=== PATIENT | female | born 1945 | race Caucasian/White ===

== ENCOUNTER 2019-09-24 09:58 | Outpatient (CLI) | payer MEDICARE, SELFPAY ==
[2019-09-24 10:15] LABS: Hematocrit 41.3 % (35.0-42.0); Hemoglobin 13.3 g/dL (11.7-13.8); Mean Corpuscular HGB Conc 32.2 g/dL (32.0-36.0); Mean Corpuscular Hemoglobin 28.8 pg (27.0-31.0); Mean Corpuscular Volume 89.4 fL (78.0-102.0); Mean Platelet Volume 10.3 fl (9.2-11.8); Platelet Count Result 168 K/mm3 (150-420); Red Blood Count 4.62 M/mm3 (4.20-5.40); Red Cell Distribution Width 12.7 % (11.6-14.4); White Blood Count 4.9 K/mm3 (4.8-10.8)
[2019-09-24 10:34] LABS: Alanine Aminotransferase 65 U/L (14-59); Albumin Level 3.6 g/dL (3.4-5.0); Alkaline Phosphatase 211 U/L (46-116); Anion Gap 12.7 mmol/L (7-16); Aspartate Amino Transferase 53 U/L (15-37); Bilirubin,Total 0.6 mg/dL (0.00-1.00); Blood Urea Nitrogen 10 mg/dL (7-18); Calcium 9.3 mg/dL (8.5-10.1); Carbon Dioxide 28 mmol/L (21-32); Chloride 100 mmol/L (98-108); Estimated Glomerular Filt Rate 49; Glucose 211 mg/dL (70-99); Osmolality Calculated 289 mOsm/kg (285-295); Potassium 3.7 mmol/L (3.5-5.1); Sodium 137 mmol/L (136-145); Total Protein 7.6 g/dL (6.4-8.2)
[2019-09-24 10:48] LABS: Band Neutrophils Percent 0 % (0-6); Basophils Absolute Manual 0.04 K/mm3 (0-0.1); Basophils Percent Manual 1 % (0-1); Eosinophils Absolute Manual 0.63 K/mm3 (0.02-0.5); Eosinophils Percent Manual 13 % (1-6); Lymphocytes Absolute Manual 1.22 K/mm3 (1.1-4.5); Lymphocytes Percent Manual 25 % (18-44); Monocytes Absolute Manual 0.29 K/mm3 (0.1-0.90); Monocytes Percent Manual 6 % (3-9); Neutrophils Absolute Manual 2.69 K/mm3 (1.7-7.2); Neutrophils Percent Manual 55 % (46-73); Total Cells Counted 100
[2019-09-24 10:49] LABS: Platelet Estimate Adequate (Adequate)
[2019-09-28 20:18] LABS: Abnormal Protein Band 1 5 mg/dL; Creatinine, Random Urine 33 mg/dL (20-275); Total Protein/Creatinine Ratio 303 mg/g creat (21-161)
[2019-09-28 22:56] LABS: Abnormal Protein Band 1 0.5 g/dL; Albumin 3.8 g/dL (3.8-4.8); Alpha 1 Globulin 0.3 g/dL (0.2-0.3); Alpha 2 Globulin 0.8 g/dL (0.5-0.9); Beta 1 Globulin 0.5 g/dL (0.4-0.6); Protein, Total 6.6 g/dL (6.1-8.1)
[2019-09-28 23:54] LABS: Kappa\\Lambda Light Chains 8.93 (0.26-1.65); Lambda Light Chain 21.7 mg/L (5.7-26.3)
== END 2019-09-24 09:59 | disposition home or self-care (01) ==
LOC: CHSLAB 10:01
PROVIDERS: PCP Internal Medicine; Visit Provider Internal Medicine Hematology & Oncology
DX: D47.2 Monoclonal gammopathy (principal)
CPT/HCPCS: 36415; 80053; 82570; 83883; 84155; 84156; 84165; 84166; 85025

== ENCOUNTER 2019-10-11 10:51 | Outpatient (CLI) | payer MEDICARE, SELFPAY ==
--- NOTE | ~2019-10-11 | US_ITS ---
EXAMINATION: US carotid duplex BI DATE: 10/11/2019 12:08 INDICATION: Carotid bruit TECHNIQUE: Grayscale, color Doppler, and pulsed Doppler images of the cervical carotid arteries were obtained. The degree of vessel stenosis is placed in one of the following categories: normal, <50%, 5 0-69%, >=70% but less than near-occlusion, near-occlusion, or total occlusion. Note that percent sten osis relative to normal distal artery lumen diameter is indirectly measured from velocity measurement s as described by Renzo, et al. Radiology 2003; 229:340-346. Notes: Normal: Peak systolic velocity <125 centimeters/sec and no plaque <50%. Peak systolic velocity <125 ( EDV <40; ICA/CCA PSV ratio <2.0; used these factors only a tandem lesions or low cardiac output or co ntralateral disease) 50-69 %: PSV 125-230 (EDV 40-100; ratio 2-4) >= 70% but less than near occlusion: PSV greater than 230 (EDV > 100; ratio> 4.0) Near Occlusion: PSV that is variable; markedly narrowed lumen Occlusion: Absent flow on color/spectral Doppler and no lumen on suarez scale. COMPARISON: None. FINDINGS: RIGHT: The right common carotid artery (CCA) peak systolic velocity (PSV) is 89 cm/s. The right internal car otid artery (ICA) PSV is 72 cm/s. The right ICA end-diastolic velocity (EDV) is 25 cm/s. The right IC A/CCA PSV ratio is 0.8. The external carotid artery (ECA) PSV is 61 cm/s. There is antegrade flow in the right vertebral artery. LEFT: The left CCA PSV is 70 cm/s. The left ICA PSV is 68 cm/s. The left ICA EDV is 29 cm/s. The left ICA/C CA PSV ratio is 1. The ECA PSV is 63 cm/s. There is antegrade flow in the left vertebral artery. IMPRESSION: 1. Less than 50% stenosis in the right internal carotid artery by sonographic criteria. 2. Less than 50% stenosis in the left internal carotid artery by sonographic criteria. Reviewed, dictated and finalized at location A. ER HELPER IMPRESSION: 1. Less than 50% stenosis in the right internal carotid artery by sonographic jason moss. 2. Less than 50% stenosis in the left internal carotid artery by sonographic loretta aguilera.
== END 2019-10-11 10:52 | disposition home or self-care (01) ==
PROVIDERS: PCP Internal Medicine; Visit Provider Internal Medicine
DX: R01.1 Cardiac murmur, unspecified (principal); R09.89 Other specified symptoms and signs involving the circulatory and respiratory systems
CPT/HCPCS: 93306; 93880

== ENCOUNTER 2020-02-18 09:13 | Outpatient (CLI) | payer MEDICARE, SELFPAY ==
[2020-02-18 09:26] LABS: Hematocrit 40.3 % (35.0-42.0); Hemoglobin 13.1 g/dL (11.7-13.8); Mean Corpuscular HGB Conc 32.5 g/dL (32.0-36.0); Mean Corpuscular Hemoglobin 28.4 pg (27.0-31.0); Mean Corpuscular Volume 87.2 fL (78.0-102.0); Mean Platelet Volume 10.1 fl (9.2-11.8); Platelet Count Result 174 K/mm3 (150-420); Red Blood Count 4.62 M/mm3 (4.20-5.40); White Blood Count 3.8 K/mm3 (4.8-10.8)
[2020-02-18 09:32] LABS: Add Urine Microscopic? YES; Appearance Urine Clear (Clear); Bilirubin Urine Negative (Negative); Blood Urine Negative (Negative); Color Urine Yellow (Yellow); Glucose Urine UA Negative (Negative); Ketones Urine Negative (Negative); Leukocyte Esterase Ur Trace (Negative); Nitrate Urine Negative (Negative); Protein Urine 1+ (Negative); pH Urine 6.5 (5.0-8.0)
[2020-02-18 09:41] LABS: Bacteria Urine Trace /hpf; RBC Urine 0-2 /hpf (0-2); Squamous Epithelial Cell Urine Few /hpf (Few); WBC Urine 0-3 /hpf (0-3)
[2020-02-18 09:44] LABS: Creatinine Urine 212.06 mg/dL (40-278)
[2020-02-18 09:53] LABS: Band Neutrophils Percent 0 % (0-6); Basophils Absolute Manual 0.03 K/mm3 (0-0.1); Basophils Percent Manual 1 % (0-1); Eosinophils Absolute Manual 0.49 K/mm3 (0.02-0.5); Eosinophils Percent Manual 13 % (1-6); Hemoglobin A1C 6.5 % (<5.7); Lymphocytes Percent Manual 29 % (18-44); MALB Creatinine Ratio 45.8 mg/g (0-30); Microalbumin Urine Random 97.3 mg/L; Monocytes Absolute Manual 0.19 K/mm3 (0.1-0.90); Monocytes Percent Manual 5 % (3-9); Neutrophils Absolute Manual 1.97 K/mm3 (1.7-7.2); Neutrophils Percent Manual 52 % (46-73); Platelet Estimate Adequate (Adequate); Total Cells Counted 100
[2020-02-18 10:40] LABS: Alanine Aminotransferase 45 U/L (14-59); Albumin Level 3.5 g/dL (3.4-5.0); Alkaline Phosphatase 168 U/L (46-116); Anion Gap 9.2 mmol/L (7-16); Aspartate Amino Transferase 34 U/L (15-37); Bilirubin,Total 0.5 mg/dL (0.00-1.00); Blood Urea Nitrogen 9 mg/dL (7-18); Calcium 9.3 mg/dL (8.5-10.1); Carbon Dioxide 32 mmol/L (21-32); Chloride 103 mmol/L (98-108); Cholesterol 223 mg/dL (0-200); Creatine Kinase 63 U/L (26-192); Estimated Glomerular Filt Rate > 60; Ferritin 132 ng/mL (8-252); Free T4 Free Thyroxine 1.24 ng/dL (0.76-1.46); Glucose 135 mg/dL (70-99); HDL Direct 126 mg/dL (40-60); Iron 113 ug/dL (50-170); LDL Cholesterol Calculated 86 mg/dL (<130); Osmolality Calculated 290 mOsm/kg (285-295); Percent Iron Saturation 38 % (12-57); Potassium 4.2 mmol/L (3.5-5.1); Sodium 140 mmol/L (136-145); Thyroid Stimulating Hormone 0.17 uIU/mL (0.36-3.74); Total Protein 6.7 g/dL (6.4-8.2); Triglycerides 54 mg/dL (0-150); Uric Acid 3.8 mg/dL (2.6-6.0)
[2020-02-21 19:41] LABS: Vitamin D 25 Hydroxy 27 ng/mL (30-100)
[2020-02-22 21:40] LABS: Abnormal Protein Band 1 0.5 g/dL; Albumin 3.9 g/dL (3.8-4.8); Alpha 1 Globulin 0.3 g/dL (0.2-0.3); Alpha 2 Globulin 0.7 g/dL (0.5-0.9); Beta 1 Globulin 0.4 g/dL (0.4-0.6); Protein, Total 6.6 g/dL (6.1-8.1)
== END 2020-02-18 09:14 | disposition home or self-care (01) ==
LOC: CHSLAB 09:15
PROVIDERS: PCP Internal Medicine; Visit Provider Internal Medicine
DX: D50.0 Iron deficiency anemia secondary to blood loss (chronic) (principal); E55.9 Vitamin D deficiency, unspecified; D47.2 Monoclonal gammopathy; E03.4 Atrophy of thyroid (acquired); I10 Essential (primary) hypertension; E78.2 Mixed hyperlipidemia; E79.0 Hyperuricemia without signs of inflammatory arthritis and tophaceous disease; E11.9 Type 2 diabetes mellitus without complications
CPT/HCPCS: 36415; 80053; 80061; 81001; 82043; 82306; 82550; 82728; 83036; 83540; 83550; 84155; 84165; 84439; 84443; 84550; 85025; 86334

== ENCOUNTER 2020-05-10 09:42 | Outpatient (CLI) | payer MEDICARE, SELFPAY ==
[2020-05-10 11:06] LABS: Free T4 Free Thyroxine 1.28 ng/dL (0.76-1.46); Thyroid Stimulating Hormone 0.35 uIU/mL (0.36-3.74)
== END 2020-05-10 09:43 | disposition home or self-care (01) ==
LOC: CHSLAB 09:47
PROVIDERS: PCP Internal Medicine; Visit Provider Internal Medicine
DX: E03.9 Hypothyroidism, unspecified (principal); E11.65 Type 2 diabetes mellitus with hyperglycemia
CPT/HCPCS: 36415; 84439; 84443

== ENCOUNTER 2020-06-28 10:52 | Outpatient (CLI) | payer MEDICARE, SELFPAY ==
--- NOTE | ~2020-06-28 | MM_ITS ---
EXAMINATION: MM screening rina BI w alejandro HISTORY: Screening mammogram, history of left breast cancer TECHNIQUE: Craniocaudal and mediolateral oblique 3-D tomosynthesis images were obtained and synthetic 2-D images were generated. CAD analysis was submitted and interpreted. COMPARISON: 01/21/2019, 11/13/2016, 11/13/2015 BREAST PARENCHYMAL COMPOSITION: There are scattered areas of fibroglandular density. FINDINGS: Lumpectomy changes are noted in the left breast. There is no evidence of suspicious mass, c alcification, or architectural distortion to suggest malignancy in either breast. There has been no s uspicious interval change. IMPRESSION: 1. No mammographic evidence of malignancy. 2. Recommend routine screening mammography in one year. BI-RADS Category 2: Benign finding(s). Reviewed, dictated and finalized at location A. ING ASSOCIATE
== END 2020-06-28 10:53 | disposition home or self-care (01) ==
LOC: CHSIMG 10:55
PROVIDERS: PCP Internal Medicine; Visit Provider Internal Medicine
DX: Z12.31 Encounter for screening mammogram for malignant neoplasm of breast (principal)
CPT/HCPCS: 77063; 77067

== ENCOUNTER 2020-09-07 07:56 | Outpatient (CLI) | payer MEDICARE, SELFPAY ==
[2020-09-07 08:09] LABS: Basophils Absolute Auto 0.06 K/mm3 (0.00-0.10); Basophils Percent Auto 1.5 % (0.0-1.0); Eosinophils Absolute Auto 0.25 K/mm3 (0.02-0.50); Eosinophils Percent Auto 6.3 % (1.0-6.0); Hematocrit 39.8 % (35.0-42.0); Hemoglobin 12.8 g/dL (11.7-13.8); Immature Granulocyte Absolute 0.02 K/mm3 (0.00-0.00); Immature Granulocyte Percent A 0.5 % (0.0-0.0); Lymphocytes Absolute Auto 1.13 K/mm3 (1.10-4.50); Lymphocytes Percent Auto 28.3 % (18.0-42.0); Mean Corpuscular HGB Conc 32.2 g/dL (32.0-36.0); Mean Corpuscular Hemoglobin 28.7 pg (27.0-31.0); Mean Corpuscular Volume 89.2 fL (78.0-102.0); Mean Platelet Volume 10.2 fl (9.2-11.8); Monocytes Absolute Auto 0.31 K/mm3 (0.10-0.90); Monocytes Percent Auto 7.8 % (2.0-11.0); Neutrophils Absolute Auto 2.2 K/mm3 (1.7-7.2); Neutrophils Percent Auto 55.6 % (50.0-70.0); Platelet Count Result 186 K/mm3 (150-420); Red Blood Count 4.46 M/mm3 (4.20-5.40); Red Cell Distribution Width 12.7 % (11.6-14.4)
[2020-09-07 08:17] LABS: Add Urine Microscopic? YES; Appearance Urine Clear (Clear); Bilirubin Urine Negative (Negative); Blood Urine Negative (Negative); Color Urine Yellow (Yellow); Glucose Urine UA Negative (Negative); Ketones Urine Negative (Negative); Leukocyte Esterase Ur Trace (Negative); Nitrate Urine Negative (Negative); Protein Urine Negative (Negative); Specific Grav Ur 1.025 (1.010-1.020); Urobilinogen Urine 0.2 mg/dL (0.2-1.0)
[2020-09-07 08:37] LABS: MALB Creatinine Ratio 7.9 mg/g (0-30); Microalbumin Urine Random < 13.0 mg/L
[2020-09-07 08:40] LABS: Bacteria Urine 2+ /hpf; Squamous Epithelial Cell Urine Few /hpf (Few); WBC Urine 0-3 /hpf (0-3)
[2020-09-07 09:27] LABS: Alanine Aminotransferase 34 U/L (14-59); Albumin Level 3.9 g/dL (3.4-5.0); Alkaline Phosphatase 161 U/L (46-116); Anion Gap 6 mmol/L (8-16); Aspartate Amino Transferase 21 U/L (15-37); Bilirubin,Total 0.6 mg/dL (0.00-1.00); Blood Urea Nitrogen 18 mg/dL (7-18); Calcium 9.7 mg/dL (8.5-10.1); Carbon Dioxide 30 mmol/L (21-32); Chloride 102 mmol/L (98-108); Cholesterol 235 mg/dL (0-200); Creatine Kinase 75 U/L (26-192); Estimated Glomerular Filt Rate 56; Free T4 Free Thyroxine 1.32 ng/dL (0.76-1.46); Glucose 138 mg/dL (70-99); HDL Direct 135 mg/dL (40-60); LDL Cholesterol Calculated 89 mg/dL (<130); Osmolality Calculated 289 mOsm/kg (285-295); Potassium 4.1 mmol/L (3.5-5.1); Sodium 138 mmol/L (136-145); Thyroid Stimulating Hormone 0.47 uIU/mL (0.36-3.74); Total Protein 6.9 g/dL (6.4-8.2); Triglycerides 56 mg/dL (0-150)
[2020-09-07 09:57] LABS: Free T3 2.17 pg/mL (2.18-3.98)
[2020-09-09 12:16] LABS: Vitamin D 25 Hydroxy 32 ng/mL (30-100)
== END 2020-09-07 07:57 | disposition home or self-care (01) ==
LOC: CHSLAB 07:58
PROVIDERS: PCP Internal Medicine; Visit Provider Internal Medicine
DX: E03.4 Atrophy of thyroid (acquired) (principal); E11.22 Type 2 diabetes mellitus with diabetic chronic kidney disease; I10 Essential (primary) hypertension; E78.2 Mixed hyperlipidemia; E79.0 Hyperuricemia without signs of inflammatory arthritis and tophaceous disease; I50.22 Chronic systolic (congestive) heart failure; E55.9 Vitamin D deficiency, unspecified
CPT/HCPCS: 36415; 80053; 80061; 81001; 82043; 82306; 82550; 83036; 84439; 84443; 84481; 85025

== ENCOUNTER 2020-09-21 09:14 | Outpatient (CLI) | payer MEDICARE, SELFPAY ==
[2020-09-21 09:53] LABS: Basophils Absolute Auto 0.07 K/mm3 (0.00-0.10); Basophils Percent Auto 1.4 % (0.0-1.0); Eosinophils Absolute Auto 0.28 K/mm3 (0.02-0.50); Eosinophils Percent Auto 5.7 % (1.0-6.0); Hematocrit 40.1 % (35.0-42.0); Hemoglobin 13.1 g/dL (11.7-13.8); Immature Granulocyte Absolute 0.01 K/mm3 (0.00-0.00); Immature Granulocyte Percent A 0.2 % (0.0-0.0); Lymphocytes Absolute Auto 1.15 K/mm3 (1.10-4.50); Lymphocytes Percent Auto 23.5 % (18.0-42.0); Mean Corpuscular HGB Conc 32.7 g/dL (32.0-36.0); Mean Corpuscular Hemoglobin 28.9 pg (27.0-31.0); Mean Corpuscular Volume 88.5 fL (78.0-102.0); Mean Platelet Volume 10.8 fl (9.2-11.8); Monocytes Absolute Auto 0.42 K/mm3 (0.10-0.90); Monocytes Percent Auto 8.6 % (2.0-11.0); Neutrophils Percent Auto 60.6 % (50.0-70.0); Platelet Count Result 185 K/mm3 (150-420); Red Blood Count 4.53 M/mm3 (4.20-5.40); Red Cell Distribution Width 12.7 % (11.6-14.4); White Blood Count 4.9 K/mm3 (4.8-10.8)
[2020-09-21 10:36] LABS: Alanine Aminotransferase 41 U/L (14-59); Albumin Level 3.9 g/dL (3.4-5.0); Alkaline Phosphatase 168 U/L (46-116); Anion Gap 10 mmol/L (8-16); Aspartate Amino Transferase 29 U/L (15-37); Bilirubin,Total 0.7 mg/dL (0.00-1.00); Blood Urea Nitrogen 14 mg/dL (7-18); Calcium 9.4 mg/dL (8.5-10.1); Carbon Dioxide 30 mmol/L (21-32); Chloride 100 mmol/L (98-108); Estimated Glomerular Filt Rate > 60; Ferritin 134 ng/mL (8-252); Glucose 128 mg/dL (70-99); Iron 116 ug/dL (50-170); Lactate Dehydrogenase 217 U/L (81-234); Osmolality Calculated 292 mOsm/kg (285-295); Percent Iron Saturation 35 % (12-57); Potassium 4.2 mmol/L (3.5-5.1); Sodium 140 mmol/L (136-145); Total Protein 7.3 g/dL (6.4-8.2)
[2020-09-24 09:22] LABS: Kappa\\Lambda Light Chains 11.83 (0.26-1.65); Lambda Light Chain 19.9 mg/L (5.7-26.3)
[2020-09-24 19:45] LABS: Abnormal Protein Band 1 0.5 g/dL; Alpha 1 Globulin 0.3 g/dL (0.2-0.3); Alpha 2 Globulin 0.8 g/dL (0.5-0.9); Beta 1 Globulin 0.5 g/dL (0.4-0.6); Protein, Total 6.8 g/dL (6.1-8.1)
[2020-09-26 10:50] LABS: Beta-2-Microglobulin 2.83 mg/L (<=2.51); Immunoglobulin A 88 mg/dL (70-320); Immunoglobulin G 1057 mg/dL (600-1540); Immunoglobulin M 91 mg/dL (50-300)
[2020-09-26 20:31] LABS: Transferrin 282 mg/dL (188-341)
== END 2020-09-21 09:15 | disposition home or self-care (01) ==
PROVIDERS: PCP Internal Medicine; Visit Provider Internal Medicine Hematology & Oncology
DX: D47.2 Monoclonal gammopathy (principal); D50.9 Iron deficiency anemia, unspecified
CPT/HCPCS: 36415; 80053; 82232; 82728; 82784; 83540; 83550; 83615; 83883; 84155; 84165; 84466; 85025; 86334

== ENCOUNTER 2020-10-09 10:08 | Outpatient (CLI) | payer MEDICARE, SELFPAY ==
[2020-10-09 10:22] LABS: Add Urine Microscopic? NO; Appearance Urine Clear (Clear); Bilirubin Urine Negative (Negative); Blood Urine Negative (Negative); Color Urine Yellow (Yellow); Glucose Urine UA Negative (Negative); Ketones Urine Negative (Negative); Leukocyte Esterase Ur Negative (Negative); Nitrate Urine Negative (Negative); Protein Urine Negative (Negative); Specific Grav Ur 1.015 (1.010-1.020); Urobilinogen Urine 0.2 mg/dL (0.2-1.0)
== END 2020-10-09 10:09 | disposition home or self-care (01) ==
LOC: CHSLAB 10:11
PROVIDERS: PCP Internal Medicine; Visit Provider Internal Medicine
DX: R31.9 Hematuria, unspecified (principal)
CPT/HCPCS: 81003; 87086; 88112

== ENCOUNTER 2020-10-24 07:40 | Outpatient (CLI) | payer MEDICARE, SELFPAY ==
--- NOTE | ~2020-10-24 | CT_ITS ---
EXAMINATION: CT abdomen pelvis wo/w con DATE: 10/24/2020 08:41 INDICATION: Hematuria, history of left breast cancer TECHNIQUE: Computed tomography (CT) of the abdomen and pelvis was performed without intravenous contr ast. CT of the abdomen and pelvis was then performed with a total of 130 mL Omnipaque 350 intravenous contrast using a double-bolus technique for simultaneous opacification of the renal parenchyma and r enal collecting system. The dose-length product (DLP) was 1153.45 mGy-cm. Automated exposure control and iterative reconstruction technique were employed. COMPARISON: 08/18/2006 FINDINGS: There is a 6 mm nodule in the right lower lobe on image 17, new since the comparison examin ation. The heart size is normal. There is a small sliding hiatal hernia. The gallbladder is surgicall y absent. There is mild enlargement of the common bile duct and central intrahepatic ducts which is l ikely due to post cholecystectomy state. The liver, spleen, pancreas, and adrenal glands are normal. No stones are identified in the kidneys, ureters, or bladder. There is no hydronephrosis or hydrouret er. There is a 6 mm hemorrhagic cyst of the left kidney lower pole. No suspicious renal or urothelial lesion is identified. Evaluation of the distal ureters and bladder is limited by streak artifact fro m bilateral hip arthroplasties. Cysts of the right kidney measure up to 4 mm. No pathologically enlar ged abdominal or pelvic lymph nodes are identified. There is no free intraperitoneal gas or evidence of bowel obstruction. A moderate volume of colonic stool is present. There is severe thoracolumbar sp ondylosis. IMPRESSION: 1. No CT correlate for the patient's symptoms. Sensitivity in the bladder is limited by streak artifa ct from hip arthroplasties. 2. 6 mm nodule of the right lower lobe, indeterminate given history of left breast cancer. Reviewed, dictated and finalized at location A. Y CARVER IMPRESSION: 1. No CT correlate for the patient's symptoms. Sensitivity in the bladder is li mited by streak artifact from hip arthroplasties. 2. 6 mm nodule of the right lower lobe, indeterminate given history of left joan ast cancer.
--- NOTE | ~2020-10-24 | US_ITS ---
EXAMINATION: US carotid duplex BI EXAM DATE: 10/24/2020 12:19 INDICATION: Carotid Stenosis, Hematuria. TECHNIQUE: Grayscale, color and pulsed Doppler images of the cervical carotid arteries were obtained . The degree of vessel stenosis is placed in one of the following categories: normal, <50% stenosis, 50-69% stenosis, >=70% stenosis but less than near-occlusion, near-occlusion, or occlusion. Note that percent stenosis relative to normal distal artery lumen diameter is indirectly measured from velocit y measurements as described by Renzo, et al. Radiology 2003; [id number]:340-346. Comparison is made to prior examination from 10/11/2019. FINDINGS: RIGHT SIDE: Right common carotid artery peak systolic velocity (PSV in cm/s): 64 Right bulb/internal carotid artery peak systolic velocity (PSV in cm/s): 89 Right internal carotid artery end diastolic velocity (EDV in cm/s): 38 Right ICA/CCA peak systolic ratio: 1.4 Right external carotid artery peak systolic velocity (PSV in cm/s): 88 Right vertebral artery antegrade flow: yes There is no focal plaque identified. LEFT SIDE: Left common carotid artery peak systolic velocity (PSV in cm/s): 76 Left bulb/internal carotid artery peak systolic velocity (PSV in cm/s): 75 Left internal carotid artery end diastolic velocity (EDV in cm/s): 32 Left ICA/CCA peak systolic ratio: 1.0 Left external carotid artery peak systolic velocity (PSV in cm/s): 78 Left vertebral artery antegrade flow: yes There is no focal plaque identified. IMPRESSION: 1. Normal right internal carotid artery. 2. Normal left internal carotid artery. Reviewed, dictated and finalized at location B. LOGY NAVIGATOR
[2020-10-24 08:01] LABS: Estimated Glomerular Filt Rate 52
== END 2020-10-24 07:41 | disposition home or self-care (01) ==
PROVIDERS: PCP Internal Medicine; Visit Provider Internal Medicine
DX: R31.9 Hematuria, unspecified (principal); I65.23 Occlusion and stenosis of bilateral carotid arteries
CPT/HCPCS: 36415; 74178; 82565; 93880; Q9967

== ENCOUNTER 2021-03-08 08:25 | Outpatient (CLI) | payer MEDICARE, SELFPAY ==
[2021-03-08 08:45] LABS: Hemoglobin 13.1 g/dL (11.7-13.8); Mean Corpuscular HGB Conc 32.8 g/dL (32.0-36.0); Mean Corpuscular Volume 88.5 fL (78.0-102.0); Mean Platelet Volume 10.3 fl (9.2-11.8); Platelet Count Result 183 K/mm3 (150-420); Red Blood Count 4.52 M/mm3 (4.20-5.40); Red Cell Distribution Width 12.7 % (11.6-14.4); White Blood Count 3.8 K/mm3 (4.8-10.8)
[2021-03-08 08:46] LABS: Add Urine Microscopic? NO; Appearance Urine Clear (Clear); Bilirubin Urine Negative (Negative); Blood Urine Negative (Negative); Color Urine Light Yellow (Yellow); Glucose Urine UA Negative (Negative); Ketones Urine Negative (Negative); Leukocyte Esterase Ur Negative (Negative); Nitrate Urine Negative (Negative); Protein Urine Negative (Negative); Specific Grav Ur <= 1.005 (1.010-1.020); Urobilinogen Urine 0.2 mg/dL (0.2-1.0)
[2021-03-08 08:54] LABS: Creatinine Urine 71.68 mg/dL (40-278); MALB Creatinine Ratio 18.1 mg/g (0-30); Microalbumin Urine Random < 13.0 mg/L
[2021-03-08 08:58] LABS: Hemoglobin A1C 6.1 % (<5.7)
[2021-03-08 09:15] LABS: Band Neutrophils Percent 0 % (0-6); Basophils Absolute Manual 0.03 K/mm3 (0-0.1); Basophils Percent Manual 1 % (0-1); Eosinophils Absolute Manual 0.26 K/mm3 (0.02-0.5); Eosinophils Percent Manual 7 % (1-6); Lymphocytes Absolute Manual 1.33 K/mm3 (1.1-4.5); Lymphocytes Percent Manual 35 % (18-44); Monocytes Absolute Manual 0.26 K/mm3 (0.1-0.90); Monocytes Percent Manual 7 % (3-9); Neutrophils Percent Manual 50 % (46-73); Platelet Estimate Adequate (Adequate); Total Cells Counted 100
[2021-03-08 10:04] LABS: Alanine Aminotransferase 31 U/L (14-59); Albumin Level 3.6 g/dL (3.4-5.0); Alkaline Phosphatase 128 U/L (46-116); Anion Gap 9 mmol/L (8-16); Aspartate Amino Transferase 17 U/L (15-37); Bilirubin,Total 0.7 mg/dL (0.00-1.00); Blood Urea Nitrogen 12 mg/dL (7-18); Calcium 9.5 mg/dL (8.5-10.1); Carbon Dioxide 31 mmol/L (21-32); Chloride 102 mmol/L (98-108); Cholesterol 221 mg/dL (0-200); Creatine Kinase 79 U/L (26-192); Estimated Glomerular Filt Rate > 60; Free T3 2.17 pg/mL (2.18-3.98); Free T4 Free Thyroxine 1.19 ng/dL (0.76-1.46); Glucose 128 mg/dL (70-99); HDL Direct 130 mg/dL (40-60); LDL Cholesterol Calculated 80 mg/dL (<130); Osmolality Calculated 295 mOsm/kg (285-295); Potassium 4.6 mmol/L (3.5-5.1); Sodium 142 mmol/L (136-145); Thyroid Stimulating Hormone 0.32 uIU/mL (0.36-3.74); Total Protein 6.7 g/dL (6.4-8.2); Triglycerides 54 mg/dL (0-150); Vitamin B12 845 pg/mL (193-986)
[2021-03-12 02:55] LABS: Vitamin D 25 Hydroxy 31 ng/mL (30-100)
== END 2021-03-08 08:26 | disposition home or self-care (01) ==
LOC: CHSLAB 08:27
PROVIDERS: PCP Internal Medicine; Visit Provider Internal Medicine
DX: E78.2 Mixed hyperlipidemia (principal); E03.4 Atrophy of thyroid (acquired); E11.9 Type 2 diabetes mellitus without complications; I10 Essential (primary) hypertension; E55.9 Vitamin D deficiency, unspecified; E79.0 Hyperuricemia without signs of inflammatory arthritis and tophaceous disease
CPT/HCPCS: 36415; 80053; 80061; 81003; 82043; 82306; 82550; 82607; 83036; 84439; 84443; 84481; 85025

== ENCOUNTER 2021-05-03 07:07 | Outpatient (CLI) | payer MEDICARE, SELFPAY ==
--- NOTE | ~2021-05-03 | CT_ITS ---
EXAMINATION: CT diagnostic chest w con DATE: 05/03/2021 08:38 INDICATION: Shortness of breath, pulmonary nodule, history of breast cancer TECHNIQUE: Transaxial computed tomographic images of the chest were obtained after the administration of 75 cc of Omnipaque 350 intravenous contrast. The dose-length product (DLP) was 145.84 mGy-cm. Ite rative reconstruction was used. COMPARISON: 10/24/2020 FINDINGS: There are at least eight nodules in the lungs which range in size from 4 mm to 12 mm. The l argest is in the left lung apex. No pleural effusion or pneumothorax is identified. The lungs are guillermo e of focal airspace opacities. There are surgical clips in the left axilla. The heart size is normal. No thoracic lymphadenopathy is identified. There are changes of aortic valve replacement. There is s evere thoracic and lumbar spondylosis. The gallbladder is surgically absent. There is a small sliding hiatal hernia. IMPRESSION: 1. Multiple pulmonary nodules measuring up to 12 mm concerning for metastatic breast cancer. Reviewed, dictated and finalized at location A. IMPRESSION: 1. Multiple pulmonary nodules measuring up to 12 mm concerning for metastatic b reast cancer.
[2021-05-03 07:24] LABS: Estimated Glomerular Filt Rate 57
== END 2021-05-03 07:08 | disposition home or self-care (01) ==
LOC: CHSIMG 07:09
PROVIDERS: PCP Internal Medicine; Visit Provider Internal Medicine
DX: R06.00 Dyspnea, unspecified (principal); R91.1 Solitary pulmonary nodule
CPT/HCPCS: 71260; 93306; Q9967

== ENCOUNTER 2021-05-04 10:39 | Outpatient (CLI) | payer MEDICARE, SELFPAY ==
[2021-05-04 10:59] LABS: Basophils Absolute Auto 0.06 K/mm3 (0.00-0.10); Eosinophils Absolute Auto 0.28 K/mm3 (0.02-0.50); Eosinophils Percent Auto 4.5 % (1.0-6.0); Hematocrit 39.2 % (35.0-42.0); Hemoglobin 12.8 g/dL (11.7-13.8); Immature Granulocyte Absolute 0.01 K/mm3 (0.00-0.00); Immature Granulocyte Percent A 0.2 % (0.0-0.0); Lymphocytes Absolute Auto 1.46 K/mm3 (1.10-4.50); Lymphocytes Percent Auto 23.2 % (18.0-42.0); Mean Corpuscular HGB Conc 32.7 g/dL (32.0-36.0); Mean Corpuscular Hemoglobin 29.2 pg (27.0-31.0); Mean Corpuscular Volume 89.5 fL (78.0-102.0); Mean Platelet Volume 10.2 fl (9.2-11.8); Monocytes Absolute Auto 0.44 K/mm3 (0.10-0.90); Neutrophils Percent Auto 64.1 % (50.0-70.0); Platelet Count Result 195 K/mm3 (150-420); Red Blood Count 4.38 M/mm3 (4.20-5.40); Red Cell Distribution Width 12.6 % (11.6-14.4); White Blood Count 6.3 K/mm3 (4.8-10.8)
[2021-05-04 12:25] LABS: Alanine Aminotransferase 41 U/L (14-59); Albumin Level 3.8 g/dL (3.4-5.0); Alkaline Phosphatase 134 U/L (46-116); Anion Gap 10 mmol/L (8-16); Aspartate Amino Transferase 26 U/L (15-37); Bilirubin,Total 0.5 mg/dL (0.00-1.00); Blood Urea Nitrogen 12 mg/dL (7-18); Calcium 9.4 mg/dL (8.5-10.1); Carbon Dioxide 29 mmol/L (21-32); Chloride 102 mmol/L (98-108); Estimated Glomerular Filt Rate > 60; Glucose 93 mg/dL (70-99); Lactate Dehydrogenase 213 U/L (81-234); Osmolality Calculated 291 mOsm/kg (285-295); Potassium 4.5 mmol/L (3.5-5.1); Sodium 141 mmol/L (136-145); Total Protein 6.7 g/dL (6.4-8.2)
[2021-05-07 16:51] LABS: Abnormal Protein Band 1 0.5 g/dL; Albumin 4.1 g/dL (3.8-4.8); Alpha 1 Globulin 0.4 g/dL (0.2-0.3); Alpha 2 Globulin 0.8 g/dL (0.5-0.9); Beta 1 Globulin 0.5 g/dL (0.4-0.6); Protein, Total 6.9 g/dL (6.1-8.1)
[2021-05-07 23:40] LABS: Kappa\\Lambda Light Chains 15.45 (0.26-1.65); Lambda Light Chain 20.1 mg/L (5.7-26.3)
[2021-05-08 07:37] LABS: CA 15-3 9 U/mL (<32); Carcinoembryonic Antigen 0.5 ng/mL (0.0-2.4)
[2021-05-08 22:10] LABS: Beta-2-Microglobulin 2.98 mg/L (<=2.51)
[2021-05-10 07:42] LABS: Abnormal Protein Band 1 2 mg/dL; Creatinine, Random Urine 22 mg/dL (20-275); Total Protein/Creatinine Ratio 591 mg/g creat (21-161)
== END 2021-05-04 10:40 | disposition home or self-care (01) ==
LOC: CHSLAB 10:42
PROVIDERS: PCP Internal Medicine; Visit Provider Internal Medicine Hematology & Oncology
DX: D47.2 Monoclonal gammopathy (principal); Z85.3 Personal history of malignant neoplasm of breast
CPT/HCPCS: 36415; 80053; 82232; 82378; 82570; 83615; 83883; 84155; 84156; 84165; 84166; 85025; 86300; 86334; 86335

== ENCOUNTER 2021-05-07 09:52 | Outpatient (CLI) | payer MEDICARE, SELFPAY ==
--- NOTE | ~2021-05-07 | NM_ITS ---
EXAMINATION: NM bone scan whole body DATE: 05/07/2021 14:59 INDICATION: Breast cancer. Right leg pain. TECHNIQUE: 28.0 mCi Tc-99m HDP was administered intravenously. Delayed whole-body scintigrams were o btained. COMPARISON: CT abdomen and pelvis dated 05/07/2021 and bone survey dated 03/08/2019 FINDINGS: Photopenic defects at the bilateral hips consistent with bilateral total hip arthroplasties. Likely d egenerative joint centered uptake at the bilateral acromioclavicular joints and in the bilateral feet with relatively symmetric distribution. Mild lumbar dextroscoliosis with likely degenerative disc ce ntered uptake most prominent at the upper lumbar spine and facet joint associated uptake with lower l umbar predominance with corresponding severe upper lumbar spine predominant spondylosis on CT images. IMPRESSION: 1. Typical distribution of likely degenerative disc and joint centered uptake in the lumbar spine and at the bilateral acromioclavicular joints and feet. No other suspicious foci of abnormal bone uptake to suggest metastatic disease. Reviewed, dictated and finalized at location A. IMPRESSION: 1. Typical distribution of likely degenerative disc and joint centered uptake i n the lumbar spine and at the bilateral acromioclavicular joints and feet. No o ther suspicious foci of abnormal bone uptake to suggest metastatic disease.
--- NOTE | ~2021-05-07 | CT_ITS ---
EXAMINATION: CT abdomen pelvis w con DATE: 05/07/2021 10:40 INDICATION: Possible metastatic breast cancer to the lung. TECHNIQUE: Computed tomography (CT) of the abdomen and pelvis was performed with 100 cc Omnipaque 350 intravenous contrast. The dose-length product was 510.91 mGy-cm. Automated exposure control and iter ative reconstruction technique were employed. COMPARISON: CT dated 10/24/2020. FINDINGS: There is a 7 mm right lower lobe nodule, image 12. Heart size is normal. There is a hiatal hernia. No significant pleural or pericardial effusion. Status post cholecystectomy. There is fatty infiltration of the liver. The spleen, pancreas, adrenal glands and kidneys are unremarkable. There is moderate fluid in the small bowel which does not appear to be obstructed. No colonic diverticulosis without evidence for diverticulitis. There are bilateral total hip arthroplasties. Advanced lumbar spondylosis with grade 1 degenerative spondylolisthesis at L4-5. No acute osseous abnormality. There are bilateral hip arthroplasties. IMPRESSION: 1. No significant change to 7 mm right lower lobe nodule. Cannot exclude metastatic disease. 2: Nonspecific fluid in the small bowel. No definite obstruction. Consider enteritis or ileus. 3: Hepatic steatosis. Reviewed, dictated and finalized at location A. IMPRESSION: 1. No significant change to 7 mm right lower lobe nodule. Cannot exclude metast atic disease. 2: Nonspecific fluid in the small bowel. No definite obstruction. Consider ent eritis or ileus. 3: Hepatic steatosis.
== END 2021-05-07 09:53 | disposition home or self-care (01) ==
LOC: CHSIMG 09:54
PROVIDERS: PCP Internal Medicine; Visit Provider Internal Medicine
DX: R91.8 Other nonspecific abnormal finding of lung field (principal); Z85.3 Personal history of malignant neoplasm of breast; D47.2 Monoclonal gammopathy
CPT/HCPCS: 74177; 78306; A9561; Q9967

== ENCOUNTER 2021-06-09 08:00 | Outpatient (CLI) | payer MEDICARE, SELFPAY ==
[2021-06-09 09:15] LABS: SARS-CoV-2 RNA PCR Negative (Negative)
== END 2021-06-09 08:01 | disposition home or self-care (01) ==
LOC: CHSLAB 08:02
PROVIDERS: PCP Internal Medicine; Visit Provider Family Medicine
DX: Z01.818 Encounter for other preprocedural examination (principal); Z20.822 Contact with and (suspected) exposure to COVID-19
CPT/HCPCS: C9803; U0003; U0005

== ENCOUNTER 2021-07-05 11:13 | Outpatient (CLI) | payer MEDICARE, SELFPAY ==
[2021-07-05 11:29] LABS: Basophils Absolute Auto 0.08 K/mm3 (0.00-0.10); Basophils Percent Auto 1.8 % (0.0-1.0); Eosinophils Absolute Auto 0.32 K/mm3 (0.02-0.50); Eosinophils Percent Auto 7.2 % (1.0-6.0); Hematocrit 41.6 % (35.0-42.0); Hemoglobin 13.5 g/dL (11.7-13.8); Immature Granulocyte Absolute 0.01 K/mm3 (0.00-0.00); Immature Granulocyte Percent A 0.2 % (0.0-0.0); Lymphocytes Percent Auto 31.6 % (18.0-42.0); Mean Corpuscular HGB Conc 32.5 g/dL (32.0-36.0); Mean Corpuscular Hemoglobin 29.7 pg (27.0-31.0); Mean Corpuscular Volume 91.4 fL (78.0-102.0); Mean Platelet Volume 10.5 fl (9.2-11.8); Monocytes Absolute Auto 0.33 K/mm3 (0.10-0.90); Monocytes Percent Auto 7.4 % (2.0-11.0); Neutrophils Absolute Auto 2.3 K/mm3 (1.7-7.2); Neutrophils Percent Auto 51.8 % (50.0-70.0); Platelet Count Result 192 K/mm3 (150-420); Red Blood Count 4.55 M/mm3 (4.20-5.40); Red Cell Distribution Width 12.7 % (11.6-14.4); White Blood Count 4.4 K/mm3 (4.8-10.8)
[2021-07-05 12:09] LABS: Alanine Aminotransferase 42 U/L (14-59); Albumin Level 3.7 g/dL (3.4-5.0); Alkaline Phosphatase 160 U/L (46-116); Anion Gap 8 mmol/L (8-16); Aspartate Amino Transferase 28 U/L (15-37); Bilirubin,Total 0.5 mg/dL (0.00-1.00); Blood Urea Nitrogen 13 mg/dL (7-18); Calcium 9.2 mg/dL (8.5-10.1); Carbon Dioxide 30 mmol/L (21-32); Chloride 101 mmol/L (98-108); Estimated Glomerular Filt Rate 59; Glucose 87 mg/dL (70-99); Lactate Dehydrogenase 235 U/L (81-234); Osmolality Calculated 287 mOsm/kg (285-295); Potassium 4.2 mmol/L (3.5-5.1); Sodium 139 mmol/L (136-145); Total Protein 6.9 g/dL (6.4-8.2)
[2021-07-08 04:42] LABS: Kappa\\Lambda Light Chains 19.81 (0.26-1.65); Lambda Light Chain 18.8 mg/L (5.7-26.3)
[2021-07-08 12:08] LABS: Immunoglobulin A 72 mg/dL (70-320); Immunoglobulin G 1034 mg/dL (600-1540); Immunoglobulin M 69 mg/dL (50-300)
[2021-07-08 17:24] LABS: Abnormal Protein Band 1 0.5 g/dL; Albumin 3.9 g/dL (3.8-4.8); Alpha 1 Globulin 0.4 g/dL (0.2-0.3); Alpha 2 Globulin 0.8 g/dL (0.5-0.9); Beta 1 Globulin 0.5 g/dL (0.4-0.6); Gamma Globulin 0.9 g/dL (0.8-1.7); Protein, Total 6.7 g/dL (6.1-8.1)
== END 2021-07-05 11:14 | disposition home or self-care (01) ==
LOC: CHSLAB 11:18
PROVIDERS: PCP Internal Medicine; Visit Provider Internal Medicine Hematology & Oncology
DX: D47.2 Monoclonal gammopathy (principal)
CPT/HCPCS: 36415; 80053; 82784; 83615; 83883; 84155; 84165; 85025

== ENCOUNTER 2021-09-25 07:29 | Outpatient (CLI) | payer MEDICARE, SELFPAY ==
--- NOTE | ~2021-09-25 | CT_ITS ---
EXAMINATION: CT diagnostic chest w con EXAM DATE: 09/25/2021 08:07 INDICATION: Lung nodule follow-up. TECHNIQUE: Spiral CT of the chest following intravenous injection of 75 mL Omnipaque 350. Axial, cor onal and sagittal images of the chest were reviewed. Coronal maximum intensity pixel images of chest reviewed. The dose-length product (DLP) for this examination was 123.44 mGy-cm. The exposure was t ailored according to patient size (auto mA exposure control), and iterative reconstruction (ASIR) was used as additional dose reduction technique. Comparison is made to prior examination from 05/03/2021. FINDINGS: There are 4 round nodules identified within each lung, largest 2 are in the left upper lob e at 1.2 and 1.0 cm. These are stable compared to April. Surgical changes from left axillary lymp h node dissection. Stable mildly dilated ascending aorta at 4.2 cm. Sternotomy wires. No central pulm onary emboli. Aortic valve replacement. There is mild emphysema and hyperinflation. There are no pleu ral or pericardial effusions. Tracheobronchial tree is patent. There is no mediastinal, hilar or axillary lymphadenopathy. There is no pneumothorax. Heart normal in size. There is mild coronar y arterial calcification, arterial sclerosis. There are cholecystectomy clips. There is moderate th oracic spondylosis without osteoblastic or osteolytic lesions identified. IMPRESSION: 1. Stable pulmonary nodules, metastatic disease versus granulomata. Consider one-year follow-up CT c hest without contrast. 2. Mildly dilated ascending aorta. 3. Mild emphysema and hyperinflation. Reviewed, dictated and finalized at location B. INCT POLICE SERGEANT IMPRESSION: 1. Stable pulmonary nodules, metastatic disease versus granulomata. Consider o ne-year follow-up CT chest without contrast. 2. Mildly dilated ascending aorta. 3. Mild emphysema and hyperinflation.
[2021-09-25 07:50] LABS: Estimated Glomerular Filt Rate 58
== END 2021-09-25 07:30 | disposition home or self-care (01) ==
LOC: CHSIMG 07:31
PROVIDERS: PCP Internal Medicine; Visit Provider Internal Medicine Hematology & Oncology
DX: R91.1 Solitary pulmonary nodule (principal)
CPT/HCPCS: 71260; Q9967

== ENCOUNTER 2021-09-28 09:26 | Outpatient (CLI) | payer MEDICARE, SELFPAY ==
[2021-09-28 09:41] LABS: Basophils Absolute Auto 0.08 K/mm3 (0.00-0.10); Eosinophils Absolute Auto 0.28 K/mm3 (0.02-0.50); Hematocrit 39.8 % (35.0-42.0); Hemoglobin 12.9 g/dL (11.7-13.8); Immature Granulocyte Absolute 0.02 K/mm3 (0.00-0.00); Immature Granulocyte Percent A 0.5 % (0.0-0.0); Lymphocytes Absolute Auto 1.31 K/mm3 (1.10-4.50); Lymphocytes Percent Auto 32.7 % (18.0-42.0); Mean Corpuscular HGB Conc 32.4 g/dL (32.0-36.0); Mean Corpuscular Hemoglobin 29.3 pg (27.0-31.0); Mean Corpuscular Volume 90.5 fL (78.0-102.0); Mean Platelet Volume 10.6 fl (9.2-11.8); Monocytes Absolute Auto 0.31 K/mm3 (0.10-0.90); Monocytes Percent Auto 7.7 % (2.0-11.0); Neutrophils Percent Auto 50.1 % (50.0-70.0); Platelet Count Result 182 K/mm3 (150-420); Red Cell Distribution Width 12.4 % (11.6-14.4)
[2021-09-28 10:10] LABS: Alanine Aminotransferase 51 U/L (14-59); Albumin Level 3.5 g/dL (3.4-5.0); Alkaline Phosphatase 169 U/L (46-116); Anion Gap 7 mmol/L (8-16); Aspartate Amino Transferase 32 U/L (15-37); Bilirubin,Total 0.5 mg/dL (0.00-1.00); Blood Urea Nitrogen 13 mg/dL (7-18); Calcium 9.4 mg/dL (8.5-10.1); Carbon Dioxide 32 mmol/L (21-32); Chloride 98 mmol/L (98-108); Estimated Glomerular Filt Rate > 60; Ferritin 110 ng/mL (8-252); Glucose 125 mg/dL (70-99); Lactate Dehydrogenase 207 U/L (81-234); Osmolality Calculated 285 mOsm/kg (285-295); Sodium 137 mmol/L (136-145); Total Protein 7.2 g/dL (6.4-8.2)
[2021-09-28 10:11] LABS: Iron 94 ug/dL (50-170); Percent Iron Saturation 26 % (12-57)
[2021-10-01 15:30] LABS: Kappa\\Lambda Light Chains 31.19 (0.26-1.65); Lambda Light Chain 19.7 mg/L (5.7-26.3)
[2021-10-02 07:18] LABS: Protein, Total 6.8 g/dL (6.1-8.1)
[2021-10-02 07:19] LABS: Abnormal Protein Band 1 0.7 g/dL; Albumin 3.9 g/dL (3.8-4.8); Alpha 1 Globulin 0.3 g/dL (0.2-0.3); Alpha 2 Globulin 0.8 g/dL (0.5-0.9); Beta 1 Globulin 0.5 g/dL (0.4-0.6)
[2021-10-02 12:45] LABS: Beta-2-Microglobulin 3.26 mg/L (<=2.51); Immunoglobulin A 65 mg/dL (70-320); Immunoglobulin G 1150 mg/dL (600-1540); Immunoglobulin M 75 mg/dL (50-300)
== END 2021-09-28 09:27 | disposition home or self-care (01) ==
LOC: CHSLAB 09:28
PROVIDERS: PCP Internal Medicine; Visit Provider Internal Medicine Hematology & Oncology
DX: D47.2 Monoclonal gammopathy (principal); D64.9 Anemia, unspecified
CPT/HCPCS: 36415; 80053; 82232; 82728; 82784; 83540; 83550; 83615; 83883; 84155; 84165; 85025; 86334

== ENCOUNTER 2021-10-03 09:10 | Outpatient (CLI) | payer MEDICARE, SELFPAY ==
[2021-10-03 09:22] LABS: Basophils Absolute Auto 0.08 K/mm3 (0.00-0.10); Basophils Percent Auto 1.7 % (0.0-1.0); Eosinophils Absolute Auto 0.41 K/mm3 (0.02-0.50); Eosinophils Percent Auto 8.6 % (1.0-6.0); Hematocrit 40.4 % (35.0-42.0); Hemoglobin 13.1 g/dL (11.7-13.8); Immature Granulocyte Absolute 0.02 K/mm3 (0.00-0.00); Immature Granulocyte Percent A 0.4 % (0.0-0.0); Lymphocytes Absolute Auto 1.08 K/mm3 (1.10-4.50); Lymphocytes Percent Auto 22.7 % (18.0-42.0); Mean Corpuscular HGB Conc 32.4 g/dL (32.0-36.0); Mean Corpuscular Hemoglobin 29.7 pg (27.0-31.0); Mean Corpuscular Volume 91.6 fL (78.0-102.0); Mean Platelet Volume 10.4 fl (9.2-11.8); Monocytes Absolute Auto 0.35 K/mm3 (0.10-0.90); Monocytes Percent Auto 7.4 % (2.0-11.0); Neutrophils Absolute Auto 2.8 K/mm3 (1.7-7.2); Neutrophils Percent Auto 59.2 % (50.0-70.0); Platelet Count Result 188 K/mm3 (150-420); Red Blood Count 4.41 M/mm3 (4.20-5.40); Red Cell Distribution Width 12.6 % (11.6-14.4); White Blood Count 4.8 K/mm3 (4.8-10.8)
[2021-10-03 09:27] LABS: Add Urine Microscopic? YES; Appearance Urine Clear (Clear); Bilirubin Urine Negative (Negative); Blood Urine Negative (Negative); Color Urine Yellow (Yellow); Glucose Urine UA Negative (Negative); Ketones Urine Negative (Negative); Leukocyte Esterase Ur Trace (Negative); Nitrate Urine Negative (Negative); Protein Urine Negative (Negative); Specific Grav Ur 1.015 (1.010-1.020); Urobilinogen Urine 0.2 mg/dL (0.2-1.0); pH Urine 6.5 (5.0-8.0)
[2021-10-03 09:31] LABS: Bacteria Urine Trace /hpf; RBC Urine None seen /hpf (0-2); Squamous Epithelial Cell Urine Few /hpf (Few); WBC Urine 0-3 /hpf (0-3)
[2021-10-03 09:36] LABS: Hemoglobin A1C 6.7 % (<5.7)
[2021-10-03 09:37] LABS: Creatinine Urine 170.15 mg/dL (40-278); MALB Creatinine Ratio 7.6 mg/g (0-30); Microalbumin Urine Random < 13.0 mg/L
[2021-10-03 10:20] LABS: Alanine Aminotransferase 54 U/L (14-59); Albumin Level 3.6 g/dL (3.4-5.0); Alkaline Phosphatase 176 U/L (46-116); Anion Gap 9 mmol/L (8-16); Aspartate Amino Transferase 36 U/L (15-37); Bilirubin,Total 0.5 mg/dL (0.00-1.00); Blood Urea Nitrogen 17 mg/dL (7-18); Calcium 9.2 mg/dL (8.5-10.1); Carbon Dioxide 30 mmol/L (21-32); Chloride 99 mmol/L (98-108); Cholesterol 244 mg/dL (0-200); Creatine Kinase 72 U/L (26-192); Estimated Glomerular Filt Rate 50; Free T3 2.42 pg/mL (2.18-3.98); Free T4 Free Thyroxine 1.15 ng/dL (0.76-1.46); Glucose 135 mg/dL (70-99); NT Pro B Type Natriuretic Pept 251 pg/mL (0-450); Osmolality Calculated 289 mOsm/kg (285-295); Potassium 4.3 mmol/L (3.5-5.1); Sodium 138 mmol/L (136-145); Thyroid Stimulating Hormone 0.73 uIU/mL (0.36-3.74); Triglycerides 45 mg/dL (0-150); Uric Acid 3.6 mg/dL (2.6-6.0)
[2021-10-03 10:23] LABS: HDL Direct > 150 mg/dL (40-60); LDL Cholesterol Calculated 85 mg/dL (<130)
[2021-10-05 14:54] LABS: Vitamin D 25 Hydroxy 34 ng/mL (30-100)
[2021-10-07 04:34] LABS: Abnormal Protein Band 1 0.7 g/dL; Albumin 3.8 g/dL (3.8-4.8); Alpha 1 Globulin 0.4 g/dL (0.2-0.3); Alpha 2 Globulin 0.8 g/dL (0.5-0.9); Beta 1 Globulin 0.5 g/dL (0.4-0.6); Gamma Globulin 1.1 g/dL (0.8-1.7); Protein, Total 6.8 g/dL (6.1-8.1)
== END 2021-10-03 09:11 | disposition home or self-care (01) ==
LOC: CHSLAB 09:12
PROVIDERS: PCP Internal Medicine; Visit Provider Internal Medicine
DX: E03.4 Atrophy of thyroid (acquired) (principal); E79.0 Hyperuricemia without signs of inflammatory arthritis and tophaceous disease; D47.2 Monoclonal gammopathy; E55.9 Vitamin D deficiency, unspecified; E78.2 Mixed hyperlipidemia; R31.29 Other microscopic hematuria; E11.22 Type 2 diabetes mellitus with diabetic chronic kidney disease; R06.00 Dyspnea, unspecified
CPT/HCPCS: 36415; 80053; 80061; 81001; 82043; 82306; 82550; 83036; 83880; 84155; 84165; 84439; 84443; 84481; 84550; 85025; 86334

== ENCOUNTER 2021-11-08 06:58 | Outpatient (CLI) | payer MEDICARE, SELFPAY ==
--- NOTE | ~2021-11-08 | MM_ITS ---
EXAMINATION: MM screening rina BI w alejandro HISTORY: Screening mammogram TECHNIQUE: Craniocaudal and mediolateral oblique 3-D tomosynthesis images were obtained and synthetic 2-D images were generated. CAD analysis was submitted and interpreted. COMPARISON: 06/28/2020, 01/21/2019, 11/13/2016 bilateral screening mammogram examinations BREAST PARENCHYMAL COMPOSITION: There are scattered areas of fibroglandular density. FINDINGS: There is diminished size of the left breast secondary to prior partial mastectomy for breas t malignancy can with surgical clips again noted anteriorly in the superolateral subareolar area. Scattered bilateral benign calcifications, more numerous on the left. There is no evidence of suspici ous mass, calcification, or architectural distortion to suggest malignancy in either breast. There brar s been no suspicious interval change. IMPRESSION: 1. Status post left partial mastectomy for breast cancer. No mammographic evidence of malignancy. 2. Recommend routine screening mammography in one year. BI-RADS Category 2: Benign finding(s). Reviewed, dictated and finalized at location A. IMPRESSION: 1. Status post left partial mastectomy for breast cancer. No mammographic evide nce of malignancy. 2. Recommend routine screening mammography in one year. BI-RADS Category 2: Benign finding(s).
== END 2021-11-08 06:59 | disposition home or self-care (01) ==
LOC: CHSIMG 07:00
PROVIDERS: PCP Internal Medicine; Visit Provider Internal Medicine
DX: Z12.31 Encounter for screening mammogram for malignant neoplasm of breast (principal)
CPT/HCPCS: 77063; 77067

== ENCOUNTER 2022-04-03 08:40 | Outpatient (CLI) | payer MEDICARE, SELFPAY ==
[2022-04-03 08:56] LABS: Add Urine Microscopic? YES; Appearance Urine Clear (Clear); Bilirubin Urine Negative (Negative); Blood Urine Negative (Negative); Color Urine Yellow (Yellow); Glucose Urine UA Negative (Negative); Ketones Urine Trace (Negative); Leukocyte Esterase Ur 2+ (Negative); Nitrate Urine Negative (Negative); Protein Urine 1+ (Negative); Specific Grav Ur 1.015 (1.010-1.020)
[2022-04-03 08:58] LABS: Hematocrit 38.8 % (35.0-42.0); Hemoglobin 12.4 g/dL (11.7-13.8); Mean Corpuscular Hemoglobin 29.2 pg (27.0-31.0); Mean Corpuscular Volume 91.5 fL (78.0-102.0); Mean Platelet Volume 10.3 fl (9.2-11.8); Platelet Count Result 199 K/mm3 (150-420); Red Blood Count 4.24 M/mm3 (4.20-5.40); Red Cell Distribution Width 13.1 % (11.6-14.4); White Blood Count 3.9 K/mm3 (4.8-10.8)
[2022-04-03 09:06] LABS: Bacteria Urine 1+ /hpf; RBC Urine None seen /hpf (0-2); Squamous Epithelial Cell Urine Few /hpf (Few)
[2022-04-03 09:12] LABS: Hemoglobin A1C 6.5 % (<5.7)
[2022-04-03 09:21] LABS: Alanine Aminotransferase 30 U/L (14-59); Albumin Level 3.4 g/dL (3.4-5.0); Alkaline Phosphatase 162 U/L (46-116); Anion Gap 5 mmol/L (8-16); Aspartate Amino Transferase 28 U/L (15-37); Bilirubin,Total 0.4 mg/dL (0.00-1.00); Blood Urea Nitrogen 12 mg/dL (7-18); Calcium 9.3 mg/dL (8.5-10.1); Carbon Dioxide 30 mmol/L (21-32); Chloride 102 mmol/L (98-108); Cholesterol 214 mg/dL (0-200); Estimated Glomerular Filt Rate 58; Free T4 Free Thyroxine 1.17 ng/dL (0.76-1.46); Glucose 145 mg/dL (70-99); HDL Direct 135 mg/dL (40-60); LDL Cholesterol Calculated 71 mg/dL (<130); Osmolality Calculated 286 mOsm/kg (285-295); Potassium 3.9 mmol/L (3.5-5.1); Sodium 137 mmol/L (136-145); Thyroid Stimulating Hormone 0.97 uIU/mL (0.36-3.74); Total Protein 7.2 g/dL (6.4-8.2); Triglycerides 40 mg/dL (0-150)
[2022-04-03 09:36] LABS: Band Neutrophils Percent 0 % (0-6); Basophils Absolute Manual 0.03 K/mm3 (0-0.1); Basophils Percent Manual 1 % (0-1); Eosinophils Absolute Manual 0.23 K/mm3 (0.02-0.5); Eosinophils Percent Manual 6 % (1-6); Lymphocytes Percent Manual 36 % (18-44); MALB Creatinine Ratio 35.6 mg/g (0-30); Microalbumin Urine Random 77.3 mg/L; Monocytes Absolute Manual 0.27 K/mm3 (0.1-0.90); Monocytes Percent Manual 7 % (3-9); Neutrophils Absolute Manual 1.95 K/mm3 (1.7-7.2); Neutrophils Percent Manual 50 % (46-73); Platelet Estimate Adequate (Adequate); Total Cells Counted 100
[2022-04-07 17:09] LABS: Vitamin D 25 Hydroxy 58 ng/mL (30-100)
== END 2022-04-03 08:41 | disposition home or self-care (01) ==
PROVIDERS: PCP Internal Medicine; Visit Provider Internal Medicine
DX: I50.22 Chronic systolic (congestive) heart failure (principal); I10 Essential (primary) hypertension; E11.9 Type 2 diabetes mellitus without complications; E78.2 Mixed hyperlipidemia; E55.9 Vitamin D deficiency, unspecified; M81.0 Age-related osteoporosis without current pathological fracture; E03.4 Atrophy of thyroid (acquired)
CPT/HCPCS: 36415; 80053; 80061; 81001; 82043; 82306; 83036; 84439; 84443; 84481; 85025

== ENCOUNTER 2022-04-26 12:52 | Outpatient (CLI) | payer MEDICARE, SELFPAY ==
[2022-04-26 13:09] LABS: Hematocrit 37.7 % (35.0-42.0); Hemoglobin 12.2 g/dL (11.7-13.8); Mean Corpuscular HGB Conc 32.4 g/dL (32.0-36.0); Mean Corpuscular Hemoglobin 29.5 pg (27.0-31.0); Mean Corpuscular Volume 91.3 fL (78.0-102.0); Mean Platelet Volume 10.1 fl (9.2-11.8); Platelet Count Result 188 K/mm3 (150-420); Red Blood Count 4.13 M/mm3 (4.20-5.40); White Blood Count 3.6 K/mm3 (4.8-10.8)
[2022-04-26 13:30] LABS: Band Neutrophils Percent 0 % (0-6); Eosinophils Percent Manual 3 % (1-6); Lymphocytes Absolute Manual 1.54 K/mm3 (1.1-4.5); Lymphocytes Percent Manual 43 % (18-44); Monocytes Absolute Manual 0.25 K/mm3 (0.1-0.90); Monocytes Percent Manual 7 % (3-9); Neutrophils Absolute Manual 1.69 K/mm3 (1.7-7.2); Neutrophils Percent Manual 47 % (46-73); Platelet Estimate Adequate (Adequate); Total Cells Counted 100
[2022-04-26 14:00] LABS: Alanine Aminotransferase 46 U/L (14-59); Albumin Level 3.4 g/dL (3.4-5.0); Alkaline Phosphatase 159 U/L (46-116); Anion Gap 8 mmol/L (8-16); Aspartate Amino Transferase 29 U/L (15-37); Bilirubin,Total 0.4 mg/dL (0.00-1.00); Blood Urea Nitrogen 14 mg/dL (7-18); Calcium 9.2 mg/dL (8.5-10.1); Carbon Dioxide 29 mmol/L (21-32); Chloride 98 mmol/L (98-108); Estimated Glomerular Filt Rate 59; Ferritin 111 ng/mL (8-252); Glucose 145 mg/dL (70-99); Iron 102 ug/dL (50-170); Lactate Dehydrogenase 199 U/L (81-234); Osmolality Calculated 283 mOsm/kg (285-295); Percent Iron Saturation 29 % (12-57); Potassium 3.9 mmol/L (3.5-5.1); Sodium 135 mmol/L (136-145); Total Protein 6.8 g/dL (6.4-8.2)
[2022-04-29 17:20] LABS: Lambda Light Chain 17.8 mg/L (5.7-26.3)
[2022-04-30 13:48] LABS: Immunoglobulin A 38 mg/dL (70-320); Immunoglobulin G 1319 mg/dL (600-1540); Immunoglobulin M 42 mg/dL (50-300)
[2022-04-30 18:05] LABS: Abnormal Protein Band 1 0.9 g/dL; Albumin 3.8 g/dL (3.8-4.8); Alpha 1 Globulin 0.4 g/dL (0.2-0.3); Alpha 2 Globulin 0.8 g/dL (0.5-0.9); Beta 1 Globulin 0.5 g/dL (0.4-0.6); Gamma Globulin 1.2 g/dL (0.8-1.7); Protein, Total 6.9 g/dL (6.1-8.1)
== END 2022-04-26 12:53 | disposition home or self-care (01) ==
LOC: CHSLAB 12:55
PROVIDERS: PCP Internal Medicine; Visit Provider Internal Medicine Hematology & Oncology
DX: D47.2 Monoclonal gammopathy (principal); I50.22 Chronic systolic (congestive) heart failure; I10 Essential (primary) hypertension
CPT/HCPCS: 36415; 80053; 82728; 82784; 83540; 83550; 83615; 83883; 84155; 84165; 85025; 86334

== ENCOUNTER 2022-04-30 10:19 | Outpatient (CLI) | payer MEDICARE, SELFPAY ==
--- NOTE | ~2022-04-30 | XR_ITS ---
EXAMINATION: XR shoulder RT min 2V INDICATION: Right shoulder pain TECHNIQUE: Four views of the right shoulder are submitted. COMPARISON: None FINDINGS: Normal alignment. No fracture. There is moderate osteoarthritis of the acromioclavicular david int and mild osteoarthritis of the glenohumeral joint. Soft tissues are unremarkable. Median sternoto my wires and mediastinal surgical clips are seen, likely from prior coronary artery bypass grafting. IMPRESSION: 1. Osteoarthritis without acute osseous abnormality. Reviewed, dictated and finalized at location B.
--- NOTE | ~2022-04-30 | XR_ITS ---
EXAMINATION: XR shoulder LT min 2V DATE: 04/30/2022 11:13 INDICATION: Left shoulder pain. TECHNIQUE: 4 views of left shoulder were obtained. COMPARISON: None. FINDINGS: Bone alignment is normal. No fracture. There is mild glenohumeral joint osteoarthritis. The re is moderate acromioclavicular joint osteoarthritis. There are surgical clips in left axilla. Media n sternotomy wires and mediastinal surgical clips are seen, likely from prior coronary artery bypass grafting. IMPRESSION: 1. Polyarticular osteoarthritis. Reviewed, dictated and finalized at location A.
== END 2022-04-30 10:20 | disposition home or self-care (01) ==
LOC: CHSLAB 10:21
PROVIDERS: PCP Internal Medicine; Visit Provider Internal Medicine
DX: M25.512 Pain in left shoulder (principal); M25.511 Pain in right shoulder; R82.81 Pyuria; M19.012 Primary osteoarthritis, left shoulder; M19.011 Primary osteoarthritis, right shoulder
CPT/HCPCS: 73030; 87086

== ENCOUNTER 2022-05-13 08:56 | Outpatient (RCR) | payer MEDICARE, SELFPAY ==
--- NOTE | 2022-05-13 09:31 | PTOPEVAL1 ---
Assessment and note entered by Rian Frazier Evaluation Information Assessment Status Evaluation Diagnosis left shoulder pain Onset 04/22/22 Subjective Information Pt. reports that she woke with shoulder pain about 3 weeks ago. She describes pain on top of the shoulder and into the lateral deltoid. She states that pain intensity can vary. She states that most pain is noted with reaching overhead or behind her back. She reports that she has difficulty completing house work due to pain. She also notes increased pain during sleep, and wakes frequently due to shoulder pain. She reports that she is right handed. She states that her goal is to decrease her left shoulder pain. Reported Pain Level Pain Score 3: Self Report Assessment PT Clinical Summary Pt. is a 76 year old female who enters the clinic with left shoulder pain. Pt. presents with indication of rotator cuff syndrome on this date. Continued treatment is indicated in order to improve ROM, strength and postural awareness as well as reduce left shoulder pain. Plan of Care Interventions Electrical Stimulation,Hot Pack/Cold Pack,Manual Therapy,Neuro Re-education,Therapeutic Activities, Therapeutic Exercise,Ultrasound PT Services Indicated Yes Treatment Frequency and 3x/week x 12 visits Duration These treatments will address the objective and functional deficits as defined above. The patient will be advanced safely and appropriately in order for the patient to progress towards his/her prior level of function. Additional exercises will be introduced and as well as a comprehensive home exercise program upon discharge, if needed, ?to ensure carryover of functional gains achieved in the clinic. This treatment plan has been reviewed and agreement upon by the patient.
--- NOTE | 2022-06-10 09:03 | PTOPEVAL1 ---
Assessment and note entered by Rian Frazier Evaluation Information Assessment Status Discharge Diagnosis left shoulder pain Onset 04/22/22 Subjective Information Pt. reports that she has seen little progress regarding pain levels. She reports she has noticed recent development of shoulder pain on the left. She states that she continues to do exercise at home, but pain levels can continue to fluctuate. She reports she is going to return to the doctor today to discuss the possibility of injections. Reported Pain Level Pain Score 5: Self Report Assessment PT Clinical Summary Pt. demonstrtes imrovements in strength and ROM, despite little to no change in regards to functional testing scores and pain reports. At this time encouraged the pt. to follow up with her doctor regarding remaining pain and consider possible injection for pain reduction. Plan of Care Treatment Frequency and D/C from PT and follow up with her doctor Duration regarding remaining pain. These treatments will address the objective and functional deficits as defined above. The patient will be advanced safely and appropriately in order for the patient to progress towards his/her prior level of function. Additional exercises will be introduced and as well as a comprehensive home exercise program upon discharge, if needed, ?to ensure carryover of functional gains achieved in the clinic. This treatment plan has been reviewed and agreement upon by the patient.
== END 2022-06-10 10:36 | disposition home or self-care (01) ==
LOC: CHSPT 08:56
PROVIDERS: PCP Internal Medicine; Visit Provider Internal Medicine
DX: M25.512 Pain in left shoulder (principal)
CPT/HCPCS: 97014; 97110; 97140; 97161; G0283

== ENCOUNTER 2022-06-15 07:18 | Outpatient (CLI) | payer MEDICARE, SELFPAY ==
--- NOTE | ~2022-06-15 | MR_ITS ---
EXAMINATION: MR shoulder LT wo con DATE: 06/15/2022 09:04 INDICATION: Left shoulder pain TECHNIQUE: Magnetic resonance imaging (MRI) of the left shoulder was performed without intravenous co ntrast. Sequences included axial PD-weighted FS FSE, coronal oblique PD-weighted FS FSE, coronal obli que T2-weighted FS FSE, sagittal PD-weighted FS FSE, and sagittal T1-weighted SE. COMPARISON: None. FINDINGS: Coracoacromial arch: The acromion undersurface is curved in morphology (type II). The coracoacromial ligament is normal. M ild to moderate acromioclavicular osteoarthritis. Rotator cuff: Moderate supraspinatus and infraspinatus tendinopathy. Tiny intrasubstance tear measuring 3 mm AP and 5 mm medial collateral at the central aspect of the superior facet footplate of the supraspinatus te ndon. The teres minor tendon is normal. Mild subscapularis tendinopathy without discrete tear. Normal rotator cuff muscle bulk and signal. Biceps tendon, glenoid labrum and glenohumeral cartilage: Mild tendinopathy without tear of the long head of the biceps tendon. Mild glenohumeral osteoarthriti s with partial thickness glenoid cartilage loss with smooth chondral surface most prominent along the posterior and inferior glenoid. There is associated degeneration of the posterior half the glenoid f rom superior to inferior which appears diminutive and in places partially replaced by tiny marginal o steophytes. Fluid: Physiologic amount of fluid in the glenohumeral joint and biceps tendon sheath. No loose osteochondr al bodies. Small amount of fluid in the subacromial/subdeltoid bursa consistent with mild bursitis. Bones: No fracture or pathologic marrow replacing process. Cystic changes along the middle facet of the grea ter tuberosity likely related to rotator cuff disease. IMPRESSION: 1. Mild subscapularis and moderate supraspinatus and infraspinatus tendinopathy with tiny partial-thi ckness intrasubstance tear along the footplate of the supraspinatus tendon. 2. Mild glenohumeral osteoarthritis with degeneration of the posterior half the glenoid labrum. 3. Mild tendinopathy without tear of the long head biceps tendon. 4. Mild to moderate acromioclavicular osteoarthritis. 5. Mild subacromial/subdeltoid bursitis. Reviewed, dictated and finalized at location B. IMPRESSION: 1. Mild subscapularis and moderate supraspinatus and infraspinatus tendinopathy with tiny partial-thickness intrasubstance tear along the footplate of the sup raspinatus tendon. 2. Mild glenohumeral osteoarthritis with degeneration of the posterior half the glenoid labrum. 3. Mild tendinopathy without tear of the long head biceps tendon. 4. Mild to moderate acromioclavicular osteoarthritis. 5. Mild subacromial/subdeltoid bursitis.
--- NOTE | ~2022-06-15 | MR_ITS ---
EXAMINATION: MR shoulder RT wo con DATE: 06/15/2022 09:03 INDICATION: Right shoulder pain TECHNIQUE: Magnetic resonance imaging (MRI) of the right shoulder was performed without intravenous c ontrast. Sequences included axial PD-weighted FS FSE, coronal oblique PD-weighted FS FSE, coronal obl ique T2-weighted FS FSE, sagittal PD-weighted FS FSE, and sagittal T1-weighted SE. COMPARISON: None. FINDINGS: Coracoacromial arch: The acromion undersurface is minimally curved in morphology (type I-II). The coracoacromial ligament is normal. Moderate acromioclavicular osteoarthritis with primarily cephalad directed osteophytes, mi ld reticular cystic changes at the acromion and edema-like signal change at both sides of the joint s pace. Rotator cuff: Moderate supraspinatus and infraspinatus tendinopathy. There is a severe articular sided tear involvi ng at least two thirds of the tendon thickness along the superior facet footplate of the supraspinatu s and conjoined portion of the supraspinatus and infraspinatus tendons. The tear measures approximate ly 2-2.5 cm AP along the greater tuberosity. The torn articular side of the tendon is retracted appro ximately 3.5 cm midway between the apex of the humeral head and the lateral margin of the glenoid. Co uld not exclude tiny full-thickness perforations of the tendon however no clearly defined measurable full-thickness tear defect is appreciated. Teres minor and subscapularis tendons are normal. Minimal fatty atrophy of the supraspinatus and infraspinatus muscle bellies. There is however significant med ial retraction of the supraspinatus muscle belly which demonstrates a decrease cross-sectional area a t the level of the neck of the glenoid. Biceps tendon, glenoid labrum and glenohumeral cartilage: There is attenuation of the long head biceps tendon at the level of the junction of the intra-articul ar and extra-articular portions of the tendon consistent with partial tear. Degenerative tearing of t he posterior inferior glenoid labrum at the 10:00-11:30 position. There is also chronic degeneration of the inferior labrum which is diminutive and largely replaced by small marginal osteophytes along t he inferior rim of the glenoid. Mild glenohumeral osteoarthritis with partial thickness cartilage los s most prominent along the inferior aspect of the humeral head. There is chondral surface irregularit y along the apex of the humeral head with tiny focus of subarticular edema-like signal change. Fluid: Physiologic amount of fluid in the glenohumeral joint and biceps tendon sheath. No loose osteochondr al bodies. Moderate amount of fluid in the subacromial/subdeltoid bursa which could be due to bursiti s or decompression of the joint fluid through a potential full-thickness perforation of the rotator c uff. Bones: No fracture or pathologic marrow replacing process. IMPRESSION: 1. Severe articular sided tear extending 2-2.5 cm AP along the greater tuberosity footplate of the s upraspinatus and conjoined supraspinatus and infraspinatus tendons. 2. Mild glenohumeral osteoarthritis with likely chronic degeneration of the posterosuperior and anter oinferior labrum. 3. Partial-thickness tear of the long head biceps tendon. 4. Moderate acromioclavicular osteoarthritis. 5. Subacromial/subdeltoid bursitis versus fluid in the bursa related to otherwise occult full-thickne ss perforation associated with the severe articular sided rotator cuff tear. Reviewed, dictated and finalized at location B. IMPRESSION: 1. Severe articular sided tear extending 2-2.5 cm AP along the greater tuberosi ty footplate of the supraspinatus and conjoined supraspinatus and infraspinatu s tendons. 2. Mild glenohumeral osteoarthritis with likely chronic
== END 2022-06-15 07:19 | disposition home or self-care (01) ==
PROVIDERS: PCP Internal Medicine; Visit Provider Internal Medicine
DX: M25.512 Pain in left shoulder (principal); M25.511 Pain in right shoulder; M25.612 Stiffness of left shoulder, not elsewhere classified; M25.611 Stiffness of right shoulder, not elsewhere classified
CPT/HCPCS: 73221

== ENCOUNTER 2022-11-13 07:46 | Outpatient (CLI) | payer MEDICARE, SELFPAY ==
[2022-11-13 08:05] LABS: Hematocrit 34.9 % (35.0-42.0); Hemoglobin 11.5 g/dL (11.7-13.8); Mean Corpuscular Hemoglobin 31.1 pg (27.0-31.0); Mean Corpuscular Volume 94.3 fL (78.0-102.0); Mean Platelet Volume 9.6 fl (9.2-11.8); Platelet Count Result 174 K/mm3 (150-420); Red Cell Distribution Width 12.9 % (11.6-14.4); White Blood Count 3.2 K/mm3 (4.8-10.8)
[2022-11-13 08:06] LABS: Appearance Urine Clear (Clear); Bilirubin Urine Negative (Negative); Blood Urine Negative (Negative); Color Urine Light Yellow (Yellow); Glucose Urine UA Negative (Negative); Ketones Urine Negative (Negative); Leukocyte Esterase Ur 1+ (Negative); Nitrate Urine Negative (Negative); Protein Urine 1+ (Negative)
[2022-11-13 08:11] LABS: Add Urine Microscopic? YES; Bacteria Urine Trace /hpf; RBC Urine None seen /hpf (0-2); Squamous Epithelial Cell Urine Occasional /hpf (Few)
[2022-11-13 08:20] LABS: Creatinine Urine 79.12 mg/dL (40-278); MALB Creatinine Ratio 31.2 mg/g (0-30); Microalbumin Urine Random 24.7 mg/L
[2022-11-13 08:22] LABS: Hemoglobin A1C 6.5 % (<5.7)
[2022-11-13 08:25] LABS: Band Neutrophils Percent 0 % (0-6); Eosinophils Absolute Manual 0.19 K/mm3 (0.02-0.5); Eosinophils Percent Manual 6 % (1-6); Lymphocytes Absolute Manual 0.92 K/mm3 (1.1-4.5); Lymphocytes Percent Manual 29 % (18-44); Monocytes Absolute Manual 0.25 K/mm3 (0.1-0.90); Monocytes Percent Manual 8 % (3-9); Neutrophils Absolute Manual 1.82 K/mm3 (1.7-7.2); Neutrophils Percent Manual 57 % (46-73); Platelet Estimate Adequate (Adequate); Total Cells Counted 100
[2022-11-13 08:39] LABS: Alanine Aminotransferase 60 U/L (14-59); Albumin Level 3.2 g/dL (3.4-5.0); Alkaline Phosphatase 177 U/L (46-116); Anion Gap 7 mmol/L (8-16); Aspartate Amino Transferase 45 U/L (15-37); Bilirubin,Total 0.4 mg/dL (0.00-1.00); Blood Urea Nitrogen 9 mg/dL (7-18); Calcium 9.4 mg/dL (8.5-10.1); Carbon Dioxide 33 mmol/L (21-32); Chloride 103 mmol/L (98-108); Cholesterol 202 mg/dL (0-200); Creatine Kinase 73 U/L (26-192); Estimated Glomerular Filt Rate 56; Glucose 113 mg/dL (70-99); HDL Direct 131 mg/dL (40-60); LDL Cholesterol Calculated 62 mg/dL (<130); Osmolality Calculated 295 mOsm/kg (285-295); Potassium 4.1 mmol/L (3.5-5.1); Sodium 143 mmol/L (136-145); Total Protein 7.3 g/dL (6.4-8.2); Triglycerides 45 mg/dL (0-150); Uric Acid 3.9 mg/dL (2.6-6.0)
== END 2022-11-13 07:47 | disposition home or self-care (01) ==
LOC: CHSLAB 07:51
PROVIDERS: PCP Internal Medicine; Visit Provider Internal Medicine
DX: E03.4 Atrophy of thyroid (acquired) (principal); I50.22 Chronic systolic (congestive) heart failure; I10 Essential (primary) hypertension; D47.2 Monoclonal gammopathy; E79.0 Hyperuricemia without signs of inflammatory arthritis and tophaceous disease; E11.22 Type 2 diabetes mellitus with diabetic chronic kidney disease; N39.0 Urinary tract infection, site not specified; R82.90 Unspecified abnormal findings in urine
CPT/HCPCS: 36415; 80053; 80061; 81001; 82043; 82550; 83036; 84550; 85025; 87086; 87088

== ENCOUNTER 2022-11-28 10:26 | Outpatient (CLI) | payer MEDICARE, SELFPAY ==
[2022-11-28 10:42] LABS: Hematocrit 34.4 % (35.0-42.0); Hemoglobin 11.4 g/dL (11.7-13.8); Immature Reticulocyte Fraction 10.1 % (2.0-16.52); Mean Corpuscular HGB Conc 33.1 g/dL (32.0-36.0); Mean Corpuscular Hemoglobin 31.7 pg (27.0-31.0); Mean Corpuscular Volume 95.6 fL (78.0-102.0); Mean Platelet Volume 9.9 fl (9.2-11.8); Platelet Count Result 178 K/mm3 (150-420); Red Cell Distribution Width 13.2 % (11.6-14.4); Reticulocyte Hemoglobin Conten 35.2 pg (28.0-35.0); Reticulocyte Percent 0.94 % (0.50-1.50); Reticulocytes Absolute 0.03 M/mm3 (0.02-0.1); White Blood Count 3.3 K/mm3 (4.8-10.8)
[2022-11-28 11:05] LABS: Band Neutrophils Percent 0 % (0-6); Basophils Percent Manual 0 % (0-1); Eosinophils Percent Manual 0 % (1-6); Lymphocytes Absolute Manual 1.18 K/mm3 (1.1-4.5); Lymphocytes Percent Manual 36 % (18-44); Monocytes Absolute Manual 0.19 K/mm3 (0.1-0.90); Monocytes Percent Manual 6 % (3-9); Neutrophils Absolute Manual 1.91 K/mm3 (1.7-7.2); Neutrophils Percent Manual 58 % (46-73); Platelet Estimate Adequate (Adequate); Total Cells Counted 100
[2022-11-28 12:01] LABS: Alanine Aminotransferase 41 U/L (14-59); Albumin Level 3.3 g/dL (3.4-5.0); Alkaline Phosphatase 162 U/L (46-116); Anion Gap 8 mmol/L (8-16); Aspartate Amino Transferase 36 U/L (15-37); Bilirubin,Total 0.4 mg/dL (0.00-1.00); Blood Urea Nitrogen 12 mg/dL (7-18); Calcium 9.5 mg/dL (8.5-10.1); Carbon Dioxide 32 mmol/L (21-32); Chloride 101 mmol/L (98-108); Estimated Glomerular Filt Rate 58; Ferritin 163 ng/mL (8-252); Glucose 106 mg/dL (70-99); Iron 105 ug/dL (50-170); Osmolality Calculated 291 mOsm/kg (285-295); Potassium 4.2 mmol/L (3.5-5.1); Sodium 141 mmol/L (136-145); Total Protein 8.1 g/dL (6.4-8.2); Vitamin B12 1854 pg/mL (193-986)
[2022-12-03 16:36] LABS: Red Blood Cell Folate 474 ng/mL RBC (>280)
== END 2022-11-28 10:27 | disposition home or self-care (01) ==
PROVIDERS: PCP Internal Medicine; Visit Provider Internal Medicine
DX: D64.9 Anemia, unspecified (principal); R74.01 Elevation of levels of liver transaminase levels
CPT/HCPCS: 36415; 80053; 82607; 82728; 82747; 83540; 85025; 85046

== ENCOUNTER 2022-12-05 08:27 | Outpatient (CLI) | payer MEDICARE, SELFPAY ==
--- NOTE | ~2022-12-05 | MM_ITS ---
EXAMINATION: MM screening [facility] BI w alejandro HISTORY: Screening mammogram, family history of breast cancer in her sister, personal history of left breast cancer. TECHNIQUE: Craniocaudal and mediolateral oblique 3-D tomosynthesis images were obtained and synthetic 2-D images were generated. CAD analysis was submitted and interpreted. COMPARISON: 11/08/2021, 06/28/2020, 01/21/2019 BREAST PARENCHYMAL COMPOSITION: There are scattered areas of fibroglandular density. FINDINGS: Lumpectomy changes are noted in the left breast. No suspicious mass, calcification, or arch itectural distortion are identified in either breast to suggest malignancy. There has been no suspici ous interval change. IMPRESSION: 1. No mammographic evidence of malignancy. 2. Recommend routine screening mammography in one year. BI-RADS Category 2: Benign finding(s). Reviewed, dictated and finalized at location A.
--- NOTE | ~2022-12-05 | CT_ITS ---
EXAMINATION: CT abdomen w con DATE: 12/05/2022 09:17 INDICATION: Elevated liver enzymes. 5 pound weight loss in 6 months. TECHNIQUE: Computed tomography (CT) of the abdomen was performed with 100 CC Omnipaque 350 intravenou s contrast. Automated exposure control and iterative reconstruction technique were employed. Exam dos e: 184.05 mGy-cm total exam DLP. COMPARISON: 05/07/2021 CT abdomen pelvis FINDINGS: Approximately 6 mm probable calcified pulmonary granuloma, right lower lobe. This is stable since 05/07/2021. Minimal focal infiltrate or atelectasis in the posteromedial right lower lobe the anterior paraspinal area Heart size is within normal range. There appears to be some calcification of the aortic valve. No per icardial or pleural effusion. Small sliding hiatal hernia. Status post cholecystectomy. The common bile duct measures up to approximately 7 mm compared to appro ximately 6.5 mm on 05/07/2021. No pancreatic duct dilatation. No hepatic, splenic, pancreatic, and adrenal or adrenal mass lesion is evident. Occasional small renal cortical cysts are evident. No urinary tract calculus or hydroureteronephrosis is detected. There is mild atherosclerotic calcification and normal caliber of the abdominal aorta. No intraperito aroldo or retroperitoneal mass lesion or adenopathy or ascites. Is diverticulosis of the colon; no evid ence of diverticulitis of the included portion of the colon. There is extensive patchy lucency of the axial skeletal structures, raising concern for osteolytic me tastases or multiple myeloma. Consider radiographic bone scan, serum electrophoresis. Prominent degenerative change of the lower thoracic and lumbar spine including severe degenerative di sc disease at T12-L1, L1-2, L2-3, with mild retrolisthesis at each of these levels. Moderate degenerative disc disease at L3-4, this moderately severe degenerative disease at L4-5. There is prominent degenerative changes apophyseal joints of the lumbar spine with associated grade 1 anterolisthesis at L4-5 and to a lesser extent L5-S1. IMPRESSION: Extensive osteolytic lesions of the axial skeleton raising concern for metastatic diseas e or multiple myeloma. Consider radiographic bone scan, serum electrophoresis Small sliding hiatal hernia Status post cholecystectomy Occasional renal cysts Reviewed, dictated and finalized at Location A. Reviewed, dictated and finalized at location L. IMPRESSION: Extensive osteolytic lesions of the axial skeleton raising concern for metastatic disease or multiple myeloma. Consider radiographic bone scan, s lev electrophoresis Small sliding hiatal hernia Status post cholecystectomy Occasional renal cysts
== END 2022-12-05 08:28 | disposition home or self-care (01) ==
LOC: CHSIMG 08:29
PROVIDERS: PCP Internal Medicine; Visit Provider Internal Medicine
DX: Z12.31 Encounter for screening mammogram for malignant neoplasm of breast (principal); R74.01 Elevation of levels of liver transaminase levels; M89.9 Disorder of bone, unspecified; K44.9 Diaphragmatic hernia without obstruction or gangrene; Z90.49 Acquired absence of other specified parts of digestive tract; N28.1 Cyst of kidney, acquired
CPT/HCPCS: 74160; 77063; 77067; Q9967

== ENCOUNTER 2022-12-07 08:09 | Outpatient (CLI) | payer MEDICARE, SELFPAY ==
[2022-12-11 15:12] LABS: Abnormal Protein Band 1 1.5 g/dL; Albumin 3.5 g/dL (3.8-4.8); Alpha 1 Globulin 0.4 g/dL (0.2-0.3); Beta 1 Globulin 0.4 g/dL (0.4-0.6); Gamma Globulin 1.8 g/dL (0.8-1.7); Protein, Total 7.3 g/dL (6.1-8.1)
[2022-12-12 13:29] LABS: Kappa\\Lambda Light Chains 426.96 (0.26-1.65); Lambda Light Chain 12.6 mg/L (5.7-26.3)
[2022-12-12 19:44] LABS: Abnormal Protein Band 1 247 mg/dL; Creatinine, Random Urine 137 mg/dL (20-275); Total Protein/Creatinine Ratio 2577 mg/g creat (24-184)
== END 2022-12-07 08:10 | disposition home or self-care (01) ==
LOC: CHSLAB 08:10
PROVIDERS: PCP Internal Medicine; Visit Provider Internal Medicine
DX: N18.1 Chronic kidney disease, stage 1 (principal); D47.2 Monoclonal gammopathy
CPT/HCPCS: 36415; 82570; 83883; 84155; 84156; 84165; 84166; 86334

== ENCOUNTER 2022-12-10 08:09 | Outpatient (CLI) | payer MEDICARE, SELFPAY ==
--- NOTE | ~2022-12-10 | CT_ITS ---
EXAMINATION: CT diagnostic chest w con DATE: 12/10/2022 08:50 INDICATION: Pulmonary nodule TECHNIQUE: Transaxial computed tomographic images of the chest were obtained after the administration of 100 cc of Omnipaque 350 intravenous contrast. The dose-length product (DLP) was 130.75 mGy-cm. It erative reconstruction was used. COMPARISON: 09/25/2021, 05/03/2021 FINDINGS: There are multiple stable pulmonary nodules. The largest measures 12 mm in the left lung ap ex. No definite new pulmonary nodules are identified. No pleural effusion or pneumothorax. Surgical c lips are noted in the left axilla. No pathologically enlarged thoracic lymph nodes are identified. Th e heart size is normal. There are changes of aortic valve replacement. There is severe thoracic spond ylosis. There is a new lytic lesion involving the anterior aspect of the T10 vertebral body. Smaller lytic lesions are also noted in in the right 12th rib. IMPRESSION: 1. Multiple stable pulmonary nodules, likely stable metastatic disease. 2. Development of lytic osseous lesions which could reflect metastatic disease versus multiple myelom a. Reviewed, dictated and finalized at location L. IMPRESSION: 1. Multiple stable pulmonary nodules, likely stable metastatic disease. 2. Development of lytic osseous lesions which could reflect metastatic disease versus multiple myeloma.
== END 2022-12-10 08:10 | disposition home or self-care (01) ==
LOC: CHSIMG 08:10
PROVIDERS: PCP Internal Medicine; Visit Provider Internal Medicine
DX: R91.8 Other nonspecific abnormal finding of lung field (principal); M89.9 Disorder of bone, unspecified
CPT/HCPCS: 71260; Q9967

== ENCOUNTER 2023-01-15 11:04 | Outpatient (CLI) | payer MEDICARE, SELFPAY ==
--- NOTE | ~2023-01-15 | XR_ITS ---
XR lumbar spine 2-3V DATE: 01/15/2023 11:40 INDICATION: Pelvic pain, left hip and thigh pain TECHNIQUE: AP, lateral, coned lateral lumbosacral views COMPARISON: 02/03/2019 MR lumbar spine 02/03/2019 lumbar spine FINDINGS: There is levoscoliosis of the thoracic spine and dextroscoliosis of the lumbar spine. Diffuse osteopenia. Degenerative spurring and prominent degenerative disc disease in the included lower thoracic spine. M oderate to severe degenerative disc disease throughout the lumbar spine, severe at L1-2, L2-3 and L3- 4. There is associated mild retrolisthesis at L2-3. Grade 1 anterolisthesis at L4-5. There is prominent degenerative change at the apophyseal joints thro ughout the lumbar and lumbosacral area. No fracture or bone destruction of the thoracic spine is noted. Included lower thoracic and lumbar pe dicles appear intact. The sacroiliac joints are intact. Status post bilateral total hip arthroplasty. Surgical clips, right upper quadrant, consistent with cholecystectomy. IMPRESSION: Thoracic levoscoliosis and lumbar dextroscoliosis Multilevel degenerative disc disease of the lower thoracic and lumbar spine Degenerative changes apophyseal joints of the lumbar spine Grade 1 anterolisthesis at L4-5 Status post bilateral total hip arthroplasty Status post cholecystectomy Reviewed, dictated and finalized at location A.
--- NOTE | ~2023-01-15 | XR_ITS ---
EXAMINATION: XR hip BI 2V w AP pelvis, XR femur LT min 2V DATE: 01/15/2023 11:40 INDICATION: Pelvic and left hip and thigh pain TECHNIQUE: 1. Anteroposterior view of the pelvis and anteroposterior and frog-leg lateral views of the left hip and anteroposterior and frog-leg lateral views of the right hip and were obtained. COMPARISON: None. FINDINGS: Noncemented bilateral total hip arthroplasties which . Near-anatomic alignment. No fracture. Left kne e joint spaces appear normal on nonweightbearing imaging. No left knee joint effusion. Mild bilateral sacroiliac osteoarthritis. Severe lower lumbar spondylosis. There are numerous lytic lesions scatter ed throughout the pelvis, left femur and visualized proximal right femur. Several of the profiled lyt ic lesions in the femurs demonstrate associated endosteal scalloping.. IMPRESSION: 1. Numerous lytic lesions throughout the pelvis and proximal femurs suspicious for multiple myeloma. 2. No acute osseous abnormality. 3. Severe lower lumbar spondylosis. Reviewed, dictated and finalized at location B. IMPRESSION: 1. Numerous lytic lesions throughout the pelvis and proximal femurs suspicious for multiple myeloma. 2. No acute osseous abnormality. 3. Severe lower lumbar spondylosis.
[2023-01-15 11:39] LABS: Hematocrit 31.6 % (35.0-42.0); Hemoglobin 10.2 g/dL (11.7-13.8); Mean Corpuscular HGB Conc 32.3 g/dL (32.0-36.0); Mean Corpuscular Hemoglobin 31.2 pg (27.0-31.0); Mean Corpuscular Volume 96.6 fL (78.0-102.0); Mean Platelet Volume 9.9 fl (9.2-11.8); Platelet Count Result 193 K/mm3 (150-420); Red Blood Count 3.27 M/mm3 (4.20-5.40); White Blood Count 2.9 K/mm3 (4.8-10.8)
[2023-01-15 12:02] LABS: CRP < 0.5 mg/dL (0.0-0.9)
[2023-01-15 12:12] LABS: Total Cells Counted 100
[2023-01-15 12:13] LABS: Band Neutrophils Percent 0 % (0-6); Basophils Absolute Manual 0.02 K/mm3 (0-0.1); Basophils Percent Manual 1 % (0-1); Eosinophils Absolute Manual 0.02 K/mm3 (0.02-0.5); Eosinophils Percent Manual 1 % (1-6); Lymphocytes Absolute Manual 1.27 K/mm3 (1.1-4.5); Lymphocytes Percent Manual 44 % (18-44); Monocytes Absolute Manual 0.14 K/mm3 (0.1-0.90); Monocytes Percent Manual 5 % (3-9); Neutrophils Absolute Manual 1.42 K/mm3 (1.7-7.2); Neutrophils Percent Manual 49 % (46-73); Platelet Estimate Adequate (Adequate)
[2023-01-15 16:41] LABS: Erythrocyte Sedimentation Rate 55 mm/hr (0-20)
== END 2023-01-15 11:05 | disposition home or self-care (01) ==
LOC: CHSLAB 11:07
PROVIDERS: PCP Internal Medicine; Visit Provider Internal Medicine
DX: M25.552 Pain in left hip (principal); M89.9 Disorder of bone, unspecified; M43.06 Spondylolysis, lumbar region; M41.84 Other forms of scoliosis, thoracic region; M41.86 Other forms of scoliosis, lumbar region; M51.34 Other intervertebral disc degeneration, thoracic region; Z96.643 Presence of artificial hip joint, bilateral; Z90.49 Acquired absence of other specified parts of digestive tract
CPT/HCPCS: 36415; 72100; 73521; 73552; 85025; 85652; 86140

== ENCOUNTER 2023-01-30 09:17 | Outpatient (CLI) | payer MEDICARE, SELFPAY ==
--- NOTE | ~2023-01-30 | PE_ITS ---
EXAMINATION: PET skull to mid thigh DATE: 01/30/2023 11:24 INDICATION: Multiple myeloma. TECHNIQUE: Blood glucose level was 108 mg/dL. 10.180 mCi of 18-fluorodeoxyglucose (18-FDG) was admini stered i.v. Low dose computed tomography (CT) images were acquired from the base of the brain to the proximal thighs for attenuation correction and anatomic localization. Automated exposure control was employed. Dose-length product (DLP) was 509 mGy-cm. Positron emission tomography (PET) images were ac quired in the same distribution. COMPARISON: Chest CT 12/10/2022, CT abdomen 12/05/2022, CT abdomen and pelvis 05/07/21 FINDINGS: Head/neck: There are no pathologically enlarged lymph nodes. Chest: Chronic calcified pulmonary nodules are consistent with old granulomatous disease. There are n odules without calcifications measuring up to 6 mm without increased activity, stable from 05/03/2021, likely benign. There is mild atelectasis in the lungs. No pleural effusion. There is left atrial enl argement of the heart. There are coronary artery calcifications. There are changes of aortic valve re placement. There is a widespread moth-eaten lytic pattern in the bones with mild activity. Abdomen/pelvis/proximal thighs: The liver and spleen are normal. There are changes of cholecystectomy . The pancreas, adrenal glands, and right kidney are normal. There is an 10 mm hemorrhagic cyst in le ft kidney. There is diverticulosis of the colon without evidence of diverticulitis. There are no dila tim loops of bowel. There are no pathologically enlarged lymph nodes. There is no free intraperitonea l fluid. There is bilateral hip arthroplasties. There is a widespread moth-eaten lytic pattern in the bones with maximum SUV of 4.7 in left inferior pubic ramus where there is a pathologic fracture. IMPRESSION: 1. Widespread moth-eaten lytic pattern in the bones with mild activity, consistent with multiple myel johnathan. Reviewed, dictated and finalized at location A. IMPRESSION: 1. Widespread moth-eaten lytic pattern in the bones with mild activity, consist ent with multiple myeloma.
[2023-01-30 09:39] LABS: Glucose Point of Care 108 mg/dl (65-105)
== END 2023-01-30 09:18 | disposition home or self-care (01) ==
PROVIDERS: PCP Internal Medicine; Visit Provider Internal Medicine
DX: C90.00 Multiple myeloma not having achieved remission (principal)
CPT/HCPCS: 78815; A9552

== ENCOUNTER 2023-02-01 09:06 | Outpatient (CLI) | payer MEDICARE, SELFPAY ==
[2023-02-01 09:24] LABS: Hemoglobin 9.8 g/dL (11.7-13.8); Mean Corpuscular HGB Conc 32.7 g/dL (32.0-36.0); Mean Corpuscular Hemoglobin 31.6 pg (27.0-31.0); Mean Corpuscular Volume 96.8 fL (78.0-102.0); Mean Platelet Volume 9.3 fl (9.2-11.8); Platelet Count Result 186 K/mm3 (150-420)
[2023-02-01 10:02] LABS: Alanine Aminotransferase 25 U/L (14-59); Alkaline Phosphatase 132 U/L (46-116); Anion Gap 5 mmol/L (8-16); Aspartate Amino Transferase 28 U/L (15-37); Bilirubin,Total 0.4 mg/dL (0.00-1.00); Blood Urea Nitrogen 16 mg/dL (7-18); Carbon Dioxide 31 mmol/L (21-32); Chloride 102 mmol/L (98-108); Estimated Glomerular Filt Rate 42; Ferritin 226 ng/mL (8-252); Glucose 111 mg/dL (70-99); Iron 125 ug/dL (50-170); Lactate Dehydrogenase 181 U/L (81-234); Osmolality Calculated 288 mOsm/kg (285-295); Percent Iron Saturation 40 % (12-57); Potassium 3.4 mmol/L (3.5-5.1); Sodium 138 mmol/L (136-145); Total Protein 7.8 g/dL (6.4-8.2)
[2023-02-01 10:04] LABS: Band Neutrophils Percent 0 % (0-6); Basophils Percent Manual 0 % (0-1); Eosinophils Percent Manual 0 % (1-6); Lymphocytes Absolute Manual 1.11 K/mm3 (1.1-4.5); Lymphocytes Percent Manual 37 % (18-44); Monocytes Absolute Manual 0.09 K/mm3 (0.1-0.90); Monocytes Percent Manual 3 % (3-9); Neutrophils Percent Manual 60 % (46-73); Platelet Estimate Adequate (Adequate); Total Cells Counted 100
[2023-02-01 10:10] LABS: Calcium 11.8 mg/dL (8.5-10.1)
[2023-02-05 16:01] LABS: Abnormal Protein Band 1 1.9 g/dL; Albumin 3.5 g/dL (3.8-4.8); Alpha 1 Globulin 0.4 g/dL (0.2-0.3); Alpha 2 Globulin 0.9 g/dL (0.5-0.9); Beta 1 Globulin 0.5 g/dL (0.4-0.6); Gamma Globulin 2.1 g/dL (0.8-1.7); Protein, Total 7.6 g/dL (6.1-8.1)
[2023-02-05 21:02] LABS: Lambda Light Chain 12.5 mg/L (5.7-26.3)
[2023-02-06 19:35] LABS: Beta-2-Microglobulin 7.64 mg/L (<=2.51); Immunoglobulin A 14 mg/dL (70-320); Immunoglobulin G 2280 mg/dL (600-1540); Immunoglobulin M 20 mg/dL (50-300)
== END 2023-02-01 09:07 | disposition home or self-care (01) ==
LOC: CHSLAB 09:09
PROVIDERS: PCP Internal Medicine; Visit Provider Internal Medicine Hematology & Oncology
DX: D47.2 Monoclonal gammopathy (principal); D50.9 Iron deficiency anemia, unspecified
CPT/HCPCS: 36415; 80053; 82232; 82728; 82784; 83540; 83550; 83615; 83883; 84155; 84165; 85025; 86334

== ENCOUNTER 2023-02-23 06:58 | Inpatient (IN) | payer MEDICARE, SELFPAY ==
[2023-02-23] VITALS (11 sets, daily range): BP systolic 109–162; BP diastolic 68–88; PULSE 76–87; RESP 16–20; TEMP 36.2–36.9; O2SAT 95–97; BMI 25.1
--- NOTE | ~2023-02-23 | XR_ITS ---
EXAMINATION: XR chest 1V portable DATE: 02/23/2023 08:09 INDICATION: Cough. Weakness. TECHNIQUE: A single frontal view of the chest was obtained. COMPARISON: Chest single view 10/31/2015, PET CT 01/30/2023 FINDINGS: A calcified left lung nodule is consistent with old granulomatous disease. No pleural effus ion or pneumothorax. The heart size is normal. Median sternotomy wires and mediastinal surgical clips are seen, likely from prior coronary artery bypass grafting. There is a right internal jugular port with tip in proximal right atrium. Surgical clips in the right upper quadrant are likely from cholecy stectomy. There are surgical clips in left axilla. IMPRESSION: 1. No acute cardiopulmonary disease. Reviewed, dictated and finalized at location A.
[2023-02-23 08:01] LABS: Appearance Urine Clear (Clear); Bilirubin Urine Negative (Negative); Blood Urine Trace-Intact (Negative); Color Urine Light Yellow (Yellow); Glucose Urine UA Negative (Negative); Ketones Urine Negative (Negative); Leukocyte Esterase Ur 2+ LEU/UL (Negative); Nitrate Urine Negative (Negative); Protein Urine 1+ (Negative); Urobilinogen Urine 0.2 mg/dL (0.2-1.0)
[2023-02-23 08:08] LABS: Add Urine Microscopic? YES; RBC Urine 0-2 /hpf (0-2); Renal Epithelial Cells Urine Few /hpf; Squamous Epithelial Cell Urine Few /hpf (Few)
[2023-02-23 08:09] LABS: Amorphous Sediment Urine Few; Bacteria Urine 1+ /hpf
--- NOTE | 2023-02-23 08:17 | ED.GENADULT ---
HPI - General Adult General Chief complaint: Weakness Stated complaint: Weakness/falls Time Seen by Provider: 02/23/23 07:36 Source: patient and family Mode of arrival: wheelchair Limitations: no limitations History of Present Illness HPI narrative: Patient is 77-year-old white female recently diagnosed with multiple myeloma with extensive bone metastases primarily in her pelvis and her femur she comes in with her niece and friend. Been having pelvic pain and her oncologist start her on 30 mg of sustained release morphine. She got a dose February 20 at night and then the following morning to been weak and dizzy since. She has a little bit better she is getting stronger and not quite as bad as she was Friday or Friday. Complains of her right shoulder being sore from using her cane. She has had 3 falls or she follow her buttocks. One this morning around 2:00 a.m. 1 yesterday and the 1 the day before. She caused a small abrasion on her right distal forearm. She has had some itching since been on the morphine. She is scheduled to go get a port bone marrow biopsy and she will received treatment in March. She has had a dry cough for 2 weeks denies any problems eating or drinking voiding. Constipated no blood in her stool no bleeding no swelling. She has had problems with her memory for at least 3 months. No sore throat runny nose or fever shortness of breath or any pain anywhere. Just says she feels a little sore. No other complaints. history of anemia in the past and has had iron infusions Related Data Home Medications Medication Instructions Recorded Confirmed allopurinol 100 mg tablet 100 mg PO BID 02/23/23 02/23/23 amlodipine 5 mg tablet 5 mg PO DAILY 02/23/23 02/23/23 aspirin 81 mg tablet,delayed 81 mg PO DAILY 02/23/23 02/23/23 release cholecalciferol (vitamin D3) 50 50 mcg PO DAILY 02/23/23 02/23/23 mcg (2,000 unit) capsule (Vitamin D3) cyanocobalamin (vitamin B-12) 2,500 mcg sublingual DAILY 02/23/23 02/23/23 2,500 mcg sublingual tablet (Vitamin B-12) duloxetine 60 mg capsule,delayed 60 mg PO DAILY 02/23/23 02/23/23 release levothyroxine 112 mcg tablet 112 mcg PO DAILY 02/23/23 02/23/23 losartan 100 mg tablet 100 mg PO DAILY 02/23/23 02/23/23 morphine 30 mg tablet,extended 30 mg PO BID 02/23/23 02/23/23 release omeprazole 20 mg capsule,delayed 20 mg PO DAILY 02/23/23 02/23/23 release trazodone 50 mg tablet 50 mg PO HS 02/23/23 02/23/23 Allergies Allergy/AdvReac Type Severity Reaction Status Date / Time hydrocodone [From Vicodin] Allergy Itching Verified 02/23/23 08:56 Review of Systems Review of Systems: All systems reviewed & are unremarkable except as noted in HPI and below (HPI) PMFSH Family History Family History Other Cerebrovascular accident Diabetes mellitus Family history of malignant neoplasm Hypertension Social History Social History Smoking status: Never smoker Alcohol intake: current Exam Narrative: elderly White female no apparent distress.? Head normocephalic, atraumatic.? Eyes conjunctiva pink sclera nonicteric.? Extraocular movements are intact.? Ears externally normal.? Oropharynx is clear with moist mucous membranes without exudates.? Neck is supple nontender no lymphadenopathy.? Back is nontender.? Lungs are clear.? Heart is regular rate and rhythm with 3/6 systolic murmur without gallops or rubs.? Chest wall is nontender.? Abdomen is soft and nontender no hepatosplenomegaly or masses no CVA tenderness no abdominal bruits.? Extremities no cyanosis clubbing or edema.? Skin is warm and dry without rashes. She had a small abrasion on her right forearm nontender. Neurological patient is alert and oriented x4.? Patient is able to stand from the wheelchair but very weak she can turn and get on the bed but needs assistance. Sensation is sharonda
[2023-02-23 08:41] LABS: Hematocrit 24.1 % (35.0-42.0); Hemoglobin 8.1 g/dL (11.7-13.8); Mean Corpuscular HGB Conc 33.6 g/dL (32.0-36.0); Mean Corpuscular Hemoglobin 32.7 pg (27.0-31.0); Mean Corpuscular Volume 97.2 fL (78.0-102.0); Mean Platelet Volume 9.4 fl (9.2-11.8); Platelet Count Result 142 K/mm3 (150-420); Red Blood Count 2.48 M/mm3 (4.20-5.40); Red Cell Distribution Width 15.4 % (11.6-14.4); White Blood Count 3.4 K/mm3 (4.8-10.8)
[2023-02-23 08:59] LABS: Alanine Aminotransferase 22 U/L (14-59); Albumin Level 2.6 g/dL (3.4-5.0); Alkaline Phosphatase 93 U/L (46-116); Anion Gap 5 mmol/L (8-16); Aspartate Amino Transferase 30 U/L (15-37); Bilirubin,Total 0.4 mg/dL (0.00-1.00); Blood Urea Nitrogen 33 mg/dL (7-18); Carbon Dioxide 31 mmol/L (21-32); Chloride 97 mmol/L (98-108); Estimated CRCL calculation 16 ml/min; Estimated Glomerular Filt Rate 21; Glucose 90 mg/dL (70-99); Osmolality Calculated 283 mOsm/kg (285-295); Sodium 133 mmol/L (136-145); Total Protein 7.9 g/dL (6.4-8.2)
[2023-02-23 09:01] LABS: Calcium > 14.0 mg/dL (8.5-10.1)
[2023-02-23] MEDS: CEPHALEXIN 250 MG CAPSULE 500 MG PO (09:01)
[2023-02-23] MEDS: SODIUM CHLORIDE 0.9% IV 1,000 ML 250 ML IV CONT (09:36)
[2023-02-23] MEDS: KCL 20 MEQ/SW 100 ML 100 ML 50 MEQ IVPB (09:37)
--- NOTE | 2023-02-23 10:30 | PC.NURSE ---
Patient arrived to unit in w/c and pivot transferred from w/c to commode, then to bed. Patient weak and required 1 assist with gait belt for transfer. Patient poor historian and Patient's niece corrected her during admission assessment questions. Patient and family educated on fall precautions, hospital policies, PPE policies, bed controls, call light use, visiting hours and rapid response. Patient and niece voiced understanding. Patient has a bandage on her RFA and when asked about it, Patient stated that she has a skin tear from one of her recent falls.
--- NOTE | 2023-02-23 10:46 | PC.NURSE ---
PRODUCT DESIGN SPECIALIST made aware that patient answered yes to first question only on suicide screening. No new orders at this time.
--- NOTE | 2023-02-23 10:53 | PM.IMHP ---
H&P: HPI History of Present Illness Date/Time: 02/23/23 10:53 Chief Complaint: Weakness Narrative: Ms. Lee is a 77-year-old female who presented to the emergency room with complaints of increasing weakness. Patient states that over the last week she has fallen 3 times and this morning she went to get up and she was unable to stand by herself. Patient's niece is at bedside and states that the patient can typically get up with her cane, but this morning she was unable to have stand. Patient was diagnosed approximately 1 month ago with multiple myeloma and is to see her oncologist in March for a treatment plan. Patient also had a Port-A-Cath placed 1 week ago. Patient denies any chest pain, shortness of breath, lightheadedness, dizziness, syncopal, or near syncopal episodes. Patient denies any dysuria, hematuria, frequency, or urgency. Patient states she has been taking all of her medications without any difficulty, but her niece is unsure if the patient has been taking her daily medications appropriately. Upon evaluation emergency room patient was noted to have an elevated calcium and a urinary tract infection. Patient has a known history of hypertension, diabetes mellitus that is treated with diet, hyperthyroidism status post thyroidectomy, and left breast cancer status post lumpectomy and radiation. Review of Systems Review of Systems: A 12 point review of systems was completed with patient all pertinent positive and negative per HPI the remainder are unremarkable. [facility] Past Medical History Medical History (Updated 02/23/23 @ 12:30 by Rula Ying APRN) Anemia Breast cancer in situ Gastroesophageal reflux disease without esophagitis Hiatal hernia Hypertension Hyperthyroidism Surgical History Surgical History (Updated 02/23/23 @ 12:24 by Rula Ying APRN) History of aortic valve replacement with bioprosthetic valve History of lumpectomy of left breast History of thyroidectomy History of total replacement of both hip joints Status post laparoscopic Kayleen fundoplication Family History Family History Other Cerebrovascular accident Diabetes mellitus Family history of malignant neoplasm Hypertension Social History Social History Smoking status: Never smoker Alcohol intake: current Drinks per week: 1 Substance use: never Lack of Transportation: No Lack of Food: Never True Current Housing: I Have Housing Concerned About Future Housing: No Difficulty Paying Gas/Electric Bills: YES Difficulty Paying for Meds: No Currently Unemployed: No Education: High School Diploma/GED Difficulty w/ Childcare or Family Care: No Spiritual care concerns: No Meds Home Medications and Allergies Home Medications Medication Instructions Recorded Confirmed Type allopurinol 100 mg tablet 100 mg PO BID 02/23/23 02/23/23 History amlodipine 5 mg tablet 5 mg PO DAILY 02/23/23 02/23/23 History aspirin 81 mg tablet,delayed 81 mg PO DAILY 02/23/23 02/23/23 History release cholecalciferol (vitamin D3) 50 50 mcg PO DAILY 02/23/23 02/23/23 History mcg (2,000 unit) capsule (Vitamin D3) cyanocobalamin (vitamin B-12) 2,500 mcg sublingual DAILY 02/23/23 02/23/23 History 2,500 mcg sublingual tablet (Vitamin B-12) duloxetine 60 mg capsule,delayed 60 mg PO DAILY 02/23/23 02/23/23 History release levothyroxine 112 mcg tablet 112 mcg PO DAILY 02/23/23 02/23/23 History losartan 100 mg tablet 100 mg PO DAILY 02/23/23 02/23/23 History morphine 30 mg tablet,extended 30 mg PO BID 02/23/23 02/23/23 History release omeprazole 20 mg capsule,delayed 20 mg PO DAILY 02/23/23 02/23/23 History release trazodone 50 mg tablet 50 mg PO HS 02/23/23 02/23/23 History Allergies Allergy/AdvReac Type Severity Reaction Status Date / Time hydrocodone [From Vicodin]
--- NOTE | 2023-02-23 13:14 | PC.NURSE ---
Patient c/o jerky movements in her BUE. INSPECTOR SUBASSEMBLIES aware. Likely due to CA+ elevation.
--- NOTE | 2023-02-23 13:33 | PC.NURSE ---
FURNITURE DIPPER is evaluating whether or not hospital pharmacy stocks appropriate medications to treat hypercalcemia in this patient.
[2023-02-23] MEDS: ZOLEDRONIC ACID IVPB (15:00)
[2023-02-23] MEDS: SODIUM CHLORIDE 0.9% IVPB (15:00)
[2023-02-23] MEDS: allopurinoL 100 MG TABLET PO (17:03)
[2023-02-23] MEDS: SODIUM CHLORIDE 0.9% IV 1,000 ML 150 ML IV CONT ×2 (17:06→23:50)
--- NOTE | 2023-02-23 20:00 | PC.NURSE ---
Upon assessment, pt is alert and more oriented. She is answering questions appropriately. She does have some noted bouts of forgetfulness p answering questions but is able to reorientate quickly. Pt asking for use of BSC. Pt assisted c x2 to BSC and then back to bed. Pt turns self in bed, has call juárez at side, continuing to monitor.
[2023-02-23 20:11] LABS: Anion Gap 6 mmol/L (8-16); Blood Urea Nitrogen 32 mg/dL (7-18); Carbon Dioxide 29 mmol/L (21-32); Chloride 101 mmol/L (98-108); Estimated CRCL calculation 14 ml/min; Estimated Glomerular Filt Rate 20; Glucose 102 mg/dL (70-99); Osmolality Calculated 288 mOsm/kg (285-295); Potassium 3.5 mmol/L (3.5-5.1); Sodium 136 mmol/L (136-145)
[2023-02-23 20:13] LABS: Calcium 13.2 mg/dL (8.5-10.1)
[2023-02-23] MEDS: traZODone HCL 50 MG TABLET PO (20:55)
[2023-02-24] VITALS (7 sets, daily range): BP systolic 145–150; BP diastolic 78–81; PULSE 63–120; RESP 12–18; TEMP 37.1; O2SAT 93–95
--- NOTE | 2023-02-24 01:17 | PC.NURSE ---
Pt moving to end of bed trying to get up to use commode. Pt forgetful in using her call juárez. Bed alarm on and in place. Pt unsteady on her feet c assist and use of walker and gait belt. PT reoriented to room, call juárez and use of safety devices. Pt reports understanding of instruction but is unable to comprehend following the instructions. Pt changed into dry gown as her PJ pants are soiled c urine. Pt assisted x2 back to bed, alarms on, call juárez at pt side.
--- NOTE | 2023-02-24 01:50 | PC.NURSE ---
Pt had run of SVT c rate 147-150, not sustained then converted back to SR c occasional PVC/couplets. Pt awakened easily and denies any c/p or SOB, Pt reports feeling ok, will continue to monitor, call juárez at pt side.
--- NOTE | 2023-02-24 01:56 | PCNEURO ---
Addendum entered by Jessica Kaminski RN 02/24/23 01:57: Not a neurology note, nurses note as below. Original Note: Pt had run of SVT on monitor c rate of 147-150, not sustained, then converted back to Sinus rhythm c PVC/couplets. Pt awakens easily, denies any c/p or SOB and states she is feeling ok. Will continue to monitor.
[2023-02-24 05:35] LABS: Hematocrit 23.6 % (35.0-42.0); Hemoglobin 7.7 g/dL (11.7-13.8); Mean Corpuscular HGB Conc 32.6 g/dL (32.0-36.0); Mean Corpuscular Volume 97.9 fL (78.0-102.0); Mean Platelet Volume 9.7 fl (9.2-11.8); Platelet Count Result 137 K/mm3 (150-420); Red Blood Count 2.41 M/mm3 (4.20-5.40); Red Cell Distribution Width 15.6 % (11.6-14.4); White Blood Count 2.8 K/mm3 (4.8-10.8)
[2023-02-24 06:01] LABS: Anion Gap 7 mmol/L (8-16); Blood Urea Nitrogen 28 mg/dL (7-18); Carbon Dioxide 27 mmol/L (21-32); Chloride 106 mmol/L (98-108); Estimated CRCL calculation 15 ml/min; Estimated Glomerular Filt Rate 22; Glucose 88 mg/dL (70-99); Magnesium 1.4 mg/dL (1.8-2.4); Osmolality Calculated 294 mOsm/kg (285-295); Potassium 3.2 mmol/L (3.5-5.1); Sodium 140 mmol/L (136-145)
[2023-02-24 06:02] LABS: Calcium 12.9 mg/dL (8.5-10.1)
[2023-02-24] MEDS: LEVOTHYROXINE SODIUM 112 MCG TABLET PO (06:06)
--- NOTE | 2023-02-24 06:09 | PC.NURSE ---
Rula Ying NP notified of 12.9 calcium which is trending down, also notified of elevated heart rate 140's not sustained for more than a minute off and on most of the evening
[2023-02-24 06:14] LABS: Band Neutrophils Percent 1 % (0-6); Basophils Percent Manual 0 % (0-1); Eosinophils Absolute Manual 0.02 K/mm3 (0.02-0.5); Eosinophils Percent Manual 1 % (1-6); Lymphocytes Absolute Manual 0.53 K/mm3 (1.1-4.5); Lymphocytes Percent Manual 19 % (18-44); Metamyelocytes Percent 1 %; Monocytes Absolute Manual 0.14 K/mm3 (0.1-0.90); Monocytes Percent Manual 5 % (3-9); Neutrophils Absolute Manual 2.07 K/mm3 (1.7-7.2); Neutrophils Percent Manual 73 % (46-73); Platelet Estimate Adequate (Adequate); Total Cells Counted 100
[2023-02-24] MEDS: SODIUM CHLORIDE 0.9% IV 1,000 ML 150 ML IV CONT ×2 (06:37→12:01)
--- NOTE | 2023-02-24 08:49 | ECG_ITS ---
Measurements Intervals [place] Rate: 78 P: 66 LA: 208 QRS: -40 QRSD: 128 T: 92 QT: 380 QTc: 434 Interpretive Statements SINUS RHYTHM SUPRAVENTRICULAR BIGEMINY LEFT AXIS DEVIATION BORDERLINE AV CONDUCTION DELAY INTRAVENTRICULAR CONDUCTION DELAY LEFT VENTRICULAR HYPERTROPHY AND ST-T CHANGE ANTEROSEPTAL INFARCT, AGE INDETERMINATE ST ELEVATION IN ANTEROLAT/INF LEADS- CONSIDER ACUTE INJURY, PERICARDITIS OR EARLY REPOLARIZATION ABNORMALITY ABNORMAL ECG NO PREVIOUS ECG AVAILABLE FOR COMPARISON Electronically Signed On 02-24-2023 11:37:15 CDT by Gregory Palafox D.O.
[2023-02-24] MEDS: ENOXAPARIN 30 MG/0.3 ML SYRINGE SUB-Q (09:10)
[2023-02-24] MEDS: CALCITONIN SALMON INJ 400 UNITS/2 ML VIAL 250 UNITS SUB-Q (09:32)
[2023-02-24] MEDS: DULoxetine HCL 30 MG CAPSULE.DR 60 MG PO (09:33)
[2023-02-24] MEDS: allopurinoL 100 MG TABLET PO (09:35)
[2023-02-24] MEDS: LOSARTAN POTASSIUM 50 MG TABLET 100 MG PO (09:35)
[2023-02-24] MEDS: ASPIRIN 81 MG ENTERIC TABLET PO (09:35)
[2023-02-24] MEDS: PANTOPRAZOLE 40 MG TABLET PO (09:35)
[2023-02-24] MEDS: amLODIPine BESYLATE 5 MG TABLET PO (09:36)
[2023-02-24] MEDS: CHOLECALCIFEROL 1,000 UNITS TABLET 2000 UNITS PO (09:36)
[2023-02-24] MEDS: CYANOCOBALAMIN 500 MCG TABLET 2500 MCG BY MOUTH (09:45)
--- NOTE | 2023-02-24 10:44 | PM.IMPN ---
Subjective Date/time seen: 02/24/23 0940 Interval history: Patient is resting in bed and states she feels extremely weak today. Patient denies any chest pain, shortness of breath, or palpitations. Overnight patient has had episodes of tachycardia that resolved extremely quickly. Objective Data Vital Signs Vital Signs: Vital Signs - 24 hr 02/23/23 14:00 02/23/23 16:00 02/23/23 16:00 Temperature 36.8 C Pulse Rate 78 80 78 Respiratory Rate 16 Blood Pressure 160/75 H Pulse Oximetry 96 Oxygen Delivery Room Air 02/23/23 17:57 02/23/23 19:34 02/23/23 19:52 Temperature Pulse Rate 80 80 83 Respiratory Rate 20 Blood Pressure Pulse Oximetry 97 Oxygen Delivery Room Air 02/23/23 22:00 02/23/23 23:52 02/23/23 23:52 Temperature 36.6 C Pulse Rate 87 76 79 Respiratory Rate 16 Blood Pressure 135/68 Pulse Oximetry 95 Oxygen Delivery Room Air 02/24/23 01:50 02/24/23 03:18 02/24/23 05:38 Temperature Pulse Rate 63 68 100 Respiratory Rate Blood Pressure Pulse Oximetry Oxygen Delivery Intake/Output Intake/Output: Intake & Output 02/21/23 02/22/23 02/23/23 02/24/23 23:59 23:59 23:59 23:59 Intake Total 3275 1500 Output Total 1000 1350 Balance 2275 150 Meds/Results Medications: Active Medications Generic Name Dose Route Start Last Admin Trade Name Freq PRN Reason Stop Dose Admin Acetaminophen 650 mg 02/23/23 11:05 Acetaminophen 325 Mg Tablet PO Q4H PRN Mild Pain (1-3) or Fever Allopurinol 100 mg 02/23/23 17:00 02/24/23 09:35 Allopurinol 100 Mg Tablet PO 100 mg BID CELE Administration Amlodipine Besylate 5 mg 02/24/23 09:00 02/24/23 09:36 Amlodipine Besylate 5 Mg Tablet PO 5 mg DAILY CELE Administration Aspirin 81 mg 02/24/23 09:00 02/24/23 09:35 Aspirin 81 Mg Enteric Tablet PO 81 mg DAILY CELE Administration Bisacodyl 5 mg 02/23/23 11:05 Bisacodyl 5 Mg Tablet Ec PO DAILY PRN Constipation Calcitonin [place] 250 units 02/24/23 09:00 02/24/23 09:32 Calcitonin [place] Inj 400 Units/2 Ml Vial SUB-Q 250 units Q12HR CELE Administration Cyanocobalamin 2,500 mcg 02/24/23 09:00 Cyanocobalamin 500 Mcg Tablet BY MOUTH DAILY CELE Duloxetine HCl 60 mg 02/24/23 09:00 02/24/23 09:33 Duloxetine Hcl 30 Mg Capsule. PO 03/26/23 08:59 60 mg DAILY CELE Administration Enoxaparin Sodium 30 mg 02/24/23 09:00 Enoxaparin 30 Mg/0.3 Ml Syringe SUB-Q DAILY CELE Sodium Chloride 1,000 mls @ 150 mls/hr 02/23/23 11:05 02/24/23 06:37 Normal Saline Iv IV CONT 150 mls/hr .Q6H40M CELE Administration Ceftriaxone Sodium 1 gm in 50 mls @ 100 mls/hr 02/24/23 09:00 Rocephin 1 Gm/Ns 50 Ml IVPB Q24H CELE Levothyroxine Sodium 112 mcg 02/24/23 06:30 02/24/23 06:06 Levothyroxine Sodium 112 Mcg Tablet PO 112 mcg DAILY@0630 CELE Administration Losartan Potassium 100 mg 02/24/23 09:00 02/24/23 09:35 Losartan Potassium 50 Mg Tablet PO 03/26/23 08:59 100 mg DAILY CELE Administration Pantoprazole Sodium 40 mg 02/24/23 09:00 02/24/23 09:35 Pantoprazole 40 Mg Tablet PO 03/26/23 08:59 40 mg DAILY CELE Administration Trazodone HCl 50 mg 02/23/23 21:00 02/23/23 20:55 Trazodone Hcl 50 Mg Tablet PO 50 mg HS CELE Administration Vitamin D 2,000 units 02/24/23 09:00 02/24/23 09:36 Cholecalciferol 1,000 Units Tablet PO 2,000 units DAILY CELE Administration Radiology Results: ITS Impressions Chest X-Ray 02/23/23 08:11 IMPRESSION: 1. No acute cardiopulmonary disease. Labs Labs: Laboratory Results - last 24 hr 02/23/23 02/24/23 19:57 05:28 WBC 2.8 L RBC 2.41 L Hgb 7.7 L Hct 23.6 L MCV 97.9 MCH 32.0 H MCHC 32.6 RDW 15.6 H Plt Count 137 L MPV 9.7 Immature Gran % (Auto) Not Reportable Neut % (Auto) Not Reportable Lymph % (Auto) Not Reportable Barnes % (Auto) Not Rep
[2023-02-24] MEDS: MAGNESIUM SULF 4 GM/WATER100ML 4 GM/100 ML BAG IVPB (12:00)
--- NOTE | 2023-02-24 12:44 | PC.NURSE ---
RN called [facility] radiology in [place] and spoke with Lorenzo environmental tech, Regarding the right chest port . It was put in on 02/17/[address] Milan put in the port and it is ok to use it at this time. RN gave this information to FLOUR [employer]ER/ [place] and then accessed with a 20G 1 inch Watson needle. Pt tolerated well.
--- NOTE | 2023-02-24 14:40 | PM.TDS ---
Transfer Discharge Sum: Prov Provider Date of admission: 02/24/23 10:40 Primary care physician: Gladys Jin MD Admitting clinician: Apolinar Garcia MD Receiving physician/fac[facility] DS: Admitting Diagnosis Discharge Date 02/24/2023 Admitting Diagnosis 1. Urinary tract infection 2. Hypercalcemia 3. Generalized weakness 4. Multiple myeloma 5. Acute kidney injury DS: Discharge Diagnosis Discharge Diagnosis Plan 1. Generalized weakness-PT/OT did evaluate and treat patient recommendations for possible rehab or swing bed when patient is ready for discharge. Generalized weakness is most likely secondary to hypercalcemia and urinary tract infection. 2. Hypercalcemia-patient's calcium level is down to 12.9 from a >14 yesterday. In January her calcium was noted to be mildly elevated 11.8.? Ionized calcium has been order, but unfortunately this level is a send out laboratory.? Unsure of what patient's actual? unbound calcium is, due to the fact that there is a condition where patient's with multiple myeloma can have a hypergammaglobulinemia and have a calcium binding paraprotein that is typically a globulin.? With this condition the calcium can be bound abnormally to the globulin rather than albumin.? For this reason an ionized calcium needs to be performed to see what patient's actual free calcium is.? Since and ionized calcium is a sent out will continue with hydration with normal saline at 150 mL/hour and recheck calcium level this evening. Patient did receive 1 dose of Zoledronic Acid yesterday and a dose of 500 units of calcitonin subcutaneously this morning. Unfortunately we do not have calcitonin on hand and is become difficult for us to obtain the drug. For this reason will be transferring patient to a higher level of care so appropriate medication can be given and patient can be seen by her oncologist. 3. Urinary tract infection-patient received a dose of oral Keflex in the emergency room.? Will continue patient on Rocephin 1 g IV daily and await culture and sensitivities. 4. Acute kidney injury-patient's creatinine in January was 1.24 and today it is 2.21. Acute kidney injury may be secondary to patient's hypercalcemia. Transferring accepting physician is aware patient's acute kidney injury. 5. Hypokalemia-patient did receive IV potassium in the emergency room yesterday for her initial potassium that was low. Patient did receive oral supplementation is morning for a potassium of 3.2. 6. Multiple myeloma-patient was diagnosed with multiple myeloma in December of this year. Patient is to follow-up with her oncologist in March for treatment plan, but unfortunately secondary to her hypercalcemia she will probably need to be seen prior to this. Patient is being transferred to [facility], in [place], [place]. Patient's oncologist is on staff at this facility and it was discussed with the hospitalist that patient may need consultation with her oncologist. Disposition-at this point time patient will be transferred to [facility] in [place], [place]. Accepting physician is Dr. Franco. Patient's family has been made aware of transfer and patient will be sent via ambulance. Transfer Discharge Sum: Med Medications Active and Home Medications: Home Medications allopurinol 100 mg tablet 100 mg PO BID 02/23/23 [History Confirmed 02/23/23] amlodipine 5 mg tablet 5 mg PO DAILY 02/23/23 [History Confirmed 02/23/23] aspirin 81 mg tablet,delayed release 81 mg PO DAILY 02/23/23 [History Confirmed 02/23/23] cholecalciferol (vitamin D3) 50 mcg (2,000 unit) capsule (Vitamin D3) 50 mcg PO DAILY 02/23/23 [History Confirmed 02/23/23] cyanocobalamin (vitamin B-12) 2,500 mcg sublingual tablet (Vitamin B-12) 2,500 mcg sublingual DAILY 02/23/23 [History Confirmed 02/23/23] duloxetine 60 mg capsule,delayed release 60 mg PO DAILY 02/23/23 [History Confirmed 02/23/23] levothyroxine 112
--- NOTE | 2023-02-24 14:45 | PC.NURSE ---
Vee from Transfer line at [facility] called to get report on patient. Accepting .
--- NOTE | 2023-02-24 15:47 | PC.NURSE ---
[employer] called for transfer, call being paged out.
--- NOTE | 2023-02-24 16:15 | PC.NURSE ---
Patient being transferred to [facility] in [facility]. Port site to right chest left accessed. All belongings gathered, patients niece has belongings. Patient transferred from bed to stretcher with 3x assist. Patients family aware of transfer. Patient denies any questions at transfer. Patient left floor via stretcher accompanied by EMS. Report and transfer packet given to EMS per this nurse.
[2023-02-25 15:09] LABS: Ionized Calcium 7.2 mg/dL (4.7-5.5)
== END 2023-02-24 16:15 | disposition short-term general hospital (02) | DRG 841 ==
LOC: CHSED 09:06 → CHS2ND 09:28
PROVIDERS: Nurse Practitioner Adult Health; Admitting Provider Internal Medicine; Emergency Provider Emergency Medicine; PCP Internal Medicine; Visit Provider Internal Medicine
DX: C90.00 Multiple myeloma not having achieved remission (principal); C79.51 Secondary malignant neoplasm of bone; N17.9 Acute kidney failure, unspecified; N39.0 Urinary tract infection, site not specified; E83.52 Hypercalcemia; E87.6 Hypokalemia; I10 Essential (primary) hypertension; K44.9 Diaphragmatic hernia without obstruction or gangrene; E89.0 Postprocedural hypothyroidism; Z96.643 Presence of artificial hip joint, bilateral; Z79.82 Long term (current) use of aspirin; Z85.3 Personal history of malignant neoplasm of breast
CPT/HCPCS: 36415; 71045; 80048; 80053; 81001; 82330; 83735; 85025; 85027; 87086; 87088; 93005; 96361; 96365; 96366; 96372; 96375; 97161; 97166; 99285; A9270; J0630; J0696; J1650; J3475; J3480; J3489; J7030

== ENCOUNTER 2023-03-05 09:39 | Outpatient (CLI) | payer MEDICARE, SELFPAY ==
[2023-03-05 10:14] LABS: Hematocrit 22.3 % (35.0-42.0); Hemoglobin 7.4 g/dL (11.7-13.8); Mean Corpuscular HGB Conc 33.2 g/dL (32.0-36.0); Mean Corpuscular Hemoglobin 32.5 pg (27.0-31.0); Mean Corpuscular Volume 97.8 fL (78.0-102.0); Mean Platelet Volume 8.9 fl (9.2-11.8); Platelet Count Result 213 K/mm3 (150-420); Red Blood Count 2.28 M/mm3 (4.20-5.40); Red Cell Distribution Width 16.4 % (11.6-14.4); White Blood Count 3.7 K/mm3 (4.8-10.8)
--- NOTE | 2023-03-05 10:14 | PC.NURSE ---
Pt to room 203 per wc with spouse. A&Ox3. Has no questions or concerns. Oriented to plan of care. Oriented to room. Call juárez in reach. Reminded to call with needs.
[2023-03-05 10:31] LABS: Band Neutrophils Percent 0 % (0-6); Eosinophils Absolute Manual 0.07 K/mm3 (0.02-0.5); Eosinophils Percent Manual 2 % (1-6); Lymphocytes Absolute Manual 0.59 K/mm3 (1.1-4.5); Lymphocytes Percent Manual 16 % (18-44); Monocytes Absolute Manual 0.55 K/mm3 (0.1-0.90); Monocytes Percent Manual 15 % (3-9); Neutrophils Absolute Manual 2.47 K/mm3 (1.7-7.2); Neutrophils Percent Manual 67 % (46-73); Platelet Estimate Adequate (Adequate); Total Cells Counted 100
[2023-03-05 10:46] LABS: Alanine Aminotransferase 36 U/L (14-59); Albumin Level 2.7 g/dL (3.4-5.0); Alkaline Phosphatase 144 U/L (46-116); Anion Gap 8 mmol/L (8-16); Aspartate Amino Transferase 33 U/L (15-37); Bilirubin Direct 0.1 mg/dL (0-0.2); Bilirubin,Total 0.3 mg/dL (0.00-1.00); Blood Urea Nitrogen 23 mg/dL (7-18); Calcium 7.8 mg/dL (8.5-10.1); Carbon Dioxide 27 mmol/L (21-32); Chloride 103 mmol/L (98-108); Estimated Glomerular Filt Rate 24; Glucose 142 mg/dL (70-99); Osmolality Calculated 291 mOsm/kg (285-295); Phosphorus 1.8 mg/dL (2.6-4.7); Potassium 3.5 mmol/L (3.5-5.1); Sodium 138 mmol/L (136-145); Thyroid Stimulating Hormone 2.66 uIU/mL (0.36-3.74); Total Protein 8.1 g/dL (6.4-8.2)
--- NOTE | 2023-03-05 11:00 | PC.NURSE ---
Labs resulted. Abnormals called to Dr. Villasenor's office. Message left.
[2023-03-05 11:32] VITALS: BP 134/75; PULSE 84; RESP 20; TEMP 36.2; O2SAT 98; BMI 25.2
--- NOTE | 2023-03-05 11:38 | PC.NURSE ---
Dr. Villasenor's office called. Abnormal labs repeated. Dr. Villasenor will be contacted regarding treatment plan and his nurse will call account underwriter with plan.
--- NOTE | 2023-03-05 11:40 | PC.NURSE ---
Dr. Villasenor's nurse t
--- NOTE | 2023-03-05 11:41 | PC.NURSE ---
Dr. Villasenor's nurse returned called with message stating to treat patient as ordered.
[2023-03-05] MEDS: ACETAMINOPHEN 325 MG TABLET 650 MG PO (11:51)
[2023-03-05] MEDS: diphenhydrAMINE HCl CAP 25 MG CAPSULE PO (11:51)
[2023-03-05] MEDS: FAMOTIDINE 20 MG TABLET PO (11:51)
[2023-03-05] MEDS: BORTEZOMIB 3.5 MG/1.4 ML VIAL 2.5 MG SUB-Q (12:08)
[2023-03-05] MEDS: DARATUMUMAB-HYALURONIDASE-FIHJ 1,800 MG-30,000 UNITS VIAL 15 ML SUB-Q (12:10)
--- NOTE | 2023-03-05 12:25 | PC.NURSE ---
Pt tolerated medications well. Has no questions or concerns. Chemo education given. Pt discharged to home per wc with spouse.
== END 2023-03-05 09:40 | disposition home or self-care (01) ==
PROVIDERS: PCP Internal Medicine; Visit Provider Internal Medicine Hematology & Oncology
DX: Z51.11 Encounter for antineoplastic chemotherapy (principal); C90.00 Multiple myeloma not having achieved remission; C50.919 Malignant neoplasm of unspecified site of unspecified female breast; E03.4 Atrophy of thyroid (acquired)
CPT/HCPCS: 36415; 80069; 80076; 84443; 85025; 96401; A9270; J9041; J9144

== ENCOUNTER 2023-03-11 10:26 | Outpatient (RCR) | payer MEDICARE, SELFPAY ==
[2023-03-10 09:39] LABS: Hemoglobin 7.1 g/dL (11.7-13.8); Mean Corpuscular HGB Conc 32.3 g/dL (32.0-36.0); Mean Corpuscular Hemoglobin 31.8 pg (27.0-31.0); Mean Corpuscular Volume 98.7 fL (78.0-102.0); Mean Platelet Volume 9.7 fl (9.2-11.8); Platelet Count Result 137 K/mm3 (150-420); Red Blood Count 2.23 M/mm3 (4.20-5.40); Red Cell Distribution Width 17.3 % (11.6-14.4); White Blood Count 1.8 K/mm3 (4.8-10.8)
[2023-03-10 09:40] LABS: Appearance Urine Clear (Clear); Bilirubin Urine Negative (Negative); Blood Urine Negative (Negative); Color Urine Light Yellow (Yellow); Glucose Urine UA Negative (Negative); Ketones Urine Negative (Negative); Leukocyte Esterase Ur Negative (Negative); Nitrate Urine Negative (Negative); Protein Urine 2+ (Negative); Urobilinogen Urine 0.2 mg/dL (0.2-1.0)
[2023-03-10 10:09] LABS: Band Neutrophils Percent 0 % (0-6); Basophils Absolute Manual 0.01 K/mm3 (0-0.1); Basophils Percent Manual 1 % (0-1); Eosinophils Absolute Manual 0.01 K/mm3 (0.02-0.5); Eosinophils Percent Manual 1 % (1-6); Lymphocytes Absolute Manual 0.28 K/mm3 (1.1-4.5); Lymphocytes Percent Manual 16 % (18-44); Monocytes Absolute Manual 0.18 K/mm3 (0.1-0.90); Monocytes Percent Manual 10 % (3-9); Neutrophils Absolute Manual 1.29 K/mm3 (1.7-7.2); Neutrophils Percent Manual 72 % (46-73); Platelet Estimate Adequate (Adequate); Total Cells Counted 100
[2023-03-10 10:27] LABS: Add Urine Microscopic? YES; Bacteria Urine Rare /hpf; RBC Urine None seen /hpf (0-2); Squamous Epithelial Cell Urine Few /hpf (Few); WBC Urine None seen /hpf (0-3)
[2023-03-10 10:38] LABS: Alanine Aminotransferase 28 U/L (14-59); Albumin Level 2.6 g/dL (3.4-5.0); Alkaline Phosphatase 120 U/L (46-116); Anion Gap 9 mmol/L (8-16); Aspartate Amino Transferase 18 U/L (15-37); Bilirubin,Total 0.3 mg/dL (0.00-1.00); Blood Urea Nitrogen 27 mg/dL (7-18); Calcium 7.8 mg/dL (8.5-10.1); Carbon Dioxide 24 mmol/L (21-32); Chloride 103 mmol/L (98-108); Estimated Glomerular Filt Rate 26; Glucose 120 mg/dL (70-99); NT Pro B Type Natriuretic Pept 3313 pg/mL (0-450); Osmolality Calculated 288 mOsm/kg (285-295); Potassium 3.6 mmol/L (3.5-5.1); Sodium 136 mmol/L (136-145); Total Protein 7.1 g/dL (6.4-8.2)
[2023-03-11] VITALS (8 sets, daily range): BP systolic 131–153; BP diastolic 69–80; PULSE 80–88; RESP 14; TEMP 36.4–36.6; O2SAT 98; BMI 24.9
[2023-03-11] MEDS: SODIUM CHLORIDE 0.9% IV 250 ML 10 ML IVPB (10:40)
--- NOTE | 2023-03-11 12:42 | PC.NURSE ---
1030 Patient here for 1 unit PRBC's. Reports been a very long time ago when had blood transfusion. Education and permit signed. No concerns voiced. 1050 Unit PRBC's started at 100 ml/hr. 1105 No s/sx of blood transfusion reaction noted or reported. 1135 No s/sx of blood transfusion reaction noted or reported. Increased rate to 125 ml/hr. 1205 Tolerating blood transfusion well. No concerns. Increased rate 150 ml/hr-continue at this rate until completed.
[2023-03-11 13:49] LABS: Hematocrit 23.5 % (35.0-42.0); Hemoglobin 8.1 g/dL (11.7-13.8)
[2023-03-11] MEDS: HEPARIN SODIUM LOCK FLUSH 500 UNITS/5 ML SYRINGE IV PUSH (13:56)
--- NOTE | 2023-03-11 14:02 | PC.NURSE ---
1400 Ambulated to bathroom and back. Reports feeling stronger on feet. 1425 1 unit of PRBC's completed. SEE TAR. Tolerated well. NS infusing. 1355 Post H/H drawn and sent to lab. Hgb 8.1. 1405 VSS No complaints/concerns. Post blood transfusion education given. Will return tomorrow 03/12/23 at 1000 for cycle 1 day 15 chemo regimen. Safe exit of hospital per wc to 's vehicle.
== END 2023-03-11 10:27 | disposition home or self-care (01) ==
LOC: CHSTREATRM 10:26
PROVIDERS: PCP Internal Medicine; Visit Provider Internal Medicine Hematology & Oncology
DX: N18.4 Chronic kidney disease, stage 4 (severe) (principal); N39.0 Urinary tract infection, site not specified; C90.00 Multiple myeloma not having achieved remission; I50.22 Chronic systolic (congestive) heart failure
CPT/HCPCS: 36415; 36430; 80053; 81001; 83880; 85014; 85018; 85025; 86850; 86900; 86901; 86920; 87077; 87086; 87088; 87186; P9016

== ENCOUNTER 2023-03-12 09:39 | Outpatient (CLI) | payer MEDICARE, SELFPAY ==
[2023-03-12 10:09] VITALS: BMI 24.9
[2023-03-12 10:10] VITALS: BP 140/70; PULSE 78; RESP 16; TEMP 36.4; O2SAT 98
[2023-03-12 10:11] LABS: Hematocrit 24.1 % (35.0-42.0); Hemoglobin 8.2 g/dL (11.7-13.8); Immature Platelet Fraction Pct 2.5 % (1.0-7.0); Mean Corpuscular Volume 94.1 fL (78.0-102.0); Mean Platelet Volume 10.6 fl (9.2-11.8); Platelet Count Result 127 K/mm3 (150-420); Red Blood Count 2.56 M/mm3 (4.20-5.40); Red Cell Distribution Width 18.1 % (11.6-14.4); White Blood Count 2.1 K/mm3 (4.8-10.8)
[2023-03-12 10:22] LABS: Neutrophils Percent Manual 70 % (46-73); Total Cells Counted 100
[2023-03-12 10:23] LABS: Band Neutrophils Percent 0 % (0-6); Basophils Absolute Manual 0.04 K/mm3 (0-0.1); Basophils Percent Manual 2 % (0-1); Eosinophils Absolute Manual 0.04 K/mm3 (0.02-0.5); Eosinophils Percent Manual 2 % (1-6); Lymphocytes Absolute Manual 0.33 K/mm3 (1.1-4.5); Lymphocytes Percent Manual 16 % (18-44); Monocytes Absolute Manual 0.21 K/mm3 (0.1-0.90); Monocytes Percent Manual 10 % (3-9); Neutrophils Absolute Manual 1.47 K/mm3 (1.7-7.2); Platelet Estimate Adequate (Adequate)
--- NOTE | 2023-03-12 10:45 | PC.NURSE ---
1000 Patient here for Cycle 1 day 15 of CyBorD +Daratumumab chemo. Had labs on 03/10/23- CMP ok'd. Had 1 unit prbc's 03/11/23. Repeat CBC for today. Patient wanted drawn from port a cath- drawn reviewed ok'd for chemo today. More education given on Chemo regimen. Calendar made out for her to keep everything organized. Patient reports feeling better since the blood transfusion. 1030 Pre Meds Benadryl and Tylenol administered see OCT. Patient also took home prescriptions of Decadron and Cyclophosphamide.
[2023-03-12] MEDS: FAMOTIDINE 20 MG TABLET PO (10:54)
[2023-03-12] MEDS: ACETAMINOPHEN 325 MG TABLET 650 MG PO (10:54)
[2023-03-12] MEDS: diphenhydrAMINE HCl CAP 25 MG CAPSULE PO (10:55)
[2023-03-12] MEDS: DARATUMUMAB-HYALURONIDASE-FIHJ 1,800 MG-30,000 UNITS VIAL 15 ML SUB-Q (11:03)
[2023-03-12] MEDS: BORTEZOMIB 3.5 MG/1.4 ML VIAL 2.5 MG SUB-Q (11:10)
[2023-03-12] MEDS: HEPARIN SODIUM LOCK FLUSH 500 UNITS/5 ML SYRINGE (11:30)
[2023-03-12 12:00] VITALS: BP 137/70; PULSE 78; RESP 14; TEMP 35.9; O2SAT 98
--- NOTE | 2023-03-12 14:16 | PC.NURSE ---
1200 Chemo injections administered. SEE MAR. Tolerated well. No s/sx of reaction noted after observing for awhile after. Safe exit of hospital per wc to car. Will return Mar 19, 2023 at 1000 for cycle 1 day 22.
== END 2023-03-12 09:40 | disposition home or self-care (01) ==
PROVIDERS: PCP Internal Medicine; Visit Provider Internal Medicine Hematology & Oncology
DX: Z51.11 Encounter for antineoplastic chemotherapy (principal); C90.00 Multiple myeloma not having achieved remission
CPT/HCPCS: 36415; 36592; 85025; 85055; 96401; A9270; J9041; J9144

== ENCOUNTER 2023-03-19 09:50 | Outpatient (CLI) | payer MEDICARE, SELFPAY ==
[2023-03-19 10:17] VITALS: BMI 25.4
[2023-03-19 10:22] LABS: Hematocrit 21.8 % (35.0-42.0); Hemoglobin 7.3 g/dL (11.7-13.8); Immature Platelet Fraction Pct 4.3 % (1.0-7.0); Mean Corpuscular HGB Conc 33.5 g/dL (32.0-36.0); Mean Corpuscular Hemoglobin 32.6 pg (27.0-31.0); Mean Corpuscular Volume 97.3 fL (78.0-102.0); Mean Platelet Volume 11.3 fl (9.2-11.8); Platelet Count Result 92 K/mm3 (150-420); Red Blood Count 2.24 M/mm3 (4.20-5.40); Red Cell Distribution Width 17.1 % (11.6-14.4); White Blood Count 1.6 K/mm3 (4.8-10.8)
[2023-03-19 10:23] VITALS: BP 115/77; PULSE 88; RESP 14; TEMP 36; O2SAT 98
[2023-03-19 10:36] LABS: Alanine Aminotransferase 34 U/L (14-59); Albumin Level 2.3 g/dL (3.4-5.0); Alkaline Phosphatase 168 U/L (46-116); Anion Gap 5 mmol/L (8-16); Aspartate Amino Transferase 27 U/L (15-37); Band Neutrophils Percent 3 % (0-6); Basophils Percent Manual 0 % (0-1); Bilirubin,Total 0.5 mg/dL (0.00-1.00); Blood Urea Nitrogen 22 mg/dL (7-18); Calcium 8.2 mg/dL (8.5-10.1); Carbon Dioxide 26 mmol/L (21-32); Chloride 103 mmol/L (98-108); Eosinophils Absolute Manual 0.01 K/mm3 (0.02-0.5); Eosinophils Percent Manual 1 % (1-6); Estimated CRCL calculation 21 ml/min; Estimated Glomerular Filt Rate 31; Glucose 93 mg/dL (70-99); Lymphocytes Percent Manual 25 % (18-44); Monocytes Absolute Manual 0.08 K/mm3 (0.1-0.90); Monocytes Percent Manual 5 % (3-9); Neutrophils Percent Manual 66 % (46-73); Osmolality Calculated 281 mOsm/kg (285-295); Phosphorus 2.7 mg/dL (2.6-4.7); Platelet Estimate Decreased (Adequate); Potassium 3.7 mmol/L (3.5-5.1); Sodium 134 mmol/L (136-145); Total Cells Counted 100; Total Protein 7.2 g/dL (6.4-8.2)
[2023-03-19] MEDS: diphenhydrAMINE HCl CAP 25 MG CAPSULE PO (11:15)
[2023-03-19] MEDS: ACETAMINOPHEN 325 MG TABLET 650 MG PO (11:15)
--- NOTE | 2023-03-19 11:26 | PC.NURSE ---
1000 Patient here for cycle 1 day 22 of chemo regimen CyborD +Daratumumab. Labs drawn from [facility] to Dr. Villasenor. ANC 1104- WBC 1.6 bands 3 and neutrophils 66, platelets 92, H/H 7.3/21.8. Dr. Villasenor return call and wants us to go ahead give cycle 1 day 22 chemo regimen. Education given patient. All concerns answered. Appetite good. Only complaint is being so tired. No weight loss.
[2023-03-19] MEDS: BORTEZOMIB 3.5 MG/1.4 ML VIAL 2.5 MG SUB-Q (11:37)
[2023-03-19] MEDS: HEPARIN SODIUM LOCK FLUSH 500 UNITS/5 ML SYRINGE IV PUSH (11:37)
[2023-03-19] MEDS: DARATUMUMAB-HYALURONIDASE-FIHJ 1,800 MG-30,000 UNITS VIAL 15 ML SUB-Q (11:37)
[2023-03-19 12:17] LABS: Appearance Urine Clear (Clear); Bilirubin Urine Negative (Negative); Blood Urine Negative (Negative); Color Urine Light Yellow (Yellow); Glucose Urine UA Negative (Negative); Ketones Urine Negative (Negative); Leukocyte Esterase Ur 1+ (Negative); Nitrate Urine Negative (Negative); Protein Urine 1+ (Negative); Specific Grav Ur <= 1.005 (1.010-1.020); Urobilinogen Urine 0.2 mg/dL (0.2-1.0)
[2023-03-19 12:20] LABS: Add Urine Microscopic? YES; Bacteria Urine 2+ /hpf; RBC Urine None seen /hpf (0-2); Squamous Epithelial Cell Urine Few /hpf (Few); WBC Urine 16-20 /hpf (0-3)
[2023-03-19 12:35] VITALS: BP 116/70; PULSE 78; RESP 14; O2SAT 96
--- NOTE | 2023-03-19 12:56 | PC.NURSE ---
Administered patient's chemo regime SEE OCT. Tolerated well. No reaction noted or reported. Will return 03/26/23 for cycle 2 day 1. Safe exit of hospital per w/c to 's car in front.
== END 2023-03-19 09:51 | disposition home or self-care (01) ==
LOC: CHSTREATRM 09:56
PROVIDERS: PCP Internal Medicine; Visit Provider Internal Medicine Hematology & Oncology
DX: Z51.11 Encounter for antineoplastic chemotherapy (principal); C90.00 Multiple myeloma not having achieved remission
CPT/HCPCS: 36415; 80053; 81001; 84100; 85025; 85055; 96401; A9270; J9041; J9144

== ENCOUNTER 2023-03-26 09:48 | Outpatient (CLI) | payer MEDICARE, SELFPAY ==
[2023-03-26 10:11] LABS: Hematocrit 21.3 % (35.0-42.0); Hemoglobin 7.1 g/dL (11.7-13.8); Immature Platelet Fraction Pct 3.7 % (1.0-7.0); Mean Corpuscular HGB Conc 33.3 g/dL (32.0-36.0); Mean Corpuscular Hemoglobin 32.6 pg (27.0-31.0); Mean Corpuscular Volume 97.7 fL (78.0-102.0); Mean Platelet Volume 10.5 fl (9.2-11.8); Platelet Count Result 128 K/mm3 (150-420); Red Blood Count 2.18 M/mm3 (4.20-5.40); Red Cell Distribution Width 16.6 % (11.6-14.4); White Blood Count 2.1 K/mm3 (4.8-10.8)
[2023-03-26 10:24] LABS: Alanine Aminotransferase 16 U/L (14-59); Albumin Level 2.2 g/dL (3.4-5.0); Alkaline Phosphatase 157 U/L (46-116); Anion Gap 9 mmol/L (8-16); Aspartate Amino Transferase 18 U/L (15-37); Bilirubin,Total 0.3 mg/dL (0.00-1.00); Blood Urea Nitrogen 19 mg/dL (7-18); Calcium 8.6 mg/dL (8.5-10.1); Carbon Dioxide 25 mmol/L (21-32); Chloride 104 mmol/L (98-108); Estimated Glomerular Filt Rate 35; Glucose 115 mg/dL (70-99); Osmolality Calculated 289 mOsm/kg (285-295); Potassium 3.8 mmol/L (3.5-5.1); Sodium 138 mmol/L (136-145); Total Protein 7.5 g/dL (6.4-8.2)
[2023-03-26 10:26] LABS: Band Neutrophils Percent 0 % (0-6); Basophils Percent Manual 0 % (0-1); Eosinophils Absolute Manual 0.04 K/mm3 (0.02-0.5); Eosinophils Percent Manual 2 % (1-6); Lymphocytes Absolute Manual 0.14 K/mm3 (1.1-4.5); Lymphocytes Percent Manual 7 % (18-44); Monocytes Absolute Manual 0.18 K/mm3 (0.1-0.90); Monocytes Percent Manual 9 % (3-9); Neutrophils Percent Manual 81 % (46-73); Platelet Estimate Adequate (Adequate); Total Cells Counted 100
[2023-03-26 10:39] VITALS: BP 128/84; PULSE 78; RESP 16; TEMP 36.6; O2SAT 97
[2023-03-26 10:42] VITALS: BMI 24.6
[2023-03-26] MEDS: diphenhydrAMINE HCl CAP 25 MG CAPSULE PO (10:45)
[2023-03-26] MEDS: ACETAMINOPHEN 325 MG TABLET 650 MG PO (10:45)
--- NOTE | 2023-03-26 10:53 | PC.NURSE ---
1000 Patient here for chemo regimen cycle 2 day 1. Labs drawn from port and sent to lab-results reviewed and Dr. Villasenor notified of CBC results and states Go ahead a proceed. Later in week if has s/sx of being low on blood, have her call.
[2023-03-26] MEDS: BORTEZOMIB 3.5 MG/1.4 ML VIAL 2.5 MG SUB-Q (11:13)
[2023-03-26] MEDS: DARATUMUMAB-HYALURONIDASE-FIHJ 1,800 MG-30,000 UNITS VIAL 15 ML SUB-Q (11:14)
[2023-03-26] MEDS: HEPARIN SODIUM LOCK FLUSH 500 UNITS/5 ML SYRINGE (11:25)
[2023-03-26 11:35] VITALS: BP 118/70; PULSE 78; RESP 14; TEMP 36.6; O2SAT 97
--- NOTE | 2023-03-26 11:36 | PC.NURSE ---
1145 Chemo regimen administered. SEE MAR. Education on side effects etc given through out regime. All concerns answered. Tolerated well. Safe exit of hospital per wc to friends car. Will return 04/02/23 at 1000 for cycle 2 day 8.
== END 2023-03-26 09:49 | disposition home or self-care (01) ==
PROVIDERS: PCP Internal Medicine; Visit Provider Internal Medicine Hematology & Oncology
DX: Z51.11 Encounter for antineoplastic chemotherapy (principal); C50.919 Malignant neoplasm of unspecified site of unspecified female breast; C90.00 Multiple myeloma not having achieved remission
CPT/HCPCS: 36415; 36592; 80053; 85025; 85055; 96401; A9270; J9041; J9144

== ENCOUNTER 2023-03-28 10:11 | Outpatient (CLI) | payer MEDICARE, SELFPAY ==
[2023-03-28] VITALS (8 sets, daily range): BP systolic 136–152; BP diastolic 70–76; PULSE 78–80; RESP 14–16; TEMP 36.1–36.6; O2SAT 97–98; BMI 24.6
[2023-03-28] MEDS: diphenhydrAMINE HCl CAP 25 MG CAPSULE PO (10:20)
[2023-03-28] MEDS: ACETAMINOPHEN 325 MG TABLET 650 MG PO (10:20)
[2023-03-28] MEDS: SODIUM CHLORIDE 0.9% IV 250 ML 10 ML IVPB (10:45)
--- NOTE | 2023-03-28 11:16 | PC.NURSE ---
1010 Patient here for Transfusion 1 unit PRBC's. Consent signed. Education given. Pre meds of Bendadryl/Tylenol given see OCT. 104 Unit PRBC's started at rate of 100 ml/hr. 1100 No signs s/sx of blood transfusion reaction noted or reported. UP rate to 125 ml/hr.
--- NOTE | 2023-03-28 12:29 | PC.NURSE ---
1230 No concerns voiced. Up to bathroom and back. Blood transfusion continues without difficulty. Up the rate to 150 ml/hr.
[2023-03-28] MEDS: HEPARIN SODIUM LOCK FLUSH 500 UNITS/5 ML SYRINGE IV PUSH (13:43)
--- NOTE | 2023-03-28 13:57 | PC.NURSE ---
1310 One Unit of PRBC's transfused. Normal saline infusing now. Tolerated transfusion well. No concerns. 1340 VSS. POST H/H drawn. 1350 Safe exit of hospital per wc to friends car. Will return 04/02/23 for cycle 2 day 8 of chemo regimen.
[2023-03-28 14:15] LABS: Hematocrit 24.9 % (35.0-42.0); Hemoglobin 8.2 g/dL (11.7-13.8)
== END 2023-03-28 10:12 | disposition home or self-care (01) ==
LOC: CHSTREATRM 10:17
PROVIDERS: PCP Internal Medicine; Visit Provider Internal Medicine Hematology & Oncology
DX: C90.00 Multiple myeloma not having achieved remission (principal)
CPT/HCPCS: 36415; 36430; 85014; 85018; 86644; 86850; 86870; 86880; 86900; 86901; 86902; 86920; 86970; 86971; A9270; J7050; P9016

== ENCOUNTER 2023-04-02 09:42 | Outpatient (CLI) | payer MEDICARE, SELFPAY ==
[2023-04-02 10:06] VITALS: BMI 24.5
[2023-04-02 10:10] VITALS: BP 117/63; PULSE 77; RESP 14; TEMP 36.6; O2SAT 97
[2023-04-02 10:14] LABS: Hematocrit 25.4 % (35.0-42.0); Hemoglobin 8.5 g/dL (11.7-13.8); Immature Platelet Fraction Pct 4.3 % (1.0-7.0); Mean Corpuscular HGB Conc 33.5 g/dL (32.0-36.0); Mean Corpuscular Hemoglobin 32.8 pg (27.0-31.0); Mean Corpuscular Volume 98.1 fL (78.0-102.0); Mean Platelet Volume 11.3 fl (9.2-11.8); Platelet Count Result 124 K/mm3 (150-420); Red Blood Count 2.59 M/mm3 (4.20-5.40); Red Cell Distribution Width 16.2 % (11.6-14.4); White Blood Count 3.1 K/mm3 (4.8-10.8)
[2023-04-02 10:26] LABS: Alanine Aminotransferase 21 U/L (14-59); Albumin Level 2.4 g/dL (3.4-5.0); Alkaline Phosphatase 171 U/L (46-116); Anion Gap 9 mmol/L (8-16); Aspartate Amino Transferase 26 U/L (15-37); Bilirubin,Total 0.3 mg/dL (0.00-1.00); Blood Urea Nitrogen 23 mg/dL (7-18); Calcium 8.6 mg/dL (8.5-10.1); Carbon Dioxide 26 mmol/L (21-32); Chloride 102 mmol/L (98-108); Estimated CRCL calculation 22 ml/min; Estimated Glomerular Filt Rate 33; Glucose 160 mg/dL (70-99); Osmolality Calculated 290 mOsm/kg (285-295); Potassium 3.6 mmol/L (3.5-5.1); Sodium 137 mmol/L (136-145); Total Protein 8.1 g/dL (6.4-8.2)
[2023-04-02 10:28] LABS: Band Neutrophils Percent 0 % (0-6); Eosinophils Absolute Manual 0.03 K/mm3 (0.02-0.5); Eosinophils Percent Manual 1 % (1-6); Lymphocytes Absolute Manual 0.55 K/mm3 (1.1-4.5); Lymphocytes Percent Manual 18 % (18-44); Monocytes Absolute Manual 0.31 K/mm3 (0.1-0.90); Monocytes Percent Manual 10 % (3-9); Neutrophils Percent Manual 71 % (46-73); Platelet Estimate Adequate (Adequate); Total Cells Counted 100
[2023-04-02] MEDS: diphenhydrAMINE HCl CAP 25 MG CAPSULE PO (10:30)
[2023-04-02] MEDS: ACETAMINOPHEN 325 MG TABLET 650 MG PO (10:30)
[2023-04-02] MEDS: DARATUMUMAB-HYALURONIDASE-FIHJ 1,800 MG-30,000 UNITS VIAL 15 ML SUB-Q (10:54)
[2023-04-02] MEDS: BORTEZOMIB 3.5 MG/1.4 ML VIAL 2.5 MG SUB-Q (10:56)
[2023-04-02] MEDS: HEPARIN SODIUM LOCK FLUSH 500 UNITS/5 ML SYRINGE (10:57)
[2023-04-02 11:04] LABS: Iron 133 ug/dL (50-170); Lactate Dehydrogenase 226 U/L (81-234); Percent Iron Saturation 50 % (12-57)
[2023-04-02 11:05] LABS: Ferritin > 1000 ng/mL (8-252)
--- NOTE | 2023-04-02 11:25 | PC.NURSE ---
Patient here for Cycle 2 day 8 of chemo regimen. Labs drawn/reviewed/ok'd for chemo. Education continues each time pt. is here. All concerns answered. Chemo regimen administered SEE MAR. Tolerated well. Safe exit of hospital per wc to friends car. Will return for Cycle 2 day 15 04/09/23 at 1000.
[2023-04-05 17:58] LABS: Lambda Light Chain 5.9 mg/L (5.7-26.3)
[2023-04-06 14:26] LABS: Abnormal Protein Band 1 1.7 g/dL; Alpha 1 Globulin 0.5 g/dL (0.2-0.3); Alpha 2 Globulin 0.9 g/dL (0.5-0.9); Beta 1 Globulin 0.5 g/dL (0.4-0.6); Gamma Globulin 1.9 g/dL (0.8-1.7); Protein, Total 6.9 g/dL (6.1-8.1)
[2023-04-08 04:24] LABS: Beta-2-Microglobulin 10.32 mg/L (<=2.51); Immunoglobulin A 11 mg/dL (70-320); Immunoglobulin G 2264 mg/dL (600-1540); Immunoglobulin M 6 mg/dL (50-300)
== END 2023-04-02 09:43 | disposition home or self-care (01) ==
PROVIDERS: PCP Internal Medicine; Visit Provider Internal Medicine Hematology & Oncology
DX: Z51.11 Encounter for antineoplastic chemotherapy (principal); C90.00 Multiple myeloma not having achieved remission; D47.2 Monoclonal gammopathy; D50.9 Iron deficiency anemia, unspecified
CPT/HCPCS: 36415; 36592; 80053; 82232; 82728; 82784; 83540; 83550; 83615; 83883; 84155; 84165; 85025; 85055; 86334; 96401; A9270; J9041; J9144

== ENCOUNTER 2023-04-08 10:58 | Inpatient (IN) | payer MEDICARE, SELFPAY ==
--- NOTE | ~2023-04-08 | US_ITS ---
EXAMINATION: US retroperitoneal comp DATE: 04/09/2023 08:14 INDICATION: Dysuria TECHNIQUE: Multiple grayscale and Doppler ultrasound images of the kidneys were obtained. COMPARISON: None. FINDINGS: The right kidney measures 13.0 x 4.7 x 4.8 cm. The left kidney measures 11.1 x 4.3 x 5.0 cm . The kidneys demonstrate normal parenchymal echogenicity. There is no hydronephrosis. The bladder is decompressed by Sarah catheter. IMPRESSION: 1. Normal kidneys without hydronephrosis. Reviewed, dictated and finalized at location A.
--- NOTE | ~2023-04-08 | CT_ITS ---
EXAMINATION: CT abdomen pelvis wo con DATE: 04/08/2023 17:52 INDICATION: Inability to urinate TECHNIQUE: Computed tomography (CT) of the abdomen and pelvis was performed without intravenous contr ast. Automated exposure control and iterative reconstruction technique were employed. The dose-length product was 227.55 mGy-cm. COMPARISON: 01/30/2023 and 11/03/2020 FINDINGS: Small bilateral dependently layering pleural effusions with atelectasis/scarring at the dependent lee ann g bases. Likely benign 6 mm pleural-based nodules the right lung base greater than 2 years of stabili ty. Borderline heart size. No pericardial effusion. Tip of a central venous catheter at the high righ t atrium. Small sliding-type hiatal hernia with changes likely prior Kayleen fundoplication. Cholecyst ectomy clips at the gallbladder fossa. Spleen, pancreas and bilateral adrenal glands are normal. 7 mm high attenuation proteinaceous/hemorrhagic cyst at the lower pole of the left kidney. No evident uro lithiasis. The bladder the portion of the adjacent deep pelvis including the distal ureters are howev er obscured by dense streak artifact resulting from bilateral total hip arthroplasties. Calcified noel rine fibroids. Chronic rim calcification related to cyst at the right ovary. There is moderate coloni c diverticulosis with a sigmoid predominance. There is no adjacent inflammatory change to suggest di verticulitis. No bowel obstruction. No free intraperitoneal gas or fluid. No pathologically enlarged abdominal or pelvic lymphadenopathy. Extensive lytic bone disease with innumerable lytic lesions thro ughout the entire visualized skeleton consistent with widespread multiple myeloma. IMPRESSION: 1. No hydronephrosis or evident urolithiasis. The bladder and distal ureters are however partially ob scured by dense metallic streak artifact from the bilateral total hip arthroplasties. 2. Widespread lytic bone disease with innumerable lytic bone lesions throughout the entire skeleton c onsistent with widespread multiple myeloma. 3. Small bilateral pleural effusions. 4. Borderline heart size. 5. Small sliding-type hiatal hernia with likely prior Kayleen fundoplication. Reviewed, dictated and finalized at location A. IMPRESSION: 1. No hydronephrosis or evident urolithiasis. The bladder and distal ureters ar e however partially obscured by dense metallic streak artifact from the bilater al total hip arthroplasties. 2. Widespread lytic bone disease with innumerable lytic bone lesions throughout the entire skeleton consistent with widespread multiple myeloma. 3. Small bilateral pleural effusions. 4. Borderline heart size. 5. Small sliding-type hiatal hernia with likely prior Kayleen fundoplication.
--- NOTE | 2023-04-08 10:59 | ED.WEAKNESS ---
HPI - Weakness General Chief complaint: Weakness Stated complaint: UTI Time Seen by Provider: 04/08/23 10:59 Source: patient, family and RN notes reviewed Mode of arrival: ambulatory Limitations: no limitations History of Present Illness Complaint: generalized weakness Onset (ago): day(s) (2) Duration: constant Location: generalized Migration: none Severity: moderate Relieving factors: none Exacerbating factors: none Associated symptoms: confusion and other ( similar symptoms with previous UTI) Related Data Home Medications Medication Instructions Recorded Confirmed amlodipine 5 mg tablet 5 mg PO DAILY 02/23/23 04/08/23 cholecalciferol (vitamin D3) 50 50 mcg PO DAILY 02/23/23 04/08/23 mcg (2,000 unit) capsule (Vitamin D3) cyanocobalamin (vitamin B-12) 2,500 mcg sublingual DAILY 02/23/23 04/08/23 2,500 mcg sublingual tablet (Vitamin B-12) duloxetine 60 mg capsule,delayed 60 mg PO DAILY 02/23/23 04/08/23 release levothyroxine 112 mcg tablet 112 mcg PO DAILY 02/23/23 04/08/23 omeprazole 20 mg capsule,delayed 20 mg PO DAILY 02/23/23 04/08/23 release trazodone 50 mg tablet 50 mg PO HS 02/23/23 04/08/23 apixaban 5 mg tablet (Eliquis) 5 mg PO BID 03/05/23 04/08/23 folic acid 1 mg tablet 1 mg PO DAILY 03/05/23 04/08/23 Allergies Allergy/AdvReac Type Severity Reaction Status Date / Time hydrocodone [From Vicodin] Allergy Itching Verified 04/08/23 11:10 Review of Systems Review of Systems: All systems reviewed & are unremarkable except as noted in HPI and below Constitutional: Constitutional: Denies chills and Denies fever(s) Gastrointestinal: Gastrointestinal: Denies nausea and Denies vomiting PMF Past Medical History Medical History (Updated 04/08/23 @ 11:56 by Bear Peters MD) Anemia Breast cancer in situ Gastroesophageal reflux disease without esophagitis Hiatal hernia Hypertension Hyperthyroidism Multiple myeloma Surgical History Surgical History History of aortic valve replacement with bioprosthetic valve History of lumpectomy of left breast History of thyroidectomy History of total replacement of both hip joints Status post laparoscopic Kayleen fundoplication Family History Family History Other Cerebrovascular accident Diabetes mellitus Family history of malignant neoplasm Hypertension Social History Social History Smoking status: Never smoker Alcohol intake: current Drinks per week: 1 Substance use: never Lack of Transportation: No Lack of Food: Never True Current Housing: I Have Housing Concerned About Future Housing: No Difficulty Paying Gas/Electric Bills: YES Difficulty Paying for Meds: No Currently Unemployed: No Education: High School Diploma/GED Difficulty w/ Childcare or Family Care: No Spiritual care concerns: No Exam Const: General: healthy appearing, no acute distress and alert Nutritional Appearance: well nourished Orientation/consciousness: patient oriented x3 Limitations: no limitations HENMT: Head: normal to inspection Ears: external ears normal Face/Nose/Sinus: Normal external nose present Face and sinus: normal facial exam Mouth: Yes moist mucous membranes Eyes: Conjunctivae: conjunctivae normal Pupils: Equal, round and reactive pupils present EOM: EOMs intact bilaterally Neck: Neck: normal visual inspection Resp: Effort & Inspection: normal respiratory effort Auscultation: clear to auscultation bilaterally Cardio: Rate: regular rate Rhythm: regular rhythm Heart sounds: Murmur heart sound present systolic holo, IV/ and at the apex GI: GI Palp: Yes Soft to palpation and No Tenderness to palpation present (GI) Auscultation: normal bowel sounds Back/Spine/Pelvis: Cervical Spine: cervical ROM normal Thoracic/Lumbar Spine: thoraco-lumbar
[2023-04-08 11:04] VITALS: BP 106/33; PULSE 83; RESP 19; TEMP 37.2; O2SAT 100
[2023-04-08 11:14] LABS: Appearance Urine Cloudy (Clear); Bilirubin Urine Negative (Negative); Blood Urine 2+ (Negative); Color Urine Yellow (Yellow); Glucose Urine UA Negative (Negative); Ketones Urine Trace (Negative); Leukocyte Esterase Ur 3+ LEU/UL (Negative); Nitrate Urine Negative (Negative); Protein Urine 3+ (Negative); Specific Grav Ur 1.025 (1.010-1.020); Urobilinogen Urine 0.2 mg/dL (0.2-1.0)
[2023-04-08 11:20] LABS: Add Urine Microscopic? YES; RBC Urine >75 /hpf (0-2); WBC Urine >100 /hpf (0-3)
[2023-04-08 11:21] LABS: Bacteria Urine 2+ /hpf; Squamous Epithelial Cell Urine Few /hpf (Few)
[2023-04-08 11:26] LABS: Hematocrit 24.6 % (35.0-42.0); Hemoglobin 7.9 g/dL (11.7-13.8); Immature Platelet Fraction Pct 4.7 % (1.0-7.0); Mean Corpuscular HGB Conc 32.1 g/dL (32.0-36.0); Mean Corpuscular Hemoglobin 32.5 pg (27.0-31.0); Mean Corpuscular Volume 101.2 fL (78.0-102.0); Mean Platelet Volume 11.4 fl (9.2-11.8); Platelet Count Result 100 K/mm3 (150-420); Red Blood Count 2.43 M/mm3 (4.20-5.40); Red Cell Distribution Width 16.5 % (11.6-14.4); White Blood Count 2.7 K/mm3 (4.8-10.8)
[2023-04-08 11:40] LABS: Alanine Aminotransferase 35 U/L (14-59); Albumin Level 2.4 g/dL (3.4-5.0); Alkaline Phosphatase 156 U/L (46-116); Anion Gap 9 mmol/L (8-16); Aspartate Amino Transferase 33 U/L (15-37); Bilirubin,Total 0.5 mg/dL (0.00-1.00); Blood Urea Nitrogen 55 mg/dL (7-18); Calcium 7.7 mg/dL (8.5-10.1); Carbon Dioxide 23 mmol/L (21-32); Chloride 98 mmol/L (98-108); Estimated CRCL calculation 7 ml/min; Estimated Glomerular Filt Rate 9; Glucose 105 mg/dL (70-99); Osmolality Calculated 285 mOsm/kg (285-295); Potassium 4.4 mmol/L (3.5-5.1); Sodium 130 mmol/L (136-145); Total Protein 7.2 g/dL (6.4-8.2)
[2023-04-08 11:52] LABS: Band Neutrophils Percent 0 % (0-6); Basophils Absolute Manual 0.02 K/mm3 (0-0.1); Basophils Percent Manual 1 % (0-1); Eosinophils Absolute Manual 0.02 K/mm3 (0.02-0.5); Eosinophils Percent Manual 1 % (1-6); Lymphocytes Absolute Manual 0.51 K/mm3 (1.1-4.5); Lymphocytes Percent Manual 19 % (18-44); Monocytes Absolute Manual 0.21 K/mm3 (0.1-0.90); Monocytes Percent Manual 8 % (3-9); Neutrophils Absolute Manual 1.91 K/mm3 (1.7-7.2); Neutrophils Percent Manual 71 % (46-73); Platelet Estimate Adequate (Adequate); Total Cells Counted 100
[2023-04-08] MEDS: SODIUM CHLORIDE 0.9% IV 500 ML 999 ML IV CONT (12:08)
[2023-04-08 12:09] VITALS: BP 100/64; PULSE 78; RESP 18; O2SAT 95
--- NOTE | 2023-04-08 12:09 | PC.NURSE ---
pt has been changed to hospital gown, port accessed per sterile technique. pt tolerated well. pt and family aware of plan of care. ivf infusing without difficulty. will continue to monitor.
--- NOTE | 2023-04-08 12:29 | PC.NURSE ---
PT AND FAMILY AWARE OF PLAN TO ADMIT TO 208.
--- NOTE | 2023-04-08 12:56 | PM.IMHP ---
H&P: HPI History of Present Illness Date/Time: 04/08/23 12:56 Chief Complaint: Increased confusion Narrative: Ms. Lee is a 77-year-old female who presented to the emergency room with complaints of increasing confusion and extreme fatigue. Patient has a known history of frequent urinary tract infections, multiple myeloma, chronic kidney disease, hypertension, hyperthyroidism status post diarrhea to me with hypothyroidism, and left breast cancer status post lumpectomy and radiation. Patient is forgetful at this time and cannot give me a full history, and her is at bedside assisting with history. Patient's spouse states that patient has been extremely fatigued in done nothing except for sleep for the last 3 days. Patient states she has been very fatigued, but she did not relay she was sleeping that much. Patient's spouse states the patient has also been extremely forgetful, which is not her normal. Patient has also been jumpy and this is also not normal for her. Patient's spouse states that patient has not been eating or drinking very well over the last 3 days, and patient agrees with this, and states that she has just not been hungry or thirsty. Patient states that she has had frequency with urination, but denies dysuria, hematuria, or urgency. Patient states that her urine has been a very dark color and very foul smelling. Patient denies any fever chills. Patient denies any abdominal pain, flank pain, vomiting, constipation, or diarrhea. patient denies any chest pain, shortness of breath, lightheadedness, dizziness, syncopal, or near syncopal episodes. Patient states that she was nauseated Friday when she went to lay down for the evening. Upon evaluation emergency room patient was new have a positive urinalysis and culture was sent. Patient was also noted to have a significant increase in her BUN and creatinine. On 04/02/2023 patient's BUN was 23 and creatinine was 1.54, and laboratories today show a BUN of 55 with a creatinine of 4.70. Patient has recently started chemotherapy on Wednesdays for her multiple myeloma and she states that last week after her chemotherapy treatment she did notice a rash to bilateral feet. Patient states the rash does not itch or is not causing any issues. In February of this year patient was admitted for hypercalcemia, urinary tract infection, acute kidney injury on chronic kidney disease and generalized weakness. At that time patient's creatinine was noted to be 2.38 with a calcium level of greater than 14. At that time patient had to be transferred to levelof higher care after receiving multiple medications and no improvement in her hypercalcemia. During her stay at this establishment patient did receive antibiotics for her urinary tract infection. Patient was transferred to [facility] in [facility] and during that time per the patient she did go into atrial fibrillation and was placed on Eliquis. Patient states that at some point she did return to a normal sinus rhythm, but she is unsure of it was because she was given medication or her heartwent to normal sinus rhythm on its own. Review of Systems Review of Systems: A 12 point review of systems was completed with patient all pertinent positive and negative per HPI the remainder are unremarkable. [facility] Past Medical History Medical History (Updated 04/08/23 @ 18:18 by Rula Ying APRN) Acute kidney injury superimposed on chronic kidney disease Anemia Breast cancer in situ Chronic kidney disease Diabetes mellitus diet controlled Gastroesophageal reflux disease without esophagitis Hiatal hernia Hypertension Hyperthyroidism Multiple myeloma Paroxysmal atrial fibrillation Surgical History Surgical History History of aortic valve replacement with bioprosthetic valve History of lumpectomy of left breast History of thyroidectomy History of total replac
[2023-04-08 13:00] VITALS: BP 93/63; PULSE 80; RESP 17; TEMP 36.3; O2SAT 91; BMI 25.2
--- NOTE | 2023-04-08 13:00 | ADMGEN ---
This patient, Michelle Lee, was admitted to 2nd Floor Room 208-2. Patient/family oriented to hospital policies and general routines including ID bracelet, bed and alarms, visiting hours, pain management, procedures, bathroom and other care routines, personal items, smoking policy, room service/diet, and visiting hours. Information on how to activate the Rapid Response Team has been discussed. Patient/Family are encouraged to report perceived risks to care and to ask questions if they do not understand what they are told or what they should do.
[2023-04-08 13:46] LABS: Phosphorus 5.3 mg/dL (2.6-4.7)
[2023-04-08] MEDS: SODIUM CHLORIDE 0.9% IV 1,000 ML 500 ML IV CONT (13:50)
[2023-04-08] MEDS: SODIUM CHLORIDE 0.9% IV 1,000 ML 100 ML IV CONT (15:23)
[2023-04-08 15:30] VITALS: BP 97/62; PULSE 83; RESP 18; TEMP 36.3; O2SAT 91
[2023-04-08 17:52] LABS: Uric Acid 6.7 mg/dL (2.6-6.0)
[2023-04-08] MEDS: traZODone HCL 50 MG TABLET PO (20:32)
[2023-04-08] MEDS: APIXABAN 2.5 MG TABLET PO (20:32)
--- NOTE | 2023-04-08 22:08 | PC.NURSE ---
Bladder scan done and shows 672ml of urine. 16F Sarah catheter inserted. Patient tolerated well. Call light in reach.
[2023-04-09] VITALS: BP 125/73; PULSE 96; RESP 18; TEMP 36.6; O2SAT 93
[2023-04-09] MEDS: SODIUM CHLORIDE 0.9% IV 1,000 ML 100 ML IV CONT (01:28)
[2023-04-09 05:14] LABS: Hematocrit 20.7 % (35.0-42.0); Immature Platelet Fraction Pct 4.1 % (1.0-7.0); Mean Corpuscular HGB Conc 32.4 g/dL (32.0-36.0); Mean Corpuscular Hemoglobin 32.8 pg (27.0-31.0); Mean Corpuscular Volume 101.5 fL (78.0-102.0); Mean Platelet Volume 11.1 fl (9.2-11.8); Platelet Count Result 82 K/mm3 (150-420); Red Blood Count 2.04 M/mm3 (4.20-5.40); Red Cell Distribution Width 16.8 % (11.6-14.4)
[2023-04-09 05:18] LABS: Hemoglobin 6.7 g/dL (11.7-13.8)
--- NOTE | 2023-04-09 05:18 | PC.NURSE ---
Lab called to report a critical Hgb of 6.7.
[2023-04-09 05:22] LABS: Anion Gap 10 mmol/L (8-16); Blood Urea Nitrogen 57 mg/dL (7-18); Carbon Dioxide 20 mmol/L (21-32); Chloride 101 mmol/L (98-108); Estimated CRCL calculation 7 ml/min; Estimated Glomerular Filt Rate 9; Glucose 85 mg/dL (70-99); Magnesium 1.5 mg/dL (1.8-2.4); Osmolality Calculated 286 mOsm/kg (285-295); Potassium 5.1 mmol/L (3.5-5.1); Sodium 131 mmol/L (136-145)
--- NOTE | 2023-04-09 05:24 | PC.NURSE ---
Lab called to report critical creatinine of 4.86.
[2023-04-09 05:41] LABS: Band Neutrophils Percent 0 % (0-6); Basophils Absolute Manual 0.03 K/mm3 (0-0.1); Basophils Percent Manual 1 % (0-1); Eosinophils Absolute Manual 0.03 K/mm3 (0.02-0.5); Eosinophils Percent Manual 1 % (1-6); Lymphocytes Absolute Manual 0.33 K/mm3 (1.1-4.5); Lymphocytes Percent Manual 11 % (18-44); Metamyelocytes Percent 1 %; Monocytes Absolute Manual 0.24 K/mm3 (0.1-0.90); Monocytes Percent Manual 8 % (3-9); Neutrophils Absolute Manual 2.34 K/mm3 (1.7-7.2); Neutrophils Percent Manual 78 % (46-73); Total Cells Counted 100
[2023-04-09 05:42] LABS: Platelet Estimate Decreased (Adequate)
[2023-04-09] MEDS: LEVOTHYROXINE SODIUM 112 MCG TABLET PO (05:58)
--- NOTE | 2023-04-09 07:11 | PC.NURSE ---
Addendum entered by Noemi Elizalde RN 04/09/23 07:12: Flushed @ 0230 Original Note: Sarah catheter flushed with 60ml NS. Flushed with ease. Urine returned. Patient tolerated well. call light in reach.
--- NOTE | 2023-04-09 07:30 | PC.NURSE ---
AUTOMOBILE REPOSSESSOR Rula Ying contacted regarding transfusion, least compatible sample to be given, is it ok, lab needing authroization, advised to wait to transfuse until repeat h/h at 10 am. Order for renal ultrasound obtained
[2023-04-09 07:55] VITALS: BP 97/85; PULSE 102; RESP 18; TEMP 36.8; O2SAT 92
[2023-04-09 08:45] LABS: Creatinine Urine 113.36 mg/dL (40-278); Sodium Urine Random 91 mmol/L (20-110)
[2023-04-09] MEDS: PANTOPRAZOLE 40 MG TABLET PO (09:36)
[2023-04-09] MEDS: APIXABAN 2.5 MG TABLET PO (09:36)
[2023-04-09 10:06] LABS: Hematocrit 19.4 % (35.0-42.0); Hemoglobin 6.4 g/dL (11.7-13.8)
[2023-04-09] MEDS: SODIUM CHLORIDE 0.9% IV 250 ML 30 ML IV CONT (10:28)
[2023-04-09 10:31] VITALS: BP 102/61; PULSE 97; RESP 19; TEMP 36.9; O2SAT 90
[2023-04-09 10:52] VITALS: BP 102/58; PULSE 97; RESP 16; TEMP 36.8; O2SAT 92
[2023-04-09] MEDS: FUROSEMIDE INJ 20 MG/2 ML VIAL IV PUSH (11:32)
--- NOTE | 2023-04-09 11:35 | PC.NURSE ---
Blood tranfusion rate increased to 200 ml/hr
[2023-04-09 11:39] VITALS: BP 106/56; PULSE 102; RESP 16; TEMP 36.5; O2SAT 91
--- NOTE | 2023-04-09 11:43 | PM.TDS ---
Transfer Discharge Sum: Prov Provider Date of admission: 04/08/23 12:21 Primary care physician: Gladys Jin MD Admitting clinician: Apolinar Garcia MD Discharging clinician: Rula Ying Anticipated date of transfer: 04/09/23 Receiving physician/facility: Dr. Servin DS: Admitting Diagnosis Discharge Date 04/09/23 Admitting Diagnosis Urinary tract infection DS: Discharge Diagnosis Discharge Diagnosis (1) Acute kidney injury superimposed on chronic kidney disease: Code(s): N17.9 - Acute kidney failure, unspecified; N18.9 - Chronic kidney disease, unspecified Status: Acute (2) Acute UTI: Code(s): N39.0 - Urinary tract infection, site not specified Status: Acute (3) Multiple myeloma: Qualifiers: Multiple myeloma remission status: not in remission Qualified Code(s): C90.00 - Multiple myeloma not having achieved remission Code(s): C90.00 - Multiple myeloma not having achieved remission Status: Acute Plan See hospital course Transfer Discharge Sum: Med Medications Active and Home Medications: Home Medications amlodipine 5 mg tablet 5 mg PO DAILY 02/23/23 [History Confirmed 04/08/23] cholecalciferol (vitamin D3) 50 mcg (2,000 unit) capsule (Vitamin D3) 50 mcg PO DAILY 02/23/23 [History Confirmed 04/08/23] cyanocobalamin (vitamin B-12) 2,500 mcg sublingual tablet (Vitamin B-12) 2,500 mcg sublingual DAILY 02/23/23 [History Confirmed 04/08/23] duloxetine 60 mg capsule,delayed release 60 mg PO DAILY 02/23/23 [History Confirmed 04/08/23] levothyroxine 112 mcg tablet 112 mcg PO DAILY 02/23/23 [History Confirmed 04/08/23] omeprazole 20 mg capsule,delayed release 20 mg PO DAILY 02/23/23 [History Confirmed 04/08/23] trazodone 50 mg tablet 50 mg PO HS 02/23/23 [History Confirmed 04/08/23] acetaminophen 325 mg tablet (Mapap (acetaminophen)) 650 mg PO Q4H PRN Mild Pain (1-3) Or Fever 02/24/23 [Rx Confirmed 04/08/23] allopurinol 100 mg tablet 100 mg PO BID 02/24/23 [Rx Confirmed 04/08/23] bisacodyl 5 mg tablet,delayed release (Laxative (bisacodyl)) 5 mg PO DAILY PRN Constipation 02/24/23 [Rx Confirmed 04/08/23] apixaban 5 mg tablet (Eliquis) 5 mg PO BID 03/05/23 [History Confirmed 04/08/23] folic acid 1 mg tablet 1 mg PO DAILY 03/05/23 [History Confirmed 04/08/23] Active Medications Acetaminophen (Acetaminophen 325 Mg Tablet) 650 mg PO Q4H PRN PRN Reason: Mild Pain (1-3) or Fever Allopurinol (Allopurinol 100 Mg Tablet) 100 mg PO DAILY@0800 [facility] Last Admin: 04/09/23 10:03 Dose: Not Given Amlodipine Besylate (Amlodipine Besylate 5 Mg Tablet) 5 mg PO DAILY [facility] Last Admin: 04/09/23 10:03 Dose: Not Given Bisacodyl (Bisacodyl 5 Mg Tablet Ec) 5 mg PO DAILY PRN PRN Reason: Constipation Cyanocobalamin (Cyanocobalamin 500 Mcg Tablet) 2,500 mcg PO DAILY [facility] Last Admin: 04/09/23 10:04 Dose: Not Given Duloxetine HCl (Duloxetine Hcl 30 Mg Capsule.Dr) 60 mg PO QAM [facility] Last Admin: 04/09/23 10:04 Dose: Not Given Folic Acid (Folic Acid 1 Mg Tablet) 1 mg PO DAILY [facility] Last Admin: 04/09/23 10:04 Dose: Not Given Sodium Chloride (Normal Saline Iv) 1,000 mls @ 100 mls/hr IV CONT .Q10H [facility] Last Infusion: 04/09/23 10:25 Dose: 0 mls/hr Ceftriaxone Sodium (Rocephin 1 Gm/Ns 50 Ml) 1 gm in 50 mls @ 100 mls/hr IVPB Q24H [facility] Sodium Chloride (Normal Saline Iv) 250 mls @ 30 mls/hr IV CONT .Q8H20M STA Stop: 04/09/23 14:28 Last Admin: 04/09/23 10:28 Dose: 30 mls/hr Levothyroxine Sodium (Levothyroxine Sodium 112 Mcg Tablet) 112 mcg PO DAILY@0630 [facility] Last Admin: 04/09/23 05:58 Dose: 112 mcg Ondansetron HCl (Ondansetron Inj 4 Mg/2 Ml Vial) 4 mg IV PUSH Q6H PRN PRN Reason: Nausea And Vomiting Pantoprazole Sodium (Pantoprazole 40 Mg Tablet) 40 mg PO [facility] Last Admin: 04/09/23 09:36 Dose: 40 mg Trazodone HCl (Trazodone Hcl 50 Mg Tablet) 50 mg PO [facility] Last Admin: 04/08/23 20:32 Dose: 50 mg Vitamin D (Cholecalciferol 1,000 Units Tablet) 2,000 unit
[2023-04-09] MEDS: MAGNESIUM SULF 2 GM/WATER 50ML 2 GM/50 ML BAG IVPB (11:55)
[2023-04-09 12:05] VITALS: BP 104/58; PULSE 87; RESP 16; TEMP 36.7; O2SAT 93
--- NOTE | 2023-04-09 12:11 | PC.NURSE ---
[facility] paged for transfer to [facility]
--- NOTE | 2023-04-09 12:35 | PC.NURSE ---
Report given to [facility]. Assisted with pt transfer to [facility] for transport to [facility].
--- NOTE | 2023-04-09 12:50 | PC.NURSE ---
Called pt's niece/samuel with update of room number and pts eta at [facility].
[2023-04-12 19:24] LABS: Osmolality, Urine 300 mOsm/kg (50-1200)
== END 2023-04-09 12:40 | disposition short-term general hospital (02) | DRG 683 ==
LOC: CHSED 11:56 → CHS2ND 12:32
PROVIDERS: Nurse Practitioner Adult Health; Admitting Provider Internal Medicine; Emergency Provider Emergency Medicine; PCP Internal Medicine; Visit Provider Internal Medicine
DX: N39.0 Urinary tract infection, site not specified (principal); K21.9 Gastro-esophageal reflux disease without esophagitis; K44.9 Diaphragmatic hernia without obstruction or gangrene; I10 Essential (primary) hypertension; E05.90 Thyrotoxicosis, unspecified without thyrotoxic crisis or storm; C90.00 Multiple myeloma not having achieved remission; Z85.3 Personal history of malignant neoplasm of breast; Z79.01 Long term (current) use of anticoagulants; Z96.643 Presence of artificial hip joint, bilateral; N17.9 Acute kidney failure, unspecified; I12.9 Hypertensive chronic kidney disease with stage 1 through stage 4 chronic kidney disease, or unspecified chronic kidney disease; N18.9 Chronic kidney disease, unspecified; E83.42 Hypomagnesemia; I48.0 Paroxysmal atrial fibrillation; Z95.2 Presence of prosthetic heart valve
CPT/HCPCS: 36415; 36430; 74176; 76770; 80048; 80053; 81001; 82570; 83735; 83935; 84100; 84133; 84300; 84550; 85014; 85018; 85025; 85055; 86850; 86880; 86900; 86901; 86902; 86920; 87040; 87077; 87086; 87088; 87186; 96365; 99285; A9270; J0696; J1940; J3475; J7030; J7040; J7050; P9016

== ENCOUNTER 2023-05-14 12:37 | Outpatient (CLI) | payer MEDICARE, SELFPAY ==
[2023-05-14 13:01] LABS: Hematocrit 20.7 % (35.0-42.0)
[2023-05-14 13:05] LABS: Hemoglobin 6.7 g/dL (11.7-13.8)
== END 2023-05-14 12:38 | disposition home or self-care (01) ==
LOC: CHSLAB 12:49
PROVIDERS: PCP Internal Medicine; Visit Provider Internal Medicine
DX: Z09 Encounter for follow-up examination after completed treatment for conditions other than malignant neoplasm (principal); R68.89 Other general symptoms and signs; D64.9 Anemia, unspecified
CPT/HCPCS: 36415; 85014; 85018; 86850; 86900; 86901; 86920

== ENCOUNTER 2023-05-14 14:23 | Emergency (ER) | payer MEDICARE, SELFPAY ==
[2023-05-14] VITALS (58 sets, daily range): BP systolic 150–182; BP diastolic 81–94; PULSE 84–95; RESP 12–25; TEMP 36.7–37.2; O2SAT 95–100
--- NOTE | 2023-05-14 14:48 | ED.GENADULT ---
HPI - General Adult General Chief complaint: Altered Mental Status Stated complaint: ALTERED LAB VALUES Time Seen by Provider: 05/14/23 14:48 Source: patient Mode of arrival: ambulatory Limitations: no limitations History of Present Illness HPI narrative: 77-year-old female history hypertension, diabetes mellitus, hypothyroidism, GERD status post Kayleen fundoplication, paroxysmal atrial fibrillation on Eliquis, status post AVR, gout, end-stage renal disease on hemodialysis left IJ tunneled hemodialysis catheter on Friday/ /Friday since February of this year, multiple myeloma diagnosed in August of this year status post 5 chemotherapy infusions but has been off chemo for the past 2 months. The patient was noted to have an H&H of 6.7/20.7. Her primary care physician arranged for her to be transferred to [facility] for transfusion. The patient has multiple antibodies in her blood. the patient refused the ambulance service and presented to our ER for further management. She presents with -- generalized weakness the patient denied any headache. No chest pain or shortness of breath. No nausea /vomiting /abdominal pain. The patient makes a fair amount of urine on a daily basis. Onset (ago): day(s) Relieving factors: none Exacerbating factors: none Associated symptoms: loss of appetite and weakness Related Data Home Medications Medication Instructions Recorded Confirmed amlodipine 5 mg tablet 5 mg PO DAILY 02/23/23 05/14/23 cholecalciferol (vitamin D3) 50 50 mcg PO DAILY 02/23/23 05/14/23 mcg (2,000 unit) capsule (Vitamin D3) cyanocobalamin (vitamin B-12) 2,500 mcg sublingual DAILY 02/23/23 05/14/23 2,500 mcg sublingual tablet (Vitamin B-12) duloxetine 60 mg capsule,delayed 60 mg PO DAILY 02/23/23 05/14/23 release levothyroxine 112 mcg tablet 112 mcg PO DAILY 02/23/23 05/14/23 omeprazole 20 mg capsule,delayed 20 mg PO DAILY 02/23/23 05/14/23 release trazodone 50 mg tablet 50 mg PO HS 02/23/23 05/14/23 folic acid 1 mg tablet 1 mg PO DAILY 03/05/23 05/14/23 apixaban 5 mg tablet (Eliquis) 5 mg PO DAILY 05/14/23 05/14/23 furosemide 20 mg tablet 20 mg PO DAILY 05/14/23 05/14/23 Allergies Allergy/AdvReac Type Severity Reaction Status Date / Time hydrocodone [From Vicodin] Allergy Itching Verified 05/14/23 14:55 Review of Systems Review of Systems: All systems reviewed & are unremarkable except as noted in HPI and below Constitutional: Constitutional: Reports as per HPI and Reports no additional constitutional complaints Eyes: Eyes: Reports as per HPI and Reports no additional eye complaints ENT: Reports system reviewed and no additional complaints, except as documented and Reports as per HPI Cardiovascular: Cardiovascular: Reports as per HPI and Reports no additional cardiovascular complaints Respiratory: Respiratory: Reports as per HPI and Reports no additional respiratory complaints Gastrointestinal: Gastrointestinal: Reports as per HPI, Reports no additional gastrointestinal complaints and Reports diarrhea Comments: diarrhea as intermittent and small amount. It is chronic. Genitourinary: Genitourinary: Reports no additional female genitourinary complaints Musculoskeletal: Musculoskeletal: Reports myalgias and Reports arthralgias Integumentary/Breasts: Skin/Breast: Reports system reviewed and no additional complaints, except as docu and Reports as per HPI Neurologic: Reports system reviewed and no additional complaints, except as documented and Reports as per HPI Psychiatric: Psychiatric: Reports no additional psychiatric complaints and Reports as per HPI Endocrine: Endocrine: Reports no additional endocrine complaints and Reports as per HPI Hematologic/Lymphatic: Hematologic/Lymphatic: Reports no additional hematologic/lymphatic complaints and Reports as per HPI Allergic/Immunologic: Allergic/Immunologic: Reports no additional allergic/immunologic complaints
--- NOTE | 2023-05-14 15:19 | PC.NURSE ---
SPOKE WITH HECTOR AT [facility], REPORTS DR MCKEON WILL NOT SIGN OFF ON INCOMPATIBLE BLOOD, SO PT WAS SENT TO ER TO RECEIVE BLOOD. SPOKE WITH SHERRI AT DR MCKEON'S OFFICE WHO REPORTS PT WAS TO GO TO [facility] ER FOR TRANSFUSION AND TO SEE HER HEMATOLOGY DR. SPOKE WITH LAB TO UNDERSTAND WHY THE BLOOD IS MARKED COMPATIBLE IN THE CHART. PER LAB, PT'S BLOOD HAS BEEN INCOMPATIBLE IN THE PAST DUE TO ANTIBODIES, THEREFORE HER TITER MAY BE TOO SMALL TO REGISTER AT THIS TIME. DUE TO THE FACT OF HX OF ANTIBODIES, ALL FUTURE CROSS MATCHES WILL BE FLAGGED INCOMPATIBLE. SPOKE WITH TACO AT [facility] WHO ADVISES PT SEES DR ESCOBAR AND DR MILLS, NEXT APPOINTMENT WITH DR MILLS IS 06/09/23 AT 1140. PT WAS UNSURE WHO HER DR'S WERE. SPOKE WITH SHERRI AT DR MCKEON'S OFFICE AGAIN, SHE REPORTS THAT SHERRI CALLED 911 TO HAVE PT TRANSFERRED TO [facility] PER EMS TO RECEIVE A TRANSFUSION AND ADMISSION UNDER DR ESCOBAR. SHERRI SPOKE WITH THE PEST CONTROL CHEMICAL TECHNICIAN IN THE ER AND DR ESCOBAR. PT AND , AFTER MUCH INVESTIGATION, REPORT THAT EMS DID COME TO THEIR HOUSE, PT REFUSED TRANSPORT AND HER TOOK HER TO THE [facility], AND WAS THEN BROUGHT TO [facility]. 1501-SPOKE WITH JUAN AT [facility], TO AWAIT A RETURN CALL FROM DR ESCOBAR AT THIS TIME. SPARKLE IS SPEAKING WITH LAB AT THIS TIME REGARDING INCOMPATIBLE BLOOD. WILL CONTINUE TO MONITOR.
--- NOTE | 2023-05-14 15:30 | PC.NURSE ---
PT DENIES ANY COMPLAINTS, LIGHTHEADEDNESS, WEAKNESS, DIZZINESS. 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
[2023-05-14] MEDS: SODIUM CHLORIDE 0.9% IV 250 ML 30 ML IV CONT (17:02)
--- NOTE | 2023-05-14 17:18 | PC.NURSE ---
BLOOD CONSENT WAS OBTAINED AT 1603. BLOOD WAS RELEASED AT 1651. NO ADVERSE RXN NOTED THUS FAR DURING TRANSFUSION. WARM BLANKET PROVIDED. PT DENIES ANY OTHER NEEDS OR COMPLAINTS. WILL CONTINUE TO MONITOR.
--- NOTE | 2023-05-14 18:04 | PC.NURSE ---
PT IS CURRENTLY WATCHING TV ON [employer]. DENIES ANY NEEDS OR COMPLAINTS. NO ADVERSE RXN NOTED TO BLOOD TRANSFUSION AT THIS TIME. BLOOD IS TRANSFUSING WITHOUT DIFFICULTY.
--- NOTE | 2023-05-14 18:53 | PC.NURSE ---
NO CHANGE IN PT STATUS, FAMILY AT BEDSIDE. NAD NOTED. PT IS WATCHING TV WITHOUT DISTRESS. WILL CONTINUE TO MONITOR.
--- NOTE | 2023-05-14 19:07 | PC.NURSE ---
patient report received from TAZ Vasques.
[2023-05-14 19:57] LABS: Hematocrit 26.6 % (35.0-42.0); Hemoglobin 8.8 g/dL (11.7-13.8)
--- NOTE | 2023-05-14 20:31 | PC.NURSE ---
patient denies itching, burning, SOB and is afebrile post blood transfusion. spoke with patient and her family member regarding discharge instructions and plan.
== END 2023-05-14 20:38 | disposition home or self-care (01) ==
PROVIDERS: Emergency Provider Internal Medicine Critical Care Medicine; PCP Internal Medicine
DX: C90.00 Multiple myeloma not having achieved remission (principal); D64.9 Anemia, unspecified; E11.22 Type 2 diabetes mellitus with diabetic chronic kidney disease; I12.0 Hypertensive chronic kidney disease with stage 5 chronic kidney disease or end stage renal disease; N18.6 End stage renal disease; E03.9 Hypothyroidism, unspecified; I48.0 Paroxysmal atrial fibrillation; Z79.01 Long term (current) use of anticoagulants; Z79.899 Other long term (current) drug therapy
CPT/HCPCS: 36415; 36430; 85014; 85018; 86850; 86900; 86901; 86920; 96360; 96361; 99284; J7050; P9016

== ENCOUNTER 2023-06-25 08:54 | Outpatient (CLI) | payer MEDICARE, SELFPAY ==
[2023-06-25 09:00] VITALS: BMI 21.3
[2023-06-25] MEDS: ACETAMINOPHEN 325 MG TABLET 650 MG PO (09:03)
[2023-06-25 09:04] VITALS: BP 149/79; PULSE 80; RESP 16; TEMP 36.6; O2SAT 99
[2023-06-25] MEDS: diphenhydrAMINE HCl CAP 25 MG CAPSULE PO (09:04)
[2023-06-25] MEDS: DARATUMUMAB-HYALURONIDASE-FIHJ 1,800 MG-30,000 UNITS VIAL 15 ML SUB-Q (09:24)
[2023-06-25] MEDS: BORTEZOMIB 3.5 MG/1.4 ML VIAL 2.3 MG SUB-Q (09:24)
--- NOTE | 2023-06-25 09:45 | PC.NURSE ---
Patient here for cycle 3 of bortezomib and daratumumab-hyaluronidase chemo. Patient last tx was in March- cycle 2. Had come kidney issues, so was on hold for few months. Now starting up again. Education given again. All concerns answered. Calendar of cycle [address] Dr[address] Sy on 07/07/23 in [place]. Labs ok and on chart from when saw Dr. Sy 06/20/23 in his office. No need to have labs drawn today. Pre medicated with tylenol and benadryl here. Patient took her own Decadron 20 mg PO that was ordered. She also knows to take the Decadron tomorrow on day 2. bortezomib and daratumumab-hyaluronidase injections administered. SEE MAR. Observed for a while afterwards. Tolerated well. Will return for day 8 on 07/02/23 at 0900. Safe exit of hospital per per staff.
== END 2023-06-25 08:55 | disposition home or self-care (01) ==
PROVIDERS: PCP Internal Medicine; Visit Provider Internal Medicine Hematology & Oncology
DX: Z51.11 Encounter for antineoplastic chemotherapy (principal); C90.00 Multiple myeloma not having achieved remission; D64.9 Anemia, unspecified
CPT/HCPCS: 96401; A9270; J9041; J9144

== ENCOUNTER 2023-07-03 10:27 | Outpatient (CLI) | payer MEDICARE, SELFPAY ==
--- NOTE | ~2023-07-03 | CT_ITS ---
CT Scan of the Chest without Contrast: Clinical Indication: Multiple myeloma Technique: Contiguous sections were acquired throughout the chest without intravenous contrast. Dose reduction technique was used on this scan by utilizing automated exposure control and iterative recon struction technique. The dose-length product (DLP) was 123.77 mGy-cm. COMPARISON: 12/10/2022 Findings: There is no evidence of any significant mediastinal, hilar or axillary lymphadenopathy. The mediastin al soft tissues appear normal. There is no evidence of pleural or pericardial effusion. There are stable bilateral upper lobe pulmonary nodules, probably with faint central calcification. Images through the upper abdomen reveal no abnormalities. There are innumerable small lytic lesions scattered throughout the osseous structures, consistent wit h multiple myeloma. Impression: Diffuse small lytic osseous lesions, consistent with multiple myeloma. Stable pulmonary nodules, as above, likely benign. Reviewed, dictated and finalized at [facility]. ETL DEVELOPER Impression: Diffuse small lytic osseous lesions, consistent with multiple myeloma. Stable pulmonary nodules, as above, likely benign.
== END 2023-07-03 10:28 | disposition home or self-care (01) ==
PROVIDERS: PCP Internal Medicine; Visit Provider Internal Medicine Hematology
DX: C90.00 Multiple myeloma not having achieved remission (principal); R91.8 Other nonspecific abnormal finding of lung field
CPT/HCPCS: 71250

== ENCOUNTER 2023-07-03 10:34 | Outpatient (RCR) | payer MEDICARE, SELFPAY ==
[2023-07-02 09:23] LABS: Hematocrit 22.5 % (35.0-42.0); Hemoglobin 7.3 g/dL (11.7-13.8); Mean Corpuscular HGB Conc 32.4 g/dL (32.0-36.0); Mean Corpuscular Hemoglobin 32.3 pg (27.0-31.0); Mean Corpuscular Volume 99.6 fL (78.0-102.0); Mean Platelet Volume 9.7 fl (9.2-11.8); Platelet Count Result 133 K/mm3 (150-420); Red Blood Count 2.26 M/mm3 (4.20-5.40); Red Cell Distribution Width 19.6 % (11.6-14.4); White Blood Count 2.8 K/mm3 (4.8-10.8)
[2023-07-02 09:34] LABS: Band Neutrophils Percent 0 % (0-6); Basophils Absolute Manual 0.02 K/mm3 (0-0.1); Basophils Percent Manual 1 % (0-1); Eosinophils Percent Manual 0 % (1-6); Lymphocytes Percent Manual 18 % (18-44); Metamyelocytes Percent 0 %; Monocytes Absolute Manual 0.42 K/mm3 (0.1-0.90); Monocytes Percent Manual 15 % (3-9); Myelocytes Percent 0 %; Neutrophils Absolute Manual 1.84 K/mm3 (1.7-7.2); Neutrophils Percent Manual 66 % (46-73); Platelet Estimate Adequate (Adequate); Total Cells Counted 100
[2023-07-02 09:37] LABS: Alanine Aminotransferase 51 U/L (14-59); Albumin Level 2.3 g/dL (3.4-5.0); Alkaline Phosphatase 107 U/L (46-116); Anion Gap 3 mmol/L (8-16); Aspartate Amino Transferase 26 U/L (15-37); Bilirubin,Total 0.3 mg/dL (0.00-1.00); Blood Urea Nitrogen 26 mg/dL (7-18); Calcium 8.6 mg/dL (8.5-10.1); Carbon Dioxide 34 mmol/L (21-32); Chloride 100 mmol/L (98-108); Estimated Glomerular Filt Rate 23; Glucose 159 mg/dL (70-99); Osmolality Calculated 291 mOsm/kg (285-295); Potassium 3.3 mmol/L (3.5-5.1); Sodium 137 mmol/L (136-145); Total Protein 7.7 g/dL (6.4-8.2)
[2023-07-02 09:44] VITALS: BMI 21.2
[2023-07-02 09:46] VITALS: BP 114/61; PULSE 80; RESP 14; TEMP 36.6; O2SAT 98
--- NOTE | 2023-07-02 09:52 | PC.NURSE ---
0905 Patient here for day 8 of chemo regimen. No concerns voiced. Labs drawn/reviewed/call into Dr. Sy r/t H/H 7.3/22.5 and creatinine 2.1. Awaiting to proceed or not from MD. Education given. All concerns voiced.
[2023-07-02 09:56] LABS: Estimated CRCL calculation 16 ml/min
--- NOTE | 2023-07-02 10:00 | PC.NURSE ---
1000 Ok to proceed with Velcade. Need 1 unit PRBC tomorrow (scheduled for 07/03/23 at 1100). Pre med Decadron 40 mg po per patients own RX taken. Awaiting for pharmacy to bring Velcade.
[2023-07-02] MEDS: BORTEZOMIB 3.5 MG/1.4 ML VIAL 2.3 MG SUB-Q (10:34)
[2023-07-02] MEDS: HEPARIN SODIUM LOCK FLUSH 500 UNITS/5 ML SYRINGE IV PUSH (10:35)
[2023-07-02 10:36] VITALS: BP 113/69; PULSE 80; RESP 14; O2SAT 97
--- NOTE | 2023-07-02 10:37 | PC.NURSE ---
1020 Velcade injection administered. SEE MAR. Tolerated well. 1145 Will return 07/03/23 for 1 unit of PRBC's. and next week 07/09/23 for day 15 of chemo regimen. Safe exit of hospital per wc to friend.
[2023-07-03] MEDS: SODIUM CHLORIDE 0.9% IV 250 ML 10 ML IVPB (11:00)
[2023-07-03] MEDS: diphenhydrAMINE HCl CAP 25 MG CAPSULE PO (11:00)
[2023-07-03] MEDS: ACETAMINOPHEN 325 MG TABLET 650 MG PO (11:00)
[2023-07-03 11:15] VITALS: BP 146/78; PULSE 76; RESP 14; TEMP 36.5; O2SAT 97
[2023-07-03 11:30] VITALS: BP 136/74; PULSE 84; RESP 14; TEMP 36.6; O2SAT 98
[2023-07-03 12:30] VITALS: BP 136/77; PULSE 72; RESP 14; TEMP 36.6; O2SAT 97
--- NOTE | 2023-07-03 12:39 | PC.NURSE ---
1100 Here for blood transfusion. Permit signed. Education given. No concerns voiced. Premedicated with Tylenol and Benadryl (see MAR) 1115 1 unit of PRBC's started at rate of 100 ml/hr. 1130 No S/SX of blood transfusion reaction noted or reported. UP rate 125 ml/hr. 1200 No S/SX of blood transfusion reaction noted or reported. Up rate 150 ml/hr for here on out.KJ
[2023-07-03 13:30] VITALS: BP 137/72; PULSE 76; RESP 14; TEMP 36.6; O2SAT 97
[2023-07-03 14:00] VITALS: BP 127/72; PULSE 72; RESP 14; TEMP 36.6; O2SAT 97
--- NOTE | 2023-07-03 14:14 | PC.NURSE ---
1400 Unit of PRBC's completed. Normal Saline infusing at this time. No blood transfusion reaction noted or reported.
[2023-07-03] MEDS: HEPARIN SODIUM LOCK FLUSH 500 UNITS/5 ML SYRINGE (14:16)
[2023-07-03 14:29] VITALS: BP 136/76; PULSE 72; RESP 14; TEMP 36.5; O2SAT 97
--- NOTE | 2023-07-03 14:31 | PC.NURSE ---
1430 Saline infused. Line cleared. Post H/H drawn sent to lab.
--- NOTE | 2023-07-03 14:33 | PC.NURSE ---
1435 Tolerated blood transfusion well. Safe exit of hospital per wc to friend's car. Will return 07/09/23 for cycle 3 day 15 of chemo.
[2023-07-03 14:45] LABS: Hematocrit 24.4 % (35.0-42.0); Hemoglobin 8.2 g/dL (11.7-13.8)
== END 2023-07-03 10:35 | disposition home or self-care (01) ==
LOC: CHSTREATRM 10:34
PROVIDERS: PCP Internal Medicine; Visit Provider Internal Medicine Hematology & Oncology
DX: Z51.11 Encounter for antineoplastic chemotherapy (principal); C90.00 Multiple myeloma not having achieved remission
CPT/HCPCS: 36415; 36430; 36592; 71250; 80053; 85014; 85018; 85025; 86850; 86880; 86900; 86901; 86902; 86920; 96401; A9270; J7050; J9041; P9016

== ENCOUNTER 2023-07-09 09:02 | Outpatient (CLI) | payer MEDICARE, SELFPAY ==
[2023-07-09 09:20] VITALS: BP 153/76; PULSE 88; RESP 16; TEMP 36.5; O2SAT 97; BMI 21.3
[2023-07-09] MEDS: diphenhydrAMINE HCl CAP 25 MG CAPSULE PO (09:22)
[2023-07-09] MEDS: ACETAMINOPHEN 325 MG TABLET 650 MG PO (09:22)
[2023-07-09] MEDS: BORTEZOMIB 3.5 MG/1.4 ML VIAL 2.3 MG SUB-Q (09:46)
[2023-07-09] MEDS: DARATUMUMAB-HYALURONIDASE-FIHJ 1,800 MG-30,000 UNITS VIAL 15 ML SUB-Q (09:46)
--- NOTE | 2023-07-09 09:58 | PC.NURSE ---
Patient here for day 15 of cycle 3 chemo. Labs reviewed and ok'd from Dr. Sy (who she saw 07/07/23 in his office). Education given. All concerns voiced. Pre medication benadryl/tylenol as ordered. SC Velcade, DArzalex injection administered as ordered. SEE MAR.
--- NOTE | 2023-07-09 10:51 | PC.NURSE ---
Patient tolerated chemo injections well. No concerns voiced. Safe exit of hospital per self/wc. Will return 07/23/23 at 0900 for cycle 4 day 1 chemo regimen.
[2023-07-09 10:52] VITALS: BP 149/70; PULSE 88; RESP 14; O2SAT 97
== END 2023-07-09 09:03 | disposition home or self-care (01) ==
PROVIDERS: PCP Internal Medicine; Visit Provider Internal Medicine Hematology & Oncology
DX: Z51.11 Encounter for antineoplastic chemotherapy (principal); C90.00 Multiple myeloma not having achieved remission
CPT/HCPCS: 96401; A9270; J9041; J9144

== ENCOUNTER 2023-07-23 08:39 | Outpatient (CLI) | payer MEDICARE, SELFPAY ==
[2023-07-23 08:54] VITALS: BP 149/90; PULSE 92; RESP 16; TEMP 36.6; O2SAT 97; BMI 20.5
[2023-07-23] MEDS: ACETAMINOPHEN 325 MG TABLET 650 MG PO (09:04)
[2023-07-23] MEDS: diphenhydrAMINE HCl CAP 25 MG CAPSULE PO (09:04)
[2023-07-23] MEDS: BORTEZOMIB 3.5 MG/1.4 ML VIAL 2.5 MG SUB-Q (09:22)
[2023-07-23] MEDS: DARATUMUMAB-HYALURONIDASE-FIHJ 1,800 MG-30,000 UNITS VIAL 15 ML SUB-Q (09:23)
[2023-07-23 10:11] VITALS: BP 154/84; PULSE 84; RESP 14; TEMP 36.6; O2SAT 98
--- NOTE | 2023-07-23 10:12 | PC.NURSE ---
Patient here for cycle 4 day 1 of chemo regimen. Education given. All concerns voiced. Pre meds and injections administered. SEE MAR. Observed for 1 hour. Tolerated well. Safe exit of hospital per self/ambulatory. Will return 07/30/23 at 0900 for cycle 4 day 8.
== END 2023-07-23 08:40 | disposition home or self-care (01) ==
LOC: CHSTREATRM 08:42
PROVIDERS: PCP Internal Medicine; Visit Provider Internal Medicine Hematology & Oncology
DX: Z51.11 Encounter for antineoplastic chemotherapy (principal); C90.00 Multiple myeloma not having achieved remission
CPT/HCPCS: 96401; A9270; J9041; J9144

== ENCOUNTER 2023-07-30 08:50 | Outpatient (CLI) | payer MEDICARE, SELFPAY ==
[2023-07-30 09:13] VITALS: BP 116/70; PULSE 78; RESP 14; TEMP 36.6; O2SAT 98; BMI 20.5
[2023-07-30] MEDS: BORTEZOMIB 3.5 MG/1.4 ML VIAL 2.5 MG SUB-Q (09:15)
--- NOTE | 2023-07-30 09:15 | PC.NURSE ---
Patient here for cycle 4 day 8 of chemo regimen. Labs drawn on Friday07/28/23 reviewed and ok'd. Education given. All concerns voiced. Chemo injection administered. SEE MAR. Tolerated well. Will return for cycle 4 day 15 08/06/23 at 0900. Safe exit of hospital per ambulatory and friend.
== END 2023-07-30 08:51 | disposition home or self-care (01) ==
LOC: CHSTREATRM 08:51
PROVIDERS: PCP Internal Medicine; Visit Provider Internal Medicine Hematology & Oncology
DX: Z51.11 Encounter for antineoplastic chemotherapy (principal); C90.00 Multiple myeloma not having achieved remission
CPT/HCPCS: 96401; J9041

== ENCOUNTER 2023-07-31 08:56 | Outpatient (CLI) | payer MEDICARE, SELFPAY ==
[2023-07-31 09:10] VITALS: BP 154/73; PULSE 88; RESP 14; TEMP 36.7; O2SAT 94; BMI 20.5
[2023-07-31] MEDS: SODIUM CHLORIDE 0.9% IV 500 ML 250 ML IVPB (09:10)
[2023-07-31] MEDS: HEPARIN SODIUM LOCK FLUSH 500 UNITS/5 ML SYRINGE IV PUSH (11:04)
--- NOTE | 2023-07-31 11:06 | PC.NURSE ---
Patient here for 500 ML of NS. No concerns voiced. NS infusion administered. SEE MAR. Tolerated well. Will return 08/06/23 0900 for cycle 4 day 15 chemo. Safe exit of hospital per self/ambulatory.
== END 2023-07-31 08:57 | disposition home or self-care (01) ==
LOC: CHSTREATRM 08:58
PROVIDERS: PCP Internal Medicine; Visit Provider Internal Medicine Hematology & Oncology
DX: C90.00 Multiple myeloma not having achieved remission (principal)
CPT/HCPCS: 96360; 96361; J7040

== ENCOUNTER 2023-08-06 08:52 | Outpatient (CLI) | payer MEDICARE, SELFPAY ==
[2023-08-06 09:14] VITALS: BMI 20.5
[2023-08-06 09:20] VITALS: BP 111/64; PULSE 78; RESP 14; TEMP 36.6; O2SAT 98
[2023-08-06] MEDS: ACETAMINOPHEN 325 MG TABLET 650 MG PO (09:25)
[2023-08-06] MEDS: diphenhydrAMINE HCl CAP 25 MG CAPSULE PO (09:25)
[2023-08-06] MEDS: BORTEZOMIB 3.5 MG/1.4 ML VIAL 2.5 MG SUB-Q (09:35)
[2023-08-06] MEDS: DARATUMUMAB-HYALURONIDASE-FIHJ 1,800 MG-30,000 UNITS VIAL 15 ML SUB-Q (09:36)
--- NOTE | 2023-08-06 10:30 | PC.NURSE ---
Patient here for Cycle 4 day 15 of chemo regimen. Labs reviewed from 08/04/23 and ok'd. Education given. Chemo injections administered. SEE MAR. Tolerated well. Will be seeing Dr. Sy later today in clinic. Will be returning 08/20/22 at 0900 for cycle 5 day [address] Sy. Safe exit of hospital per ambulatory/self.
== END 2023-08-06 08:53 | disposition home or self-care (01) ==
LOC: CHSTREATRM 08:54
PROVIDERS: PCP Internal Medicine; Visit Provider Internal Medicine Hematology & Oncology
DX: Z51.11 Encounter for antineoplastic chemotherapy (principal); C90.00 Multiple myeloma not having achieved remission
CPT/HCPCS: 96401; A9270; J9041; J9144

== ENCOUNTER 2023-08-20 08:45 | Outpatient (CLI) | payer MEDICARE, SELFPAY ==
[2023-08-20 09:00] VITALS: BP 134/79; PULSE 88; RESP 14; TEMP 36.6; O2SAT 97
[2023-08-20] MEDS: SODIUM CHLORIDE 0.9% IV 500 ML 250 ML (09:05)
[2023-08-20 09:07] VITALS: BMI 20.8
[2023-08-20] MEDS: diphenhydrAMINE HCl CAP 25 MG CAPSULE PO (09:26)
[2023-08-20] MEDS: ACETAMINOPHEN 325 MG TABLET 650 MG PO (09:26)
[2023-08-20] MEDS: BORTEZOMIB 3.5 MG/1.4 ML VIAL 2.5 MG SUB-Q (09:46)
[2023-08-20] MEDS: DARATUMUMAB-HYALURONIDASE-FIHJ 1,800 MG-30,000 UNITS VIAL 15 ML SUB-Q (09:46)
[2023-08-20] MEDS: HEPARIN SODIUM LOCK FLUSH 500 UNITS/5 ML SYRINGE IV PUSH (11:09)
[2023-08-20 11:10] VITALS: BP 136/79; PULSE 88; RESP 14; O2SAT 98
--- NOTE | 2023-08-20 11:10 | PC.NURSE ---
Patient here for cycle 5 day 1 of chemo regimen. Reports feels pretty good. Education given. No concerns voiced. IV normal saline 500 ml/hr administered along with two chemo injections (see MAR) after oking labs drawn yesterday. Tolerated well. Safe exit of hospital per self/ambulatory. Will return 08/27/23 at 0900 for day 8 of cycle 5.
== END 2023-08-20 08:46 | disposition home or self-care (01) ==
PROVIDERS: PCP Internal Medicine; Visit Provider Internal Medicine Hematology & Oncology
DX: Z51.11 Encounter for antineoplastic chemotherapy (principal); C90.00 Multiple myeloma not having achieved remission
CPT/HCPCS: 96360; 96361; 96401; A9270; J7040; J9041; J9144

== ENCOUNTER 2023-08-27 08:53 | Outpatient (CLI) | payer MEDICARE, SELFPAY ==
[2023-08-27 09:14] VITALS: BP 151/84; PULSE 88; RESP 14; TEMP 36.4; O2SAT 99; BMI 22.7
[2023-08-27] MEDS: BORTEZOMIB 3.5 MG/1.4 ML VIAL 2.5 MG SUB-Q (09:26)
--- NOTE | 2023-08-28 10:22 | PC.NURSE ---
08/27/23 0900 Patient here for Cycle 5 chemo day 8. Reports feeling pretty good this week. Education given. Chemo injection administered. Tolerated well. Will return 09/03/23 for cycle 5 day 15 chemo at 0900. Safe exit of hospital per self/ambulatory.
== END 2023-08-27 08:54 | disposition home or self-care (01) ==
LOC: CHSTREATRM 09:01
PROVIDERS: PCP Internal Medicine; Visit Provider Internal Medicine Hematology & Oncology
DX: Z51.11 Encounter for antineoplastic chemotherapy (principal); C90.00 Multiple myeloma not having achieved remission
CPT/HCPCS: 96401; J9041

== ENCOUNTER 2023-09-01 11:33 | Outpatient (RCR) | payer MEDICARE, SELFPAY ==
[2023-06-04 14:47] LABS: Basophils Absolute Auto 0.02 K/mm3 (0.00-0.10); Basophils Percent Auto 0.5 % (0.0-1.0); Eosinophils Absolute Auto 0.04 K/mm3 (0.02-0.50); Hematocrit 20.9 % (35.0-42.0); Immature Granulocyte Absolute 0.06 K/mm3 (0.00-0.00); Immature Granulocyte Percent A 1.5 % (0.0-0.0); Lymphocytes Absolute Auto 1.06 K/mm3 (1.10-4.50); Lymphocytes Percent Auto 26.6 % (18.0-42.0); Mean Corpuscular HGB Conc 32.5 g/dL (32.0-36.0); Mean Corpuscular Hemoglobin 32.9 pg (27.0-31.0); Mean Platelet Volume 9.9 fl (9.2-11.8); Monocytes Absolute Auto 0.43 K/mm3 (0.10-0.90); Monocytes Percent Auto 10.8 % (2.0-11.0); Neutrophils Absolute Auto 2.4 K/mm3 (1.7-7.2); Neutrophils Percent Auto 59.6 % (50.0-70.0); Platelet Count Result 151 K/mm3 (150-420); Red Blood Count 2.07 M/mm3 (4.20-5.40); Red Cell Distribution Width 19.6 % (11.6-14.4)
[2023-06-04 14:50] LABS: Hemoglobin 6.8 g/dL (11.7-13.8)
[2023-06-04 15:27] LABS: Alanine Aminotransferase 45 U/L (14-59); Albumin Level 2.6 g/dL (3.4-5.0); Alkaline Phosphatase 131 U/L (46-116); Anion Gap 8 mmol/L (8-16); Aspartate Amino Transferase 35 U/L (15-37); Bilirubin,Total 0.4 mg/dL (0.00-1.00); Blood Urea Nitrogen 27 mg/dL (7-18); Calcium 8.8 mg/dL (8.5-10.1); Carbon Dioxide 30 mmol/L (21-32); Chloride 93 mmol/L (98-108); Estimated Glomerular Filt Rate 19; Glucose 151 mg/dL (70-99); Lactate Dehydrogenase 217 U/L (81-234); Osmolality Calculated 280 mOsm/kg (285-295); Potassium 4.3 mmol/L (3.5-5.1); Sodium 131 mmol/L (136-145); Total Protein 8.3 g/dL (6.4-8.2)
[2023-06-05] MEDS: ACETAMINOPHEN 325 MG TABLET 650 MG PO (16:05)
[2023-06-05] MEDS: diphenhydrAMINE HCl CAP 25 MG CAPSULE PO (16:09)
[2023-06-05] MEDS: SODIUM CHLORIDE 0.9% IV 250 ML 10 ML IVPB (16:30)
[2023-06-05 16:38] VITALS: BP 95/55; PULSE 94; RESP 16; TEMP 36.5; O2SAT 94
[2023-06-05 16:55] VITALS: BP 106/60; PULSE 95; RESP 16; TEMP 36.4; O2SAT 95
[2023-06-05 17:55] VITALS: BP 106/62; PULSE 86; RESP 16; TEMP 36.5; O2SAT 96
--- NOTE | 2023-06-05 18:19 | PC.NURSE ---
Patient up in chair. Denies pain. Blood product infusing well, no reaction noted. Call light and belongings within reach.
[2023-06-05] MEDS: HEPARIN SODIUM LOCK FLUSH 500 UNITS/5 ML SYRINGE IV PUSH (20:09)
[2023-06-05 20:10] VITALS: BP 136/77; PULSE 91; RESP 16; TEMP 35.7; O2SAT 97
[2023-06-05 20:30] LABS: Hematocrit 26.2 % (35.0-42.0); Hemoglobin 8.5 g/dL (11.7-13.8)
--- NOTE | 2023-06-05 20:42 | PC.NURSE ---
Patient tolerated PRBC infusion. well. No signs of interaction obsrerved. Patient's port a cath removed intact after being flushed with normal saline and heparin flush. Patient tolerated well. Patient able to amb to care with steady gait.
[2023-06-08 14:44] LABS: Abnormal Protein Band 1 2.6 g/dL; Albumin 3.4 g/dL (3.8-4.8); Alpha 1 Globulin 0.3 g/dL (0.2-0.3); Beta 1 Globulin 0.5 g/dL (0.4-0.6); Gamma Globulin 2.8 g/dL (0.8-1.7); Protein, Total 8.3 g/dL (6.1-8.1)
[2023-06-09 04:00] LABS: Beta-2-Microglobulin 30.42 mg/L (<=2.51); Immunoglobulin A <5 mg/dL (70-320); Immunoglobulin G 3363 mg/dL (600-1540); Immunoglobulin M <5 mg/dL (50-300)
[2023-07-28 09:51] LABS: Eosinophils Absolute Auto 0.02 K/mm3 (0.02-0.50); Eosinophils Percent Auto 0.4 % (1.0-6.0); Hematocrit 28.2 % (35.0-42.0); Hemoglobin 9.6 g/dL (11.7-13.8); Immature Granulocyte Absolute 0.07 K/mm3 (0.00-0.00); Immature Granulocyte Percent A 1.3 % (0.0-0.0); Lymphocytes Absolute Auto 0.54 K/mm3 (1.10-4.50); Lymphocytes Percent Auto 10.1 % (18.0-42.0); Mean Corpuscular Hemoglobin 32.2 pg (27.0-31.0); Mean Corpuscular Volume 94.6 fL (78.0-102.0); Mean Platelet Volume 10.1 fl (9.2-11.8); Monocytes Absolute Auto 0.32 K/mm3 (0.10-0.90); Neutrophils Absolute Auto 4.4 K/mm3 (1.7-7.2); Neutrophils Percent Auto 82.2 % (50.0-70.0); Platelet Count Result 126 K/mm3 (150-420); Red Blood Count 2.98 M/mm3 (4.20-5.40); White Blood Count 5.4 K/mm3 (4.8-10.8)
[2023-07-28 10:17] LABS: Alanine Aminotransferase 53 U/L (14-59); Albumin Level 2.4 g/dL (3.4-5.0); Alkaline Phosphatase 65 U/L (46-116); Anion Gap 2 mmol/L (8-16); Aspartate Amino Transferase 15 U/L (15-37); Bilirubin,Total 0.3 mg/dL (0.00-1.00); Blood Urea Nitrogen 53 mg/dL (7-18); Calcium 8.5 mg/dL (8.5-10.1); Carbon Dioxide 28 mmol/L (21-32); Chloride 100 mmol/L (98-108); Estimated Glomerular Filt Rate 24; Glucose 156 mg/dL (70-99); Lactate Dehydrogenase 198 U/L (81-234); Osmolality Calculated 287 mOsm/kg (285-295); Potassium 4.1 mmol/L (3.5-5.1); Sodium 130 mmol/L (136-145); Total Protein 7.2 g/dL (6.4-8.2)
[2023-07-31 08:53] LABS: Beta-2-Microglobulin 9.12 mg/L (<=2.51); Immunoglobulin A <5 mg/dL (70-320); Immunoglobulin G 2532 mg/dL (600-1540); Immunoglobulin M <5 mg/dL (50-300)
[2023-07-31 17:52] LABS: Albumin 3.2 g/dL (3.8-4.8); Alpha 1 Globulin 0.3 g/dL (0.2-0.3); Beta 1 Globulin 0.5 g/dL (0.4-0.6); Gamma Globulin 2.2 g/dL (0.8-1.7); Protein, Total 7.3 g/dL (6.1-8.1)
[2023-08-04 08:02] LABS: Basophils Absolute Auto 0.01 K/mm3 (0.00-0.10); Basophils Percent Auto 0.2 % (0.0-1.0); Eosinophils Absolute Auto 0.02 K/mm3 (0.02-0.50); Eosinophils Percent Auto 0.5 % (1.0-6.0); Hematocrit 25.8 % (35.0-42.0); Hemoglobin 8.5 g/dL (11.7-13.8); Immature Granulocyte Absolute 0.07 K/mm3 (0.00-0.00); Immature Granulocyte Percent A 1.7 % (0.0-0.0); Immature Platelet Fraction Pct 4.5 % (1.0-7.0); Lymphocytes Absolute Auto 0.39 K/mm3 (1.10-4.50); Lymphocytes Percent Auto 9.2 % (18.0-42.0); Mean Corpuscular HGB Conc 32.9 g/dL (32.0-36.0); Mean Corpuscular Hemoglobin 31.8 pg (27.0-31.0); Mean Corpuscular Volume 96.6 fL (78.0-102.0); Mean Platelet Volume 10.5 fl (9.2-11.8); Monocytes Absolute Auto 0.21 K/mm3 (0.10-0.90); Neutrophils Absolute Auto 3.5 K/mm3 (1.7-7.2); Neutrophils Percent Auto 83.4 % (50.0-70.0); Platelet Count Result 98 K/mm3 (150-420); Red Blood Count 2.67 M/mm3 (4.20-5.40); Red Cell Distribution Width 20.3 % (11.6-14.4); White Blood Count 4.2 K/mm3 (4.8-10.8)
[2023-08-04 08:34] LABS: Alanine Aminotransferase 45 U/L (14-59); Albumin Level 2.4 g/dL (3.4-5.0); Alkaline Phosphatase 76 U/L (46-116); Anion Gap 3 mmol/L (8-16); Aspartate Amino Transferase 22 U/L (15-37); Bilirubin,Total 0.4 mg/dL (0.00-1.00); Blood Urea Nitrogen 39 mg/dL (7-18); Calcium 8.8 mg/dL (8.5-10.1); Carbon Dioxide 28 mmol/L (21-32); Chloride 102 mmol/L (98-108); Estimated Glomerular Filt Rate 30; Glucose 134 mg/dL (70-99); Lactate Dehydrogenase 195 U/L (81-234); Osmolality Calculated 287 mOsm/kg (285-295); Potassium 3.8 mmol/L (3.5-5.1); Sodium 133 mmol/L (136-145)
[2023-08-06 10:37] LABS: Abnormal Protein Band 1 1.9 g/dL; Alpha 1 Globulin 0.4 g/dL (0.2-0.3); Beta 1 Globulin 0.4 g/dL (0.4-0.6); Gamma Globulin 1.9 g/dL (0.8-1.7); Protein, Total 6.9 g/dL (6.1-8.1)
[2023-08-07 13:12] LABS: Beta-2-Microglobulin 7.51 mg/L (<=2.51); Immunoglobulin A <5 mg/dL (70-320); Immunoglobulin G 2194 mg/dL (600-1540); Immunoglobulin M <5 mg/dL (50-300)
[2023-08-19 09:25] LABS: Hematocrit 24.4 % (35.0-42.0); Hemoglobin 7.9 g/dL (11.7-13.8); Mean Corpuscular HGB Conc 32.4 g/dL (32.0-36.0); Mean Corpuscular Hemoglobin 32.2 pg (27.0-31.0); Mean Corpuscular Volume 99.6 fL (78.0-102.0); Platelet Count Result 173 K/mm3 (150-420); Red Blood Count 2.45 M/mm3 (4.20-5.40); Red Cell Distribution Width 20.8 % (11.6-14.4); White Blood Count 5.3 K/mm3 (4.8-10.8)
[2023-08-19 09:40] LABS: Band Neutrophils Percent 0 % (0-6); Basophils Percent Manual 0 % (0-1); Eosinophils Percent Manual 2 % (1-6); Lymphocytes Absolute Manual 0.58 K/mm3 (1.1-4.5); Lymphocytes Percent Manual 11 % (18-44); Monocytes Absolute Manual 0.31 K/mm3 (0.1-0.90); Monocytes Percent Manual 6 % (3-9); Neutrophils Absolute Manual 4.29 K/mm3 (1.7-7.2); Neutrophils Percent Manual 81 % (46-73); Total Cells Counted 100
[2023-08-19 09:41] LABS: Platelet Estimate Adequate (Adequate)
[2023-08-19 10:06] LABS: Alanine Aminotransferase 31 U/L (14-59); Albumin Level 2.2 g/dL (3.4-5.0); Alkaline Phosphatase 65 U/L (46-116); Anion Gap 3 mmol/L (8-16); Aspartate Amino Transferase 16 U/L (15-37); Bilirubin,Total 0.3 mg/dL (0.00-1.00); Blood Urea Nitrogen 35 mg/dL (7-18); Calcium 8.2 mg/dL (8.5-10.1); Carbon Dioxide 30 mmol/L (21-32); Chloride 103 mmol/L (98-108); Estimated Glomerular Filt Rate 30; Glucose 131 mg/dL (70-99); Lactate Dehydrogenase 186 U/L (81-234); Osmolality Calculated 292 mOsm/kg (285-295); Potassium 3.9 mmol/L (3.5-5.1); Sodium 136 mmol/L (136-145); Total Protein 6.7 g/dL (6.4-8.2)
[2023-08-21 15:26] LABS: Abnormal Protein Band 1 1.7 g/dL; Albumin 2.8 g/dL (3.8-4.8); Alpha 1 Globulin 0.5 g/dL (0.2-0.3); Alpha 2 Globulin 0.9 g/dL (0.5-0.9); Beta 1 Globulin 0.4 g/dL (0.4-0.6); Gamma Globulin 1.8 g/dL (0.8-1.7); Protein, Total 6.6 g/dL (6.1-8.1)
[2023-08-21 19:45] LABS: Beta-2-Microglobulin 10.64 mg/L (<=2.51); Immunoglobulin A <5 mg/dL (70-320); Immunoglobulin G 2081 mg/dL (600-1540); Immunoglobulin M <5 mg/dL (50-300)
[2023-09-01 12:04] LABS: Basophils Absolute Auto 0.01 K/mm3 (0.00-0.10); Basophils Percent Auto 0.2 % (0.0-1.0); Eosinophils Absolute Auto 0.05 K/mm3 (0.02-0.50); Eosinophils Percent Auto 0.9 % (1.0-6.0); Hematocrit 22.9 % (35.0-42.0); Hemoglobin 7.4 g/dL (11.7-13.8); Immature Granulocyte Absolute 0.13 K/mm3 (0.00-0.00); Immature Granulocyte Percent A 2.3 % (0.0-0.0); Immature Platelet Fraction Pct 5.3 % (1.0-7.0); Lymphocytes Percent Auto 14.3 % (18.0-42.0); Mean Corpuscular HGB Conc 32.3 g/dL (32.0-36.0); Mean Corpuscular Hemoglobin 32.6 pg (27.0-31.0); Mean Corpuscular Volume 100.9 fL (78.0-102.0); Mean Platelet Volume 10.7 fl (9.2-11.8); Monocytes Absolute Auto 0.28 K/mm3 (0.10-0.90); Neutrophils Absolute Auto 4.3 K/mm3 (1.7-7.2); Neutrophils Percent Auto 77.3 % (50.0-70.0); Nucleated Red Blood Cells Absolute Auto 0.02 K/mm3 (0.00-0.00); Nucleated Red Blood Cells Perc 0.4 % (0-0.0); Platelet Count Result 108 K/mm3 (150-420); Red Blood Count 2.27 M/mm3 (4.20-5.40); Red Cell Distribution Width 19.6 % (11.6-14.4); White Blood Count 5.6 K/mm3 (4.8-10.8)
[2023-09-01 12:57] LABS: Alanine Aminotransferase 32 U/L (14-59); Albumin Level 2.2 g/dL (3.4-5.0); Alkaline Phosphatase 83 U/L (46-116); Anion Gap 6 mmol/L (8-16); Aspartate Amino Transferase 16 U/L (15-37); Bilirubin,Total 0.4 mg/dL (0.00-1.00); Blood Urea Nitrogen 37 mg/dL (7-18); Calcium 8.2 mg/dL (8.5-10.1); Carbon Dioxide 28 mmol/L (21-32); Chloride 99 mmol/L (98-108); Estimated Glomerular Filt Rate 29; Glucose 114 mg/dL (70-99); Lactate Dehydrogenase 191 U/L (81-234); Osmolality Calculated 285 mOsm/kg (285-295); Potassium 4.1 mmol/L (3.5-5.1); Sodium 133 mmol/L (136-145); Total Protein 6.3 g/dL (6.4-8.2)
[2023-09-03 07:53] LABS: Beta-2-Microglobulin 11.52 mg/L (<=2.51); Immunoglobulin A <5 mg/dL (70-320); Immunoglobulin G 1628 mg/dL (600-1540); Immunoglobulin M <5 mg/dL (50-300)
[2023-09-03 10:35] LABS: Abnormal Protein Band 1 1.3 g/dL; Albumin 2.7 g/dL (3.8-4.8); Alpha 1 Globulin 0.5 g/dL (0.2-0.3); Alpha 2 Globulin 0.9 g/dL (0.5-0.9); Beta 1 Globulin 0.4 g/dL (0.4-0.6); Gamma Globulin 1.3 g/dL (0.8-1.7); Protein, Total 5.9 g/dL (6.1-8.1)
== END 2023-09-02 23:59 | disposition home or self-care (01) ==
LOC: CHSLAB 11:33
PROVIDERS: PCP Internal Medicine; Visit Provider Internal Medicine Hematology & Oncology
DX: C90.00 Multiple myeloma not having achieved remission (principal)
CPT/HCPCS: 36415; 36430; 80053; 82232; 82784; 83615; 84155; 84165; 85014; 85018; 85025; 85055; 86850; 86900; 86901; 86920; A9270; J7050; P9016

== ENCOUNTER 2023-09-03 08:47 | Outpatient (CLI) | payer MEDICARE, SELFPAY ==
[2023-09-03 09:07] VITALS: BMI 20.9
[2023-09-03] MEDS: ACETAMINOPHEN 325 MG TABLET 650 MG PO (09:10)
[2023-09-03] MEDS: diphenhydrAMINE HCl CAP 25 MG CAPSULE PO (09:10)
[2023-09-03] MEDS: SODIUM CHLORIDE 0.9% IV 250 ML 10 ML IVPB (09:10)
[2023-09-03 09:20] VITALS: BP 112/60; PULSE 92; RESP 14; TEMP 36.1; O2SAT 99
[2023-09-03 09:22] LABS: Hematocrit 22.4 % (35.0-42.0); Hemoglobin 7.3 g/dL (11.7-13.8)
[2023-09-03 09:35] VITALS: BP 116/64; PULSE 92; RESP 14; TEMP 36.1; O2SAT 99
[2023-09-03] MEDS: BORTEZOMIB 3.5 MG/1.4 ML VIAL 2.5 MG SUB-Q (09:51)
[2023-09-03] MEDS: DARATUMUMAB-HYALURONIDASE-FIHJ 1,800 MG-30,000 UNITS VIAL 15 ML SUB-Q (09:51)
--- NOTE | 2023-09-03 10:05 | PC.NURSE ---
0900 Patient here for Cycle 5 day 15 of Chemo Velcade/Darzalex Faspro plus getting 1 unit PRBC's today. Education and concerns all addressed with patient understanding. Labs reviewed yesterday on 09/01/23 labs and called to Dr. Yossi mccormack for chemo plus the blood transfusion. Pre medicated with benadryl and tylenol for both chemo/blood transfusion -see MAR. Patient also take her own RX pre chemoDecadraon at home prior to coming for chemo. 919 1 unit PRBC's started at rate 100 ml/hr. 0935 No blood transfusion reaction noted or reported. Up rate to 125 ml/hr. 1000 Chemo injections administered. SEE MAR. Tolerated well.
[2023-09-03 10:35] VITALS: BP 118/63; PULSE 88; RESP 14; TEMP 36.2; O2SAT 100
--- NOTE | 2023-09-03 10:38 | PC.NURSE ---
1035 No blood transfusion reaction noted or reported. Up rate to 150 ml/hr for here on out. Late entry HGB 7.4 on Friday's labs and 7.3 on today cbc.
[2023-09-03 11:35] VITALS: BP 123/69; PULSE 92; RESP 14; TEMP 36.3; O2SAT 100
[2023-09-03] MEDS: HEPARIN SODIUM LOCK FLUSH 500 UNITS/5 ML SYRINGE (12:01)
--- NOTE | 2023-09-03 12:03 | PC.NURSE ---
1140 1 Unit PRBC's completed. Normal saline infusion. Tolerated transfusion well.
[2023-09-03 12:06] VITALS: BP 123/67; PULSE 88; RESP 14; TEMP 36.4; O2SAT 100
--- NOTE | 2023-09-03 12:07 | PC.NURSE ---
Post CBC drawn. Vital signs stable. No concerns voiced. Safe exit of hospital per self/ambulatory for significant other awaiting at front of hospital. Will return on 09/17/23 at 0900 for cycle 6 day [address] Sy. Patient is to see Dr Sy in clinic later today 09/03/23.
[2023-09-03 13:50] LABS: Hematocrit 26.5 % (35.0-42.0); Hemoglobin 8.7 g/dL (11.7-13.8)
== END 2023-09-03 08:48 | disposition home or self-care (01) ==
LOC: CHSTREATRM 08:54
PROVIDERS: PCP Internal Medicine; Visit Provider Internal Medicine Hematology
DX: Z51.11 Encounter for antineoplastic chemotherapy (principal); C90.00 Multiple myeloma not having achieved remission; D50.9 Iron deficiency anemia, unspecified
CPT/HCPCS: 36415; 36430; 85014; 85018; 86850; 86880; 86900; 86901; 86902; 86920; 96401; A9270; J7050; J9041; J9144; P9016

== ENCOUNTER 2023-09-17 08:45 | Outpatient (CLI) | payer MEDICARE, SELFPAY ==
[2023-09-17 09:06] VITALS: BP 136/83; PULSE 88; RESP 16; TEMP 36.6; O2SAT 99; BMI 20.7
[2023-09-17] MEDS: diphenhydrAMINE HCl CAP 25 MG CAPSULE PO (09:08)
[2023-09-17] MEDS: ACETAMINOPHEN 325 MG TABLET 650 MG PO (09:09)
[2023-09-17] MEDS: DARATUMUMAB-HYALURONIDASE-FIHJ 1,800 MG-30,000 UNITS VIAL 15 ML SUB-Q (09:44)
[2023-09-17] MEDS: BORTEZOMIB 3.5 MG/1.4 ML VIAL 2.3 MG SUB-Q (09:45)
--- NOTE | 2023-09-17 12:46 | PC.NURSE ---
Patient here for Cycle 6 day 1 of Bortezomib and Darzalax-Faspro. Labs reviewed from 09/15/23 and ok'd. Education reinforced. No concerns voiced. Chemo regimen medication administered. SEE MAR. Observed for about 1 hour. Tolerated well. Safe exit of hospital per self /ambulatory. Will return 09/24/23 at 0900 for cycle 5 day 8.
== END 2023-09-17 08:46 | disposition home or self-care (01) ==
LOC: CHSTREATRM 08:49
PROVIDERS: PCP Internal Medicine; Visit Provider Internal Medicine Hematology
DX: Z51.11 Encounter for antineoplastic chemotherapy (principal); C90.00 Multiple myeloma not having achieved remission
CPT/HCPCS: 96401; A9270; J9041; J9144

== ENCOUNTER 2023-09-24 08:50 | Outpatient (CLI) | payer MEDICARE, SELFPAY ==
[2023-09-24 09:05] VITALS: BP 128/70; PULSE 92; RESP 18; TEMP 37; O2SAT 96; BMI 20.8
[2023-09-24] MEDS: BORTEZOMIB 3.5 MG/1.4 ML VIAL 2.3 MG SUB-Q (09:42)
--- NOTE | 2023-09-24 09:43 | PC.NURSE ---
Here for day 8 of cycle 6 of chemo regimen. No blood work had to be done today. Reports feels pretty good. Chemo injection administered. SEE MAR. Tolerated well. Will return 10/01/23 for day 15 of cycle 6. Safe exit of hospital per self/ambulatory.
== END 2023-09-24 08:51 | disposition home or self-care (01) ==
LOC: CHSTREATRM 08:53
PROVIDERS: PCP Internal Medicine; Visit Provider Internal Medicine Hematology
DX: Z51.11 Encounter for antineoplastic chemotherapy (principal); C90.00 Multiple myeloma not having achieved remission
CPT/HCPCS: 96401; J9041

== ENCOUNTER 2023-09-29 12:23 | Outpatient (CLI) | payer MEDICARE, SELFPAY ==
[2023-09-29 12:45] LABS: Hematocrit 24.7 % (35.0-42.0); Mean Corpuscular HGB Conc 32.4 g/dL (32.0-36.0); Mean Corpuscular Hemoglobin 32.9 pg (27.0-31.0); Mean Corpuscular Volume 101.6 fL (78.0-102.0); Mean Platelet Volume 9.8 fl (9.2-11.8); Platelet Count Result 134 K/mm3 (150-420); Red Blood Count 2.43 M/mm3 (4.20-5.40); Red Cell Distribution Width 16.9 % (11.6-14.4); White Blood Count 2.8 K/mm3 (4.8-10.8)
[2023-09-29 13:00] LABS: Band Neutrophils Percent 0 % (0-6); Lymphocytes Absolute Manual 0.86 K/mm3 (1.1-4.5); Lymphocytes Percent Manual 31 % (18-44); Monocytes Absolute Manual 0.36 K/mm3 (0.1-0.90); Monocytes Percent Manual 13 % (3-9); Neutrophils Absolute Manual 1.56 K/mm3 (1.7-7.2); Neutrophils Percent Manual 56 % (46-73); Platelet Estimate Adequate (Adequate); Total Cells Counted 100
[2023-09-29 14:06] LABS: Alanine Aminotransferase 47 U/L (14-59); Albumin Level 2.4 g/dL (3.4-5.0); Alkaline Phosphatase 88 U/L (46-116); Anion Gap 5 mmol/L (8-16); Aspartate Amino Transferase 35 U/L (15-37); Bilirubin,Total 0.4 mg/dL (0.00-1.00); Blood Urea Nitrogen 30 mg/dL (7-18); Carbon Dioxide 29 mmol/L (21-32); Chloride 101 mmol/L (98-108); Estimated Glomerular Filt Rate 32; Folic Acid 6.9 ng/mL (8.6->20); Glucose 161 mg/dL (70-99); Osmolality Calculated 289 mOsm/kg (285-295); Potassium 4.3 mmol/L (3.5-5.1); Sodium 135 mmol/L (136-145); Total Protein 7.5 g/dL (6.4-8.2)
[2023-09-29 14:07] LABS: Vitamin B12 > 2000 pg/mL (193-986)
[2023-10-01 13:03] LABS: Abnormal Protein Band 1 2.3 g/dL; Albumin 3.3 g/dL (3.8-4.8); Alpha 1 Globulin 0.3 g/dL (0.2-0.3); Alpha 2 Globulin 0.7 g/dL (0.5-0.9); Beta 1 Globulin 0.4 g/dL (0.4-0.6); Gamma Globulin 2.4 g/dL (0.8-1.7); Protein, Total 7.4 g/dL (6.1-8.1)
[2023-10-01 20:36] LABS: Lambda Light Chain 2.6 mg/L (5.7-26.3)
[2023-10-02 08:56] LABS: Immunoglobulin A <5 mg/dL (70-320); Immunoglobulin G 2617 mg/dL (600-1540); Immunoglobulin M <5 mg/dL (50-300)
== END 2023-09-29 12:24 | disposition home or self-care (01) ==
LOC: CHSLAB 12:25
PROVIDERS: PCP Internal Medicine; Visit Provider Internal Medicine Hematology
DX: C90.00 Multiple myeloma not having achieved remission (principal)
CPT/HCPCS: 36415; 80053; 82607; 82746; 82784; 83883; 84155; 84165; 85025; 86334

== ENCOUNTER 2023-10-01 08:40 | Outpatient (CLI) | payer MEDICARE, SELFPAY ==
[2023-10-01 08:54] VITALS: BP 138/84; PULSE 90; RESP 16; TEMP 36.6; O2SAT 98; BMI 21.2
[2023-10-01] MEDS: ACETAMINOPHEN 325 MG TABLET 650 MG PO (09:11)
[2023-10-01] MEDS: diphenhydrAMINE HCl CAP 25 MG CAPSULE PO (09:11)
[2023-10-01] MEDS: DARATUMUMAB-HYALURONIDASE-FIHJ 1,800 MG-30,000 UNITS VIAL 15 ML SUB-Q (09:12)
[2023-10-01] MEDS: BORTEZOMIB 3.5 MG/1.4 ML VIAL 2.3 MG SUB-Q (09:13)
[2023-10-01 09:32] VITALS: BP 149/80; PULSE 88; RESP 14; O2SAT 99
--- NOTE | 2023-10-01 10:56 | PC.NURSE ---
Patient here for cycle 6 day 15 of chemo regimen. Labs reviewed from 09/29/23 and ok'd to proceed. Patient has no concerns today. States, I feel pretty good. Pre medicated and Chemo injection administered. SEE MAR Tolerated well. Will see Dr. Sy on 10/08/23 and probably will start Cycle 7 day 1 on 10/15/23. Observed for no side effect. Safe exit of hospital per self/ambulatory.
== END 2023-10-01 10:05 | disposition home or self-care (01) ==
LOC: CHSTREATRM 08:44
PROVIDERS: PCP Internal Medicine; Visit Provider Internal Medicine Hematology
DX: Z51.11 Encounter for antineoplastic chemotherapy (principal); C90.00 Multiple myeloma not having achieved remission
CPT/HCPCS: 96401; A9270; J9041; J9144

== ENCOUNTER 2023-10-14 10:24 | Outpatient (CLI) | payer MEDICARE, SELFPAY ==
[2023-10-14] MEDS: diphenhydrAMINE HCl CAP 25 MG CAPSULE PO (10:25)
[2023-10-14] MEDS: ACETAMINOPHEN 325 MG TABLET 650 MG PO (10:25)
[2023-10-14 10:50] VITALS: BP 134/62; PULSE 93; RESP 18; TEMP 36.6; O2SAT 99; BMI 21.2
[2023-10-14] MEDS: BORTEZOMIB 3.5 MG/1.4 ML VIAL 2.25 MG SUB-Q (11:41)
[2023-10-14] MEDS: DARATUMUMAB-HYALURONIDASE-FIHJ 1,800 MG-30,000 UNITS VIAL 15 ML SUB-Q (11:42)
--- NOTE | 2023-10-14 12:07 | PC.NURSE ---
Patient here for cycle 7 day 1 of chemo regimen. Labs reviewed from Friday10/13/23 and ok'd. All concerns voiced answered. Chemo injections administered. SEE MAR. Tolerated well. Will return for cycle 7 day 8 on 10/21/23 at 0900. Safe exit of hospital per self/ambulatory.
== END 2023-10-14 12:00 | disposition home or self-care (01) ==
LOC: CHSTREATRM 10:27
PROVIDERS: PCP Internal Medicine; Visit Provider Internal Medicine Hematology
DX: Z51.11 Encounter for antineoplastic chemotherapy (principal); C90.00 Multiple myeloma not having achieved remission
CPT/HCPCS: 96401; A9270; J9041; J9144

== ENCOUNTER 2023-10-21 08:47 | Outpatient (CLI) | payer MEDICARE, SELFPAY ==
[2023-10-21 09:09] VITALS: BP 136/74; PULSE 92; RESP 16; TEMP 36.4; O2SAT 97; BMI 21.2
[2023-10-21] MEDS: BORTEZOMIB 3.5 MG/1.4 ML VIAL 2.25 MG SUB-Q (09:23)
--- NOTE | 2023-10-21 09:27 | PC.NURSE ---
Patient here for cycle 7 day 8 of chemo regimen. Education given. No concerns voiced. Reports feeling pretty good. Chemo injection administered. SEE MAR. Tolerated well. Will see Dr. Sy tomorrow in clinic 10/22/23. Will return for cycle 7 day 15 on 10/28/23 at 0900. Will get blood work on 10/27/23. Safe exit of hospital per self/ambulatory.
== END 2023-10-21 09:30 | disposition home or self-care (01) ==
LOC: CHSTREATRM 08:50
PROVIDERS: PCP Internal Medicine; Visit Provider Internal Medicine Hematology
DX: Z51.11 Encounter for antineoplastic chemotherapy (principal); C90.00 Multiple myeloma not having achieved remission
CPT/HCPCS: 96401; J9041

== ENCOUNTER 2023-10-27 12:35 | Outpatient (RCR) | payer MEDICARE, SELFPAY ==
[2023-09-15 11:57] LABS: Basophils Absolute Auto 0.03 K/mm3 (0.00-0.10); Basophils Percent Auto 0.6 % (0.0-1.0); Eosinophils Absolute Auto 0.08 K/mm3 (0.02-0.50); Eosinophils Percent Auto 1.6 % (1.0-6.0); Hematocrit 27.6 % (35.0-42.0); Hemoglobin 8.7 g/dL (11.7-13.8); Immature Granulocyte Absolute 0.09 K/mm3 (0.00-0.00); Immature Granulocyte Percent A 1.8 % (0.0-0.0); Lymphocytes Absolute Auto 1.29 K/mm3 (1.10-4.50); Lymphocytes Percent Auto 26.5 % (18.0-42.0); Mean Corpuscular HGB Conc 31.5 g/dL (32.0-36.0); Mean Corpuscular Hemoglobin 31.9 pg (27.0-31.0); Mean Corpuscular Volume 101.1 fL (78.0-102.0); Mean Platelet Volume 9.1 fl (9.2-11.8); Monocytes Absolute Auto 0.39 K/mm3 (0.10-0.90); Neutrophils Percent Auto 61.5 % (50.0-70.0); Platelet Count Result 178 K/mm3 (150-420); Red Blood Count 2.73 M/mm3 (4.20-5.40); Red Cell Distribution Width 17.7 % (11.6-14.4); White Blood Count 4.9 K/mm3 (4.8-10.8)
[2023-09-15 13:13] LABS: Alanine Aminotransferase 39 U/L (14-59); Albumin Level 2.5 g/dL (3.4-5.0); Alkaline Phosphatase 84 U/L (46-116); Anion Gap 9 mmol/L (8-16); Aspartate Amino Transferase 32 U/L (15-37); Bilirubin,Total 0.5 mg/dL (0.00-1.00); Blood Urea Nitrogen 27 mg/dL (7-18); Calcium 8.9 mg/dL (8.5-10.1); Carbon Dioxide 27 mmol/L (21-32); Chloride 100 mmol/L (98-108); Estimated Glomerular Filt Rate 31; Glucose 84 mg/dL (70-99); Lactate Dehydrogenase 235 U/L (81-234); Osmolality Calculated 286 mOsm/kg (285-295); Potassium 3.7 mmol/L (3.5-5.1); Sodium 136 mmol/L (136-145); Total Protein 8.3 g/dL (6.4-8.2)
[2023-09-17 14:22] LABS: Abnormal Protein Band 1 2.5 g/dL; Albumin 3.3 g/dL (3.8-4.8); Alpha 1 Globulin 0.5 g/dL (0.2-0.3); Alpha 2 Globulin 0.9 g/dL (0.5-0.9); Beta 1 Globulin 0.5 g/dL (0.4-0.6); Gamma Globulin 2.6 g/dL (0.8-1.7); Protein, Total 8.1 g/dL (6.1-8.1)
[2023-09-19 21:20] LABS: Beta-2-Microglobulin 12.75 mg/L (<=2.51); Immunoglobulin A <5 mg/dL (70-320); Immunoglobulin G 2753 mg/dL (600-1540); Immunoglobulin M <5 mg/dL (50-300)
[2023-10-13 11:56] LABS: Hematocrit 25.6 % (35.0-42.0); Hemoglobin 8.4 g/dL (11.7-13.8); Mean Corpuscular HGB Conc 32.8 g/dL (32.0-36.0); Mean Corpuscular Hemoglobin 33.3 pg (27.0-31.0); Mean Corpuscular Volume 101.6 fL (78.0-102.0); Mean Platelet Volume 9.7 fl (9.2-11.8); Platelet Count Result 144 K/mm3 (150-420); Red Blood Count 2.52 M/mm3 (4.20-5.40); Red Cell Distribution Width 15.7 % (11.6-14.4); White Blood Count 2.4 K/mm3 (4.8-10.8)
[2023-10-13 12:28] LABS: Band Neutrophils Percent 0 % (0-6); Lymphocytes Absolute Manual 0.55 K/mm3 (1.1-4.5); Lymphocytes Percent Manual 23 % (18-44); Monocytes Absolute Manual 0.28 K/mm3 (0.1-0.90); Monocytes Percent Manual 12 % (3-9); Myelocytes Percent 1 %; Neutrophils Absolute Manual 1.53 K/mm3 (1.7-7.2); Neutrophils Percent Manual 64 % (46-73); Platelet Estimate Adequate (Adequate); Total Cells Counted 100
[2023-10-13 13:13] LABS: Aspartate Amino Transferase < 10 U/L (15-37); Chloride 103 mmol/L (98-108); Potassium 4.1 mmol/L (3.5-5.1); Sodium 137 mmol/L (136-145)
[2023-10-13 13:35] LABS: Alanine Aminotransferase 39 U/L (14-59); Albumin Level 2.5 g/dL (3.4-5.0); Alkaline Phosphatase 83 U/L (46-116); Anion Gap 8 mmol/L (8-16); Bilirubin,Total 0.3 mg/dL (0.00-1.00); Blood Urea Nitrogen 29 mg/dL (7-18); Calcium 8.4 mg/dL (8.5-10.1); Carbon Dioxide 26 mmol/L (21-32); Estimated Glomerular Filt Rate 34; Glucose 99 mg/dL (70-99); Osmolality Calculated 289 mOsm/kg (285-295); Total Protein 7.4 g/dL (6.4-8.2)
[2023-10-15 11:28] LABS: Lambda Light Chain 2.6 mg/L (5.7-26.3)
[2023-10-15 13:58] LABS: Abnormal Protein Band 1 2.1 g/dL; Albumin 3.2 g/dL (3.8-4.8); Alpha 1 Globulin 0.4 g/dL (0.2-0.3); Alpha 2 Globulin 0.8 g/dL (0.5-0.9); Beta 1 Globulin 0.5 g/dL (0.4-0.6); Gamma Globulin 2.2 g/dL (0.8-1.7); Protein, Total 7.3 g/dL (6.1-8.1)
[2023-10-18 09:59] LABS: Immunoglobulin A <5 mg/dL (70-320); Immunoglobulin G 2420 mg/dL (600-1540); Immunoglobulin M <5 mg/dL (50-300)
[2023-10-27 13:00] LABS: Hematocrit 24.4 % (35.0-42.0); Mean Corpuscular HGB Conc 32.8 g/dL (32.0-36.0); Mean Corpuscular Hemoglobin 33.3 pg (27.0-31.0); Mean Corpuscular Volume 101.7 fL (78.0-102.0); Mean Platelet Volume 10.2 fl (9.2-11.8); Platelet Count Result 129 K/mm3 (150-420); Red Cell Distribution Width 14.4 % (11.6-14.4)
[2023-10-27 13:05] LABS: White Blood Count 1.5 K/mm3 (4.8-10.8)
[2023-10-27 13:21] LABS: Band Neutrophils Percent 0 % (0-6); Eosinophils Absolute Manual 0.01 K/mm3 (0.02-0.5); Eosinophils Percent Manual 1 % (1-6); Lymphocytes Absolute Manual 0.43 K/mm3 (1.1-4.5); Lymphocytes Percent Manual 29 % (18-44); Monocytes Absolute Manual 0.24 K/mm3 (0.1-0.90); Monocytes Percent Manual 16 % (3-9); Neutrophils Absolute Manual 0.81 K/mm3 (1.7-7.2); Neutrophils Percent Manual 54 % (46-73); Platelet Estimate Adequate (Adequate); Total Cells Counted 100
[2023-10-27 13:40] LABS: Alanine Aminotransferase 37 U/L (14-59); Albumin Level 2.6 g/dL (3.4-5.0); Alkaline Phosphatase 77 U/L (46-116); Anion Gap 7 mmol/L (8-16); Aspartate Amino Transferase 27 U/L (15-37); Bilirubin,Total 0.4 mg/dL (0.00-1.00); Blood Urea Nitrogen 18 mg/dL (7-18); Calcium 8.3 mg/dL (8.5-10.1); Carbon Dioxide 28 mmol/L (21-32); Chloride 106 mmol/L (98-108); Estimated Glomerular Filt Rate 43; Glucose 93 mg/dL (70-99); Osmolality Calculated 293 mOsm/kg (285-295); Potassium 4.1 mmol/L (3.5-5.1); Sodium 141 mmol/L (136-145); Total Protein 7.2 g/dL (6.4-8.2)
[2023-10-29 09:27] LABS: Lambda Light Chain 3.1 mg/L (5.7-26.3)
[2023-10-30 10:12] LABS: Albumin 3.2 g/dL (3.8-4.8); Alpha 1 Globulin 0.3 g/dL (0.2-0.3); Alpha 2 Globulin 0.7 g/dL (0.5-0.9); Beta 1 Globulin 0.4 g/dL (0.4-0.6); Gamma Globulin 2.1 g/dL (0.8-1.7)
[2023-10-30 10:41] LABS: Immunoglobulin A <5 mg/dL (70-320); Immunoglobulin G 2451 mg/dL (600-1540); Immunoglobulin M <5 mg/dL (50-300)
== END 2023-12-14 23:59 | disposition home or self-care (01) ==
LOC: CHSLAB 12:35
PROVIDERS: Internal Medicine Hematology & Oncology; PCP Internal Medicine; Visit Provider Internal Medicine Hematology
DX: C90.00 Multiple myeloma not having achieved remission (principal)
CPT/HCPCS: 36415; 80053; 82232; 82784; 83615; 83883; 84155; 84165; 85025

== ENCOUNTER 2023-10-28 08:44 | Outpatient (CLI) | payer MEDICARE, SELFPAY ==
[2023-10-28 09:22] VITALS: BP 116/70; PULSE 88; RESP 14; TEMP 36.6; O2SAT 98; BMI 21.2
[2023-10-28] MEDS: BORTEZOMIB 3.5 MG/1.4 ML VIAL 2.25 MG SUB-Q (09:39)
[2023-10-28] MEDS: HEPARIN SODIUM LOCK FLUSH 500 UNITS/5 ML SYRINGE IV PUSH (10:08)
--- NOTE | 2023-10-28 10:09 | PC.NURSE ---
Patient here for Cycle 7 day 1 chemo regime with added Zometa infusion. Labs reviewed from yesterday 10/27/23---was called to Dr. Dent yesterday and ok'd to proceed. On going education given. All concerns voiced answered. Chemo regime administered. SEE MAR. Tolerated well. Will return 10/28-- (next 3 days for G-CSF injections). Safe exit of hospital per self/ambulatory.
[2023-10-28 10:13] VITALS: BP 116/70; PULSE 80; RESP 14; O2SAT 98
== END 2023-10-28 10:15 | disposition home or self-care (01) ==
PROVIDERS: PCP Internal Medicine; Visit Provider Internal Medicine Hematology
DX: Z51.11 Encounter for antineoplastic chemotherapy (principal); C90.00 Multiple myeloma not having achieved remission
CPT/HCPCS: 96365; 96367; 96401; A9270; J3489; J9041

== ENCOUNTER 2023-10-29 08:50 | Outpatient (CLI) | payer MEDICARE, SELFPAY ==
[2023-10-29] MEDS: FILGRASTIM-SNDZ 300 MCG/0.5 ML SYRINGE SUB-Q (09:18)
[2023-10-29 09:20] VITALS: BP 130/70; PULSE 92; RESP 16; TEMP 36.1; O2SAT 100; BMI 20.9
== END 2023-10-29 08:51 | disposition home or self-care (01) ==
LOC: CHSTREATRM 09:00
PROVIDERS: PCP Internal Medicine; Visit Provider Internal Medicine Hematology
DX: D70.8 Other neutropenia (principal); C90.00 Multiple myeloma not having achieved remission
CPT/HCPCS: 96372; Q5101

== ENCOUNTER 2023-10-30 08:51 | Outpatient (CLI) | payer MEDICARE, SELFPAY ==
[2023-10-30] MEDS: FILGRASTIM-SNDZ 300 MCG/0.5 ML SYRINGE SUB-Q (09:16)
--- NOTE | 2023-10-30 09:20 | PC.NURSE ---
Patient here for Zarxio injection, Given in right upper arm. Tolerated well. Patient denies any questions. Left floor ambulatory. Patient to come tomorrow for 3rd injection.
== END 2023-10-30 08:52 | disposition home or self-care (01) ==
LOC: CHSTREATRM 08:53
PROVIDERS: PCP Internal Medicine; Visit Provider Internal Medicine Hematology
DX: D70.8 Other neutropenia (principal)
CPT/HCPCS: 96372; Q5101

== ENCOUNTER 2023-10-31 08:51 | Outpatient (CLI) | payer MEDICARE, SELFPAY ==
[2023-10-31 09:00] VITALS: BMI 20.9
[2023-10-31] MEDS: FILGRASTIM-SNDZ 300 MCG/0.5 ML SYRINGE SUB-Q (09:09)
--- NOTE | 2023-10-31 09:11 | PC.NURSE ---
Here for OP injection, given zarxio left arm SQ, tolerated well, ambulatory upon discharge, aware of labs due on Friday the
== END 2023-10-31 08:52 | disposition home or self-care (01) ==
LOC: CHSTREATRM 08:55
PROVIDERS: PCP Internal Medicine; Visit Provider Internal Medicine Hematology
DX: D70.8 Other neutropenia (principal); C90.00 Multiple myeloma not having achieved remission
CPT/HCPCS: 96372; Q5101

== ENCOUNTER 2023-11-03 10:37 | Outpatient (CLI) | payer MEDICARE, SELFPAY ==
[2023-11-03 10:54] LABS: Hematocrit 26.4 % (35.0-42.0); Hemoglobin 8.2 g/dL (11.7-13.8); Mean Corpuscular HGB Conc 31.1 g/dL (32-36); Mean Corpuscular Hemoglobin 32.5 pg (27.0-31.0); Mean Corpuscular Volume 104.8 fL (78.0-102.0); Mean Platelet Volume 10.7 fl (9.2-11.8); Platelet Count Result 126 K/mm3 (150-420); Red Blood Count 2.52 M/mm3 (4.20-5.40); Red Cell Distribution Width 14.9 % (11.6-14.4); White Blood Count 8.7 K/mm3 (4.8-10.8)
[2023-11-03 11:21] LABS: Band Neutrophils Percent 1 % (0-6); Eosinophils Absolute Manual 0.26 K/mm3 (0.02-0.50); Eosinophils Percent Manual 3 % (1-6); Lymphocytes Absolute Manual 0.95 K/mm3 (1.1-4.5); Lymphocytes Percent Manual 11 % (18-44); Metamyelocytes Percent 5 %; Monocytes Absolute Manual 0.87 K/mm3 (0.1-0.90); Monocytes Percent Manual 10 % (3-9); Myelocytes Percent 3 %; Neutrophils Absolute Manual 5.91 K/mm3 (1.7-7.2); Neutrophils Percent Manual 67 % (46-73); Platelet Estimate Adequate (Adequate); Total Cells Counted 100
[2023-11-03 11:29] LABS: Alanine Aminotransferase 30 U/L (14-59); Albumin Level 2.6 g/dL (3.4-5.0); Alkaline Phosphatase 91 U/L (46-116); Anion Gap 7 mmol/L (8-16); Aspartate Amino Transferase 20 U/L (15-37); Bilirubin,Total 0.3 mg/dL (0.00-1.00); Blood Urea Nitrogen 24 mg/dL (7-18); Calcium 8.6 mg/dL (8.5-10.1); Carbon Dioxide 27 mmol/L (21-32); Chloride 105 mmol/L (98-108); Estimated Glomerular Filt Rate 32; Glucose 119 mg/dL (70-99); Osmolality Calculated 293 mOsm/kg (285-295); Potassium 4.3 mmol/L (3.5-5.1); Sodium 139 mmol/L (136-145)
== END 2023-11-03 10:38 | disposition home or self-care (01) ==
LOC: CHSLAB 10:40
PROVIDERS: PCP Internal Medicine; Visit Provider Internal Medicine Hematology
DX: D70.8 Other neutropenia (principal)
CPT/HCPCS: 36415; 80053; 85025

== ENCOUNTER 2023-11-12 08:46 | Outpatient (CLI) | payer MEDICARE, SELFPAY ==
[2023-11-12 09:15] VITALS: BP 132/71; PULSE 90; RESP 16; TEMP 37.2; O2SAT 98; BMI 20.9
[2023-11-12] MEDS: ACETAMINOPHEN 325 MG TABLET 650 MG PO (09:15)
[2023-11-12] MEDS: diphenhydrAMINE HCl CAP 25 MG CAPSULE PO (09:15)
[2023-11-12] MEDS: DARATUMUMAB-HYALURONIDASE-FIHJ 1,800 MG-30,000 UNITS VIAL 15 ML SUB-Q (09:52)
[2023-11-12] MEDS: BORTEZOMIB 3.5 MG/1.4 ML VIAL 2.5 MG SUB-Q (09:52)
--- NOTE | 2023-11-12 10:23 | PC.NURSE ---
Patient here for cycle 7 day 1 of Bortezomib and Daratumumab-hyaluronidase chemo injections. No labs needed today. Saw Dr. Sy in clinic last week and labs were ok'd by him for today. On going education given on cancer/chemo drugs. No concerns voiced. Pre-meds and injections administered see OCT. Tolerated well. Will return for cycle 7 day 8 on 11/19/23 at 0900. Safe exit of hospital per self./ambulatory.
[2023-11-12 10:29] VITALS: BP 129/70; PULSE 88; RESP 14; TEMP 36.5; O2SAT 98
== END 2023-11-12 10:28 | disposition home or self-care (01) ==
LOC: CHSTREATRM 08:51
PROVIDERS: PCP Internal Medicine; Visit Provider Internal Medicine Hematology
DX: Z51.11 Encounter for antineoplastic chemotherapy (principal); C90.00 Multiple myeloma not having achieved remission
CPT/HCPCS: 96401; A9270; J9041; J9144

== ENCOUNTER 2023-11-17 09:58 | Outpatient (CLI) | payer MEDICARE, SELFPAY ==
[2023-11-17 10:17] LABS: Hematocrit 29.1 % (35.0-42.0); Hemoglobin 9.1 g/dL (11.7-13.8); Mean Corpuscular HGB Conc 31.3 g/dL (32-36); Mean Corpuscular Hemoglobin 32.9 pg (27.0-31.0); Mean Corpuscular Volume 105.1 fL (78.0-102.0); Mean Platelet Volume 9.6 fl (9.2-11.8); Platelet Count Result 146 K/mm3 (150-420); Red Blood Count 2.77 M/mm3 (4.20-5.40); Red Cell Distribution Width 13.8 % (11.6-14.4)
[2023-11-17 10:44] LABS: Neutrophils Percent Manual 52 % (46-73); Total Cells Counted 100
[2023-11-17 10:45] LABS: Band Neutrophils Percent 1 % (0-6); Basophils Absolute Manual 0.02 K/mm3 (0-0.1); Basophils Percent Manual 1 % (0-1); Eosinophils Absolute Manual 0.02 K/mm3 (0.02-0.50); Eosinophils Percent Manual 1 % (1-6); Lymphocytes Absolute Manual 0.62 K/mm3 (1.1-4.5); Lymphocytes Percent Manual 31 % (18-44); Metamyelocytes Percent 1 %; Monocytes Absolute Manual 0.24 K/mm3 (0.1-0.90); Monocytes Percent Manual 12 % (3-9); Myelocytes Percent 1 %; Neutrophils Absolute Manual 1.06 K/mm3 (1.7-7.2); Platelet Estimate Adequate (Adequate)
[2023-11-17 11:18] LABS: Alanine Aminotransferase 39 U/L (14-59); Albumin Level 2.8 g/dL (3.4-5.0); Alkaline Phosphatase 85 U/L (46-116); Anion Gap 10 mmol/L (4-12); Aspartate Amino Transferase 27 U/L (15-37); Bilirubin,Total 0.2 mg/dL (0.00-1.00); Blood Urea Nitrogen 28 mg/dL (7-18); Calcium 8.5 mg/dL (8.5-10.1); Carbon Dioxide 26 mmol/L (21-32); Chloride 105 mmol/L (98-108); Estimated Glomerular Filt Rate 34; Glucose 116 mg/dL (70-99); Osmolality Calculated 298 mOsm/kg (285-295); Potassium 3.9 mmol/L (3.5-5.1); Sodium 141 mmol/L (136-145); Total Protein 7.7 g/dL (6.4-8.2)
[2023-11-19 20:06] LABS: Immunoglobulin A <5 mg/dL (70-320); Immunoglobulin G 2609 mg/dL (600-1540); Immunoglobulin M <5 mg/dL (50-300)
[2023-11-19 22:19] LABS: Lambda Light Chain 2.2 mg/L (5.7-26.3)
[2023-11-21 21:45] LABS: Viscosity 1.9 rel to H2O (1.5-1.9)
== END 2023-11-17 09:59 | disposition home or self-care (01) ==
LOC: CHSLAB 10:02
PROVIDERS: PCP Internal Medicine; Visit Provider Internal Medicine Hematology
DX: C50.919 Malignant neoplasm of unspecified site of unspecified female breast (principal)
CPT/HCPCS: 36415; 80053; 82784; 83883; 85025; 85810

== ENCOUNTER 2023-11-19 08:46 | Outpatient (CLI) | payer MEDICARE, SELFPAY ==
[2023-11-19 09:10] VITALS: BP 139/60; PULSE 89; RESP 14; TEMP 36.3; O2SAT 98; BMI 20.9
[2023-11-19] MEDS: BORTEZOMIB 3.5 MG/1.4 ML VIAL 2.5 MG SUB-Q (09:30)
--- NOTE | 2023-11-19 09:38 | PC.NURSE ---
Patient here for cycle 7 day 8 chemo regimen. On going education given. No concerns voiced. Chemo injection administered. SEE MAR. Tolerated well. Will return for day 15 on 11/26/23 at 9 a.m. Safe exit hospital per self /ambulatory.
--- NOTE | 2023-11-19 09:45 | PC.NURSE ---
late entry- labs reviewed and ok'd ANC >1000
== END 2023-11-19 09:44 | disposition home or self-care (01) ==
LOC: CHSTREATRM 08:51
PROVIDERS: PCP Internal Medicine; Visit Provider Internal Medicine Hematology
DX: Z51.11 Encounter for antineoplastic chemotherapy (principal); C90.00 Multiple myeloma not having achieved remission; D70.8 Other neutropenia
CPT/HCPCS: 96401; J9041

== ENCOUNTER 2023-11-26 08:37 | Outpatient (CLI) | payer MEDICARE, SELFPAY ==
[2023-11-26 08:57] LABS: Basophils Absolute Auto 0.02 K/mm3 (0.00-0.10); Basophils Percent Auto 0.5 % (0.0-1.0); Eosinophils Absolute Auto 0.15 K/mm3 (0.02-0.50); Eosinophils Percent Auto 3.6 % (1.0-6.0); Hematocrit 27.4 % (35.0-42.0); Hemoglobin 8.8 g/dL (11.7-13.8); Immature Granulocyte Absolute 0.12 K/mm3 (0.00-0.00); Immature Granulocyte Percent A 2.8 % (0.0-0.0); Immature Platelet Fraction Pct 6.7 % (1.0-7.0); Lymphocytes Absolute Auto 0.94 K/mm3 (1.10-4.50); Lymphocytes Percent Auto 22.3 % (18.0-42.0); Mean Corpuscular HGB Conc 32.1 g/dL (32-36); Mean Corpuscular Hemoglobin 34.4 pg (27.0-31.0); Mean Platelet Volume 11.9 fl (9.2-11.8); Monocytes Absolute Auto 0.09 K/mm3 (0.10-0.90); Monocytes Percent Auto 2.1 % (2.0-11.0); Neutrophils Percent Auto 68.7 % (50.0-70.0); Platelet Count Result 91 K/mm3 (150-420); Red Blood Count 2.56 M/mm3 (4.20-5.40); Red Cell Distribution Width 13.4 % (11.6-14.4); White Blood Count 4.2 K/mm3 (4.8-10.8)
[2023-11-26 09:00] VITALS: BMI 20.9
[2023-11-26 09:01] VITALS: BP 120/60; PULSE 92; RESP 16; TEMP 36.3; O2SAT 99
[2023-11-26] MEDS: BORTEZOMIB 3.5 MG/1.4 ML VIAL 2.5 MG SUB-Q (09:21)
--- NOTE | 2023-11-26 09:25 | PC.NURSE ---
Patient here for cycle 8 day 15 chemo regimen. Labs reviewed and ok'd. Education given. No concerns voiced. Chemo injection administered. SEE MAR. Tolerated well. Will return for cycle 9 day 1 + Zometa infusion on 12/10/23 at 9 a.m. Safe exit of hospital per self/ambulatory.
[2023-11-26 15:22] LABS: Alanine Aminotransferase 35 U/L (14-59); Albumin Level 2.7 g/dL (3.4-5.0); Alkaline Phosphatase 78 U/L (46-116); Anion Gap 10 mmol/L (4-12); Aspartate Amino Transferase 21 U/L (15-37); Bilirubin,Total 0.3 mg/dL (0.00-1.00); Blood Urea Nitrogen 28 mg/dL (7-18); Calcium 8.4 mg/dL (8.5-10.1); Carbon Dioxide 23 mmol/L (21-32); Chloride 103 mmol/L (98-108); Estimated CRCL calculation 19 ml/min; Estimated Glomerular Filt Rate 27; Glucose 323 mg/dL (70-99); Osmolality Calculated 299 mOsm/kg (285-295); Potassium 3.5 mmol/L (3.5-5.1); Sodium 136 mmol/L (136-145); Total Protein 6.6 g/dL (6.4-8.2)
== END 2023-11-26 09:27 | disposition home or self-care (01) ==
PROVIDERS: PCP Internal Medicine; Visit Provider Internal Medicine Hematology
DX: Z51.11 Encounter for antineoplastic chemotherapy (principal); C90.00 Multiple myeloma not having achieved remission
CPT/HCPCS: 36415; 80053; 85025; 85055; 96401; J9041

== ENCOUNTER 2023-12-03 15:03 | Outpatient (CLI) | payer MEDICARE, SELFPAY ==
[2023-12-03 15:36] LABS: Basophils Absolute Auto 0.02 K/mm3 (0.00-0.10); Basophils Percent Auto 0.3 % (0.0-1.0); Eosinophils Absolute Auto 0.02 K/mm3 (0.02-0.50); Eosinophils Percent Auto 0.3 % (1.0-6.0); Immature Granulocyte Absolute 0.06 K/mm3 (0.00-0.00); Immature Granulocyte Percent A 0.9 % (0.0-0.0); Immature Platelet Fraction Pct 10.6 % (1.0-7.0); Lymphocytes Absolute Auto 0.48 K/mm3 (1.10-4.50); Mean Corpuscular HGB Conc 32.3 g/dL (32-36); Mean Corpuscular Hemoglobin 32.7 pg (27.0-31.0); Mean Corpuscular Volume 101.3 fL (78.0-102.0); Mean Platelet Volume 13.3 fl (9.2-11.8); Monocytes Absolute Auto 0.09 K/mm3 (0.10-0.90); Monocytes Percent Auto 1.3 % (2.0-11.0); Neutrophils Percent Auto 90.2 % (50.0-70.0); Platelet Count Result 79 K/mm3 (150-420); Red Blood Count 3.06 M/mm3 (4.20-5.40); Red Cell Distribution Width 12.8 % (11.6-14.4); White Blood Count 6.9 K/mm3 (4.8-10.8)
[2023-12-03 15:59] LABS: Alanine Aminotransferase 52 U/L (14-59); Albumin Level 3.2 g/dL (3.4-5.0); Alkaline Phosphatase 114 U/L (46-116); Anion Gap 8 mmol/L (4-12); Aspartate Amino Transferase 26 U/L (15-37); Bilirubin,Total 0.4 mg/dL (0.00-1.00); Blood Urea Nitrogen 32 mg/dL (7-18); Calcium 8.9 mg/dL (8.5-10.1); Carbon Dioxide 26 mmol/L (21-32); Chloride 98 mmol/L (98-108); Estimated Glomerular Filt Rate 27; Glucose 183 mg/dL (70-99); Lactate Dehydrogenase 204 U/L (81-234); Osmolality Calculated 285 mOsm/kg (285-295); Phosphorus 5.5 mg/dL (2.6-4.7); Potassium 4.2 mmol/L (3.5-5.1); Sodium 132 mmol/L (136-145); Total Protein 6.4 g/dL (6.4-8.2); Uric Acid 5.3 mg/dL (2.6-6.0)
[2023-12-05 04:48] LABS: Protein, Total 6.5 g/dL (6.1-8.1)
[2023-12-05 16:28] LABS: Beta-2-Microglobulin 7.74 mg/L (< OR = 2.51)
[2023-12-08 09:13] LABS: Abnormal Protein Band 1 0.7 g/dL (NONE DETECTED); Albumin 3.8 g/dL (3.8-4.8); Alpha 1 Globulin 0.4 g/dL (0.2-0.3); Alpha 2 Globulin 0.9 g/dL (0.5-0.9); Beta 1 Globulin 0.5 g/dL (0.4-0.6); Gamma Globulin 0.8 g/dL (0.8-1.7)
[2023-12-08 12:53] LABS: Immunoglobulin A <5 mg/dL (70-320); Immunoglobulin G 830 mg/dL (600-1540); Immunoglobulin M <5 mg/dL (50-300)
[2023-12-08 15:24] LABS: Kappa\\Lambda Light Chains 225.59 (0.26-1.65); Lambda Light Chain 7.1 mg/L (5.7-26.3)
== END 2023-12-03 15:04 | disposition home or self-care (01) ==
LOC: CHSLAB 15:08
PROVIDERS: PCP Internal Medicine; Visit Provider Internal Medicine Hematology
DX: C90.00 Multiple myeloma not having achieved remission (principal)
CPT/HCPCS: 36415; 80053; 82232; 82784; 83615; 83883; 84100; 84155; 84165; 84550; 85025; 85055; 86334

== ENCOUNTER 2023-12-05 08:53 | Outpatient (CLI) | payer MEDICARE, SELFPAY ==
[2023-12-05 09:05] VITALS: BP 123/74; PULSE 80; RESP 14; TEMP 36.5; O2SAT 97; BMI 20.7
[2023-12-05] MEDS: SODIUM CHLORIDE 0.9% IV 1,000 ML 500 ML IVPB (09:10)
[2023-12-05] MEDS: HEPARIN SODIUM LOCK FLUSH 500 UNITS/5 ML SYRINGE IV PUSH (10:57)
--- NOTE | 2023-12-05 11:23 | PC.NURSE ---
Patient here for 1 Liter of Normal Saline IV infusion. Education given. No concerns voiced. IV NS administered. SEE MAR. Tolerated well. Will return 12/10/23 at 0900 for chemo injection. Safe exit of hospital per self/ambulatory.
== END 2023-12-05 08:54 | disposition home or self-care (01) ==
PROVIDERS: PCP Internal Medicine; Visit Provider Internal Medicine Hematology
DX: C90.00 Multiple myeloma not having achieved remission (principal)
CPT/HCPCS: 96360; 96361; J7030

== ENCOUNTER 2023-12-10 08:41 | Outpatient (CLI) | payer MEDICARE, SELFPAY ==
[2023-12-10] MEDS: ACETAMINOPHEN 325 MG TABLET 650 MG (09:00)
[2023-12-10] MEDS: diphenhydrAMINE HCl CAP 25 MG CAPSULE (09:00)
[2023-12-10 09:01] VITALS: BP 142/80; PULSE 76; RESP 14; TEMP 36.4; O2SAT 98; BMI 21.2
[2023-12-10] MEDS: DARATUMUMAB-HYALURONIDASE-FIHJ 1,800 MG-30,000 UNITS VIAL 15 ML SUB-Q (09:20)
[2023-12-10 09:23] VITALS: BP 135/73; PULSE 76; RESP 14; TEMP 36.4; O2SAT 98
--- NOTE | 2023-12-10 09:27 | PC.NURSE ---
Patient was here for chemo injection. Education given. No concerns voiced. Injection administered. SEE MAR. Tolerated well. Will return 01/07/24 for next chemo injection. Observed for awhile. No s/sx reaction to chemo. Safe exit of hospital per self/ambulatory.
== END 2023-12-10 09:45 | disposition home or self-care (01) ==
PROVIDERS: PCP Internal Medicine; Visit Provider Internal Medicine Hematology
DX: Z51.11 Encounter for antineoplastic chemotherapy (principal); C90.00 Multiple myeloma not having achieved remission
CPT/HCPCS: 96401; A9270; J9144

== ENCOUNTER 2023-12-17 14:52 | Outpatient (CLI) | payer MEDICARE, SELFPAY ==
[2023-12-17 15:20] LABS: Hematocrit 28.8 % (35.0-42.0); Hemoglobin 9.1 g/dL (11.7-13.8); Immature Platelet Fraction Pct 7.1 % (1.0-7.0); Mean Corpuscular HGB Conc 31.6 g/dL (32-36); Mean Corpuscular Hemoglobin 32.3 pg (27.0-31.0); Mean Corpuscular Volume 102.1 fL (78.0-102.0); Mean Platelet Volume 12.8 fl (9.2-11.8); Platelet Count Result 77 K/mm3 (150-420); Red Blood Count 2.82 M/mm3 (4.20-5.40); Red Cell Distribution Width 12.8 % (11.6-14.4)
[2023-12-17 15:55] LABS: Alanine Aminotransferase 40 U/L (14-59); Alkaline Phosphatase 104 U/L (46-116); Anion Gap 6 mmol/L (4-12); Aspartate Amino Transferase 22 U/L (15-37); Bilirubin,Total 0.6 mg/dL (0.00-1.00); Blood Urea Nitrogen 24 mg/dL (7-18); Calcium 8.3 mg/dL (8.5-10.1); Carbon Dioxide 31 mmol/L (21-32); Chloride 101 mmol/L (98-108); Estimated Glomerular Filt Rate 35; Glucose 95 mg/dL (70-99); Iron 57 ug/dL (50-170); Magnesium 1.7 mg/dL (1.8-2.4); Osmolality Calculated 290 mOsm/kg (285-295); Potassium 3.8 mmol/L (3.5-5.1); Sodium 138 mmol/L (136-145); Total Protein 6.2 g/dL (6.4-8.2)
[2023-12-17 16:22] LABS: Band Neutrophils Percent 0 % (0-6); Basophils Absolute Manual 0.02 K/mm3 (0-0.1); Basophils Percent Manual 1 % (0-1); Eosinophils Absolute Manual 0.04 K/mm3 (0.02-0.50); Eosinophils Percent Manual 2 % (1-6); Lymphocytes Absolute Manual 0.36 K/mm3 (1.1-4.5); Lymphocytes Percent Manual 18 % (18-44); Monocytes Absolute Manual 0.02 K/mm3 (0.1-0.90); Monocytes Percent Manual 1 % (3-9); Neutrophils Absolute Manual 1.56 K/mm3 (1.7-7.2); Neutrophils Percent Manual 78 % (46-73); Platelet Estimate Decreased (Adequate); Total Cells Counted 100
[2023-12-17 18:21] LABS: Ferritin 310 ng/mL (8-252); Percent Iron Saturation 19 % (12-57)
[2023-12-19 11:58] LABS: Lambda Light Chain 3.7 mg/L (5.7-26.3)
[2023-12-22 16:52] LABS: Immunoglobulin A <5 mg/dL (70-320); Immunoglobulin G 1109 mg/dL (600-1540); Immunoglobulin M <5 mg/dL (50-300)
== END 2023-12-17 14:53 | disposition home or self-care (01) ==
PROVIDERS: PCP Internal Medicine; Visit Provider Internal Medicine Hematology
DX: C90.00 Multiple myeloma not having achieved remission (principal); D50.9 Iron deficiency anemia, unspecified
CPT/HCPCS: 36415; 80053; 82728; 82784; 83540; 83550; 83735; 83883; 85025; 85055

== ENCOUNTER 2023-12-18 08:47 | Outpatient (CLI) | payer MEDICARE, SELFPAY ==
[2023-12-18] MEDS: SODIUM CHLORIDE 0.9% IV 1,000 ML 500 ML IVPB (08:50)
[2023-12-18 09:18] VITALS: BMI 20.7
[2023-12-18 09:23] VITALS: BP 132/70; PULSE 80; RESP 14; TEMP 36.6; O2SAT 99
[2023-12-18] MEDS: HEPARIN SODIUM LOCK FLUSH 500 UNITS/5 ML SYRINGE IV PUSH (10:51)
--- NOTE | 2023-12-18 10:53 | PC.NURSE ---
Patient here for IV fluids 1 L Normal saline. No concerns voiced. IV NS administered. SEE MAR. Tolerated well. Safe exit of hospital per self/ambulatory.
== END 2023-12-18 08:48 | disposition home or self-care (01) ==
PROVIDERS: PCP Internal Medicine; Visit Provider Internal Medicine Hematology
DX: C90.00 Multiple myeloma not having achieved remission (principal)
CPT/HCPCS: 96360; 96361; J7030

== ENCOUNTER 2023-12-22 10:04 | Outpatient (CLI) | payer MEDICARE, SELFPAY ==
--- NOTE | 2023-12-22 10:08 | ECHO_ITS ---
Patient Info Name: Michelle Lee Age: 78 years : 1945 Gender: Female Ht: 62 in Wt: 112 lbs BSA: 1.49 m2 HR: 70 bpm BP: 152 / 94 mmHg Heart Rhythm: Sinus Rhythm Technical Quality: Good Exam Date: 12/22/2023 10:21 AM Exam Location: Echo Lab Patient Status: Outpatient Admit Date: 12/22/2023 Staff Ordering Physician: Radhames Sy MD Transformer Mechanic: Radhames Juarez RDCS Attending Provider: Radhames Sy MD Exam Type: CA echo doppler color flow Study Info Indications - ENCOUTER FOR MONITORING CARDIOXIC DRUG THERAPY Complete two-dimensional, color flow and Doppler transthoracic echocardiogram is performed. Summary 1. Complete two-dimensional, color flow and Doppler transthoracic echocardiogram is performed. 2. Left ventricular chamber dimension is normal. 3. Left ventricular systolic function is normal, estimated at 60-65%. 4. The left ventricular diastolic function is grade I diastolic dysfunction. 5. E/e' 18 is elevated. 6. Left atrial chamber dimension is severely enlarged. 7. Right atrial chamber dimension is severely enlarged. 8. The bioprosthetic aortic valve is not well visualized. 9. There is no bioprosthetic aortic valve stenosis. 10. The mitral valve has moderatelycalcified annulus. 11. There is mild mitral valve regurgitation. 12. There is mild tricuspid valve regurgitation. 13. No pulmonary hypertension, estimated pulmonary arterial systolic pressure is 32 mmHg. Left Ventricle E/e' 18 is elevated. Left ventricular chamber dimension is normal. Left ventricular systolic function is normal, estimated at 60-65%. The left ventricular diastolic function is grade I diastolic dysfunction. Right Ventricle Right ventricular systolic function is normal and with normal TAPSE 2.0 cm. Right ventricular chamber dimension is normal. Left Atria Left atrial chamber dimension is severely enlarged. Right Atria Right atrial chamber dimension is severely enlarged. Aortic Valve The bioprosthetic aortic valve is not well visualized. There is no bioprosthetic aortic valve stenosis. There is no regurgitation of the bioprosthetic aortic valve. Pulmonic Valve There is no pulmonic regurgitation. Mitral Valve The mitral valve has moderatelycalcified annulus. There is no mitral valve stenosis. There is mild mitral valve regurgitation. Tricuspid Valve No pulmonary hypertension, estimated pulmonary arterial systolic pressure is 32 mmHg. There is mild tricuspid valve regurgitation. Pericardium/Pleural There is no pericardial effusion. Inferior Vena Cava Normal inferior vena cava with >50% collapse upon inspiration consistent with normal right atrial pressure, 5 mmHg. Aorta The aortic root size at the sinus of Valsalva is normal. Tricuspid Valve Name Value Normal Estimated PAP/RSVP RA Pressure 5 mmHg <=5 Report Signatures
== END 2023-12-22 10:05 | disposition home or self-care (01) ==
LOC: CHSIMG 10:05
PROVIDERS: PCP Internal Medicine; Visit Provider Internal Medicine Hematology
DX: Z51.81 Encounter for therapeutic drug level monitoring (principal); I08.1 Rheumatic disorders of both mitral and tricuspid valves
CPT/HCPCS: 93306

== ENCOUNTER 2023-12-31 12:08 | Outpatient (CLI) | payer MEDICARE, SELFPAY ==
[2023-12-31 12:43] LABS: Hematocrit 29.1 % (35.0-42.0); Hemoglobin 9.3 g/dL (11.7-13.8); Immature Platelet Fraction Pct 3.9 % (1.0-7.0); Mean Corpuscular Hemoglobin 31.7 pg (27.0-31.0); Mean Corpuscular Volume 99.3 fL (78.0-102.0); Mean Platelet Volume 10.9 fl (9.2-11.8); Platelet Count Result 109 K/mm3 (150-420); Red Blood Count 2.93 M/mm3 (4.20-5.40); Red Cell Distribution Width 12.9 % (11.6-14.4)
[2023-12-31 12:59] LABS: Appearance Urine Clear (Clear); Bilirubin Urine Negative (Negative); Blood Urine Negative (Negative); Color Urine Yellow (Yellow); Glucose Urine UA Negative (Negative); Ketones Urine Negative (Negative); Leukocyte Esterase Ur Negative (Negative); Nitrate Urine Negative (Negative); Protein Urine 1+ (Negative); Specific Grav Ur 1.025 (1.010-1.020); Urobilinogen Urine 0.2 mg/dL (0.2-1.0); pH Urine 5.5 (5.0-8.0)
[2023-12-31 13:18] LABS: Hemoglobin A1C 6.3 % (<5.7)
[2023-12-31 13:20] LABS: Add Urine Microscopic? YES; RBC Urine None seen /hpf (0-2); Squamous Epithelial Cell Urine Few /hpf (Few); WBC Urine None seen /hpf (0-3)
[2023-12-31 13:21] LABS: Bacteria Urine Trace /hpf
[2023-12-31 13:30] LABS: Band Neutrophils Percent 1 % (0-6); Basophils Absolute Manual 0.04 K/mm3 (0-0.1); Basophils Percent Manual 2 % (0-1); Eosinophils Percent Manual 5 % (1-6); Lymphocytes Absolute Manual 0.62 K/mm3 (1.1-4.5); Lymphocytes Percent Manual 31 % (18-44); Monocytes Percent Manual 10 % (3-9); Neutrophils Absolute Manual 1.04 K/mm3 (1.7-7.2); Neutrophils Percent Manual 51 % (46-73); Total Cells Counted 100
[2023-12-31 13:31] LABS: Platelet Estimate Adequate (Adequate)
[2023-12-31 14:00] LABS: Alanine Aminotransferase 31 U/L (14-59); Albumin Level 3.2 g/dL (3.4-5.0); Alkaline Phosphatase 113 U/L (46-116); Anion Gap 7 mmol/L (4-12); Aspartate Amino Transferase 29 U/L (15-37); Bilirubin,Total 0.6 mg/dL (0.00-1.00); Blood Urea Nitrogen 30 mg/dL (7-18); Calcium 8.6 mg/dL (8.5-10.1); Carbon Dioxide 29 mmol/L (21-32); Chloride 102 mmol/L (98-108); Cholesterol 203 mg/dL (0-200); Estimated Glomerular Filt Rate 29; Free T3 2.25 pg/mL (2.18-3.98); Free T4 Free Thyroxine 1.33 ng/dL (0.76-1.46); Glucose 104 mg/dL (70-99); HDL Direct 129 mg/dL (40-60); LDL Cholesterol Calculated 65 mg/dL (<130); NT Pro B Type Natriuretic Pept 833 pg/mL (0-450); Osmolality Calculated 292 mOsm/kg (285-295); Potassium 4.5 mmol/L (3.5-5.1); Sodium 138 mmol/L (136-145); Thyroid Stimulating Hormone 1.13 uIU/mL (0.36-3.74); Total Protein 5.9 g/dL (6.4-8.2); Triglycerides 47 mg/dL (0-150); Uric Acid 5.2 mg/dL (2.6-6.0)
[2023-12-31 14:04] LABS: Vitamin B12 > 2000 pg/mL (193-986)
[2024-01-01 13:18] LABS: Kappa\\Lambda Light Chains 344.24 (0.26-1.65); Lambda Light Chain 6.8 mg/L (5.7-26.3)
[2024-01-01 16:23] LABS: Immunoglobulin A 5 mg/dL (70-320); Immunoglobulin G 662 mg/dL (600-1540); Immunoglobulin M <5 mg/dL (50-300)
[2024-01-02 06:34] LABS: Vitamin D 25 Hydroxy 40 ng/mL (30-100)
== END 2023-12-31 12:09 | disposition home or self-care (01) ==
LOC: CHSLAB 12:11
PROVIDERS: PCP Internal Medicine; Visit Provider Internal Medicine Hematology
DX: I10 Essential (primary) hypertension (principal); E03.4 Atrophy of thyroid (acquired); E79.0 Hyperuricemia without signs of inflammatory arthritis and tophaceous disease; E55.9 Vitamin D deficiency, unspecified; I50.22 Chronic systolic (congestive) heart failure; E78.2 Mixed hyperlipidemia; C90.00 Multiple myeloma not having achieved remission; R82.90 Unspecified abnormal findings in urine; N39.0 Urinary tract infection, site not specified
CPT/HCPCS: 36415; 80053; 80061; 81001; 82306; 82607; 82784; 83036; 83880; 83883; 84439; 84443; 84481; 84550; 85025; 85055; 87086

== ENCOUNTER 2024-01-01 14:08 | Outpatient (CLI) | payer MEDICARE, SELFPAY ==
[2024-01-01 14:10] VITALS: BMI 20.7
[2024-01-01] MEDS: SODIUM CHLORIDE 0.9% IV 1,000 ML 500 ML IVPB (14:10)
[2024-01-01] MEDS: HEPARIN SODIUM LOCK FLUSH 500 UNITS/5 ML SYRINGE IV PUSH (16:15)
== END 2024-01-01 14:09 | disposition home or self-care (01) ==
LOC: CHSTREATRM 14:10
PROVIDERS: PCP Internal Medicine; Visit Provider Internal Medicine Hematology
DX: C90.00 Multiple myeloma not having achieved remission (principal)
CPT/HCPCS: 96360; 96361; J7030

== ENCOUNTER 2024-01-07 08:46 | Outpatient (CLI) | payer MEDICARE, SELFPAY ==
[2024-01-07 09:00] VITALS: BP 143/74; PULSE 88; RESP 14; TEMP 36.6; O2SAT 98; BMI 21.3
[2024-01-07] MEDS: DARATUMUMAB-HYALURONIDASE-FIHJ 1,800 MG-30,000 UNITS VIAL 15 ML SUB-Q (09:12)
[2024-01-07 09:34] VITALS: BP 136/74; PULSE 84; RESP 14; O2SAT 98
--- NOTE | 2024-01-07 09:44 | PC.NURSE ---
Patient here for cycle 10 Deratumumab-hyaluronidase injection. Labs were done on 12.31.[address] Sy for treatment this week. Ongoing education given. No concerns voiced today. Injection administered. SEE MAR. Tolerated well. Observed after. No reaction noted or reported. Safe exit of hospital.
--- NOTE | 2024-01-07 09:48 | PC.NURSE ---
Noted ANC 1040.
== END 2024-01-07 08:47 | disposition home or self-care (01) ==
PROVIDERS: PCP Internal Medicine; Visit Provider Internal Medicine Hematology
DX: Z51.11 Encounter for antineoplastic chemotherapy (principal); C90.00 Multiple myeloma not having achieved remission
CPT/HCPCS: 96401; J9144

== ENCOUNTER 2024-01-21 13:59 | Outpatient (CLI) | payer MEDICARE, SELFPAY ==
[2024-01-21 14:19] LABS: Hematocrit 29.1 % (35.0-42.0); Hemoglobin 9.3 g/dL (11.7-13.8); Immature Platelet Fraction Pct 4.4 % (1.0-7.0); Mean Corpuscular Hemoglobin 31.5 pg (27.0-31.0); Mean Corpuscular Volume 98.6 fL (78.0-102.0); Mean Platelet Volume 10.4 fl (9.2-11.8); Platelet Count Result 89 K/mm3 (150-420); Red Blood Count 2.95 M/mm3 (4.20-5.40); Red Cell Distribution Width 13.2 % (11.6-14.4); White Blood Count 3.1 K/mm3 (4.8-10.8)
[2024-01-21 14:34] LABS: Alanine Aminotransferase 41 U/L (14-59); Albumin Level 3.3 g/dL (3.4-5.0); Alkaline Phosphatase 124 U/L (46-116); Anion Gap 10 mmol/L (4-12); Aspartate Amino Transferase 23 U/L (15-37); Bilirubin,Total 0.6 mg/dL (0.00-1.00); Blood Urea Nitrogen 31 mg/dL (7-18); Calcium 8.5 mg/dL (8.5-10.1); Carbon Dioxide 26 mmol/L (21-32); Chloride 102 mmol/L (98-108); Estimated Glomerular Filt Rate 35; Glucose 141 mg/dL (70-99); Osmolality Calculated 294 mOsm/kg (285-295); Potassium 4.3 mmol/L (3.5-5.1); Sodium 138 mmol/L (136-145); Total Protein 5.9 g/dL (6.4-8.2)
[2024-01-21 15:24] LABS: Band Neutrophils Percent 0 % (0-6); Basophils Absolute Manual 0.06 K/mm3 (0-0.1); Basophils Percent Manual 2 % (0-1); Eosinophils Absolute Manual 0.09 K/mm3 (0.02-0.50); Eosinophils Percent Manual 3 % (1-6); Lymphocytes Absolute Manual 0.55 K/mm3 (1.1-4.5); Lymphocytes Percent Manual 18 % (18-44); Monocytes Absolute Manual 0.18 K/mm3 (0.1-0.90); Monocytes Percent Manual 6 % (3-9); Neutrophils Percent Manual 71 % (46-73); Total Cells Counted 100
[2024-01-21 15:25] LABS: Platelet Estimate Decreased (Adequate)
[2024-01-22 11:38] LABS: Kappa\\Lambda Light Chains 177.19 (0.26-1.65); Lambda Light Chain 7.4 mg/L (5.7-26.3)
[2024-01-24 11:43] LABS: Immunoglobulin A 6 mg/dL (70-320); Immunoglobulin G 466 mg/dL (600-1540); Immunoglobulin M <5 mg/dL (50-300)
== END 2024-01-21 14:00 | disposition home or self-care (01) ==
LOC: CHSLAB 14:01
PROVIDERS: PCP Internal Medicine; Visit Provider Internal Medicine Hematology
DX: C90.00 Multiple myeloma not having achieved remission (principal)
CPT/HCPCS: 36415; 80053; 82784; 83883; 84155; 84165; 85025; 85055

== ENCOUNTER 2024-01-22 08:43 | Outpatient (CLI) | payer MEDICARE, SELFPAY ==
[2024-01-22 08:50] VITALS: BP 135/81; PULSE 72; RESP 14; TEMP 36.4; O2SAT 98; BMI 21.2
[2024-01-22] MEDS: SODIUM CHLORIDE 0.9% IV 1,000 ML 500 ML IVPB (08:55)
[2024-01-22] MEDS: HEPARIN SODIUM LOCK FLUSH 500 UNITS/5 ML SYRINGE IV PUSH (11:00)
[2024-01-22 11:01] VITALS: BP 135/77; PULSE 88; RESP 14; O2SAT 99
--- NOTE | 2024-01-22 11:04 | PC.NURSE ---
Patient here for 1 L NS IV infusion. Education given. No concerns voiced. IV Fluids administered. see MAR. Tolerated well. Safe exit of hospital per self/ambulatory.
== END 2024-01-22 08:44 | disposition home or self-care (01) ==
PROVIDERS: PCP Internal Medicine; Visit Provider Internal Medicine Hematology
DX: C90.00 Multiple myeloma not having achieved remission (principal)
CPT/HCPCS: 96360; 96361; J7030

== ENCOUNTER 2024-02-04 08:38 | Outpatient (CLI) | payer MEDICARE, SELFPAY ==
[2024-02-04 08:55] VITALS: BP 134/76; PULSE 88; RESP 14; TEMP 36.5; O2SAT 97; BMI 21.2
[2024-02-04] MEDS: DARATUMUMAB-HYALURONIDASE-FIHJ 1,800 MG-30,000 UNITS VIAL 15 ML SUB-Q (09:12)
[2024-02-04 10:10] VITALS: BP 130/75; PULSE 88; RESP 14; O2SAT 98
--- NOTE | 2024-02-04 10:54 | PC.NURSE ---
Patient here for her every 28 day treatment. see patient care. Education given. No concerns voiced. Patient saw Dr. Sy on 01/21/24 and had labs that were ok'd by him for treatment today. Injection administered. see MAR. Tolerated well. Observed as ordered. No s/sx of reaction noted or reproted. Safe exit of hospital.
== END 2024-02-04 08:39 | disposition home or self-care (01) ==
PROVIDERS: PCP Internal Medicine; Visit Provider Internal Medicine Hematology
DX: Z51.11 Encounter for antineoplastic chemotherapy (principal); C90.00 Multiple myeloma not having achieved remission
CPT/HCPCS: 96401; J9144

== ENCOUNTER 2024-03-03 09:05 | Outpatient (CLI) | payer MEDICARE, SELFPAY ==
[2024-03-03 09:19] VITALS: BP 155/77; PULSE 72; RESP 14; TEMP 36.5; O2SAT 99; BMI 21.2
[2024-03-03] MEDS: DARATUMUMAB-HYALURONIDASE-FIHJ 1,800 MG-30,000 UNITS VIAL 15 ML SUB-Q (09:35)
[2024-03-03 09:50] VITALS: BP 154/77; PULSE 78; RESP 14
--- NOTE | 2024-03-03 10:00 | PC.NURSE ---
Tolerated injection well. SEE MAR/patient care notes.
== END 2024-03-03 09:06 | disposition home or self-care (01) ==
PROVIDERS: PCP Internal Medicine; Visit Provider Internal Medicine Hematology
DX: Z51.11 Encounter for antineoplastic chemotherapy (principal); C90.00 Multiple myeloma not having achieved remission
CPT/HCPCS: 96401; J9144

== ENCOUNTER 2024-03-31 11:13 | Outpatient (CLI) | payer MEDICARE, SELFPAY ==
[2024-03-31 11:27] LABS: Hematocrit 29.5 % (35.0-42.0); Hemoglobin 9.6 g/dL (11.7-13.8); Mean Corpuscular HGB Conc 32.5 g/dL (32-36); Mean Corpuscular Hemoglobin 32.2 pg (27.0-31.0); Mean Platelet Volume 9.4 fl (9.2-11.8); Platelet Count Result 170 K/mm3 (150-420); Red Blood Count 2.98 M/mm3 (4.20-5.40); Red Cell Distribution Width 15.3 % (11.6-14.4); White Blood Count 1.8 K/mm3 (4.8-10.8)
[2024-03-31 12:10] LABS: Band Neutrophils Percent 0 % (0-6); Eosinophils Absolute Manual 0.01 K/mm3 (0.02-0.50); Eosinophils Percent Manual 1 % (1-6); Lymphocytes Absolute Manual 0.48 K/mm3 (1.1-4.5); Lymphocytes Percent Manual 27 % (18-44); Monocytes Absolute Manual 0.09 K/mm3 (0.1-0.90); Monocytes Percent Manual 5 % (3-9); Neutrophils Percent Manual 67 % (46-73); Total Cells Counted 100
[2024-03-31 12:11] LABS: Platelet Estimate Adequate (Adequate)
[2024-03-31 12:35] LABS: Alanine Aminotransferase 44 U/L (14-59); Albumin Level 3.3 g/dL (3.4-5.0); Alkaline Phosphatase 123 U/L (46-116); Anion Gap 6 mmol/L (4-12); Aspartate Amino Transferase 23 U/L (15-37); Bilirubin,Total 0.4 mg/dL (0.00-1.00); Blood Urea Nitrogen 18 mg/dL (7-18); Calcium 8.7 mg/dL (8.5-10.1); Carbon Dioxide 31 mmol/L (21-32); Chloride 100 mmol/L (98-108); Estimated Glomerular Filt Rate 41; Glucose 112 mg/dL (70-99); Osmolality Calculated 286 mOsm/kg (285-295); Sodium 137 mmol/L (136-145); Total Protein 5.8 g/dL (6.4-8.2)
[2024-04-01 14:39] LABS: Kappa\\Lambda Light Chains 209.53 (0.26-1.65); Lambda Light Chain 5.7 mg/L (5.7-26.3)
== END 2024-03-31 11:14 | disposition home or self-care (01) ==
PROVIDERS: PCP Internal Medicine; Visit Provider Internal Medicine Hematology
DX: C90.00 Multiple myeloma not having achieved remission (principal)
CPT/HCPCS: 36415; 80053; 83883; 85025

== ENCOUNTER 2024-04-07 12:10 | Outpatient (CLI) | payer MEDICARE, SELFPAY ==
[2024-04-07] MEDS: HEPARIN SODIUM LOCK FLUSH 500 UNITS/5 ML SYRINGE (12:28)
[2024-04-07 12:32] LABS: Hematocrit 29.7 % (35.0-42.0); Hemoglobin 9.6 g/dL (11.7-13.8); Mean Corpuscular HGB Conc 32.3 g/dL (32-36); Mean Corpuscular Hemoglobin 31.7 pg (27.0-31.0); Platelet Count Result 141 K/mm3 (150-420); Red Blood Count 3.03 M/mm3 (4.20-5.40); Red Cell Distribution Width 14.8 % (11.6-14.4); White Blood Count 2.4 K/mm3 (4.8-10.8)
[2024-04-07 13:12] LABS: Band Neutrophils Percent 0 % (0-6); Basophils Absolute Manual 0.02 K/mm3 (0-0.1); Basophils Percent Manual 1 % (0-1); Eosinophils Absolute Manual 0.07 K/mm3 (0.02-0.50); Eosinophils Percent Manual 3 % (1-6); Lymphocytes Absolute Manual 0.69 K/mm3 (1.1-4.5); Lymphocytes Percent Manual 29 % (18-44); Monocytes Absolute Manual 0.26 K/mm3 (0.1-0.90); Monocytes Percent Manual 11 % (3-9); Neutrophils Absolute Manual 1.34 K/mm3 (1.7-7.2); Neutrophils Percent Manual 56 % (46-73); Platelet Estimate Adequate (Adequate); Total Cells Counted 100
[2024-04-09 17:29] LABS: Immunoglobulin A 8 mg/dL (70-320); Immunoglobulin G 936 mg/dL (600-1540); Immunoglobulin M <5 mg/dL (50-300)
== END 2024-04-07 12:11 | disposition home or self-care (01) ==
LOC: CHSLAB 12:13 → CHSTREATRM 13:03
PROVIDERS: PCP Internal Medicine; Visit Provider Internal Medicine Hematology
DX: C90.00 Multiple myeloma not having achieved remission (principal)
CPT/HCPCS: 36415; 36591; 82784; 85025

== ENCOUNTER 2024-04-08 08:50 | Outpatient (CLI) | payer MEDICARE, SELFPAY ==
[2024-04-08 09:00] VITALS: BP 163/71; PULSE 72; RESP 14; TEMP 36.6; O2SAT 97; BMI 19.7
[2024-04-08] MEDS: DARATUMUMAB-HYALURONIDASE-FIHJ 1,800 MG-30,000 UNITS VIAL 15 ML SUB-Q (09:25)
--- NOTE | 2024-04-08 10:42 | PC.NURSE ---
1030 Tolerated injection well. SEE MAR/Patient care list.
[2024-04-08 10:44] VITALS: BP 130/73; PULSE 78; RESP 14
== END 2024-04-08 08:51 | disposition home or self-care (01) ==
PROVIDERS: PCP Internal Medicine; Visit Provider Internal Medicine Hematology
DX: Z51.11 Encounter for antineoplastic chemotherapy (principal); C90.00 Multiple myeloma not having achieved remission
CPT/HCPCS: 96401; J9144

== ENCOUNTER 2024-05-06 07:54 | Outpatient (CLI) | payer MEDICARE, SELFPAY ==
--- NOTE | ~2024-05-06 | XR_ITS ---
XR ribs RT 2V Ordering provider: Radhames Sy MD History: . POSTEROLATERAL RIGHT RIB PAIN X 2 MONTHS. . Comparison: February 23, 2023 FINDINGS: BONES: Healing fracture of the right eighth, ninth, 10th and 11th ribs.. Degenerative changes of the spine. Clinical LUNGS: No effusions or infiltrates. No pneumothorax. SOFT TISSUES: Right Port-A-Cath with the tip overlying superior vena cava. IMPRESSION: Healing fractures in the right lower thorax. Reviewed, dictated and finalized at location A.
[2024-05-06 08:00] VITALS: BP 164/76; PULSE 80; RESP 14; TEMP 36.5; O2SAT 98; BMI 20.2
[2024-05-06] MEDS: SODIUM CHLORIDE 0.9% IV 1,000 ML 500 ML IVPB (08:00)
[2024-05-06] MEDS: DARATUMUMAB-HYALURONIDASE-FIHJ 1,800 MG-30,000 UNITS VIAL 15 ML 1800 ML SUB-Q (08:34)
[2024-05-06 10:05] VITALS: BP 132/74; PULSE 80; RESP 14; O2SAT 98
[2024-05-06] MEDS: HEPARIN SODIUM LOCK FLUSH 500 UNITS/5 ML SYRINGE IV PUSH (10:05)
--- NOTE | 2024-05-06 10:36 | PC.NURSE ---
Tolerated injection and IV Fluids well. SEE MAR/patient care notes.
--- NOTE | 2024-05-07 12:28 | PHAR ---
CLARIFICATION OF DARZALEX DOSE ADMINISTERED 05/06/24 08:30. DOSE ADMINISTERED WAS 1 VIAL (15ML/1800MG).
== END 2024-05-06 07:55 | disposition home or self-care (01) ==
PROVIDERS: PCP Internal Medicine; Visit Provider Internal Medicine Hematology
DX: Z51.11 Encounter for antineoplastic chemotherapy (principal); C90.00 Multiple myeloma not having achieved remission; R07.81 Pleurodynia
CPT/HCPCS: 71100; 96361; 96401; J7030; J9144

== ENCOUNTER 2024-05-10 08:20 | Outpatient (RCR) | payer MEDICARE, SELFPAY ==
[2024-02-23 11:32] LABS: Hematocrit 29.3 % (35.0-42.0); Hemoglobin 9.6 g/dL (11.7-13.8); Mean Corpuscular HGB Conc 32.8 g/dL (32-36); Mean Corpuscular Hemoglobin 31.8 pg (27.0-31.0); Mean Platelet Volume 12.6 fl (9.2-11.8); Platelet Count Result 102 K/mm3 (150-420); Red Blood Count 3.02 M/mm3 (4.20-5.40); White Blood Count 2.8 K/mm3 (4.8-10.8)
[2024-02-23 11:51] LABS: Band Neutrophils Percent 3 % (0-6); Eosinophils Absolute Manual 0.02 K/mm3 (0.02-0.50); Eosinophils Percent Manual 1 % (1-6); Lymphocytes Percent Manual 25 % (18-44); Monocytes Absolute Manual 0.14 K/mm3 (0.1-0.90); Monocytes Percent Manual 5 % (3-9); Neutrophils Absolute Manual 1.93 K/mm3 (1.7-7.2); Neutrophils Percent Manual 66 % (46-73); Platelet Estimate Slightly Decreased (Adequate); Total Cells Counted 100
[2024-02-23 12:19] LABS: Alanine Aminotransferase 36 U/L (14-59); Albumin Level 3.3 g/dL (3.4-5.0); Alkaline Phosphatase 91 U/L (46-116); Anion Gap 7 mmol/L (4-12); Aspartate Amino Transferase 22 U/L (15-37); Bilirubin,Total 0.5 mg/dL (0.00-1.00); Blood Urea Nitrogen 15 mg/dL (7-18); Calcium 8.4 mg/dL (8.5-10.1); Carbon Dioxide 29 mmol/L (21-32); Chloride 101 mmol/L (98-108); Estimated Glomerular Filt Rate 39; Glucose 101 mg/dL (70-99); Osmolality Calculated 284 mOsm/kg (285-295); Potassium 4.1 mmol/L (3.5-5.1); Sodium 137 mmol/L (136-145); Total Protein 5.5 g/dL (6.4-8.2)
[2024-02-24 09:28] LABS: Protein, Total 5.3 g/dL (6.1-8.1)
[2024-02-24 13:32] LABS: Abnormal Protein Band 1 0.3 g/dL (NONE DETECTED); Albumin 3.4 g/dL (3.8-4.8); Alpha 1 Globulin 0.3 g/dL (0.2-0.3); Alpha 2 Globulin 0.6 g/dL (0.5-0.9); Beta 1 Globulin 0.4 g/dL (0.4-0.6); Gamma Globulin 0.4 g/dL (0.8-1.7)
[2024-02-24 13:44] LABS: Immunoglobulin A 7 mg/dL (70-320); Immunoglobulin G 396 mg/dL (600-1540); Immunoglobulin M <5 mg/dL (50-300)
[2024-02-25 17:12] LABS: Kappa\\Lambda Light Chains 110.17 (0.26-1.65); Lambda Light Chain 5.3 mg/L (5.7-26.3)
[2024-03-22 12:06] LABS: Hemoglobin 8.7 g/dL (11.7-13.8); Immature Platelet Fraction Pct 7.5 % (1.0-7.0); Mean Corpuscular HGB Conc 32.2 g/dL (32-36); Mean Corpuscular Hemoglobin 31.1 pg (27.0-31.0); Mean Corpuscular Volume 96.4 fL (78.0-102.0); Platelet Count Result 50 K/mm3 (150-420); Red Cell Distribution Width 14.7 % (11.6-14.4); White Blood Count 1.6 K/mm3 (4.8-10.8)
[2024-03-22 12:59] LABS: Total Cells Counted 100
[2024-03-22 13:00] LABS: Band Neutrophils Percent 0 % (0-6); Eosinophils Absolute Manual 0.06 K/mm3 (0.02-0.50); Eosinophils Percent Manual 4 % (1-6); Lymphocytes Absolute Manual 0.38 K/mm3 (1.1-4.5); Lymphocytes Percent Manual 24 % (18-44); Monocytes Absolute Manual 0.12 K/mm3 (0.1-0.90); Monocytes Percent Manual 8 % (3-9); Neutrophils Absolute Manual 1.02 K/mm3 (1.7-7.2); Neutrophils Percent Manual 64 % (46-73); Platelet Estimate Decreased (Adequate)
[2024-03-23 13:43] LABS: Kappa\\Lambda Light Chains 107.21 (0.26-1.65); Lambda Light Chain 5.7 mg/L (5.7-26.3)
[2024-03-23 15:59] LABS: Immunoglobulin A 8 mg/dL (70-320); Immunoglobulin G 259 mg/dL (600-1540); Immunoglobulin M <5 mg/dL (50-300)
[2024-03-23 18:29] LABS: Alanine Aminotransferase 40 U/L (14-59); Alkaline Phosphatase 91 U/L (46-116); Anion Gap 13 mmol/L (4-12); Aspartate Amino Transferase 23 U/L (15-37); Bilirubin,Total 0.5 mg/dL (0.00-1.00); Blood Urea Nitrogen 30 mg/dL (7-18); Calcium 7.8 mg/dL (8.5-10.1); Carbon Dioxide 23 mmol/L (21-32); Chloride 103 mmol/L (98-108); Estimated Glomerular Filt Rate 32; Glucose 176 mg/dL (70-99); Osmolality Calculated 298 mOsm/kg (285-295); Potassium 3.4 mmol/L (3.5-5.1); Sodium 139 mmol/L (136-145); Total Protein 5.1 g/dL (6.4-8.2)
[2024-03-24 02:04] LABS: Protein, Total 4.8 g/dL (6.1-8.1)
[2024-03-24 10:19] LABS: Abnormal Protein Band 1 0.2 g/dL (NONE DETECTED); Albumin 3.2 g/dL (3.8-4.8); Alpha 1 Globulin 0.3 g/dL (0.2-0.3); Alpha 2 Globulin 0.6 g/dL (0.5-0.9); Beta 1 Globulin 0.3 g/dL (0.4-0.6); Gamma Globulin 0.2 g/dL (0.8-1.7)
[2024-05-03 09:33] LABS: Basophils Absolute Auto 0.04 K/mm3 (0.00-0.10); Basophils Percent Auto 1.6 % (0.0-1.0); Eosinophils Absolute Auto 0.09 K/mm3 (0.02-0.50); Eosinophils Percent Auto 3.6 % (1.0-6.0); Hemoglobin 9.5 g/dL (11.7-13.8); Immature Granulocyte Absolute 0.04 K/mm3 (0.00-0.00); Immature Granulocyte Percent A 1.6 % (0.0-0.0); Lymphocytes Absolute Auto 0.47 K/mm3 (1.10-4.50); Lymphocytes Percent Auto 18.7 % (18.0-42.0); Mean Corpuscular HGB Conc 32.8 g/dL (32-36); Mean Corpuscular Hemoglobin 32.1 pg (27.0-31.0); Mean Platelet Volume 10.7 fl (9.2-11.8); Monocytes Absolute Auto 0.36 K/mm3 (0.10-0.90); Monocytes Percent Auto 14.3 % (2.0-11.0); Neutrophils Absolute Auto 1.52 K/mm3 (1.70-7.20); Neutrophils Percent Auto 60.2 % (50.0-70.0); Platelet Count Result 124 K/mm3 (150-420); Red Blood Count 2.96 M/mm3 (4.20-5.40); Red Cell Distribution Width 14.6 % (11.6-14.4); White Blood Count 2.5 K/mm3 (4.8-10.8)
[2024-05-03 18:54] LABS: Alanine Aminotransferase 51 U/L (14-59); Albumin Level 4.3 g/dL (3.4-5.0); Alkaline Phosphatase 105 U/L (46-116); Anion Gap 16 mmol/L (4-12); Aspartate Amino Transferase 28 U/L (15-37); Bilirubin,Total 0.3 mg/dL (0.00-1.00); Carbon Dioxide 21 mmol/L (21-32); Chloride 100 mmol/L (98-108); Estimated Glomerular Filt Rate 29; Potassium 4.5 mmol/L (3.5-5.1); Sodium 137 mmol/L (136-145); Total Protein 5.5 g/dL (6.4-8.2)
[2024-05-03 19:01] LABS: Blood Urea Nitrogen 30 mg/dL (7-18); Glucose 93 mg/dL (70-99); Osmolality Calculated 290 mOsm/kg (285-295)
[2024-05-06 07:08] LABS: Protein, Total 5.4 g/dL (6.1-8.1)
[2024-05-06 10:43] LABS: Abnormal Protein Band 1 0.3 g/dL (NONE DETECTED); Albumin 3.7 g/dL (3.8-4.8); Alpha 1 Globulin 0.3 g/dL (0.2-0.3); Alpha 2 Globulin 0.5 g/dL (0.5-0.9); Beta 1 Globulin 0.4 g/dL (0.4-0.6); Gamma Globulin 0.4 g/dL (0.8-1.7)
[2024-05-10 08:33] LABS: Immature Platelet Fraction Pct 6.4 % (1.0-7.0); Mean Corpuscular HGB Conc 32.3 g/dL (32-36); Mean Corpuscular Hemoglobin 31.6 pg (27.0-31.0); Mean Corpuscular Volume 98.1 fL (78.0-102.0); Mean Platelet Volume 12.5 fl (9.2-11.8); Platelet Count Result 89 K/mm3 (150-420); Red Blood Count 3.16 M/mm3 (4.20-5.40); Red Cell Distribution Width 14.2 % (11.6-14.4); White Blood Count 2.6 K/mm3 (4.8-10.8)
[2024-05-10 09:02] LABS: Alanine Aminotransferase 52 U/L (14-59); Albumin Level 3.3 g/dL (3.4-5.0); Alkaline Phosphatase 97 U/L (46-116); Anion Gap 7 mmol/L (4-12); Aspartate Amino Transferase 14 U/L (15-37); Bilirubin,Total 0.6 mg/dL (0.00-1.00); Blood Urea Nitrogen 27 mg/dL (7-18); Calcium 8.6 mg/dL (8.5-10.1); Carbon Dioxide 33 mmol/L (21-32); Chloride 100 mmol/L (98-108); Estimated Glomerular Filt Rate 28; Glucose 135 mg/dL (70-99); Osmolality Calculated 297 mOsm/kg (285-295); Potassium 3.8 mmol/L (3.5-5.1); Sodium 140 mmol/L (136-145); Total Protein 5.6 g/dL (6.4-8.2)
[2024-05-10 09:16] LABS: Band Neutrophils Percent 0 % (0-6); Lymphocytes Absolute Manual 0.44 K/mm3 (1.1-4.5); Lymphocytes Percent Manual 17 % (18-44); Monocytes Absolute Manual 0.13 K/mm3 (0.1-0.90); Monocytes Percent Manual 5 % (3-9); Neutrophils Absolute Manual 1.82 K/mm3 (1.7-7.2); Neutrophils Percent Manual 70 % (46-73); Total Cells Counted 100
[2024-05-10 09:17] LABS: Eosinophils Percent Manual 8 % (1-6); Platelet Estimate Decreased (Adequate)
[2024-05-10 10:49] LABS: Kappa\\Lambda Light Chains 213.96 (0.26-1.65); Lambda Light Chain 4.5 mg/L (5.7-26.3)
[2024-05-11 07:19] LABS: Protein, Total 5.4 g/dL (6.1-8.1)
[2024-05-11 14:18] LABS: Immunoglobulin A 7 mg/dL (70-320); Immunoglobulin G 381 mg/dL (600-1540); Immunoglobulin M 13 mg/dL (50-300)
[2024-05-12 05:04] LABS: Immunoglobulin A 7 mg/dL (70-320); Immunoglobulin G 325 mg/dL (600-1540); Immunoglobulin M 12 mg/dL (50-300)
[2024-05-12 12:53] LABS: Abnormal Protein Band 1 0.2 g/dL (NONE DETECTED); Albumin 3.6 g/dL (3.8-4.8); Alpha 1 Globulin 0.3 g/dL (0.2-0.3); Alpha 2 Globulin 0.6 g/dL (0.5-0.9); Beta 1 Globulin 0.4 g/dL (0.4-0.6); Gamma Globulin 0.3 g/dL (0.8-1.7)
[2024-05-13 12:13] LABS: Kappa\\Lambda Light Chains 87.08 (0.26-1.65); Lambda Light Chain 5.2 mg/L (5.7-26.3)
== END 2024-05-23 23:59 | disposition home or self-care (01) ==
LOC: CHSLAB 08:20
PROVIDERS: PCP Internal Medicine; Visit Provider Internal Medicine Hematology
DX: C90.00 Multiple myeloma not having achieved remission (principal)
CPT/HCPCS: 36415; 80053; 82784; 83883; 84155; 84165; 85025; 85055

== ENCOUNTER 2024-06-03 08:10 | Outpatient (CLI) | payer MEDICARE, SELFPAY ==
[2024-06-03] MEDS: dexAMETHasone SOD PHOS INJ 4 MG/ML VIAL 12 MG IV PUSH (08:17)
[2024-06-03] MEDS: diphenhydrAMINE HCl INJ 50 MG/ML VIAL 25 MG IV PUSH (08:19)
[2024-06-03] MEDS: FAMOTIDINE 20 MG/2 ML VIAL IV PUSH (08:20)
[2024-06-03] MEDS: SODIUM CHLORIDE 0.9% IV 250 ML 10 ML IVPB (08:30)
[2024-06-03] MEDS: ACETAMINOPHEN 325 MG TABLET 650 MG PO (08:40)
[2024-06-03 08:55] VITALS: BMI 20.8
[2024-06-03] MEDS: SODIUM CHLORIDE 0.9% IVPB (09:00)
[2024-06-03] MEDS: ELOTUZUMAB IVPB (09:00)
[2024-06-03 09:02] VITALS: BP 143/84; PULSE 84; RESP 14; TEMP 36.5; O2SAT 99
[2024-06-03 09:30] VITALS: BP 128/76; PULSE 80; RESP 14; O2SAT 99
--- NOTE | 2024-06-03 09:44 | PC.NURSE ---
0815 Patient here for Elotuzumab/Pomalidomide/Dexamethasone regimen. Educated by Dr. Sy and his staff. Reinforcement teaching given. Concerns answered. 0900 After premeds given SEE OCT. Elotuzumab IV infusion started at 30 ml/hr. 0930 NO s/sx of infusion reaction noted or reported. Increase rate to 60 ml/hr.
[2024-06-03 10:20] VITALS: BP 149/70; PULSE 80; RESP 14; O2SAT 98
--- NOTE | 2024-06-03 11:24 | PC.NURSE ---
1020 Ambulated to bathroom and back. Tolerating infusion well. Vital signs stable. Up rate to 120 ml/hr from here on out.
--- NOTE | 2024-06-03 11:42 | PC.NURSE ---
0815 Late entry: patient took home dose of dexamethsone 8 mg and pomalidomide 4 mg PO as directed.
--- NOTE | 2024-06-03 12:08 | PC.NURSE ---
Elotuzumab infusion completed. Normal saline infusing. Voices no complaints. Tolerated well.
[2024-06-03] MEDS: HEPARIN SODIUM LOCK FLUSH 500 UNITS/5 ML SYRINGE IV PUSH (12:34)
[2024-06-03 12:52] VITALS: BP 150/73; PULSE 84; RESP 14; O2SAT 98
--- NOTE | 2024-06-03 12:54 | PC.NURSE ---
1250 Normal saline completed. Patient voices no concerns. Tolerated new regimen very well. see MAR/patient care notes.
== END 2024-06-03 08:11 | disposition home or self-care (01) ==
PROVIDERS: PCP Internal Medicine; Visit Provider Internal Medicine Hematology
DX: Z51.11 Encounter for antineoplastic chemotherapy (principal); C90.00 Multiple myeloma not having achieved remission
CPT/HCPCS: 96375; 96411; 96413; 96415; A9270; J1100; J1200; J7050; J9176

== ENCOUNTER 2024-06-09 12:52 | Outpatient (CLI) | payer MEDICARE, SELFPAY ==
[2024-06-09 13:05] LABS: Hematocrit 30.1 % (35.0-42.0); Hemoglobin 9.8 g/dL (11.7-13.8); Mean Corpuscular HGB Conc 32.6 g/dL (32-36); Mean Corpuscular Hemoglobin 31.7 pg (27.0-31.0); Mean Corpuscular Volume 97.4 fL (78.0-102.0); Mean Platelet Volume 9.8 fl (9.2-11.8); Platelet Count Result 136 K/mm3 (150-420); Red Blood Count 3.09 M/mm3 (4.20-5.40); Red Cell Distribution Width 14.1 % (11.6-14.4); White Blood Count 3.9 K/mm3 (4.8-10.8)
[2024-06-09 13:57] LABS: Alanine Aminotransferase 45 U/L (14-59); Albumin Level 3.2 g/dL (3.4-5.0); Alkaline Phosphatase 129 U/L (46-116); Anion Gap 8 mmol/L (4-12); Aspartate Amino Transferase 34 U/L (15-37); Bilirubin,Total 0.5 mg/dL (0.00-1.00); Blood Urea Nitrogen 34 mg/dL (7-18); Calcium 9.2 mg/dL (8.5-10.1); Carbon Dioxide 29 mmol/L (21-32); Chloride 102 mmol/L (98-108); Estimated Glomerular Filt Rate 27; Glucose 249 mg/dL (70-99); Osmolality Calculated 303 mOsm/kg (285-295); Potassium 5.3 mmol/L (3.5-5.1); Sodium 139 mmol/L (136-145)
== END 2024-06-09 12:53 | disposition home or self-care (01) ==
LOC: CHSLAB 12:56
PROVIDERS: PCP Internal Medicine; Visit Provider Internal Medicine Hematology
DX: C90.00 Multiple myeloma not having achieved remission (principal)
CPT/HCPCS: 36415; 80053; 85027

== ENCOUNTER 2024-06-10 08:14 | Outpatient (CLI) | payer MEDICARE, SELFPAY ==
[2024-06-10 08:30] VITALS: BP 146/79; PULSE 78; RESP 14; TEMP 36; O2SAT 100
[2024-06-10] MEDS: ACETAMINOPHEN 325 MG TABLET 650 MG PO (08:30)
[2024-06-10] MEDS: SODIUM CHLORIDE 0.9% IV 250 ML 10 ML IVPB (08:30)
[2024-06-10] MEDS: diphenhydrAMINE HCl INJ 50 MG/ML VIAL 25 MG IV PUSH (08:31)
[2024-06-10] MEDS: FAMOTIDINE 20 MG/2 ML VIAL IV PUSH (08:33)
[2024-06-10] MEDS: dexAMETHasone SOD PHOS INJ 4 MG/ML VIAL 12 MG IV PUSH (08:35)
[2024-06-10 09:19] VITALS: BMI 21.1
[2024-06-10] MEDS: SODIUM CHLORIDE 0.9% IVPB (09:39)
[2024-06-10] MEDS: ELOTUZUMAB IVPB (09:39)
[2024-06-10] MEDS: HEPARIN SODIUM LOCK FLUSH 500 UNITS/5 ML SYRINGE IV PUSH (11:47)
[2024-06-10 11:49] VITALS: BP 143/82; PULSE 80; RESP 14; TEMP 35.9; O2SAT 99
--- NOTE | 2024-06-10 11:51 | PC.NURSE ---
Patient tolerated today's treatment well. SEE MAR/patient care notes.
== END 2024-06-10 12:20 | disposition home or self-care (01) ==
PROVIDERS: PCP Internal Medicine; Visit Provider Internal Medicine Hematology
DX: Z51.11 Encounter for antineoplastic chemotherapy (principal); C90.00 Multiple myeloma not having achieved remission
CPT/HCPCS: 96375; 96413; A9270; J1100; J1200; J7050; J9176

== ENCOUNTER 2024-06-16 08:35 | Outpatient (CLI) | payer MEDICARE, SELFPAY ==
[2024-06-16 08:49] LABS: Hematocrit 29.2 % (35.0-42.0); Hemoglobin 9.3 g/dL (11.7-13.8); Mean Corpuscular HGB Conc 31.8 g/dL (32-36); Mean Corpuscular Hemoglobin 31.3 pg (27.0-31.0); Mean Corpuscular Volume 98.3 fL (78.0-102.0); Mean Platelet Volume 10.2 fl (9.2-11.8); Platelet Count Result 115 K/mm3 (150-420); Red Blood Count 2.97 M/mm3 (4.20-5.40); Red Cell Distribution Width 14.1 % (11.6-14.4); White Blood Count 3.2 K/mm3 (4.8-10.8)
[2024-06-16 09:15] LABS: Band Neutrophils Percent 1 % (0-6); Eosinophils Absolute Manual 0.06 K/mm3 (0.02-0.50); Eosinophils Percent Manual 2 % (1-6); Lymphocytes Absolute Manual 0.41 K/mm3 (1.1-4.5); Lymphocytes Percent Manual 13 % (18-44); Monocytes Absolute Manual 0.35 K/mm3 (0.1-0.90); Monocytes Percent Manual 11 % (3-9); Neutrophils Absolute Manual 2.36 K/mm3 (1.7-7.2); Neutrophils Percent Manual 73 % (46-73); Platelet Estimate Slightly Decreased (Adequate); Total Cells Counted 100
[2024-06-16 10:20] LABS: Alanine Aminotransferase 34 U/L (14-59); Albumin Level 2.8 g/dL (3.4-5.0); Alkaline Phosphatase 103 U/L (46-116); Anion Gap 7 mmol/L (4-12); Aspartate Amino Transferase 14 U/L (15-37); Bilirubin,Total 0.4 mg/dL (0.00-1.00); Blood Urea Nitrogen 46 mg/dL (7-18); Calcium 9.1 mg/dL (8.5-10.1); Carbon Dioxide 27 mmol/L (21-32); Chloride 105 mmol/L (98-108); Estimated Glomerular Filt Rate 11; Glucose 166 mg/dL (70-99); Osmolality Calculated 303 mOsm/kg (285-295); Potassium 5.9 mmol/L (3.5-5.1); Sodium 139 mmol/L (136-145)
== END 2024-06-16 08:36 | disposition home or self-care (01) ==
PROVIDERS: PCP Internal Medicine; Visit Provider Internal Medicine Hematology
DX: C90.00 Multiple myeloma not having achieved remission (principal)
CPT/HCPCS: 36415; 80053; 85025

== ENCOUNTER 2024-06-17 09:12 | Emergency (ER) | payer MEDICARE, SELFPAY ==
[2024-06-17 09:18] VITALS: BP 149/78; PULSE 71; RESP 14; TEMP 37; O2SAT 98
--- NOTE | 2024-06-17 09:27 | ECG_ITS ---
Test Date: 2024-06-17 09:40:08 Measurements Intervals [place] Rate: 61 P: 90 MT: 187 QRS: -50 QRSD: 97 T: 75 QT: 443 QTc: 448 Interpretive Statements SINUS RHYTHM LEFT ANTERIOR FASCICULAR BLOCK VOLTAGE CRITERIA FOR LVH CANNOT R/O SEPTAL INFARCT, AGE INDETERMINATE ABNORMAL ECG No previous ECG available for comparison Electronically Signed On 06-18-2024 06:36:32 CDT by Gregory Palafox D.O.
[2024-06-17] MEDS: SODIUM CHLORIDE 0.9% IV 1,000 ML 999 ML IV CONT (09:43)
[2024-06-17 09:55] LABS: Hematocrit 27.8 % (35.0-42.0); Hemoglobin 9.1 g/dL (11.7-13.8); Immature Platelet Fraction Pct 3.3 % (1.0-7.0); Mean Corpuscular HGB Conc 32.7 g/dL (32-36); Mean Corpuscular Hemoglobin 31.8 pg (27.0-31.0); Mean Corpuscular Volume 97.2 fL (78.0-102.0); Mean Platelet Volume 11.5 fl (9.2-11.8); Platelet Count Result 119 K/mm3 (150-420); Red Blood Count 2.86 M/mm3 (4.20-5.40); White Blood Count 2.6 K/mm3 (4.8-10.8)
[2024-06-17 10:05] LABS: Alanine Aminotransferase 46 U/L (14-59); Albumin Level 2.8 g/dL (3.4-5.0); Alkaline Phosphatase 99 U/L (46-116); Anion Gap 6 mmol/L (4-12); Aspartate Amino Transferase 25 U/L (15-37); Bilirubin,Total 0.4 mg/dL (0.00-1.00); Blood Urea Nitrogen 25 mg/dL (7-18); Calcium 8.9 mg/dL (8.5-10.1); Carbon Dioxide 30 mmol/L (21-32); Chloride 104 mmol/L (98-108); Estimated CRCL calculation 24 ml/min; Estimated Glomerular Filt Rate 37; Glucose 101 mg/dL (70-99); Magnesium 2.2 mg/dL (1.8-2.4); Osmolality Calculated 294 mOsm/kg (285-295); Phosphorus 4.3 mg/dL (2.6-4.7); Potassium 4.2 mmol/L (3.5-5.1); Sodium 140 mmol/L (136-145); Total Protein 5.7 g/dL (6.4-8.2); Uric Acid 4.1 mg/dL (2.6-6.0)
[2024-06-17 10:09] LABS: Band Neutrophils Percent 0 % (0-6); Basophils Absolute Manual 0.05 K/mm3 (0-0.1); Basophils Percent Manual 2 % (0-1); Eosinophils Percent Manual 8 % (1-6); Lymphocytes Absolute Manual 0.59 K/mm3 (1.1-4.5); Lymphocytes Percent Manual 23 % (18-44); Monocytes Absolute Manual 0.33 K/mm3 (0.1-0.90); Monocytes Percent Manual 13 % (3-9); Neutrophils Percent Manual 54 % (46-73); Total Cells Counted 100
[2024-06-17 10:10] LABS: Platelet Estimate Slightly Decreased (Adequate)
--- NOTE | 2024-06-17 10:12 | ED.RECABL ---
HPI - Recheck/Abnormal Lab/Rx General Chief Complaint: Recheck/Abnormal Lab/Rx Stated Complaint: low K+ Time Seen by Provider: 06/17/24 09:20 Source: patient Mode of arrival: ambulatory Limitations: no limitations History of Present Illness HPI narrative: This is a 78-year-old female with history of multiple myeloma had blood drawn yesterday with some she was told that her potassium was elevated, otherwise recently had chemotherapy approximately 1 week ago, the patient is doing well no symptoms elicited no fever chills no chest pain or shortness of breath no dysuria no flank pain no nausea vomiting no headaches. Initial visit (ago): day(s) Related Data Home Medications Medication Instructions Recorded Confirmed amlodipine 5 mg tablet 5 mg PO DAILY 02/23/23 06/10/24 cholecalciferol (vitamin D3) 50 50 mcg PO DAILY 02/23/23 06/10/24 mcg (2,000 unit) capsule (Vitamin D3) cyanocobalamin (vitamin B-12) 2,500 mcg sublingual DAILY 02/23/23 06/10/24 2,500 mcg sublingual tablet (Vitamin B-12) duloxetine 60 mg capsule,delayed 60 mg PO DAILY 02/23/23 06/10/24 release levothyroxine 112 mcg tablet 112 mcg PO DAILY 02/23/23 06/10/24 omeprazole 20 mg capsule,delayed 20 mg PO DAILY 02/23/23 06/10/24 release trazodone 50 mg tablet 50 mg PO HS 02/23/23 06/10/24 furosemide 20 mg tablet (Lasix) 20 mg PO PRN PRN swelling 06/25/23 06/10/24 dexamethasone 4 mg tablet 20 mg PO DAILY PRN days of chemo 07/02/23 06/10/24 lenalidomide 10 mg capsule 10 mg PO DAILY 01/22/24 06/10/24 Allergies Allergy/AdvReac Type Severity Reaction Status Date / Time hydrocodone [From Vicodin] Allergy Itching Verified 05/14/23 14:55 Review of Systems Review of Systems: All systems reviewed & are unremarkable except as noted in HPI and below PMFSH Past Medical History Medical History Acute kidney injury superimposed on chronic kidney disease Anemia Breast cancer in situ Chronic kidney disease Diabetes mellitus diet controlled Gastroesophageal reflux disease without esophagitis Hiatal hernia Hypertension Hyperthyroidism Multiple myeloma Paroxysmal atrial fibrillation Surgical History Surgical History History of aortic valve replacement with bioprosthetic valve History of lumpectomy of left breast History of thyroidectomy History of total replacement of both hip joints Status post laparoscopic Kayleen fundoplication Family History Family History Other Cerebrovascular accident Diabetes mellitus Family history of malignant neoplasm Hypertension Social History Social History Smoking status: Never smoker Alcohol intake: never Drinks per week: 1 Substance use: never Substance use type: does not use Lack of Transportation: No Lack of Food: Never True Current Housing: I Have Housing Concerned About Future Housing: No Difficulty Paying Gas/Electric Bills: No Difficulty Paying for Meds: No Currently Unemployed: No Education: High School Diploma/GED Difficulty w/ Childcare or Family Care: No Spiritual care concerns: No Exam Const: General: healthy appearing, no acute distress and alert Nutritional Appearance: well nourished Orientation/consciousness: patient oriented x3 Limitations: no limitations Eyes: Conjunctivae: conjunctivae normal Pupils: Equal, round and reactive pupils present EOM: EOMs intact bilaterally Neck: Neck: normal visual inspection Chest: Chest palpation & inspection: normal inspection of the chest Resp: Effort & Inspection: normal respiratory effort Auscultation: clear to auscultation bilaterally Cardio: Rate: regular rate Rhythm: regular rhythm GI: GI Palp: Yes Soft to palpation Auscultation: normal bowel sounds : General: Yes bladder normal to palpation Skin: General skin exam: normal color Rashes: no rashes Wounds: no wounds Neuro: General: patient oriented x3, moves all extremities, no meningeal signs and no focal motor deficits Extrem: General: normal to inspection and no clubbing, cyanosis or edema Psych: Mental Status: mental status grossly normal Course Course Emergency Course: EKG reviewed and normal sinus, blood work within normal limits his potassium 4.2 renal function creatinine at 1.38. Patient received a L of fluids and stable for discharge. Vital Signs Vital signs: Vital Signs Temperature 37.0 C 06/17/24 09:18 Pulse Rate 71 06/17/24 09:18 Respiratory Rate 14 06/17/24 09:18 Blood Pressure 149/78 H 06/17/24 09:18 Pulse Oximetry 98 06/17/24 09:18 Oxygen Delivery Room Air 06/17/24 09:18 Temperature 37.0 C 06/17/24 09:18 Pulse Rate 71 06/17/24 09:18 Respiratory Rate 14 06/17/24 09:18 Blood Pressure 149/78 H 06/17/24 09:18 Pulse Oximetry 98 06/17/24 09:18 Oxygen Delivery Room Air 06/17/24 09:18 MDM - Recheck/Abnormal Lab/Rx Lab Data 06/17/24 09:43 06/17/24 09:43 Labs: Lab Results 06/17/24 Range/Units 09:43 WBC 2.6 L (4.8-10.8) K/mm3 RBC 2.86 L (4.20-5.40) M/mm3 Hgb 9.1 L (11.7-13.8) g/dL Hct 27.8 L (35.0-42.0) % MCV 97.2 (78.0-102.0) fL MCH 31.8 H (27.0-31.0) pg MCHC 32.7 (32-36) g/dL RDW 14.0 (11.6-14.4) % Plt Count 119 L (150-420) K/mm3 MPV 11.5 (9.2-11.8) fl Immature Gran % (Auto) Not Reportable Neut % (Auto) Not Reportable Lymph % (Auto) Not Reportable [place] % (Auto) Not Reportable Eos % (Auto) Not Reportable Baso % (Auto) Not Reportable Lymph # (Auto) Not Reportable [place] # (Auto) Not Reportable Eos # (Auto) Not Reportable Baso # (Auto) Not Reportable Abs Immat Gran (auto) Not Reportable Absolute Neuts (auto) Not Reportable Absolute Nucleated RBC Not Reportable Total Counted 100 Neutrophils % (Manual) 54 (46-73) % Band Neutrophils % 0 (0-6) % Lymphocytes % (Manual) 23 (18-44) % Monocytes % (Manual) 13 H (3-9) % Eosinophils % (Manual) 8 H (1-6) % Basophils % (Manual) 2 H (0-1) % Nucleated RBC % Not Reportable Abs Neuts (Manual) 1.40 L (1.7-7.2) K/mm3 Abs Lymphs (Manual) 0.59 L (1.1-4.5) K/mm3 Abs Monocytes (Manual) 0.33 (0.1-0.90) K/mm3 Absolute Eos (Manual) 0.20 (0.02-0.50) K/mm3 Abs Basophils (Manual) 0.05 (0-0.1) K/mm3 Platelet Estimate Slightly decreased (Adequate) % Immature Plt Fraction 3.3 (1.0-7.0) % Schistocytes Not Reportable Sodium 140 (136-145) mmol/L Potassium 4.2 (3.5-5.1) mmol/L Chloride 104 (98-108) mmol/L Carbon Dioxide 30 (21-32) mmol/L Anion Gap 6 (4-12) mmol/L BUN 25 H (7-18) mg/dL Creatinine 1.37 H (0.55-1.02) mg/dL Estim Creat Clear Calc 24 ml/min Estimated GFR 37 L (59 - ) Glucose 101 H (70-99) mg/dL Calculated Osmolality 294 (285-295) mOsm/kg Uric Acid 4.1 (2.6-6.0) mg/dL Calcium 8.9 (8.5-10.1) mg/dL Phosphorus 4.3 (2.6-4.7) mg/dL Magnesium 2.2 (1.8-2.4) mg/dL Total Bilirubin 0.4 (0.00-1.00) mg/dL AST 25 (15-37) U/L ALT 46 (14-59) U/L Alkaline Phosphatase 99 (46-116) U/L Total Protein 5.7 L (6.4-8.2) g/dL Albumin 2.8 L (3.4-5.0) g/dL Critical Care Time Critical Care Time Critical Care Time: No Discharge Plan Discharge Clinical Impression: History of hyperkalemia Patient Disposition: Home, Self-Care Condition: Stable Instructions: Antibiotic Form, Hyperkalemia (ED) Additional Instructions: potassium levels within normal limits and advise continue regular follow-up was the primary care and Oncology. Prescriptions: No Action trazodone 50 mg tablet 50 mg PO HS Hold Instructions: Resume on 04/10/23. amlodipine 5 mg tablet 5 mg PO DAILY Hold Instructions: Resume on 04/10/23. omeprazole 20 mg capsule,delayed release(DR/EC) 20 mg PO DAILY levothyroxine 112 mcg tablet 112 mcg PO DAILY duloxetine 60 mg capsule,delayed release(DR/EC) 60 mg PO DAILY cyanocobalamin (vitamin B-12) [Vitamin B-12] 2,500 mcg Tablet, Sublingual 2,500 mcg SUBLINGUAL DAILY cholecalciferol (vitamin D3) [Vitamin D3] 50 mcg (2,000 unit) Capsule 50 mcg PO DAILY acetaminophen [Mapap (acetaminophen)] 325 mg Tablet 650 mg PO Q4H PRN (Reason: Mild Pain (1-3) Or Fever) 0RF allopurinol 100 mg Tablet 100 mg PO BID 0RF Hold Instructions: Resume on 04/10/23. bisacodyl [Laxative (bisacodyl)] 5 mg Tablet,Delayed Release (Dr/Ec) 5 mg PO DAILY PRN (Reason: Constipation) 0RF furosemide [Lasix] 20 mg Tablet 20 mg PO PRN PRN (Reason: swelling) dexamethasone 4 mg Tablet 20 mg PO DAILY PRN (Reason: days of chemo) lenalidomide 10 mg Capsule 10 mg PO DAILY Rx Instructions: swallow whole with glass of water; do not open, crush, chew , break, or dissolve days 1 -21. per rx on bottle Follow-up/Referrals: Gladys Jin MD [Primary Care Provider] - Time of Disposition: 10:16
[2024-06-17 10:38] VITALS: BP 180/86; PULSE 66; RESP 18; TEMP 36.6; O2SAT 100
[2024-06-17 10:42] LABS: Add Urine Microscopic? YES; Appearance Urine Clear (Clear); Bilirubin Urine Negative (Negative); Blood Urine Negative (Negative); Color Urine Light Yellow (Yellow); Glucose Urine UA Negative (Negative); Ketones Urine Negative (Negative); Leukocyte Esterase Ur 1+ LEU/UL (Negative); Nitrate Urine Negative (Negative); Protein Urine Negative (Negative); Specific Grav Ur <= 1.005 (1.010-1.020); Urobilinogen Urine 0.2 mg/dL (0.2-1.0); pH Urine 5.5 (5.0-8.0)
[2024-06-17 10:49] LABS: RBC Urine None seen /hpf (0-2); Squamous Epithelial Cell Urine Few /hpf (Few)
[2024-06-17 10:50] LABS: Bacteria Urine Rare /hpf
--- NOTE | 2024-06-19 13:43 | PC.NURSE ---
Addendum entered by Judy Mayen RN 06/19/24 13:44: final urine culture report reviewed, no growth, no change in plan of care. blood culture report note below is incorrectly entered on this pt...strike it out Original Note: final blood culture reports x2 reviewed. no growth after 5 days. no change in plan of care.
== END 2024-06-17 10:52 | disposition home or self-care (01) ==
PROVIDERS: Emergency Provider Emergency Medicine; PCP Internal Medicine
DX: C90.00 Multiple myeloma not having achieved remission (principal); E87.5 Hyperkalemia; I48.0 Paroxysmal atrial fibrillation; E11.22 Type 2 diabetes mellitus with diabetic chronic kidney disease; I12.9 Hypertensive chronic kidney disease with stage 1 through stage 4 chronic kidney disease, or unspecified chronic kidney disease; N18.9 Chronic kidney disease, unspecified; Z79.899 Other long term (current) drug therapy
CPT/HCPCS: 36415; 80053; 81001; 83735; 84100; 84550; 85025; 85055; 87086; 93005; 96360; 99283; J7030

== ENCOUNTER 2024-06-21 14:00 | Outpatient (RCR) | payer MEDICARE, SELFPAY ==
[2024-05-31 10:31] LABS: Hematocrit 29.1 % (35.0-42.0); Hemoglobin 9.6 g/dL (11.7-13.8); Mean Corpuscular Hemoglobin 31.7 pg (27.0-31.0); Mean Platelet Volume 10.6 fl (9.2-11.8); Platelet Count Result 179 K/mm3 (150-420); Red Blood Count 3.03 M/mm3 (4.20-5.40); Red Cell Distribution Width 13.5 % (11.6-14.4); White Blood Count 3.3 K/mm3 (4.8-10.8)
[2024-05-31 10:38] LABS: Alanine Aminotransferase 36 U/L (14-59); Alkaline Phosphatase 114 U/L (46-116); Anion Gap 7 mmol/L (4-12); Aspartate Amino Transferase 23 U/L (15-37); Bilirubin,Total 0.3 mg/dL (0.00-1.00); Blood Urea Nitrogen 32 mg/dL (7-18); Calcium 8.7 mg/dL (8.5-10.1); Carbon Dioxide 30 mmol/L (21-32); Chloride 102 mmol/L (98-108); Estimated Glomerular Filt Rate 31; Glucose 80 mg/dL (70-99); Osmolality Calculated 293 mOsm/kg (285-295); Potassium 4.3 mmol/L (3.5-5.1); Sodium 139 mmol/L (136-145); Total Protein 5.9 g/dL (6.4-8.2)
[2024-05-31 11:06] LABS: Band Neutrophils Percent 0 % (0-6); Basophils Absolute Manual 0.03 K/mm3 (0-0.1); Basophils Percent Manual 1 % (0-1); Eosinophils Absolute Manual 0.03 K/mm3 (0.02-0.50); Eosinophils Percent Manual 1 % (1-6); Lymphocytes Absolute Manual 0.49 K/mm3 (1.1-4.5); Lymphocytes Percent Manual 15 % (18-44); Monocytes Absolute Manual 0.26 K/mm3 (0.1-0.90); Monocytes Percent Manual 8 % (3-9); Neutrophils Absolute Manual 2.47 K/mm3 (1.7-7.2); Neutrophils Percent Manual 75 % (46-73); Platelet Estimate Adequate (Adequate); Total Cells Counted 100
[2024-06-03 16:24] LABS: Kappa\\Lambda Light Chains 382.14 (0.26-1.65); Lambda Light Chain 3.6 mg/L (5.7-26.3)
[2024-06-21 14:11] LABS: Hematocrit 28.9 % (35.0-42.0); Hemoglobin 9.5 g/dL (11.7-13.8); Mean Corpuscular HGB Conc 32.9 g/dL (32-36); Mean Corpuscular Hemoglobin 31.9 pg (27.0-31.0); Platelet Count Result 122 K/mm3 (150-420); Red Blood Count 2.98 M/mm3 (4.20-5.40); Red Cell Distribution Width 14.5 % (11.6-14.4); White Blood Count 2.8 K/mm3 (4.8-10.8)
[2024-06-21 14:33] LABS: Band Neutrophils Percent 0 % (0-6); Neutrophils Absolute Manual 1.76 K/mm3 (1.7-7.2); Neutrophils Percent Manual 63 % (46-73); Total Cells Counted 100
[2024-06-21 14:34] LABS: Basophils Percent Manual 0 % (0-1); Eosinophils Absolute Manual 0.02 K/mm3 (0.02-0.50); Eosinophils Percent Manual 1 % (1-6); Lymphocytes Absolute Manual 0.72 K/mm3 (1.1-4.5); Lymphocytes Percent Manual 26 % (18-44); Monocytes Absolute Manual 0.28 K/mm3 (0.1-0.90); Monocytes Percent Manual 10 % (3-9); Platelet Estimate Adequate (Adequate)
[2024-06-21 14:53] LABS: Alanine Aminotransferase 40 U/L (14-59); Albumin Level 3.2 g/dL (3.4-5.0); Alkaline Phosphatase 118 U/L (46-116); Anion Gap 8 mmol/L (4-12); Aspartate Amino Transferase 25 U/L (15-37); Bilirubin,Total 0.6 mg/dL (0.00-1.00); Blood Urea Nitrogen 19 mg/dL (7-18); Calcium 8.6 mg/dL (8.5-10.1); Carbon Dioxide 29 mmol/L (21-32); Chloride 103 mmol/L (98-108); Estimated Glomerular Filt Rate 41; Glucose 151 mg/dL (70-99); Osmolality Calculated 295 mOsm/kg (285-295); Potassium 3.8 mmol/L (3.5-5.1); Sodium 140 mmol/L (136-145); Total Protein 5.7 g/dL (6.4-8.2)
== END 2024-08-29 23:59 | disposition home or self-care (01) ==
LOC: CHSLAB 14:00
PROVIDERS: PCP Internal Medicine; Visit Provider Internal Medicine Hematology
DX: C90.00 Multiple myeloma not having achieved remission (principal)
CPT/HCPCS: 36415; 80053; 83883; 85025

== ENCOUNTER 2024-06-23 09:53 | Outpatient (CLI) | payer MEDICARE, SELFPAY ==
[2024-06-24 08:13] LABS: Protein, Total 5.7 g/dL (6.1-8.1)
[2024-06-25 06:04] LABS: Immunoglobulin A 13 mg/dL (70-320); Immunoglobulin G 477 mg/dL (600-1540); Immunoglobulin M 5 mg/dL (50-300)
[2024-06-29 12:38] LABS: Kappa\\Lambda Light Chains 103.67 (0.26-1.65); Lambda Light Chain 8.2 mg/L (5.7-26.3)
[2024-06-29 15:13] LABS: Abnormal Protein Band 1 0.3 g/dL (NONE DETECTED); Albumin 3.6 g/dL (3.8-4.8); Alpha 1 Globulin 0.4 g/dL (0.2-0.3); Alpha 2 Globulin 0.7 g/dL (0.5-0.9); Beta 1 Globulin 0.4 g/dL (0.4-0.6); Gamma Globulin 0.4 g/dL (0.8-1.7)
== END 2024-06-23 09:54 | disposition home or self-care (01) ==
PROVIDERS: PCP Internal Medicine; Visit Provider Internal Medicine Hematology
DX: C90.00 Multiple myeloma not having achieved remission (principal)
CPT/HCPCS: 36415; 82784; 83883; 84155; 84165; 86334

== ENCOUNTER 2024-07-07 14:17 | Outpatient (CLI) | payer MEDICARE, SELFPAY ==
[2024-07-07 15:23] LABS: Hematocrit 30.9 % (35.0-42.0); Mean Corpuscular HGB Conc 32.4 g/dL (32-36); Mean Corpuscular Hemoglobin 31.2 pg (27.0-31.0); Mean Corpuscular Volume 96.3 fL (78.0-102.0); Mean Platelet Volume 10.6 fl (9.2-11.8); Platelet Count Result 144 K/mm3 (150-420); Red Blood Count 3.21 M/mm3 (4.20-5.40); Red Cell Distribution Width 14.1 % (11.6-14.4); White Blood Count 3.8 K/mm3 (4.8-10.8)
[2024-07-07 15:32] LABS: Alanine Aminotransferase 47 U/L (14-59); Albumin Level 3.5 g/dL (3.4-5.0); Alkaline Phosphatase 112 U/L (46-116); Anion Gap 8 mmol/L (4-12); Aspartate Amino Transferase 27 U/L (15-37); Bilirubin,Total 0.6 mg/dL (0.00-1.00); Blood Urea Nitrogen 28 mg/dL (7-18); Calcium 9.2 mg/dL (8.5-10.1); Carbon Dioxide 30 mmol/L (21-32); Chloride 103 mmol/L (98-108); Estimated Glomerular Filt Rate 39; Glucose 81 mg/dL (70-99); Osmolality Calculated 296 mOsm/kg (285-295); Potassium 4.3 mmol/L (3.5-5.1); Sodium 141 mmol/L (136-145); Total Protein 5.8 g/dL (6.4-8.2)
[2024-07-07 16:26] LABS: Band Neutrophils Percent 1 % (0-6); Basophils Percent Manual 0 % (0-1); Eosinophils Absolute Manual 0.07 K/mm3 (0.02-0.50); Eosinophils Percent Manual 2 % (1-6); Lymphocytes Absolute Manual 0.79 K/mm3 (1.1-4.5); Lymphocytes Percent Manual 21 % (18-44); Monocytes Absolute Manual 0.34 K/mm3 (0.1-0.90); Monocytes Percent Manual 9 % (3-9); Neutrophils Absolute Manual 2.58 K/mm3 (1.7-7.2); Neutrophils Percent Manual 67 % (46-73); Total Cells Counted 100
[2024-07-07 16:27] LABS: Platelet Estimate Adequate (Adequate)
[2024-07-13 15:43] LABS: Kappa\\Lambda Light Chains 50.18 (0.26-1.65); Lambda Light Chain 7.7 mg/L (5.7-26.3)
== END 2024-07-07 14:18 | disposition home or self-care (01) ==
LOC: CHSLAB 14:19
PROVIDERS: PCP Internal Medicine; Visit Provider Internal Medicine Hematology
DX: C90.00 Multiple myeloma not having achieved remission (principal)
CPT/HCPCS: 36415; 80053; 83883; 85025

== ENCOUNTER 2024-07-23 09:08 | Outpatient (CLI) | payer MEDICARE, SELFPAY ==
[2024-07-23 09:32] LABS: Hematocrit 27.8 % (35.0-42.0); Hemoglobin 9.2 g/dL (11.7-13.8); Mean Corpuscular HGB Conc 33.1 g/dL (32-36); Mean Corpuscular Hemoglobin 31.4 pg (27.0-31.0); Mean Corpuscular Volume 94.9 fL (78.0-102.0); Platelet Count Result 212 K/mm3 (150-420); Red Blood Count 2.93 M/mm3 (4.20-5.40); Red Cell Distribution Width 14.5 % (11.6-14.4); White Blood Count 3.3 K/mm3 (4.8-10.8)
[2024-07-23 09:42] LABS: Add Urine Microscopic? NO; Appearance Urine Clear (Clear); Bilirubin Urine Negative (Negative); Blood Urine Negative (Negative); Color Urine Light Yellow (Yellow); Glucose Urine UA Negative (Negative); Ketones Urine Negative (Negative); Leukocyte Esterase Ur Negative LEU/UL (Negative); Nitrate Urine Negative (Negative); Protein Urine Negative (Negative); Specific Grav Ur <= 1.005 (1.010-1.020); Urobilinogen Urine 0.2 mg/dL (0.2-1.0)
[2024-07-23 09:58] LABS: Hemoglobin A1C 6.2 % (<5.7)
[2024-07-23 10:05] LABS: Band Neutrophils Percent 0 % (0-6); Basophils Percent Manual 0 % (0-1); Eosinophils Absolute Manual 0.03 K/mm3 (0.02-0.50); Eosinophils Percent Manual 1 % (1-6); Lymphocytes Absolute Manual 0.52 K/mm3 (1.1-4.5); Lymphocytes Percent Manual 16 % (18-44); Monocytes Absolute Manual 0.42 K/mm3 (0.1-0.90); Monocytes Percent Manual 13 % (3-9); Neutrophils Absolute Manual 2.31 K/mm3 (1.7-7.2); Neutrophils Percent Manual 70 % (46-73); Platelet Estimate Adequate (Adequate); Total Cells Counted 100
[2024-07-23 10:20] LABS: Alanine Aminotransferase 34 U/L (14-59); Albumin Level 3.3 g/dL (3.4-5.0); Alkaline Phosphatase 105 U/L (46-116); Anion Gap 8 mmol/L (4-12); Aspartate Amino Transferase 15 U/L (15-37); Bilirubin,Total 0.3 mg/dL (0.00-1.00); Blood Urea Nitrogen 30 mg/dL (7-18); Calcium 9.3 mg/dL (8.5-10.1); Carbon Dioxide 29 mmol/L (21-32); Chloride 99 mmol/L (98-108); Cholesterol 218 mg/dL (0-200); Creatine Kinase 39 U/L (26-192); Estimated Glomerular Filt Rate 34; Glucose 147 mg/dL (70-99); HDL Direct 131 mg/dL (40-60); LDL Cholesterol Calculated 79 mg/dL (<130); NT Pro B Type Natriuretic Pept 1851 pg/mL (0-450); Osmolality Calculated 291 mOsm/kg (285-295); Potassium 4.2 mmol/L (3.5-5.1); Sodium 136 mmol/L (136-145); Total Protein 5.8 g/dL (6.4-8.2); Triglycerides 39 mg/dL (0-150); Uric Acid 3.6 mg/dL (2.6-6.0)
== END 2024-07-23 09:09 | disposition home or self-care (01) ==
LOC: CHSLAB 09:10
PROVIDERS: PCP Internal Medicine; Visit Provider Internal Medicine
DX: E11.22 Type 2 diabetes mellitus with diabetic chronic kidney disease (principal); I10 Essential (primary) hypertension; E78.5 Hyperlipidemia, unspecified; I50.9 Heart failure, unspecified
CPT/HCPCS: 36415; 80053; 80061; 81003; 82550; 83036; 83880; 84550; 85025

== ENCOUNTER 2024-09-20 10:00 | Outpatient (RCR) | payer MEDICARE, SELFPAY ==
[2024-09-20 10:13] LABS: Hematocrit 31.3 % (35.0-42.0); Hemoglobin 9.6 g/dL (11.7-13.8); Mean Corpuscular HGB Conc 30.7 g/dL (32-36); Mean Corpuscular Hemoglobin 29.9 pg (27.0-31.0); Mean Corpuscular Volume 97.5 fL (78.0-102.0); Mean Platelet Volume 11.5 fl (9.2-11.8); Platelet Count Result 204 K/mm3 (150-420); Red Blood Count 3.21 M/mm3 (4.20-5.40); White Blood Count 3.4 K/mm3 (4.8-10.8)
[2024-09-20 10:47] LABS: Alanine Aminotransferase 23 U/L (14-59); Albumin Level 3.1 g/dL (3.4-5.0); Alkaline Phosphatase 92 U/L (46-116); Anion Gap 8 mmol/L (4-12); Aspartate Amino Transferase 14 U/L (15-37); Bilirubin,Total 0.5 mg/dL (0.00-1.00); Blood Urea Nitrogen 23 mg/dL (7-18); Calcium 8.6 mg/dL (8.5-10.1); Carbon Dioxide 28 mmol/L (21-32); Chloride 103 mmol/L (98-108); Estimated Glomerular Filt Rate 36; Glucose 187 mg/dL (70-99); Osmolality Calculated 296 mOsm/kg (285-295); Potassium 3.9 mmol/L (3.5-5.1); Sodium 139 mmol/L (136-145); Total Protein 5.5 g/dL (6.4-8.2)
[2024-09-20 12:43] LABS: Band Neutrophils Percent 2 % (0-6); Basophils Percent Manual 0 % (0-1); Eosinophils Absolute Manual 0.06 K/mm3 (0.02-0.50); Eosinophils Percent Manual 2 % (1-6); Lymphocytes Absolute Manual 0.68 K/mm3 (1.1-4.5); Lymphocytes Percent Manual 20 % (18-44); Metamyelocytes Percent 2 %; Monocytes Percent Manual 12 % (3-9); Neutrophils Absolute Manual 2.17 K/mm3 (1.7-7.2); Neutrophils Percent Manual 62 % (46-73); Platelet Estimate Adequate (Adequate); Total Cells Counted 100
[2024-09-23 15:34] LABS: Kappa\\Lambda Light Chains 42.42 (0.26-1.65); Lambda Light Chain 12.1 mg/L (5.7-26.3)
== END 2024-12-19 23:59 | disposition home or self-care (01) ==
LOC: CHSLAB 10:00
PROVIDERS: PCP Internal Medicine; Visit Provider Internal Medicine Hematology
DX: C90.00 Multiple myeloma not having achieved remission (principal)
CPT/HCPCS: 36415; 80053; 83883; 85025

== ENCOUNTER 2024-11-24 11:15 | Outpatient (CLI) | payer MEDICARE, SELFPAY ==
[2024-11-24 11:37] LABS: Hematocrit 35.8 % (35.0-42.0); Hemoglobin 11.3 g/dL (11.7-13.8); Immature Platelet Fraction Pct 2.7 % (1.0-7.0); Mean Corpuscular HGB Conc 31.6 g/dL (32-36); Mean Corpuscular Hemoglobin 30.3 pg (27.0-31.0); Mean Platelet Volume 10.8 fl (9.2-11.8); Platelet Count Result 100 K/mm3 (150-420); Red Blood Count 3.73 M/mm3 (4.20-5.40); Red Cell Distribution Width 14.6 % (11.6-14.4); White Blood Count 2.3 K/mm3 (4.8-10.8)
[2024-11-24 12:12] LABS: Total Cells Counted 100
[2024-11-24 12:13] LABS: Band Neutrophils Percent 2 % (0-6); Basophils Absolute Manual 0.13 K/mm3 (0-0.1); Basophils Percent Manual 6 % (0-1); Eosinophils Absolute Manual 0.25 K/mm3 (0.02-0.50); Eosinophils Percent Manual 11 % (1-6); Lymphocytes Absolute Manual 0.62 K/mm3 (1.1-4.5); Lymphocytes Percent Manual 27 % (18-44); Monocytes Absolute Manual 0.27 K/mm3 (0.1-0.90); Monocytes Percent Manual 12 % (3-9); Neutrophils Absolute Manual 1.01 K/mm3 (1.7-7.2); Platelet Estimate Adequate (Adequate); Schistocytes None Seen
[2024-11-24 12:14] LABS: Neutrophils Percent Manual 42 % (46-73)
[2024-11-24 12:19] LABS: Alanine Aminotransferase 29 U/L (14-59); Albumin Level 3.3 g/dL (3.4-5.0); Alkaline Phosphatase 85 U/L (46-116); Anion Gap 8 mmol/L (4-12); Aspartate Amino Transferase 12 U/L (15-37); Bilirubin,Total 0.5 mg/dL (0.00-1.00); Blood Urea Nitrogen 23 mg/dL (7-18); Calcium 8.9 mg/dL (8.5-10.1); Carbon Dioxide 29 mmol/L (21-32); Chloride 103 mmol/L (98-108); Estimated Glomerular Filt Rate 36; Glucose 125 mg/dL (70-99); Osmolality Calculated 294 mOsm/kg (285-295); Potassium 4.2 mmol/L (3.5-5.1); Sodium 140 mmol/L (136-145); Total Protein 5.9 g/dL (6.4-8.2)
--- OUTSIDE RECORDS SUMMARY | 2024-11-24 13:01 | XMS_ITS | Encounter Summary ---
Author Organization [facility] Address [address] [place] [address] Care Team Providers Care Exceptional Children Teacher Assistant Name Role Phone Gladys Jin MD Primary Care Provider [phone] Santo Ordonez MD Unavailable [phone] Naila Abernathy MD Unavailable Encounter Details Date Type Department Care Team (Late st Contact Info) Description 11/01/2017 Abstract [facility] [address] [place] [address] , Generic ConversionMD Social History Tobacco Use Types Packs/Day Years Used Date Smoking Tobacco: Never Comments Unknown Sex and Gender Information Value Date Recorded Sex Assigned at Unknown 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 [place] [address] Naila Abernathy MD [address] [place] [address] 03/14/2025 8:45 AM CDT Office Visit [facility] [place] [phone] Naila Abernathy MD [address] [place] [address] 03/14/2025 9:30 AM CDT Office Visit [facility] [address] [place] [address] Leann Dominique MD [address] [place] [address] documented as of this encounter Visit Diagnoses Not on filedocumented in this encounter Care Teams Exceptional Children Teacher Assistant Relationship Specialty Start Date End Date Gladys Jin MD [address] [place] [phone] PCP - General INTERNAL MEDICINE 08/06/18 Santo Ordonez MD [address] [place] [address] [place] [employer] Librarian CARDIOVASCULAR DISEASE 08/06/18 02/14/24 Naila Abernathy MD [address] [place] [address] Consulting Physician CARDIOVASCULAR DISEASE 02/15/24 documented as of this encounter
--- OUTSIDE RECORDS SUMMARY | 2024-11-24 13:01 | XMS_ITS | Encounter Summary ---
Author Organization [facility] Address [address] [place] [address] Care Team Providers Care Twist Tester Name Role Phone Gladys Jin MD Primary Care Provider [phone] Santo Ordonez MD Unavailable [phone] Naila Abernathy MD Unavailable Encounter Details Date Type Department Care Team (Late st Contact Info) Description 09/23/2018 Abstract [facility] [address] [place] [phone] Abstract, Doc [facility] Social History Tobacco Use Types Packs/Day Years Used Date Smoking Tobacco: Never Smokeless Tobacco: Never Comments Unknown Sex and Gender Information Value Date Recorded Sex Assigned at Unknown 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 [address] Naila Abernathy MD [address] [place] [id number] 03/14/2025 8:45 AM CDT Office Visit [facility] [place] [address] Naila Abernathy MD [address] [place] [address] 03/14/2025 9:30 AM CDT Office Visit [facility] [address] [facility] [place] [address] Leann Dominique MD [address] [place], [place] [phone] documented as of this encounter Visit Diagnoses Not on filedocumented in this encounter Care Teams Twist Tester Relationship Specialty Start Date End Date Gladys Jin MD [address] [place] [phone] PCP - General INTERNAL MEDICINE 08/06/18 Santo Ordonez MD [address] [place] [phone] [employer] Electrician CARDIOVASCULAR DISEASE 08/06/18 02/14/24 Naila Abernathy MD [address] [place] [address] Consulting Physician CARDIOVASCULAR DISEASE 02/15/24 documented as of this encounter
--- OUTSIDE RECORDS SUMMARY | 2024-11-24 13:01 | XMS_ITS | Clinical Summary ---
Author Organization [facility] Address [address] [place] [address] Care Team Providers Care Welding Machine Operator Arc Name Role Phone Gladys Jin MD Primary Care Provider [phone] Naila Abernathy MD Unavailable Allergies Active Allergy Reactions Criticality Noted Date Comments Bupropion Unknown 09/23/2018 Statins Myalgias 01/26/2016 Medications allopurinol (ZYLOPRIM) 100 MG tablet Take 2 tablets (200 mg total) by mouth daily. 08/03/2013 Active DULoxetine 60 MG capsule Take 1 capsule (60 mg total) by mouth daily. 02/01/2020 Active traZODone 50 MG tablet 1 tablet (50 mg total) nightly at bedtime. 11/04/2019 Active Cholecalciferol (VITAMIN D3 OR) Take 1 tablet by mouth daily. Active Cyanocobalamin (B-12) 1000 MCG Cap Take 1 tablet by mouth daily. Active levothyroxine (SYNTHROID) 125 MCG tablet Take 112 mcg by mouth every morning. 10/12/2022 Active amLODIPine (NORVASC) 10 MG tablet 0.5 tablets (5 mg total) daily. Active ferrous sulfate EC 325 (65 Fe) MG tablet Take 1 tablet by mouth daily. Active aspirin 81 MG chewable tablet Chew 1 tablet (81 mg total) by mouth daily. Active omeprazole (PRILOSEC) 20 MG capsule Take 1 capsule (20 mg total) by mouth daily. Active acyclovir (ZOVIRAX) 400 MG tablet Take 1 tablet (400 mg total) by mouth every 4 (four) hours while awake. Active oxyCODONE (OXY-IR) 5 MG capsule Take 1 capsule (5 mg total) by mouth every 4 (four) hours as needed. Active dexamethasone (DECADRON) 4 MG tablet TAKE 10 TABLETS BY MOUTH ONCE WEEKLY Active REVLIMID 10 MG capsule TAKE ONE CAPSULE BY MOUTH DAILY ON DAYS 1-14 OF EACH 21 DAY CYCLE 03/03/2024 Active furosemide (LASIX) 20 MG tablet take 1 tablet by mouth every other day 45 tablet 1 04/06/2024 Active Active Problems Problem Noted Date Diagnosed Date Acute tubular necrosis 10/02/2023 Stage 3b chronic kidney disease 10/02/2023 Nephrotic range proteinuria 10/02/2023 Hypertension, essential 10/02/2023 Iron deficiency anemia, unsp ecified iron deficiency anemia type 10/02/2023 Osteoarthritis, unspecified osteoarthritis type, unspecified site 10/02/2023 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 10/02/2023 LUIS (acute kidney injury) 04/09/2023 Bilateral carotid artery stenosis 02/11/2020 Obstructive sleep apnea 10/21/2018 S/P AVR (aortic valve replacement) 09/25/2018 GERD (gastroesophageal reflux disease) 9 Benign essential HTN 09/25/2018 Depression 09/25/2018 Mixed hyperlipidemia 09/25/2018 Type II diabetes mellitus ([facility]) 03/2019 Resolved Problems Problem Noted Date Diagnosed Date Resolved Date CHF (congestive heart failur e) ([facility]) 09/25/2018 02/11/2020 Encounters Date Type Department Care Team Description 09/10/2024 Telephone [facility] [address] [place], [place] [address] Leslie Marino MD Follow Up Call 09/06/2024 9:45 AM DATA ENTRY CLERK Office Visit [facility] [address] [place] [address] Abhilash Fernando MD Ramani, Nirali, MD CKD Follow-up 09/06/2024 Travel from Last 3 Months Family History Medical History Relation Comments Breast Cancer Mother Relation Status Comments Mother Social History Tobacco Use Types Packs/Day Years Used Date Smoking Tobacco: Never Smokeless Tobacco: Never Alcohol Use Standard Drinks/Week Comments Not Currently 0 (1 standard drink = 0.6 oz pur e alcohol) Humiliation, Afraid, Rape, and Kick questionnair e Answer Date Recorded Within the last year, have y ou been afraid of your partner or ex-partner? No 04/09/2023 Within the last year, have y ou been humiliated or emotionally abused in other ways by your partner or ex-partner? No Within the last year, have y ou been kicked, hit, slapped, or otherwise physically hurt by your partner or ex-partner? No 04/09/2023 Within the last year, have y ou been raped or forced to have any kind of sexual activity by your partner or ex-partner? No 04/09/2023 Social Connection and Isolation Panel [NHANES] A nswer Date Recorded In a typical week, how many times do you talk on the phone with family, friends, or neighbors? Three times a week 04/09/20 How often do you get togethe r with friends or relatives? Three times a week 04/09/2023 How often do you attend chur ch or buddhism services? 1 to 4 times per year 04/09/2023 Do you belong to any clubs o r organizations such as shinto groups, unions, fraternal or athletic groups, or school groups? No 04/09/2023 How often do you attend meet ings of the clubs or organizations you belong to? 1 to 4 times per year 04/09/2023 Are you , , di vorced, , never , or living with a partner? 04/09/2023 AUDIT-C Answer Date Recorded Q1: How often do you have a drink containing alcohol? Never 04/09/2023 Q2: How many drinks containi ng alcohol do you have on a typical day when you are drinking? Patient does not drink Q3: How often do you have si x or more drinks on one occasion? Never 04/09/2023 Overall Financial Resource Strain (CARDIA) Answe r Date Recorded How hard is it for you to pa y for the very basics like food, housing, medical care, and heating? Not hard at all 04/09/2023 [facility] [place] [facility] - Occupational Stress Questionnaire Answer Date Recorded Do you feel stress - tense, restless, nervous, or anxious, or unable to sleep at night because your mind is troubled all the time - these days? Only a little 04/09/2023 Exercise Vital Sign Answer Date Recorde d On average, how many days pe r week do you engage in moderate to strenuous exercise (like a brisk walk)? 0 days 04/09/2023 On average, how many minutes do you engage in exercise at this level? 0 min 04/09/2023 Hunger Vital Sign Answer Date Recorded Within the past 12 months, y ou worried that your food would run out before you got the money to buy more. Never true 04/09/20 Within the past 12 months, t he food you bought just didn't last and you didn't have money to get more. Never true 04/09/2023 PRAPARE - Transportation Answer Date Re corded In the past 12 months, has l ack of transportation kept you from medical appointments or from getting medications? No 03/19 In the past 12 months, has l ack of transportation kept you from meetings, work, or from getting things needed for daily living? No 04/09/2023 Housing Stability Vital Sign Answer Behzad e Recorded In the last 12 months, was t here a time when you were not able to pay the mortgage or rent on time? No 04/09/2023 In the last 12 months, how many places have you lived? 1 04/09/2023 In the last 12 months, was t here a time when you did not have a steady place to sleep or slept in a halfway (including now)? No 04/09/2023 Comments Unknown Sex and Gender Information Value Date Recorded Sex Assigned at Unknown 09/16/2024 8:29 AM DATA ENTRY CLERK Legal Sex Female 8:54 PM CDT Gender Identity Not on file Sexual Orientation Not on file Last Filed Vital Signs Vital Sign Reading Time Taken Comments Blood Pressure 141/77 09/06/2024 9:37 AM DATA ENTRY CLERK Pulse 71 09/06/2024 9:37 AM DATA ENTRY CLERK Temperature 36.2 C (97.2 F) 08/04/2023 12:53 PM DATA ENTRY CLERK Respiratory Rate 12 03/05/2024 1:18 PM CDT Oxygen Saturation 99% 03/05/2024 1:18 PM CDT Inhaled Oxygen Concentration - - Weight 59.2 kg (130 lb 9.6 oz) 09/06/2024 9:37 A M DATA ENTRY CLERK Height 157.5 cm (5' 2 ) 09/06/2024 9:37 AM DATA ENTRY CLERK Body Mass Index 23.89 09/06/2024 9:37 AM DATA ENTRY CLERK Plan of Treatment Upcoming Encounters Date Type Department Care Team (Late st Contact Info) Description 03/07/2025 8:[address] [facility] [address] [place] [address] [place] [address] Naila Abernathy MD [address] [place] [address] 03/14/2025 8:45 AM CDT Office Visit [facility] [address] [place] [address] [place] [address] Naila Abernathy MD [address] [place] [address] 03/14/2025 9:30 AM CDT Office Visit [facility] [address] [place] [address] Leann Dominique MD [address] [place], [place] [id number] Health Maintenance Due Date Last Done Comments Kidney Health Evaluation 1945 Hemoglobin A1C 1945 Diabetes: Retinopathy Eye Exam 11/01/1963 DTaP, Tdap and Td Vaccines ( 1 - Tdap) 1964 Zoster Vaccines (1 of 2) 1964 Annual Medicare Wellness Visit 2010 Lipid Panel 05/07/2015 05/07/2014 Pneumococcal Vaccine: 65+ Years (2 of 2 - PPSV23 or PCV20) 06/23/2015 04/28/2015 RSV Immunization or 60+ Years (1 - 1-dose 75+ series) 2020 COVID-19 Vaccine (4 - 2024-2 5 season) 2024 05/26/2021, 10/11/2020, 09/20/2020 Hepatitis C Completed 04/22/2023, 04/19/2023 Meningococcal B Vaccine Aged Out No l onger eligible based on patient's age to complete this topic Meningococcal Vaccine Aged Out No seng natalee eligible based on patient's age to complete this topic RSV Immunizations Under 20 Months Aged Out No longer eligible b ased on patient's age to complete this topic Procedures Procedure Name Priority Date/Time Associated Diagnosis Comments HEPATITIS PANEL,ACUTE Routine 04/22/2023 7:27 AM CDT LIPID PANEL Routine 05/07/2014 12:00 AM CDT from Last 3 Months or Most Recently Relevant to Health Maintenance Results * HEPATITIS PANEL,ACUTE (04/22/2023 7:27 AM CDT) HEPATITIS B SURFACE AG NON-REACT ANABELLA NON-REACT ANABELLA 09/22/2023 2:22 PM DATA ENTRY CLERK [facility] Comment:HBsAg NOT DETECTED. HEP B CORE IGM NON-REACT ANABELLA NON-REACT ANABELLA 09/22/2023 2:22 PM DATA ENTRY CLERK [facility] Comment: IgM ANTI HBc NOT DETECTED. DOES NOT EXCLUDE THE POSSIBILITY OF EXPOSURE TO OR INFECTION WITH HBV. NO RETEST REQUIRED. HIGH DOSES OF BIOTIN MAY INTERFERE WITH THIS TEST RESULT. CORRELATION TO CLINICAL HISTORY AND PRESENTATION RECOMMENDED. HAV IGM NON-REACT ANABELLA NON-REACT ANABELLA 09/22/2023 2:22 PM DATA ENTRY CLERK [facility] Comment: IgM ANTI HAV NOT DETECTED. DOES NOT EXCLUDE THE POSSIBILITY OF EXPOSURE TO OR INFECTION WITH HAV. LEVELS OF IgM ANTI HAV MAY BE BELOW THE CUTOFF IN EARLY INFECTION. HEPATITIS C AB NON-REACT ANABELLA NON-REACT ANABELLA 09/22/2023 2:22 PM DATA ENTRY CLERK [facility] Comment: ANTIBODIES TO HCV NOT DETECTED. DOES NOT EXCLUDE THE POSSIBILITY OF EXPOSURE TO HCV. 04/22/2023 7:27 AM CDT us Obed Posadas MD LABORATORY Final Resul t [facility] [address] [place] [address], [id number] * LIPID PANEL (05/07/2014 12:00 AM CDT) TRIGLYCERIDES 100 0 - 150 mg/dl [facility] TO EPIC CONVERSION CHOLESTEROL 243 0 - 200 mg/dl [facility] TO EPIC CONVERSION HDL 88 40 - 59 mg/dl [facility] TO EPIC CONVERSION LDL CONVERSION 135 0 - 100 mg/dl [facility] TO EPIC CONVERSION CHOL/HDL RATIO 2.8 <4.0 (Calc) [facility]IN[employer] TO EPIC CONVERSION 05/07/2014 05/07/2014 us Generic Conversion Md [facility] Final R esult MEDINFORMATIX TO EPIC CONVERSION from Last 3 Months or Most Recently Relevant to Health Maintenance Insurance GENERIC - COMMERCIAL GENERIC - COMMERCIAL MEDICARE Advance Directives Documents on File Type Date Recorded Patient Rug Inspector Expl anation Power of Central Processing Technician 04/10/2023 POWER OF A TTORNEY * DNR (Latest Code Status on File) Date Activated Date Inactivated Comments 04/09/2023 2:05 PM 07/09/2023 11:00 AM Care Teams Welding Machine Operator Arc Relationship Specialty Start Date End Date Gladys Jin MD [address] [place] [id number] PCP - General INTERNAL MEDICINE 08/06/18 Naila Abernathy MD [address] [place] [address] Consulting Physician CARDIOVASCULAR DISEASE 02/15/24
--- OUTSIDE RECORDS SUMMARY | 2024-11-24 13:01 | XMS_ITS | Encounter Summary ---
Author Organization [facility] Address [address] [place] [address] Care Team Providers Care Hitcher Name Role Phone Gladys Jin MD Primary Care Provider [phone] Santo Ordonez MD Unavailable [phone] Naila Abernathy MD Unavailable Encounter Details Date Type Department Care Team (Late st Contact Info) Description 12/15/2023 Pre-Procedure Call [facility] Inter[facility]iology [address] [place] [address] Danielle Briseno, RN Social History Tobacco Use Types Packs/Day Years [...] often do you attend chur ch or yazdanism services? 1 to 4 times per year 04/09/2023 Do you belong to any clubs o r organizations such as mormon groups, unions, fraternal or athletic groups, or [...] and heating? Not hard at all 04/09/2023 [facility] - Occupational Stress Questionnaire Answer Date Recorded [...] place to sleep or slept in a group home (including now)? No 04/09/2023 Comments Unknown Sex and Gender Information Value Date Recorded Sex Assigned at Unknown 09/16/2024 8:29 AM FLAME CUTTING MACHINE OPERATOR Legal Sex Female 8:54 PM CDT Gender Identity Not on file Sexual Orientation Not on file documented as of this encounter Functional Status * Are you deaf or do you have serious difficulty hearing Answer Date of Assessment Author Status Yes 04/09/2023 6:00 PM ASHERT Kaela Fulton RN Active * Are you blind or do you have serious difficulty seeing, even when wearing glasses? Answer Date of Assessment Author Status No 04/09/2023 6:00 PM Kaela Tovar RN Active * Do you have serious difficulty walking or climbing stairs? Answer Date of Assessment Author Status Yes 04/09/2023 6:00 PM Kaela Tovar RN Active * Do you have difficulty dressing or bathing? Answer Date of Assessment Author Status Yes 04/09/2023 6:00 PM Kaela Tovar RN Active * Because of a physical, mental, or emotional condition, do you have difficulty doing errands alone such as visiting a doctor's office or shopping? Answer Date of Assessment Author Status No 04/09/2023 6:00 PM Kaela Tovar RN Active documented as of this encounter Mental Status * Because of a physical, mental, or emotional condition, do you have serious difficulty concentrating, remembering, or making decisions? Answer Entry Date Author Status No 04/09/2023 6:00 PM CDT Kaela Fulton RN Active documented in this encounter Plan of Treatment Upcoming Encounters Date Type Department Care Team (Late st Contact Info) Description 03/07/2025 8:00 AM CDT Appointment [facility] [address] [place] [address] [place] [address] Naila Abernathy MD [address] [place], [place] [address] 03/14/2025 8:45 AM CDT Office Visit [facility] [place] [phone] Naila Abernathy MD [address] [place] [address] 03/14/2025 9:30 AM CDT Office Visit [facility] [address] [place] [address] [place] [address] [place] [phone] documented as of this encounter Visit Diagnoses Not on filedocumented in this encounter Care Teams Hitcher Relationship Specialty Start Date End Date Gladys Jin MD [address] [place] [address] PCP - General INTERNAL MEDICINE 08/06/18 Santo Ordonez MD [address] [place] [address] [place] Site Controller CARDIOVASCULAR DISEASE 08/06/18 02/14/24 Naila Abernathy MD [address] [place] [address] Consulting Physician CARDIOVASCULAR DISEASE 02/15/24 documented as of this encounter
[2024-11-26 02:09] LABS: Protein, Total 5.6 g/dL (6.1-8.1)
[2024-11-26 10:23] LABS: Immunoglobulin A 14 mg/dL (70-320); Immunoglobulin G 314 mg/dL (600-1540); Immunoglobulin M <5 mg/dL (50-300)
[2024-11-26 15:53] LABS: Kappa\\Lambda Light Chains 11.81 (0.26-1.65)
== END 2024-11-24 11:16 | disposition home or self-care (01) ==
LOC: CHSLAB 11:19
PROVIDERS: PCP Internal Medicine; Visit Provider Internal Medicine Hematology
DX: C90.00 Multiple myeloma not having achieved remission (principal)
CPT/HCPCS: 36415; 80053; 82784; 83883; 84155; 84165; 85025; 85055; 86334

== ENCOUNTER 2025-01-04 11:47 | Outpatient (CLI) | payer MEDICARE, SELFPAY ==
--- OUTSIDE RECORDS SUMMARY | 2025-01-04 11:53 | XMS_ITS | Encounter Summary ---
Author Organization [facility] Address [address] [place] [address] Care Team Providers Care Resident Services Coordinator Name Role Phone Gladys Jin MD Primary Care Provider [phone] Santo Ordonez MD Unavailable [phone] Naila Abernathy MD Unavailable Encounter Details Date Type Department Care Team (Late st Contact Info) Description 11/01/2017 Abstract [facility] [address] [place] [address] , Generic ConversionMD Social History Tobacco Use Types Packs/Day Years Used Date Smoking Tobacco: Never Comments Unknown Sex and Gender Information Value Date Recorded Sex Assigned at Unknown 09/16/2024 8:29 AM BIBLE WORKER Legal Sex Female 8:54 PM CDT Gender Identity Not on file Sexual Orientation Not on file documented as of this encounter Plan of Treatment Upcoming Encounters Date Type Department Care Team (Late st Contact Info) Description 03/07/2025 8:[address] [facility] [place] [address] Naila Abernathy MD [address] [place] [address] 03/14/2025 8:45 AM CDT Office Visit [facility] [place] [phone] Naila Abernathy MD [address] [place] [address] documented as of this encounter Visit Diagnoses Not on filedocumented in this encounter Care Teams Resident Services Coordinator Relationship Specialty Start Date End Date Gladys Jin MD [address] [place] [phone] PCP - General INTERNAL MEDICINE 08/06/18 Santo Ordonez MD [address] [place] [phone] [place] [employer] Boring Machine Operator CARDIOVASCULAR DISEASE 08/06/18 02/14/24 Naila Abernathy MD [address] [place] [address] Consulting Physician CARDIOVASCULAR DISEASE 02/15/24 documented as of this encounter
--- OUTSIDE RECORDS SUMMARY | 2025-01-04 11:53 | XMS_ITS | Encounter Summary ---
Author Organization [facility] Address [address] [place] [address] Care Team Providers Care Video Game Tester Name Role Phone Gladys Jin MD Primary Care Provider [phone] Santo Ordonez MD Unavailable [phone] Naila Abernathy MD Unavailable Encounter Details Date Type Department Care Team (Late st Contact Info) Description 09/23/2018 Abstract [facility] [address] [place] [phone] Abstract, Doc [facility] Social History Tobacco Use Types Packs/Day Years Used Date Smoking Tobacco: Never Smokeless Tobacco: Never Comments Unknown Sex and Gender Information Value Date Recorded Sex Assigned at Unknown 09/16/2024 8:29 AM 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 [address] Naila Abernathy MD [address] [place] [address] 03/14/2025 8:45 AM CDT Office Visit [facility] [phone] Naila Abernathy MD [address] [place] [address] documented as of this encounter Visit Diagnoses Not on filedocumented in this encounter Care Teams Video Game Tester Relationship Specialty Start Date End Date Gladys Jin MD [address] [place] [phone] PCP - General INTERNAL MEDICINE 08/06/18 Santo Ordonez MD [address] [place] [phone] [place] Ceramic Sprayer CARDIOVASCULAR DISEASE 08/06/18 02/14/24 Naila Abernathy MD [address] [place] [address] Consulting Physician CARDIOVASCULAR DISEASE 02/15/24 documented as of this encounter
--- OUTSIDE RECORDS SUMMARY | 2025-01-04 11:53 | XMS_ITS | Encounter Summary ---
Author Organization [facility] Address [address] [place] [address] Care Team Providers Care Residential Designer Name Role Phone Gladys Jin MD Primary Care Provider Santo Ordonez MD Unavailable [phone] Naila Abernathy MD Unavailable Encounter Details Date Type Department Care Team (Late st Contact Info) Description 12/15/2023 Pre-Procedure Call [facility] Inter[facility] Radiology [address] [place] [address] Danielle Briseno, RN Social History [...] often do you attend chur ch or amish services? 1 to 4 times per year 04/09/2023 Do you belong to any clubs o r organizations such as holiness groups, unions, fraternal or athletic groups, or [...] and heating? Not hard at all 04/09/2023 [facility] - Occupational Stress Questionnaire Answer Date Recorded [...] place to sleep or slept in a jail (including now)? 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 Legal Sex Female 8:54 PM CDT Gender [...] Info) Description 03/07/2025 8:00 AM CDT Appointment [address] [place] [address] Naila Abernathy MD [address] [place] [address] 03/14/2025 8:45 AM CDT Office Visit [facility] [place] [phone] Naila Abernathy MD [address] [place] [address] documented as of this encounter Visit Diagnoses Not on filedocumented in this encounter Care Teams Residential Designer Relationship Specialty Start Date End Date Gladys Jin MD [address] [place] [address] PCP - General INTERNAL MEDICINE 08/06/18 Santo Ordonez MD [address] [place] [address] [place] Animal Cruelty Investigation Supervisor CARDIOVASCULAR DISEASE 08/06/18 02/14/24 Naila Abernathy MD [address] [place] [address] Consulting Physician CARDIOVASCULAR DISEASE 02/15/24 documented as of this encounter
--- OUTSIDE RECORDS SUMMARY | 2025-01-04 11:53 | XMS_ITS | Data Portability ---
Author Organization [place] [facility], Main Office Address [address] [place] [address] Care Team Providers Care Candy Supervisor Name Role Phone SHAUN MCKEON Primary Care Provider SHAUN MCKEON Referring Provider Assessment Encounter Date Assessment Date Assessment LastModified by Organization Details LastModified Time 05/14/2023 05/14/2023 77-year-old female presents for evaluation of her left shoulder. She has a longstanding history of shoulder pain, was previously seen Dr. Kim. She has pain especially with sleeping and when she wakes up. It is worse also with activity, especially lifting and overhead motions. She received a set of cortisone injections in August, but now the left 1 is wearing off and hurting more. She currently rates as 8/10. She has been taking Tylenol and doing physical therapy. She is unable take anti-inflammator ies because of other medical issues, including she reports that she has bone cancer. Review of systems per patient questionnaire Physical exam: She has diffuse tenderness around the shoulder. Range of motion 130/20/back pocket. She has pain and weakness with resisted external rotation elevation. Neurovascular intact. Previous x-rays were reviewed, demonstrating preserved glenohumeral joint space, some subacromial impingement We will repeat the injection on her left shoulder. She tolerated well and had some immediate improvement. We will have her follow up p.r.n.. She should continue to take Tylenol and do her therapy exercises. Not available 05/15/2023 21:37:28 10/14/2023 10/14/2023 77-year-old female presents for re-evaluation of her bilateral shoulders. She has a longstanding history of shoulder pain. She has pain especially with sleeping and when she wakes up. It is worse also with activity, especially lifting and overhead motions. Her right side is worse than her left. She received a cortisone injection into the left shoulder in April, the right side had an injection awhile before that she states. Both gaver her relief for many months before wearing off. She currently rates pain 10/10. She has been taking Tylenol and doing physical therapy exercises at home. She is unable take anti-inflammator ies because of other medical issues, including she reports that she has bone cancer. She is requesting bilateral injections today. Physical exam: She has diffuse tenderness around the bilateral shoulders. ROM on right 100/10/back pocket, ROM on left 130/30/back pocket. She has pain and weakness with resisted external rotation elevation. Neurovascular intact. Previous x-rays were reviewed, demonstrating preserved glenohumeral joint space, some subacromial impingement Today we discussed the risks and benefits of cortisone injections, she would like to proceed with bilateral shoulder injections today. She should continue to work on exercises at home on her own and taking tylenol as needed. We can see her back as needed for pain. Not available 10/14/2023 11:11:13 02/11/2024 02/11/2024 78-year-old female presents for follow-up of her bilateral shoulders. She reports her left shoulder is doing much better, still having significant pain in her right shoulder. We had tried a course of home exercises but she reports that those caused her too much pain and she was unable to do them. She has multiple myeloma and is currently on chemo She has diffuse tenderness around the bilateral shoulders. ROM on right 100/10/back pocket, ROM on left 130/30/back pocket. She has pain and weakness with resisted external rotation elevation. Neurovascular intact. We repeated the cortisone injection for the right side. She she tolerated well. She should continue to do her exercises and use anti-inflammator ies. Her left side can be activities as tolerated. We will have her follow up PRN. Not available 02/12/2024 23:08:03 06/09/2024 06/09/2024 78-year-old female presents for follow-up of her right shoulder. She has a rotator cuff tear, and AC arthrosis. She previously got an injection in January and it worked well for her and lasted up until recently. She currently rates her pain as 7/10. She wants a repeat injection today. Exam unchanged from previously We proceeded with the injection and she tolerated well. She may continue to be activities as tolerated. She should continue taking anti-inflammator ies and do her physical therapy exercises. Follow-up as needed. Not available 06/10/2024 00:51:12 10/27/2024 10/27/2024 78-year-old female presents for follow-up of her right shoulder. She has a rotator cuff tear, and AC arthrosis. She has been getting cortisone injections every 3 months that last almost the entire 3 months. She is not a surgical candidate due to other health issues. She currently rates her pain as 7/10. She wants a repeat injection today. Exam unchanged from previously We proceeded with the injection and she tolerated well. She may continue to be activities as tolerated. She should continue taking anti-inflammator ies and do her physical therapy exercises. Follow-up as needed. Not available 10/27/2024 10:30:02 Plan of Treatment Reminders Order Date Submit Date Provider Last Modified By Organization Details Last Modified Time Details Appointments None recorded. Lab None recorded. Referral None recorded. Procedures injection/a spiration joint/bursa (PROC) 2024 025 [email or web address] In-Office Order, Internal Use Only DO Not Attach Compendium DO Not Attach Compendium, Do Not Delete/merge, [id number] 10:20:35 injection/a spiration joint/bursa (PROC) 2023 024 [email or web address] In-Office Order, Internal Use Only DO Not Attach Compendium DO Not Attach Compendium, Do Not Delete/merge, [id number] 10:31:39 injection/a spiration joint/bursa (PROC) 2023 024 [email or web address] 3 In-Office Order, Internal Use Only DO Not Attach Compendium DO Not Attach Compendium, Do Not Delete/merge, [id number] 09:59:12 injection/a spiration joint/bursa (PROC) 2023 024 [email or web address] 3 In-Office Order, Internal Use Only DO Not Attach Compendium DO Not Attach Compendium, Do Not Delete/merge, [id number] 10:46:54 injection/a spiration joint/bursa (PROC) - in office procedure, administere d by provider 2022 023 [email or web address] 3 In-Office Order, Internal Use Only DO Not Attach Compendium DO Not Attach Compendium, Do Not Delete/merge, [id number] 10:26:27 Surgeries None recorded. Imaging XR, shoulder [address], [address], [place], [address], 4 23:26:19 Medication Orders bupivacaine HCl 0.5 % (5 mg/mL) injection solution [address]/Pharmacy #[id number], [address] [place] [address], [address], 5 13:40:38 Kenalog 10 mg/mL suspension for injection [address]/Pharmacy #[id number], [address] [place], [address], 5 13:40:38 bupivacaine HCl 0.5 % (5 mg/mL) injection solution [address]/Pharmacy #40951, [address] [place], [address], 4 23:37:07 Kenalog 10 mg/mL suspension for injection [address]/Pharmacy #14791, [address] [place], [address], 4 23:37:07 Kenalog 10 mg/mL suspension for injection [address]/Pharmacy #59630, [address] [place], [address], 4 14:06:25 Marcaine (PF) 0.5 % (5 mg/mL) injection solution [address]/Pharmacy #00591, [address] [place], [address], 4 10:21:03 bupivacaine HCl 0.5 % (5 mg/mL) injection solution [address]/Pharmacy #94929, [address] [place], [address], 4 23:26:19 Kenalog 10 mg/mL suspension for injection [address]/Pharmacy #49366, [address] [place], [address], 4 23:26:19 Kenalog 10 mg/mL suspension for injection [address]/Pharmacy #30841, [address] [place], [address], 3 23:53:09 ropivacaine (PF) 5 mg/mL (0.5 %) injection solution [address]/Pharmacy #[id number], [address] [place], [address], 4 10:21:27 Patient TargetsNo targets recorded. Patient InstructionsNo instructions recorded. Reason for Referral None Reported. Results Created Date Observation Date Name Description Value Unit Range Abnormal Flag Note LastModifiedBy Organization Detail LastModifiedTime 10/14/19 24 XR, shoul catalina No observ ation record ed. [email or web address] [facility] [address], [place], [address], 10/14/2023 11:06:18 10/21/19 24 04/30/2022 XR, shoul catalina No observ ation record ed. [email or web address] Not Available 2023 17:13:50 10/21/19 24 06/15/2022 MRI, shoul catalina, w/o contr ast No observ ation record ed. [email or web address] Not Available 2023 17:15:00 10/21/19 24 04/30/2022 XR, shoul catalina No observ ation record ed. [email or web address] Not Available 2023 17:15:46 10/21/19 24 06/14/2022 MRI, shoul catalina, w/o contr ast No observ ation record ed. Not Available 2023 17:17:00 Result Notes None recorded. Problems Name Problem SNOMED Code Status Onset Date Resolution Date Notes Provider Name and Address Organization Details Recorded Time Partial thickness rotator cuff tear Active Not Available [facility] 3 14:09:21 Osteoarthr itis of hip 483583319 Active Not Available [facility] 3 14:09:21 Osteoarthr itis of knee 368380189 Active Not Available [facility] 3 14:09:21 Enthesopat hy of hip region 16128050 Active Not Available [facility] 3 14:09:21 Knee pain Active Not Available [facility] 3 14:09:21 Osteoarthr itis 422077109 Active Not Available [facility] 3 14:09:21 Pain of hip region 45389451 Active Not Available [facility] 3 14:09:21 Pain of left shoulder joint 3486542504015 9109 Active 2022 Miladis Enamorado ATC L null, [facility] [employer] [facility] 3 09:55:55 Bilateral shoulder joint pain 0713464070964 9104 Active 2023 Miladis Enamorado ATC L null, [place] [facility] [place] [employer] [facility] 4 10:09:09 Pain of right shoulder joint 3677939261714 9100 Active 2023 Kait Freitas, RMA null, [place] [employer] [facility] 10:23:54 Problem Notes None recorded. Procedures Surgical History Date Name Laterality Status Provider Name and Address Organization Details Recorded Time 5 Ortho - Cortisone Injection completed Clementina Garland, [employer]IV[employer] CO[employer]INATOR [address], [place], [address], [facility] 10/27/2024 10:33:11 4 Ortho - Cortisone Injection completed Clayton Fofana MD [address], [address], [place], [address], [employer] 06/10/2024 00:51:22 4 Ortho - Cortisone Injection completed Clayton Fofana MD [address], [address], [place], [address], [employer] 02/12/2024 23:06:43 4 Ortho - Cortisone Injection completed Clementina Garland, ACCOUNT[employer] RECEIVABLE COORDINATOR [address], [address], [place], [address], [employer] 10/14/2023 11:11:24 3 Ortho - Cortisone Injection completed Clayton Fofana MD [address], [address], [place], [address], [employer] 05/15/2023 21:37:45 Imaging Results Imaging Date Name Status LastModified by Organiz ation Details LastModified Time 10/14/2023 XR, shoulder completed [email or web address] [facility] [address], [place], [address], 10/14/2023 11:06:18 04/30/2022 XR, shoulder completed [email or web address] Information not available 10/21/2023 17:13:50 06/15/2022 MRI, shoulder, w/o contrast completed [email or web address] Information not available 10/21/2023 17:15:00 04/30/2022 XR, shoulder completed Information not available 10/21/2023 17:15:46 06/14/2022 MRI, shoulder, w/o contrast completed [email or web address] Information not available 10/21/2023 17:17:00 Procedure Notes None recorded. Medical Equipment None Reported. Medications Name Sig Start Date Stop Date Status Note LastModified by Organization Details LastModified Time carisoprodo l 350 mg tablet 02/06 completed Not Available Not Available Not Available cyclobenzap rine 10 mg tablet 02/06 completed Not Available Not Available Not Available amoxicillin 500 mg capsule TAKE 4 CAPSULES BY MOUTH 1 HOUR BEFORE EACH DESIGNATE D DENTAL APPOINTME NT 02/02 completed Not Available Not Available Not Available furosemide 40 mg tablet 02/06 completed Not Available Not Available Not Available fluconazole 100 mg tablet 02/06 completed Not Available Not Available Not Available bupropion HCl SR 150 mg tablet,12 hr sustained-r elease 02/06 completed Not Available Not Available Not Available levothyroxi ne 137 mcg tablet 02/06 completed Not Available Not Available Not Available prednisone 10 mg tablet 02/06 completed Not Available Not Available Not Available citalopram 40 mg tablet 02/06 completed Not Available Not Available Not Available trazodone 50 mg tablet TAKE 1 TO 2 TABLETS BY MOUTH AT BEDTIME NEEDED active Not Available Not Available No t Available tizanidine 4 mg tablet 02/06 completed Not Available Not Available Not Available valacyclovi r 1 gram tablet 02/06 completed Not Available Not Available Not Available Nystop 100,000 unit/gram topical powder 02/06 completed Not Available Not Available Not Available ondansetron HCl 8 mg tablet TAKE 1 TABLET BY MOUTH EVERY 8 HOURS 06/09 completed Not Available Not Available Not Available bupivacaine HCl 0.5 % (5 mg/mL) injection solution Take 4 mL by injection route. 2024 active Not Available Not Available Not Avai lable amlodipine 2.5 mg tablet TAKE 1 TABLET BY MOUTH EVERY DAY 10/22 completed Not Available Not Available Not Available amlodipine 5 mg tablet TAKE 1 TABLET BY MOUTH EVERY DAY 06/08 completed Not Available Not Available Not Available acyclovir 400 mg tablet TAKE 1 TABLET DAILY active Not Available Not Available No t Available allopurinol 100 mg tablet TAKE 1 TABLET BY MOUTH TWICE A DAY active Not Available Not Available No t Available morphine ER 30 mg tablet,exte nded release Take by oral route for 30 days. 06/09 completed Not Available Not Available Not Available sulfamethox azole 800 mg-trimetho prim 160 mg tablet 02/06 completed Not Available Not Available Not Available hydrocodone 10 mg-acetamin ophen 325 mg tablet TAKE 1 TABLET BY MOUTH EVERY 4 TO 6 HOURS NEEDED FOR PAIN active Not Available Not Available No t Available omeprazole 40 mg capsule,del ayed release 02/06 completed Not Available Not Available Not Available meloxicam 7.5 mg tablet TAKE 1 TABLET BY MOUTH EVERY DAY 02/02 completed Not Available Not Available Not Available hydrocodone 10 mg-acetamin ophen 500 mg tablet 02/06 completed Not Available Not Available Not Available amoxicillin 875 mg tablet 02/06 completed Not Available Not Available Not Available potassium chloride ER 20 mEq tablet,exte nded release(par t/cryst) 02/06 completed Not Available Not Available Not Available famotidine 20 mg tablet TAKE 1 TABLET BY MOUTH DAILY ON TREATMENT DAYS 8, 15, AND 22 06/09 completed Not Available Not Available Not Available prednisolon e acetate 1 % eye drops,suspe nsion 02/06 completed Not Available Not Available Not Available ciprofloxac in 0.3 % eye drops 02/06 completed Not Available Not Available Not Available Kenalog 10 mg/mL suspension for injection Take 1 mL by injection route. 2024 active [facility]: 0003- 0494- 20 Not Available Not Available Not Available amlodipine 10 mg tablet TAKE 1 TABLET BY MOUTH EVERY DAY active Not Available Not Available No t Available dexamethaso ne 2 mg tablet TAKE 10 TABLETS BY MOUTH ONCE WEEKLY active Not Available Not Available No t Available hydralazine 100 mg tablet 02/06 completed Not Available Not Available Not Available pantoprazol e 40 mg tablet,enrrique yed release TAKE 1 TABLET BY MOUTH EVERY DAY 02/02 completed Not Available Not Available Not Available dexamethaso ne 4 mg tablet TAKE 5 TABLETS ONCE WEEKLY active Not Available Not Available No t Available warfarin 2 mg tablet 02/06 completed Not Available Not Available Not Available lidocaine 5 % topical patch APPLY 1 PATCH AND LEAVE IN PLACE FOR 12 HOURS, THEN REMOVE AND LEAVE OFF FOR 12 HOURS active Not Available Not Available No t Available metoprolol tartrate 50 mg tablet 02/06 completed Not Available Not Available Not Available omeprazole 20 mg capsule,del ayed release TAKE 1 CAPSULE BY MOUTH ONCE DAILY 30 MINUTES TO 1 HOUR BEFORE A MEAL active Not Available Not Available No t Available folic acid 1 mg tablet TAKE 1 TABLET BY MOUTH EVERY DAY 06/09 completed Not Available Not Available Not Available hydrochloro thiazide 25 mg tablet 02/06 completed Not Available Not Available Not Available mupirocin 2 % topical ointment 02/06 completed Not Available Not Available Not Available furosemide 20 mg tablet TAKE 1 TABLET BY MOUTH EVERY OTHER DAY 06/09 completed Not Available Not Available Not Available metoprolol succinate ER 25 mg tablet,exte nded release 24 hr TAKE 1 TABLET BY MOUTH EVERY DAY AT NIGHT active Not Available Not Available No t Available warfarin 1 mg tablet 02/06 completed Not Available Not Available Not Available losartan 100 mg tablet TAKE 1 TABLET BY MOUTH EVERY DAY 06/09 completed Not Available Not Available Not Available atovaquone 750 mg/5 mL oral suspension TAKE 10 ML BY MOUTH DAILY active Not Available Not Available No t Available metoclopram ben 10 mg tablet TAKE 1 TABLET BY MOUTH 3 TIMES PER DAY 30 [address]EA LS AND AT BEDTIME 02/06 completed Not Available Not Available Not Available levothyroxi ne 112 mcg tablet TAKE 1 TABLET BY MOUTH EVERY DAY active Not Available Not Available No t Available amoxicillin 875 mg-potassiu m clavulanate 125 mg tablet 02/06 completed Not Available Not Available Not Available oxycodone 5 mg tablet TAKE 1 TABLET BY MOUTH THREE TIMES A DAY NEEDED 10/22 completed Not Available Not Available Not Available enoxaparin 40 mg/0.4 mL subcutaneou s syringe 02/06 completed Not Available Not Available Not Available ketorolac 0.4 % eye drops 02/06 completed Not Available Not Available Not Available Marcaine (PF) 0.5 % (5 mg/mL) injection solution in office 06/09 completed Not Available Not Available Not Available Jantoven 5 mg tablet 02/06 completed Not Available Not Available Not Available metoprolol tartrate 25 mg tablet 02/06 completed Not Available Not Available Not Available duloxetine 60 mg capsule,del ayed release TAKE 1 CAPSULE BY MOUTH EVERY DAY active Not Available Not Available No t Available Revlimid 10 mg capsule TAKE 1 CAPSULE BY MOUTH DAILY ON DAYS 1-14 OF A 21 DAY CYCLE 06/09 completed Not Available Not Available Not Available ropivacaine (PF) 5 mg/mL (0.5 %) injection solution IN OFFICE 06/09 completed [facility] [phone] -[phone] Not Available Not Available Not Available Eliquis 5 mg tablet TAKE 1 TABLET BY MOUTH TWICE A DAY 06/09 completed Not Available Not Available Not Available Pomalyst 2 mg capsule TAKE 1 CAPSULE BY MOUTH EVERY DAY FOR 21 DAYS THEN 7 DAYS OFF 10/22 completed Not Available Not Available Not Available cyclophosph amide 50 mg capsule 06/09 completed Not Available Not Available Not Available Lokelma 10 gram oral powder packet TAKE 1 PACKET TWICE DAILY active Not Available Not Available No t Available Vitals Date Recorded Body height Body mass index (BMI) Body weight Provider Name and Address Organization Details Last Updated DateTime 05/14/2023 157.48 cm 25.2 kg/m2 36294.75 JOAN Torres [facility] 05/14/2023 09:55:21 Date Recorded Body height Body mass index (BMI) Body weight Provider Name and Address Organization Details Last Updated DateTime 10/14/2023 157.48 cm 20.7 kg/m2 07103.94 JOAN Torres [facility] 10/14/2023 10:07:57 Date Recorded Body height Body mass index (BMI) Body weight Provider Name and Address Organization Details Last Updated DateTime 02/11/2024 157.48 cm 21.2 kg/m2 67171.71 veronika Freitas Kra[facility] 02/11/2024 09:34:38 Date Recorded Body height Body mass index (BMI) Body weight Provider Name and Address Organization Details Last Updated DateTime 06/09/2024 157.48 cm 21.9 kg/m2 69143.08 veronika Freitas [facility] [employer] 06/09/2024 10:19:34 Date Recorded Body height Body mass index (BMI) Body weight Provider Name and Address Organization Details Last Updated DateTime 10/27/2024 157.48 cm 21.9 kg/m2 84665.08 g EUNICE Chu [employer] 10/27/2024 10:19:10 Social History Question Answer Notes LastModified by Keegy Details LastModified Time Tobacco Smoking Status Unknown If Ever Smoked Not Available [employer] 10/16/2022 14:08:47 What Was The Date Of Your Most Recent Tobacco Screening? 06/09/2024 Information not available 06/09/2024 Sex: Unknown Functional Status Question Answer Note LastModified by Keegy Details LastModified Time What is your level of alcohol consumption? None [id number] Information not available 10/16/2022 Mental Status None recorded. Family History Relationship Description Onset Age of this Age Resolved Age Notes LastModified by Organization Details LastModified Time Father Family history of malignant neoplasm [id number] Not available 10/16/2022 14:08:49 Father Hypertensive disorder [id number] Not available 10/16/2022 14:08:49 Father Heart disease [id number] Not available 10/16/2022 14:08:49 Medical History Condition Response CANCER: SPECIFY Y ARTHRITIS Y USE OF BLOOD THINNERS Y ANEMIA/BLOOD DISORDER Y HEART DISEASE/HEART PROBLEMS Y USE OF NSAIDS Y GOUT Y HYPERTENSION Y Gynecological HistoryNo gynecological history recorded. Obstetrics History GPAL:G 0 P 0 0 0 0 Past Encounters Encounter ID Performer Location Encounter Start Date Encounter Closed Date Diagnosis/Indication Diagnosis SNOMED-CT Code Diagnosis ICD10 Code Diagnosis Note [id number] Santo Kim MD [facility] [place] [address] [place] [address] 07/03/2022 00:00:00 07/03/2022 15:01:23 [id number] Santo Kim MD [facility] [place] [address] [place] [address] 09/03/2022 00:00:00 09/03/2022 16:58:49 [id number] Clayton Fofana MD [facility] [place] [address] [place] [address] 05/14/2023 09:49:00 05/14/2023 10:25:21 Pain of left shoulder joint 7143066211 9699524 M25.961 [id number] Clayton Fofana MD [facility] [place] [address] [place] [address] 10/14/2023 10:04:38 10/14/2023 11:12:19 Bilateral shoulder joint pain 9232292868 4849478 M25.512 M25.263 [id number] Clayton Fofana MD [facility] [place] [address] [place] [address] 02/11/2024 09:31:15 02/11/2024 09:59:22 Bilateral shoulder joint pain 9718216666 8448575 M25.512 M25.918 [id number] Clayton Fofana MD [facility] [place] [address] [place] [address] 06/09/2024 09:58:05 06/09/2024 10:41:09 Pain of right shoulder joint 1707091900 9542995 M25.334 [id number] Clayton Fofana MD [facility] [place] [address] [place] [address] 10/27/2024 10:16:18 10/27/2024 10:30:17 Pain of right shoulder joint 6152064035 8318451 M25.511 Health Concerns Section Related Observation LastModified by Organization Detai ls LastModified Time None Recorded Concern Status LastModified by Organization Details LastModified Time None Recorded Advance Directives Directive None Recorded Payers Encounter Date Sequence Insurance Name Policy Number Policy Wise Covered Member ID Wise Member ID Guarantor Name 05/14/2023 1 [place] Michelle Lee [id number] Michelle Lee 05/14/2023 2 [facility] RETIRE[facility] (MEDICARE SUPPLEMENT) Michelle Lee [id number] Michelle Lee 10/14/2023 1 [place] Michelle Lee [id number] Michelle Lee 10/14/2023 2 [employer] [place] Michelle Lee [id number] Michelle Lee 02/11/2024 1 [place] Michelle Lee [id number] Michelle Lee 02/11/2024 2 [employer] [place] Michelle Lee [id number] Michelle Lee 06/09/2024 1 [place] Michelle Lee [id number] Michelle Lee 06/09/2024 2 [employer] [place] Michelle Lee [id number] Michelle Lee 10/27/2024 1 [place]) Michelle Lee [id number] Michelle Lee 10/27/2024 2 [place] - [place] (MEDICARE SUPPLEMENT) Michelle Lee [id number] Michelle Lee OBGyn Episode No OBEpisode recorded.
--- OUTSIDE RECORDS SUMMARY | 2025-01-04 11:54 | XMS_ITS | Clinical Summary ---
Author Organization [facility] Address [address] [place] [address] Care Team Providers Care Cephalometric Technician Name Role Phone Gladys Jin MD Primary Care Provider [phone] Naila Abernathy MD Unavailable Allergies Active Allergy [...] Mixed hyperlipidemia 09/25/2018 Type II diabetes mellitus ([facility]) 03/2019 Resolved Problems Problem Noted Date Diagnosed Date Resolved Date CHF (congestive heart failur e) ([facility]) 09/25/2018 02/11/2020 Family History Medical History Relation Comments Breast [...] 04/09/2023 How often do you attend chur or confucianist services? 1 to 4 times per year 04/09/2023 Do you belong to any clubs o r organizations such as yarsanism groups, unions, fraternal or athletic groups, or [...] and heating? Not hard at all 04/09/2023 [facility] [place] of Occupat ional Health - Occupational Stress Questionnaire Answer Date [...] place to sleep or slept in a fci (including now)? No 04/09/2023 Comments Unknown Sex and Gender Information Value Date Recorded Sex Assigned at Unknown 09/16/2024 8:29 AM WEB PAGE DEVELOPER Legal Sex Female 8:54 PM CDT Gender Identity Not on file Sexual Orientation Not on file Last Filed Vital Signs Vital Sign Reading Time Taken Comments Blood Pressure 141/77 09/06/2024 9:37 AM WEB PAGE DEVELOPER Pulse 71 09/06/2024 9:37 AM WEB PAGE DEVELOPER Temperature 36.2 C (97.2 F) 08/04/2023 12:53 PM WEB PAGE DEVELOPER Respiratory Rate 12 03/05/2024 1:18 PM CDT Oxygen Saturation 99% 03/05/2024 1:18 PM CDT Inhaled Oxygen Concentration - - Weight 59.2 kg (130 lb 9.6 oz) 09/06/2024 9:37 A M WEB PAGE DEVELOPER Height 157.5 cm (5' 2 ) 09/06/2024 9:37 AM WEB PAGE DEVELOPER Body Mass Index 23.89 09/06/2024 9:37 AM WEB PAGE DEVELOPER Plan of Treatment Upcoming Encounters Date Type Department Care Team (Late st Contact Info) Description 03/07/2025 8:[address] [facility] [place] [address] Naila Abernathy MD [address] [place] [address] 03/14/2025 8:45 AM CDT Office Visit [facility] [address] [place] [phone] Naila Abernathy MD [address] [place] [address] Health Maintenance Due Date Last Done Comments Kidney Health Evaluation 1945 Hemoglobin A1C 1945 Diabetes: Retinopathy Eye Exam 11/01/1963 DTaP, Tdap and Td Vaccines ( 1 - Tdap) 1964 Zoster Vaccines (1 of 2) 1964 Annual Medicare Wellness Visit 2010 Lipid Panel 05/07/2015 05/07/2014 Pneumococcal Vaccine: 50+ Years (2 of 2 - PPSV23) 06/23/2015 04/28/2015 RSV Immunization or 60+ Years (1 - 1-dose 75+ series) 2020 COVID-19 Vaccine (4 - 2023-2 5 season) 2024 05/26/2021, 10/11/2020, 09/20/2020 Hepatitis [...] NON-REACT ANABELLA NON-REACT ANABELLA 09/22/2023 2:22 PM WEB PAGE DEVELOPER [facility] Comment:HBsAg NOT DETECTED. HEP B CORE IGM NON-REACT ANABELLA NON-REACT ANABELLA 09/22/2023 2:22 PM WEB PAGE DEVELOPER [facility] Comment: IgM ANTI HBc NOT DETECTED. DOES NOT EXCLUDE THE POSSIBILITY OF EXPOSURE TO OR INFECTION WITH HBV. NO RETEST REQUIRED. HIGH DOSES OF BIOTIN MAY INTERFERE WITH THIS TEST RESULT. CORRELATION TO CLINICAL HISTORY AND PRESENTATION RECOMMENDED. HAV IGM NON-REACT ANABELLA NON-REACT ANABELLA 09/22/2023 2:22 PM WEB PAGE DEVELOPER [facility] Comment: IgM ANTI HAV NOT DETECTED. DOES NOT EXCLUDE THE POSSIBILITY OF EXPOSURE TO OR INFECTION WITH HAV. LEVELS OF IgM ANTI HAV MAY BE BELOW THE CUTOFF IN EARLY INFECTION. HEPATITIS C AB NON-REACT ANABELLA NON-REACT ANABELLA 09/22/2023 2:22 PM WEB PAGE DEVELOPER [facility] Comment: ANTIBODIES TO HCV NOT DETECTED. DOES NOT EXCLUDE THE POSSIBILITY OF EXPOSURE TO HCV. 04/22/2023 7:27 AM CDT Obed Posadas MD LABORATORY Final Resul t [facility] [address] [place] [address], [id number] * LIPID PANEL (05/07/2014 12:00 AM CDT) [...] Documents on File Type Date Recorded Patient Tensile Tester Expl anation Power of Digital Sales Director 04/10/2023 POWER OF A TTORNEY * DNR (Latest Code Status on File) Date Activated Date Inactivated Comments 04/09/2023 2:05 PM 07/09/2023 11:00 AM Care Teams Cephalometric Technician Relationship Specialty Start Date End Date Gladys Jin MD [address] [place] [id number] PCP - General INTERNAL MEDICINE 08/06/18 Naila Abernathy MD [address] [place] [address] Consulting Physician CARDIOVASCULAR DISEASE 02/15/24
--- OUTSIDE RECORDS SUMMARY | 2025-01-04 11:54 | XMS_ITS ---
Author Organization [facility] ([facility] Address [address] [place] [id number] Care Team Providers Care Police Cadet Name Role Phone Unavailable Unavailable Unavailable Allergies, Adverse Reactions, Alerts Allergy Name Allergy Type Status Severity Reaction(s) Onset Date Inactive Date Treating Clinician Comments No Known Allergies Allergy Active 2023-04 16:38:1 0 Problems This patient has no known problems. Procedures Procedure Date / Time Performed Performing Clinician Carmita ce Details Central Venous Catheter (CVC) 2023-04-22 05:00:00 Access Site Chest (Left) Access Use Start Date 2023-04-24 00:00:0 0 DIALYSIS TREATMENT INFORMATION Conventional Hemodialysis Date Type Treatment Start Date Treatment End Date Pre-Treatment Vitals Post-Treatment Vitals Weight Gain BFR DFR Actual UF Dialysis Access Novem 2022 In-Ce nter Hemod ialys is Treat ment 2023-07-01 T16:44:00. 000Z 2023-07-01 T18:50:19. 000Z BP Sitting (Pre-Dialysis) 140/77 mmHg BP Sitting (Post-D ialysis ) 118/ 61 mmHg BP Standing (Pre-Dialysis) 153/81 mmHg BP Standing (P ost-Dialysis) 109/59 mmHg Sitting Heart Rate Pre-Dialysis 85 BPM Sitting Heart Rate Post-Dialysis 84 BPM Standing Heart Rate Pre-Dialysis 89 BPM Standing Heart Rate Post-Dialysis 92 BPM Temperature Pre-Dialysis 98.4 degF Temperature Post -Dialysis 97.6 degF June 28, 2023 In-Center Hemodialysis Treatment [id number]:49:39.000Z [id number]:52:38.000Z BP Sitting (Pre-Dialysis) 153/91 mmHg BP Sitting (Post-Dialysis) 145/72 mmHg Concurrent Access: falseCentral Venous Catheter (CVC) Chest (Left) Arterial Sitting Heart Rate Pre-Dialysis 81 BPM Sitting H eart Rate Post-Dialysis 90 BPM Temperature Pre-Dialysis 97.9 degF Temperature Post -Dialysis 98 degF June 24, 2023 In-Center Hemodialysis Treatment [id number]:57:00.000Z [id number]:00:16.000Z BP Sitting (Pre-Dialysis) 175/84 mmHg BP Sitting (Post-Dialysis) 141/69 mmHg Concurrent Access: falseCentral Venous Catheter (CVC) Chest (Left) Arterial BP Standing (Pre-Dialysis) 160/87 mmHg BP Standing (P ost-Dialysis) 140/83 mmHg Sitting Heart Rate Pre-Dialysis 90 BPM Sitting Heart Rate Post-Dialysis 103 BPM Standing Heart Rate Pre-Dialysis 90 BPM Standing Heart Rate Post-Dialysis 105 BPM Temperature Pre-Dialysis 98.1 degF Temperature Post -Dialysis 98.1 degF June 21, 2023 In-Center Hemodialysis Treatment [id number]:13:00.000Z [id number]:14:11.000Z BP Sitting (Pre-Dialysis) 174/91 mmHg BP Sitting (Post-Dialysis) 130/75 mmHg Concurrent Access: falseCentral Venous Catheter (CVC) Chest (Left) Arterial BP Standing (Pre-Dialysis) 160/93 mmHg BP Standing (P ost-Dialysis) 146/85 mmHg Sitting Heart Rate Pre-Dialysis 93 BPM Sitting Heart Rate Post-Dialysis 98 BPM Standing Heart Rate Pre-Dialysis 97 BPM Standing Heart Rate Post-Dialysis 90 BPM Temperature Pre-Dialysis 97 degF Temperature Post -Dialysis 98.3 degF June 17, 2023 In-Center Hemodialysis Treatment [id number]:42:00.000Z [id number]:53:15.000Z BP Sitting (Pre-Dialysis) 150/98 mmHg BP Sitting (Post-Dialysis) 124/79 mmHg Concurrent Access: falseCentral Venous Catheter (CVC) Chest (Left) Arterial BP Standing (Pre-Dialysis) 151/90 mmHg BP Standing (P ost-Dialysis) 146/89 mmHg Sitting Heart Rate Pre-Dialysis 76 BPM Sitting Heart Rate Post-Dialysis 98 BPM Standing Heart Rate Pre-Dialysis 106 BPM Standing Heart Rate Post-Dialysis 101 BPM Temperature Pre-Dialysis 98 degF Temperature Post -Dialysis 98 degF June 14, 2023 In-Center Hemodialysis Treatment [id number]:21:00.000Z [id number]:16:21.000Z BP Sitting (Pre-Dialysis) 138/78 mmHg BP Sitting (Post-Dialysis) 115/81 mmHg Concurrent Access: falseCentral Venous Catheter (CVC) Chest (Left) Arterial Sitting Heart Rate Pre-Dialysis 87 BPM Sitting H eart Rate Post-Dialysis 107 BPM Temperature Pre-Dialysis 97.5 degF Temperature Post -Dialysis 98 degF June 07, 2023 In-Center Hemodialysis Treatment [id number]:33:00.000Z [id number]:34:51.000Z BP Sitting (Pre-Dialysis) 133/71 mmHg BP Sitting (Post-Dialysis) 136/89 mmHg Concurrent Access: falseCentral Venous Catheter (CVC) Chest (Left) Arterial BP Standing (Pre-Dialysis) 113/76 mmHg BP Standing (P ost-Dialysis) 122/83 mmHg Sitting Heart Rate Pre-Dialysis 84 BPM Sitting Heart Rate Post-Dialysis 120 BPM Standing Heart Rate Pre-Dialysis 87 BPM Standing Heart Rate Post-Dialysis 124 BPM Temperature Pre-Dialysis 98 degF Temperature Post -Dialysis 98.1 degF June 05, 2023 In-Center Hemodialysis Treatment [id number]:37:51.000Z [id number]:41:50.000Z BP Sitting (Pre-Dialysis) 134/65 mmHg BP Sitting (Post-Dialysis) 139/82 mmHg Concurrent Access: falseCentral Venous Catheter (CVC) Chest (Left) Arterial BP Standing (Pre-Dialysis) 128/64 mmHg BP Standing (P ost-Dialysis) 140/83 mmHg Sitting Heart Rate Pre-Dialysis 88 BPM Sitting Heart Rate Post-Dialysis 157 BPM Standing Heart Rate Pre-Dialysis 90 BPM Standing Heart Rate Post-Dialysis 154 BPM Temperature Pre-Dialysis 97.1 degF Temperature Post -Dialysis 97.2 degF June 03, 2023 In-Center Hemodialysis Treatment [id number]:08:00.000Z [id number]:12:51.000Z BP Sitting (Pre-Dialysis) 146/79 mmHg BP Sitting (Post-Dialysis) 133/76 mmHg Concurrent Access: falseCentral Venous Catheter (CVC) Chest (Left) Arterial BP Standing (Pre-Dialysis) 122/64 mmHg Sitti ng Heart Rate Post-Dialysis 100 BPM Sitting Heart Rate Pre-Dialysis 90 BPM Temperatu re Post-Dialysis 96.6 degF Standing Heart Rate Pre-Dialysis 91 BPM Temperature Pre-Dialysis 97 degF May 31, 2023 In-Center Hemodialysis Treatment [id number]:14:21.000Z [id number]:18:20.000Z BP Sitting (Pre-Dialysis) 143/86 mmHg BP Sitting (Post-Dialysis) 119/88 mmHg Concurrent Access: falseCentral Venous Catheter (CVC) Chest (Left) Arterial BP Standing (Pre-Dialysis) 120/80 mmHg BP Standing (P ost-Dialysis) 148/93 mmHg Sitting Heart Rate Pre-Dialysis 93 BPM Sitting Heart Rate Post-Dialysis 88 BPM Standing Heart Rate Pre-Dialysis 99 BPM Standing Heart Rate Post-Dialysis 86 BPM Temperature Pre-Dialysis 98.1 degF Temperature Post -Dialysis 98 degF May 29, 2023 In-Center Hemodialysis Treatment [id number]:30:00.000Z [id number]:32:02.000Z BP Sitting (Pre-Dialysis) 160/76 mmHg BP Sitting (Post-Dialysis) 151/81 mmHg Concurrent Access: falseCentral Venous Catheter (CVC) Chest (Left) Arterial BP Standing (Pre-Dialysis) 135/73 mmHg BP Standing (P ost-Dialysis) 139/44 mmHg Sitting Heart Rate Pre-Dialysis 96 BPM Sitting Heart Rate Post-Dialysis 98 BPM Standing Heart Rate Pre-Dialysis 74 BPM Standing Heart Rate Post-Dialysis 98 BPM Temperature Pre-Dialysis 97.2 degF Temperature Post -Dialysis 98.8 degF May 27, 2023 In-Center Hemodialysis Treatment [id number]:20:00.000Z [id number]:22:48.000Z BP Sitting (Pre-Dialysis) 162/96 mmHg BP Sitting (Post-Dialysis) 138/79 mmHg Concurrent Access: falseCentral Venous Catheter (CVC) Chest (Left) Arterial BP Standing (Pre-Dialysis) 165/93 mmHg BP Standing (P ost-Dialysis) 130/70 mmHg Sitting Heart Rate Pre-Dialysis 90 BPM Sitting Heart Rate Post-Dialysis 102 BPM Standing Heart Rate Pre-Dialysis 92 BPM Standing Heart Rate Post-Dialysis 105 BPM Temperature Pre-Dialysis 97.2 degF Temperature Post -Dialysis 97.9 degF May 24, 2023 In-Center Hemodialysis Treatment [id number]:52:00.000Z [id number]:51:26.000Z BP Sitting (Pre-Dialysis) 142/87 mmHg BP Sitting (Post-Dialysis) 120/90 mmHg Concurrent Access: falseCentral Venous Catheter (CVC) Chest (Left) Arterial BP Standing (Pre-Dialysis) 146/87 mmHg BP Standing (P ost-Dialysis) 103/78 mmHg Sitting Heart Rate Pre-Dialysis 96 BPM Sitting Heart Rate Post-Dialysis 120 BPM Standing Heart Rate Pre-Dialysis 96 BPM Standing Heart Rate Post-Dialysis 80 BPM Temperature Pre-Dialysis 97.2 degF Temperature Post -Dialysis 98 degF May 22, 2023 In-Center Hemodialysis Treatment [id number]:03:00.000Z [id number]:05:28.000Z BP Sitting (Pre-Dialysis) 160/95 mmHg BP Sitting (Post-Dialysis) 142/80 mmHg Concurrent Access: falseCentral Venous Catheter (CVC) Chest (Left) Arterial BP Standing (Pre-Dialysis) 165/78 mmHg BP Standing (P ost-Dialysis) 139/78 mmHg Sitting Heart Rate Pre-Dialysis 85 BPM Sitting Heart Rate Post-Dialysis 102 BPM Standing Heart Rate Pre-Dialysis 89 BPM Standing Heart Rate Post-Dialysis 105 BPM Temperature Pre-Dialysis 97.7 degF Temperature Post -Dialysis 98 degF May 20, 2023 In-Center Hemodialysis Treatment [id number]:39:00.000Z [id number]:44:27.000Z BP Sitting (Pre-Dialysis) 163/96 mmHg BP Sitting (Post-Dialysis) 166/97 mmHg Concurrent Access: falseCentral Venous Catheter (CVC) Chest (Left) Arterial BP Standing (Pre-Dialysis) 181/99 mmHg Sitti ng Heart Rate Post-Dialysis 100 BPM Sitting Heart Rate Pre-Dialysis 86 BPM Temperatu re Post-Dialysis 97.6 degF Standing Heart Rate Pre-Dialysis 92 BPM Temperature Pre-Dialysis 97.5 degF May 17, 2023 In-Center Hemodialysis Treatment [id number]:26:00.000Z [id number]:31:57.000Z BP Sitting (Pre-Dialysis) 158/86 mmHg BP Sitting (Post-Dialysis) 153/89 mmHg Concurrent Access: falseCentral Venous Catheter (CVC) Chest (Left) Arterial BP Standing (Pre-Dialysis) 159/88 mmHg BP Standing (P ost-Dialysis) 157/83 mmHg Sitting Heart Rate Pre-Dialysis 87 BPM Sitting Heart Rate Post-Dialysis 87 BPM Standing Heart Rate Pre-Dialysis 92 BPM Standing Heart Rate Post-Dialysis 95 BPM Temperature Pre-Dialysis 97.2 degF Temperature Post -Dialysis 98.6 degF May 15, 2023 In-Center Hemodialysis Treatment [id number]:28:21.000Z [id number]:29:22.000Z BP Sitting (Pre-Dialysis) 172/97 mmHg BP Sitting (Post-Dialysis) 131/62 mmHg Concurrent Access: falseCentral Venous Catheter (CVC) Chest (Left) Arterial BP Standing (Pre-Dialysis) 180/97 mmHg BP Standing (P ost-Dialysis) 149/85 mmHg Sitting Heart Rate Pre-Dialysis 77 BPM Sitting Heart Rate Post-Dialysis 90 BPM Standing Heart Rate Pre-Dialysis 83 BPM Standing Heart Rate Post-Dialysis 96 BPM Temperature Pre-Dialysis 97.2 degF Temperature Post -Dialysis 98.4 degF May 13, 2023 In-Center Hemodialysis Treatment [id number]:50:00.000Z [id number]:53:28.000Z BP Sitting (Pre-Dialysis) 139/101 mmHg BP Sitting (Post-Dialysis) 160/89 mmHg Concurrent Access: falseCentral Venous Catheter (CVC) Chest (Left) Arterial BP Standing (Pre-Dialysis) 154/89 mmHg BP Standing (P ost-Dialysis) 156/83 mmHg Sitting Heart Rate Pre-Dialysis 98 BPM Sitting Heart Rate Post-Dialysis 92 BPM Standing Heart Rate Pre-Dialysis 86 BPM Standing Heart Rate Post-Dialysis 98 BPM Temperature Pre-Dialysis 97.8 degF Temperature Post -Dialysis 97.3 degF May 10, 2023 In-Center Hemodialysis Treatment [id number]:30:00.000Z [id number]:32:53.000Z BP Sitting (Pre-Dialysis) 173/86 mmHg BP Sitting (Post-Dialysis) 117/51 mmHg Concurrent Access: falseCentral Venous Catheter (CVC) Chest (Left) Arterial BP Standing (Pre-Dialysis) 164/85 mmHg BP Standing (P ost-Dialysis) 132/72 mmHg Sitting Heart Rate Pre-Dialysis 73 BPM Sitting Heart Rate Post-Dialysis 96 BPM Standing Heart Rate Pre-Dialysis 88 BPM Standing Heart Rate Post-Dialysis 103 BPM Temperature Pre-Dialysis 98 degF Temperature Post -Dialysis 97.8 degF May 08, 2023 In-Center Hemodialysis Treatment [id number]:42:00.000Z [id number]:44:28.000Z BP Sitting (Pre-Dialysis) 159/89 mmHg BP Sitting (Post-Dialysis) 147/65 mmHg Concurrent Access: falseCentral Venous Catheter (CVC) Chest (Left) Arterial BP Standing (Pre-Dialysis) 154/85 mmHg BP Standing (P ost-Dialysis) 132/66 mmHg Sitting Heart Rate Pre-Dialysis 80 BPM Sitting Heart Rate Post-Dialysis 99 BPM Standing Heart Rate Pre-Dialysis 83 BPM Standing Heart Rate Post-Dialysis 101 BPM Temperature Pre-Dialysis 97.8 degF Temperature Post -Dialysis 98.1 degF May 06, 2023 In-Center Hemodialysis Treatment [id number]:41:00.000Z [id number]:53:28.000Z BP Sitting (Pre-Dialysis) 162/77 mmHg BP Sitting (Post-Dialysis) 152/74 mmHg Concurrent Access: falseCentral Venous Catheter (CVC) Chest (Left) Arterial BP Standing (Pre-Dialysis) 154/82 mmHg BP Standing (P ost-Dialysis) 140/78 mmHg Sitting Heart Rate Pre-Dialysis 81 BPM Sitting Heart Rate Post-Dialysis 86 BPM Standing Heart Rate Pre-Dialysis 87 BPM Standing Heart Rate Post-Dialysis 93 BPM Temperature Pre-Dialysis 97.3 degF Temperature Post -Dialysis 97.8 degF May 03, 2023 In-Center Hemodialysis Treatment [id number]:25:59.000Z [id number]:27:59.000Z BP Sitting (Pre-Dialysis) 154/87 mmHg BP Sitting (Post-Dialysis) 142/80 mmHg Concurrent Access: falseCentral Venous Catheter (CVC) Chest (Left) Arterial BP Standing (Pre-Dialysis) 149/75 mmHg BP Standing (P ost-Dialysis) 140/85 mmHg Sitting Heart Rate Pre-Dialysis 87 BPM Sitting Heart Rate Post-Dialysis 86 BPM Standing Heart Rate Pre-Dialysis 96 BPM Standing Heart Rate Post-Dialysis 88 BPM Temperature Pre-Dialysis 97.9 degF May 01, 2023 In-Center Hemodialysis Treatment [id number]:32:00.000Z [id number]:36:54.000Z BP Sitting (Pre-Dialysis) 162/84 mmHg BP Sitting (Post-Dialysis) 139/77 mmHg Concurrent Access: falseCentral Venous Catheter (CVC) Chest (Left) Arterial BP Standing (Pre-Dialysis) 150/74 mmHg BP Standing (P ost-Dialysis) 145/86 mmHg Sitting Heart Rate Pre-Dialysis 88 BPM Sitting Heart Rate Post-Dialysis 90 BPM Standing Heart Rate Pre-Dialysis 83 BPM Standing Heart Rate Post-Dialysis 92 BPM Temperature Pre-Dialysis 98.1 degF Temperature Post -Dialysis 97.2 degF April 29, 2023 In-Center Hemodialysis Treatment [id number]:49:00.000Z [id number]:52:55.000Z BP Sitting (Pre-Dialysis) 144/70 mmHg BP Sitting (Post-Dialysis) 122/72 mmHg Concurrent Access: falseCentral Venous Catheter (CVC) Chest (Left) Arterial BP Standing (Pre-Dialysis) 138/67 mmHg Sitti ng Heart Rate Post-Dialysis 89 BPM Sitting Heart Rate Pre-Dialysis 72 BPM Temperatu re Post-Dialysis 97.8 degF Standing Heart Rate Pre-Dialysis 76 BPM Temperature Pre-Dialysis 97.2 degF April 26, 2023 In-Center Hemodialysis Treatment [id number]:30:00.000Z [id number]:34:09.000Z BP Sitting (Pre-Dialysis) 141/92 mmHg BP Sitting (Post-Dialysis) 143/84 mmHg Concurrent Access: falseCentral Venous Catheter (CVC) Chest (Left) Arterial BP Standing (Pre-Dialysis) 128/87 mmHg BP Standing (P ost-Dialysis) 143/81 mmHg Sitting Heart Rate Pre-Dialysis 113 BPM Sitting Heart Rate Post-Dialysis 109 BPM Standing Heart Rate Pre-Dialysis 95 BPM Standing Heart Rate Post-Dialysis 98 BPM Temperature Pre-Dialysis 97.9 degF Temperature Post -Dialysis 97 degF April 24, 2023 In-Center Hemodialysis Treatment [id number]:01:52.000Z [id number]:00:52.000Z BP Sitting (Pre-Dialysis) 141/81 mmHg BP Sitting (Post-Dialysis) 138/84 mmHg Concurrent Access: falseCentral Venous Catheter (CVC) Chest (Left) Arterial BP Standing (Pre-Dialysis) 114/61 mmHg BP Standing (P ost-Dialysis) 141/76 mmHg Sitting Heart Rate Pre-Dialysis 92 BPM Sitting Heart Rate Post-Dialysis 94 BPM Standing Heart Rate Pre-Dialysis 93 BPM Standing Heart Rate Post-Dialysis 96 BPM Temperature Pre-Dialysis 98.4 degF Temperature Post -Dialysis 98.1 degF Results Adequacy Description Draw Date Result/Unit Status Ref Range Result Comments CRE CLR UR/BSA 2023-06-04 16:22:18 16 mL/min F 75.0-115.0 Creatinine [Mass/volume] in Urine 2023-06-04 16:21:30 43.79 mg/dL F BSA SIRIA 2023-06-04 15:03:36 1.54 sq m F BUN/CREAT 2023-06-04 15:03:36 14.5 Calc F 8.2-46.0 Urea nitrogen [Mass/volume] in Serum or Plasma 2023-06-04 15:02:34 40 mg/dL F 9.0-23.0 Creatinine [Mass/volume] in Serum or Plasma 2023-06-04 15:02:34 2.75 mg/dL F 0.5-1.1 HEIGHT IN INCHES 2023-06-03 23:21:10 62 Inches F TOTAL VOLUME-24 HR URINE 2023-06-03 23:21:10 1300 mL F COLLECTION TIME FOR URINE 2023-06-03 23:21:10 1440 min F AMPUTATE FACTOR 2023-06-03 23:21:10 0 F BODY WEIGHT (LBS) 2023-06-03 23:19:56 119.9 lbs F CRE CLR UR/BSA 2023-04-30 17:15:11 5 mL/min F 75.0-115.0 BUN/CREAT 2023-04-30 17:15:11 8.2 Calc F 8.2-46.0 Creatinine [Mass/volume] in Serum or Plasma 2023-04-30 17:14:36 3.89 mg/dL F 0.5-1.1 Urea nitrogen [Mass/volume] in Serum or Plasma 2023-04-30 17:14:36 32 mg/dL F 9.0-23.0 BSA SIRIA 2023-04-30 17:01:09 1.66 sq m F Creatinine [Mass/volume] in Urine 2023-04-30 17:00:33 26.62 mg/dL F TOTAL VOLUME-24 HR URINE 2023-04-29 20:23:25 1100 mL F COLLECTION TIME FOR URINE 2023-04-29 20:23:25 1440 min F BODY WEIGHT (LBS) 2023-04-29 20:23:25 144.2 lbs F HEIGHT IN INCHES 2023-04-29 20:23:25 62 Inches F AMPUTATE FACTOR 2023-04-29 20:23:23 0 F Dialyzer MURTAZA 2023-04-26 19:45:17 1218 Calc F CURRENT KRU 2023-04-26 19:45:17 F Residual kt/v 2023-04-26 19:45:17 F PATIENT AGE 2023-04-26 19:45:17 77 Years F DIALYZER FLOW-QD 2023-04-26 19:45:17 600 mL/min F nPCR 2023-04-26 19:45:17 0.25 G/KG/D F BLOOD FLOW-QWB 2023-04-26 19:45:17 350 F PRESCRIBED DAYS/WEEK 2023-04-26 19:45:17 3 Day/Wk F TOTAL HOURS/WEEK DIALYSIS 2023-04-26 19:45:17 3 hrs F LENGTH OF DIALYSIS 2023-04-26 19:45:17 182 min F Std Renal KT/V 2023-04-26 19:45:17 N/A F HEIGHT IN INCHES 2023-04-26 19:45:17 62 Inches F TBW (Alegria) 2023-04-26 19:45:17 30.67 Liters F WEIGHT - POST DAY 1 2023-04-26 19:45:17 64.6 kg F WEIGHT (KG) 2023-04-26 19:45:17 66.5 kg F VT (KT/V TX VOL) 2023-04-26 19:45:17 38.3 L F eKt/V 2023-04-26 19:45:17 1.04 F stdKT/V Total 2023-04-26 19:45:17 N/A F WEIGHT - PRE DAY 1 2023-04-26 19:45:17 64.7 kg F spKt/V 2023-04-26 19:45:17 1.23 F URR% 2023-04-26 19:45:17 70 % F VM (KT/V MEAN VOL) 2023-04-26 19:45:17 38.3 F KT/V PRESCRIBED 2023-04-26 19:45:17 1.81 F AMPUTATE FACTOR 2023-04-26 19:45:17 0 F stdKt/V (DIAL) 2023-04-26 19:45:17 N/A F Total Kt/V 2023-04-26 19:45:17 1.23 F BSA SIRIA 2023-04-26 19:45:17 1.68 sq m F CRE CLR UR/BSA 2023-04-26 19:44:09 see comments F 75.0-115.0 Unable to Calculate. BUN/CREAT 2023-04-26 19:44:09 5.2 Calc F 8.2-46.0 Creatinine [Mass/volume] in Serum or Plasma 2023-04-26 19:43:33 3.86 mg/dL F 0.5-1.1 Urea nitrogen [Mass/volume] in Serum or Plasma 2023-04-26 19:43:33 20 mg/dL F 9.0-23.0 Urea nitrogen [Mass/volume] in Serum or Plasma --post dialysis 2023-04-26 06:28:41 6 mg/dL F 9.0-23.0 Anemia Description Draw Date Result/Unit Status Ref Range Result Comments IRON SATURATION 2023-06-05 01:03:33 40 % F 16.0-46.0 TIBC 2023-06-05 01:03:33 312 ug/dL F 250.0-425.0 Iron [Mass/volume] in Serum or Plasma 2023-06-05 01:02:32 125 ug/dL F 50.0-170.0 Iron binding capacity.unsaturated [Mass/volume] in Serum or Plasma 2023-06-05 01:02:32 187 ug/dL F 80.0-375.0 Ferritin [Mass/volume] in Serum or Plasma 2023-06-05 00:26:27 667 ng/mL F 10.0-291.0 IRON SATURATION 2023-04-27 07:03:24 27 % F 16.0-46.0 TIBC 2023-04-27 07:03:24 216 ug/dL F 250.0-425.0 Iron [Mass/volume] in Serum or Plasma 2023-04-27 06:57:16 58 ug/dL F 50.0-170.0 Iron binding capacity.unsaturated [Mass/volume] in Serum or Plasma 2023-04-27 06:57:16 158 ug/dL F 80.0-375.0 Ferritin [Mass/volume] in Serum or Plasma 2023-04-26 07:18:09 569 ng/mL F 10.0-291.0 FluidBP Description Draw Date Result/Unit Status Ref Range Result Comments Sodium [Moles/volume] in Serum or Plasma 2023-06-04 15:02:34 130 mEq/L F 132.0-146.0 Sodium [Moles/volume] in Serum or Plasma 2023-04-30 17:14:36 130 mEq/L F 132.0-146.0 Sodium [Moles/volume] in Serum or Plasma 2023-04-26 19:43:33 131 mEq/L F 132.0-146.0 General Description Draw Date Result/Unit Status Ref Range Result Comments Chloride [Moles/volume] in Serum or Plasma 2023-06-04 15:02:34 95 mEq/L F 99.0-109.0 Alanine aminotransferase [Enzymatic activity/volume] in Serum or Plasma 2023-06-04 15:02:34 41 U/L F 10.0-49.0 Chloride [Moles/volume] in Serum or Plasma 2023-04-30 17:14:36 95 mEq/L F 99.0-109.0 Chloride [Moles/volume] in Serum or Plasma 2023-04-26 19:43:33 95 mEq/L F 99.0-109.0 Alanine aminotransferase [Enzymatic activity/volume] in Serum or Plasma 2023-04-26 19:43:33 9 U/L F 10.0-49.0 Aluminum [Mass/volume] in Serum or Plasma 2023-04-25 17:33:06 10 ug/L F 0.0-9.0 MineralBone Disorder Description Draw Date Result/Unit Status Ref Range Result Comments CA CORRECTED 2023-04-27 07:07:44 9 mg/dL F CA/PHOS PRODUCT 2023-04-27 07:03:24 25.6 Calc F 21.0-53.0 CA*PO4 CORRCTD 2023-04-27 07:03:24 28.8 Calc F 21.0-53.0 Calcium [Mass/volume] in Serum or Plasma 2023-04-27 06:57:16 8 mg/dL F 8.7-10.4 Phosphate [Mass/volume] in Serum or Plasma 2023-04-26 19:43:33 3.2 mg/dL F 2.4-5.1 Parathyrin.intact [Mass/volume] in Serum or Plasma 2023-04-26 07:18:09 162 pg/mL F 18.0-80.0 Nutrition Description Draw Date Result/Unit Status Ref Range Result Comments Potassium [Moles/volume] in Serum or Plasma 2023-06-04 15:02:34 3.8 mEq/L F 3.5-5.5 Bicarbonate [Moles/volume] in Serum or Plasma 2023-06-04 15:02:34 28 mEq/L F 20.0-31.0 Albumin [Mass/volume] in Serum or Plasma by Bromocresol green (BCG) dye binding method 2023-06-04 15:02:34 3.6 g/dL F 3.4-4.8 Bicarbonate [Moles/volume] in Serum or Plasma 2023-04-30 17:14:36 26 mEq/L F 20.0-31.0 Potassium [Moles/volume] in Serum or Plasma 2023-04-30 17:14:36 3.4 mEq/L F 3.5-5.5 Bicarbonate [Moles/volume] in Serum or Plasma 2023-04-26 19:43:33 29 mEq/L F 20.0-31.0 Albumin [Mass/volume] in Serum or Plasma by Bromocresol green (BCG) dye binding method 2023-04-26 19:43:33 2.7 g/dL F 3.4-4.8 Potassium [Moles/volume] in Serum or Plasma 2023-04-26 19:43:33 3.2 mEq/L F 3.5-5.5 Encounters No encounter information to report Immunizations Ordered Immunization Name Filled Immunization Name Date Status Comments Refusal Reason Pneumococcal conjugate PCV20, polysaccharide [id number] conjugate, adjuvant, PF 2023-06-17 17:58:45 Hep B, adult 2023-06-03 19:40:00 Influenza Vaccination 2023-05-07 05:00:00 TST-PPD intradermal 2023-05-06 17:19:23 TST-PPD intradermal 2023-04-24 17:20:16 Covid-19 Vaccination 2022-05-31 05:00:00 Covid-19 Vaccination 2022-03-05 05:00:00 Covid-19 Vaccination 2020-09-30 06:00:00
[2025-01-04 12:23] LABS: Hematocrit 33.2 % (35.0-42.0); Hemoglobin 10.5 g/dL (11.7-13.8); Mean Corpuscular HGB Conc 31.6 g/dL (32-36); Mean Corpuscular Hemoglobin 30.4 pg (27.0-31.0); Mean Corpuscular Volume 96.2 fL (78.0-102.0); Platelet Count Result 206 K/mm3 (150-420); Red Blood Count 3.45 M/mm3 (4.20-5.40); Red Cell Distribution Width 14.3 % (11.6-14.4); White Blood Count 2.2 K/mm3 (4.8-10.8)
[2025-01-04 12:53] LABS: Band Neutrophils Percent 0 % (0-6); Basophils Absolute Manual 0.08 K/mm3 (0-0.1); Basophils Percent Manual 4 % (0-1); Eosinophils Absolute Manual 0.06 K/mm3 (0.02-0.50); Eosinophils Percent Manual 3 % (1-6); Lymphocytes Percent Manual 32 % (18-44); Monocytes Absolute Manual 0.24 K/mm3 (0.1-0.90); Monocytes Percent Manual 11 % (3-9); Neutrophils Percent Manual 50 % (46-73); Total Cells Counted 100
[2025-01-04 12:54] LABS: Anisocytosis 1+; Hypochromasia 2+; Platelet Estimate Adequate (Adequate); Poikilocytosis 1+; Schistocytes None Seen
[2025-01-04 13:14] LABS: Alanine Aminotransferase 15 U/L (6-35); Albumin Level 3.5 g/dL (3.5-5.1); Alkaline Phosphatase 60 U/L (38-126); Anion Gap 3 mmol/L (4-12); Aspartate Amino Transferase 19 U/L (14-36); Bilirubin,Total 0.4 mg/dL (0.2-1.3); Blood Urea Nitrogen 25 mg/dL (7-17); Carbon Dioxide 27 mmol/L (22-30); Chloride 106 mmol/L (98-107); Estimated Glomerular Filt Rate 41; Glucose 117 mg/dL (65-110); Osmolality Calculated 287 mOsm/kg (285-295); Sodium 136 mmol/L (137-145); Total Protein 5.6 g/dL (6.3-8.2)
[2025-01-06 11:19] LABS: Kappa\\Lambda Light Chains 30.32 (0.26-1.65); Lambda Light Chain 14.2 mg/L (5.7-26.3)
== END 2025-01-04 11:48 | disposition home or self-care (01) ==
LOC: CHSLAB 11:51
PROVIDERS: PCP Internal Medicine; Visit Provider Internal Medicine Hematology
DX: C90.00 Multiple myeloma not having achieved remission (principal)
CPT/HCPCS: 36415; 80053; 83883; 85025

== ENCOUNTER 2025-01-25 10:02 | Outpatient (CLI) | payer MEDICARE, SELFPAY ==
[2025-01-25 10:26] LABS: Add Urine Microscopic? YES; Appearance Urine Clear (Clear); Bilirubin Urine Negative (Negative); Blood Urine Negative (Negative); Color Urine Yellow (Yellow); Glucose Urine UA Negative (Negative); Hematocrit 34.4 % (35.0-42.0); Hemoglobin 10.9 g/dL (11.7-13.8); Immature Platelet Fraction Pct 3.5 % (1.0-7.0); Ketones Urine Trace (Negative); Leukocyte Esterase Ur Negative LEU/UL (Negative); Mean Corpuscular HGB Conc 31.7 g/dL (32-36); Mean Corpuscular Hemoglobin 31.1 pg (27.0-31.0); Mean Platelet Volume 10.8 fl (9.2-11.8); Nitrate Urine Negative (Negative); Platelet Count Result 94 K/mm3 (150-420); Protein Urine 1+ (Negative); Red Blood Count 3.51 M/mm3 (4.20-5.40); Red Cell Distribution Width 14.5 % (11.6-14.4); Specific Grav Ur 1.025 (1.010-1.020)
[2025-01-25 10:34] LABS: Bacteria Urine Trace /hpf; RBC Urine None seen /hpf (0-2); Squamous Epithelial Cell Urine Few /hpf (Few); WBC Urine 0-3 /hpf (0-3)
[2025-01-25 10:43] LABS: Hemoglobin A1C 6.3 % (<5.7)
[2025-01-25 10:53] LABS: Alanine Aminotransferase 24 U/L (6-35); Albumin Level 3.5 g/dL (3.5-5.1); Alkaline Phosphatase 62 U/L (38-126); Anion Gap 4 mmol/L (4-12); Aspartate Amino Transferase 23 U/L (14-36); Bilirubin,Total 0.7 mg/dL (0.2-1.3); Blood Urea Nitrogen 28 mg/dL (7-17); Calcium 8.8 mg/dL (8.4-10.2); Carbon Dioxide 24 mmol/L (22-30); Chloride 108 mmol/L (98-107); Cholesterol 201 mg/dL (0-200); Estimated Glomerular Filt Rate 36; Glucose 138 mg/dL (65-110); Osmolality Calculated 289 mOsm/kg (285-295); Potassium 4.1 mmol/L (3.4-5.0); Sodium 136 mmol/L (137-145); Total Protein 5.2 g/dL (6.3-8.2); Triglycerides 78 mg/dL (<150); Uric Acid 3.9 mg/dL (2.5-7.5)
[2025-01-25 10:55] LABS: HDL Direct > 110 mg/dL; LDL Cholesterol Calculated 75 mg/dL (<130)
--- OUTSIDE RECORDS SUMMARY | 2025-01-25 10:59 | XMS_ITS | Data Portability ---
Author Organization [place] [facility], Main Office Address [address] [place] [address] Care Team Providers Care Lead Miner Blasting Name Role Phone SHAUN MCKEON Primary Care [...] Procedures injection/a spiration joint/bursa (PROC) 2024 025 In-Office Order, Internal Use Only DO Not Attach Compendium DO Not Attach Compendium, Do Not Delete/merge, [id number] 10:20:35 injection/a spiration joint/bursa (PROC) 2023 024 In-Office Order, Internal Use Only DO Not Attach Compendium DO Not Attach Compendium, Do Not Delete/merge, [id number] 10:31:39 injection/a spiration joint/bursa (PROC) 2023 024 [email or web address] 3 In-Office Order, Internal Use Only DO Not Attach Compendium DO Not Attach Compendium, Do Not Delete/merge, [id number] 09:59:12 injection/a spiration joint/bursa (PROC) 2023 024 [email or web address] 3 In-Office Order, Internal Use Only DO Not Attach Compendium DO Not Attach Compendium, Do Not Delete/merge, [id number] 4 10:46:54 injection/a spiration joint/bursa (PROC) - in office procedure, administere d by provider 2022 023 [email or web address] 3 In-Office Order, Internal Use Only DO Not Attach Compendium DO Not Attach Compendium, Do Not Delete/merge, [id number] 10:26:27 Surgeries None recorded. Imaging XR, shoulder 20[address], [address], [place], [address], 4 23:26:19 Medication Orders bupivacaine HCl 0.5 % (5 mg/mL) injection solution [address] #[id number], [address] [place] [address], [address], 5 13:40:38 Kenalog 10 mg/mL suspension for injection [address]acy #[id number], [address] [place], [address], 5 13:40:38 bupivacaine HCl 0.5 % (5 mg/mL) injection solution [address]acy #[id number], [address] [place], [address], 4 23:37:07 Kenalog 10 mg/mL suspension for injection [address]Pharmacy #84386, [address] [place], [address], 4 23:37:07 Kenalog 10 mg/mL suspension for injection [address]acy #[id number], [address] [place], [address], 4 14:06:25 Marcaine (PF) 0.5 % (5 mg/mL) injection solution [address]/Pharmacy #68944, [address] [place], [address], 4 10:21:03 bupivacaine HCl 0.5 % (5 mg/mL) injection solution [address]acy #[id number], [address] [place], [address], 4 23:26:19 Kenalog 10 mg/mL suspension for injection [address]/Pharmacy #41795, [address] [place], [address], 4 23:26:19 Kenalog 10 mg/mL suspension for injection [address]Pharmacy #87896, [address] [place], [address], 3 23:53:09 ropivacaine (PF) 5 mg/mL (0.5 %) injection solution [address]/[facility]armacy #59230, [address] [place], [address], 4 10:21:27 Patient TargetsNo targets recorded. Patient InstructionsNo instructions recorded. Reason for Referral None Reported. Results Created Date Observation Date Name Description Value Unit Range Abnormal Flag Note LastModifiedBy Organization Detail LastModifiedTime 10/14/19 24 XR, shoul catalina No observ ation record ed. [email or web address] [facility] [address], [place], [address], 10/14/2023 11:06:18 10/21/19 24 04/30/2022 XR, shoul catalina No observ ation record ed. [email or web address] Not Available 2023 17:13:50 10/21/19 24 06/15/2022 MRI, shoul catalina, w/o contr ast No observ ation record ed. [email or web address] Not Available 2023 17:15:00 10/21/19 24 04/30/2022 XR, shoul catalina No observ ation record ed. [email or web address] Not Available 2023 17:15:46 10/21/19 24 06/14/2022 MRI, shoul catalina, w/o contr ast No observ ation record ed. [email or web address] Not Available 2023 17:17:00 Result Notes None recorded. Problems Name Problem SNOMED Code Status Onset Date Resolution Date Notes Provider Name and Address Organization Details Recorded Time Partial thickness rotator cuff tear Active Not Available [facility] 3 14:09:21 Osteoarthr itis of hip 895670681 Active Not Available [facility] 3 14:09:21 Osteoarthr itis of knee 271341851 Active Not Available [facility] 3 14:09:21 Enthesopat hy of hip region 04792013 Active Not Available [facility] 3 14:09:21 Knee pain Active Not Available [facility] 3 14:09:21 Osteoarthr itis 630502074 Active Not Available [facility] 3 14:09:21 Pain of hip region 06092592 Active Not Available [facility] 3 14:09:21 Pain of left shoulder joint 4588010533540 9109 Active 2022 Miladis Enamorado ATC L null, [facility] [employer] [facility] 3 09:55:55 Bilateral shoulder joint pain 0356932839750 9104 Active 2023 Miladis Enamorado ATC L null, [place] [facility] 4 10:09:09 Pain of right shoulder joint 1296567489628 9100 Active 2023 Kait Freitas, RMKraig null, [place] 10:23:54 Problem Notes None recorded. Procedures Surgical History Date Name Laterality Status Provider Name and Address Organization Details Recorded Time 5 Ortho - Cortisone Injection completed Clementina Garland, SOFTWARE CLERK [address], [place], [address], [place] 10/27/2024 10:33:11 4 Ortho - Cortisone Injection completed Clayton Fofana MD [address], [address], [place], [address], [place] 06/10/2024 00:51:22 4 Ortho - Cortisone Injection completed Clayton Fofana MD [address], [place], [address], [place] 02/12/2024 23:06:43 4 Ortho - Cortisone Injection completed Clementina Garland, LEE [address], [place], [address], [place] 10/14/2023 11:11:24 3 Ortho - Cortisone Injection completed Clayton Fofana MD [address], [place], [address], [place] 05/15/2023 21:37:45 Imaging Results None recorded. Procedure Notes None recorded. Medical Equipment None [...] 1 mL by injection route. 2024 active [facility]: 0003- 0494- 20 Not Available Not Available [...] %) injection solution IN OFFICE 06/09 completed [facility] [phone] -[phone]- [phone] Not Available Not Available Not [...] Updated DateTime 10/14/2023 157.48 cm 20.7 kg/m2 16521.94 g JOAN Navarro [facility] [employer] [facility] 10/14/2023 10:07:57 Date Recorded Body height Body mass index (BMI) Body weight Provider Name and Address Organization Details Last Updated DateTime 10/27/2024 157.48 cm 21.9 kg/m2 67572.08 g Kait Freitas [facility] [employer] [facility] [employer] [facility] 10/27/2024 10:19:10 Date Recorded Body height Body mass index (BMI) Body weight Provider Name and Address Organization Details Last Updated DateTime 02/11/2024 157.48 cm 21.2 kg/m2 10987.71 g Kait Freitas [facility] [employer] 02/11/2024 09:34:38 Date Recorded Body height Body mass index (BMI) Body weight Provider Name and Address Organization Details Last Updated DateTime 05/14/2023 157.48 cm 25.2 kg/m2 99944.75 g JOAN Navarro [facility] [employer] 05/14/2023 09:55:21 Date Recorded Body height Body mass index (BMI) Body weight Provider Name and Address Organization Details Last Updated DateTime 06/09/2024 157.48 cm 21.9 kg/m2 32370.08 veronika Kait Freitas [facility] [employer] 06/09/2024 10:19:34 Social History Question Answer Notes LastModified by Organizat [facility] Details LastModified Time Tobacco Smoking Status Unknown If Ever Smoked Not Available [facility] 10/16/2022 14:08:47 What Was The Date Of Your Most Recent Tobacco Screening? 06/09/2024 [email or web address] Information not available 06/09/2024 Sex: Unknown Functional Status Question Answer Note LastModified by [employer] [facility] Details LastModified Time What is your level of alcohol consumption? None [id number] Information not available 10/16/2022 Mental Status None recorded. Family History Relationship Description Onset Age of this Age Resolved Age Notes LastModified by Organization Details LastModified Time Father Family history of malignant neoplasm [id number] Not available 10/16/2022 14:08:49 Father Hypertensive disorder [id number] Not available 10/16/2022 14:08:49 Father Heart disease [id number] Not available 10/16/2022 14:08:49 Medical History Condition [...] SNOMED-CT Code Diagnosis ICD10 Code Diagnosis Note [id number] Santo Kim MD [facility] [place] [address] [place] [address] 07/03/2022 00:00:00 07/03/2022 15:01:23 [id number] Santo Kim MD [facility] [place] [address] [place] [address] 09/03/2022 00:00:00 09/03/2022 16:58:49 [id number] Clayotn Fofana MD [facility] [place] [address] [place] [address] 05/14/2023 09:49:00 05/14/2023 10:25:21 Pain of left shoulder joint 3124287761 1052711 M25.123 [id number] Clayton Fofana MD [facility] [place] [address] [place] [address] 10/14/2023 10:04:38 10/14/2023 11:12:19 Bilateral shoulder joint pain 2222613506 8712713 M25.512 M25.395 [id number] Clayton Fofana MD [facility] [place] [address] [place] [address] 02/11/2024 09:31:15 02/11/2024 09:59:22 Bilateral shoulder joint pain 2793933419 7176782 M25.512 M25.687 [id number] Clayton Fofana MD [facility] [place] [address] [place] [address] 06/09/2024 09:58:05 06/09/2024 10:41:09 Pain of right shoulder joint 6937056666 1394360 M25.085 [id number] Clayton Fofana MD [facility] [place] [address] [place] [address] 10/27/2024 10:16:18 10/27/2024 10:30:17 Pain of right shoulder joint 6821514618 2048924 M25.511 Health Concerns Section Related Observation LastModified by Organization Detai ls LastModified Time None Recorded Concern Status LastModified by Organization Details LastModified Time None Recorded Advance Directives Directive None Recorded Payers Encounter Date Sequence Insurance Name Policy Number Policy Wise Covered Member ID Wise Member ID Guarantor Name 05/14/2023 1 [place] Michelle Lee [id number] Michelle Lee 05/14/2023 2 [employer] Michelle Lee [id number] Michelle Lee 10/14/2023 1 [place] [id number] Michelle Lee 10/14/2023 2 [employer] [place]) Michelle Lee [id number] Michelle Lee 02/11/2024 1 [place] [id number] Michelle Lee 02/11/2024 2 [employer] [place]) Michelle Lee [id number] Michelle Lee 06/09/2024 1 [place] Lee [id number] Michelle Lee 06/09/2024 2 [employer] [place] [facility] ([place]) Michelle Lee [id number] Michelle Lee 10/27/2024 1 [place] Lee [id number] Michelle Lee 10/27/2024 2 [facility] (MEDICARE SUPPLEMENT) Michelle Lee [id number] Michelle Lee OBGyn Episode No OBEpisode recorded.
[2025-01-25 11:03] LABS: NT Pro B Type Natriuretic Pept 2910 pg/mL (19.9-100)
[2025-01-25 11:11] LABS: Free T4 Free Thyroxine 1.73 ng/dL (0.78-2.19); Vitamin D 25 Hydroxy 35.1 ng/mL
[2025-01-25 11:17] LABS: Free T3 3.28 pg/mL (2.18-3.98)
[2025-01-25 11:24] LABS: Thyroid Stimulating Hormone 0.749 uIU/mL (0.465-4.680)
== END 2025-01-25 10:03 | disposition home or self-care (01) ==
LOC: CHSLAB 10:05
PROVIDERS: PCP Internal Medicine; Visit Provider Internal Medicine
DX: E03.4 Atrophy of thyroid (acquired) (principal); E11.22 Type 2 diabetes mellitus with diabetic chronic kidney disease; E79.0 Hyperuricemia without signs of inflammatory arthritis and tophaceous disease; I50.9 Heart failure, unspecified; E78.2 Mixed hyperlipidemia; E55.9 Vitamin D deficiency, unspecified
CPT/HCPCS: 36415; 80053; 80061; 81001; 82306; 83036; 83880; 84439; 84443; 84481; 84550; 85027; 85055

== ENCOUNTER 2025-02-07 10:05 | Outpatient (RCR) | payer MEDICARE, SELFPAY ==
[2025-02-07 10:19] LABS: Hematocrit 36.8 % (35.0-42.0); Hemoglobin 11.7 g/dL (11.7-13.8); Immature Granulocyte Percent A 1.5 % (0.0-0.0); Lymphocytes Absolute Auto 0.74 K/mm3 (1.10-4.50); Mean Corpuscular HGB Conc 31.8 g/dL (32-36); Mean Corpuscular Hemoglobin 31.3 pg (27.0-31.0); Mean Corpuscular Volume 98.4 fL (78.0-102.0); Nucleated Red Blood Cells Absolute Auto 0.00 K/mm3 (0.00-0.00); Nucleated Red Blood Cells Perc 0.0 % (0-0.0); Platelet Count Result 150 K/mm3 (150-420); Red Blood Count 3.74 M/mm3 (4.20-5.40); White Blood Count 4.8 K/mm3 (4.8-10.8)
[2025-02-07 10:38] LABS: Alanine Aminotransferase 22 U/L (6-35); Albumin Level 3.8 g/dL (3.5-5.1); Alkaline Phosphatase 72 U/L (38-126); Anion Gap 5 mmol/L (4-12); Aspartate Amino Transferase 27 U/L (14-36); Bilirubin,Total 0.7 mg/dL (0.2-1.3); Blood Urea Nitrogen 27 mg/dL (7-17); Calcium 8.9 mg/dL (8.4-10.2); Carbon Dioxide 26 mmol/L (22-30); Chloride 103 mmol/L (98-107); Estimated Glomerular Filt Rate 38; Glucose 136 mg/dL (65-110); Osmolality Calculated 285 mOsm/kg (285-295); Potassium 4.1 mmol/L (3.4-5.0); Sodium 134 mmol/L (137-145); Total Protein 5.7 g/dL (6.3-8.2)
[2025-02-08 14:33] LABS: Kappa\\Lambda Light Chains 16.57 (0.26-1.65)
== END 2025-05-08 23:59 | disposition home or self-care (01) ==
LOC: CHSLAB 10:05
PROVIDERS: PCP Internal Medicine; Visit Provider Internal Medicine Hematology
DX: C90.00 Multiple myeloma not having achieved remission (principal)
CPT/HCPCS: 36415; 80053; 83883; 85025

== ENCOUNTER 2025-02-15 10:26 | Emergency (ER) | payer MEDICARE, SELFPAY ==
[2025-02-15] VITALS (48 sets, daily range): BP systolic 93–146; BP diastolic 59–103; PULSE 48–149; RESP 11–25; TEMP 36.9; O2SAT 95–100
--- NOTE | ~2025-02-15 | CT_ITS ---
EXAMINATION: CTA chest PE protocol DATE: 02/15/2025 11:44 INDICATION: Tachycardia. Elevated d-dimer. TECHNIQUE: Computed tomography (CT) pulmonary angiogram of the chest was performed with 100 mL Omnipa que-350 intravenous contrast. Additional 3D reconstructions utilizing coronal maximum intensity proje ction (MIP) were performed. Automated exposure control and iterative reconstruction technique were em ployed. The dose-length product was 232.07 mGy-cm. COMPARISON: Chest CT dated 07/03/2023 FINDINGS: No pulmonary embolism. There are multiple calcified bilateral pulmonary nodules with upper lung predo minance consistent with old granulomatous disease. Mild discoid atelectasis at the lingula. No pneumo shara, pulmonary edema, pleural effusion or pneumothorax. Heart size is normal. Atherosclerotic coronar y artery calcium. No pericardial effusion. Postoperative change of prior median sternotomy and possib le aortic valve repair. Right internal jugular central venous port catheter with distal tip at the espino perior cavoatrial junction. Ectatic ascending thoracic aorta measuring up to 4.2 cm maximal diameter. No dissection. No pathologically enlarged thoracic lymphadenopathy. Severe spondylosis. Again seen a re multiple lytic appearing bone lesions throughout the visualized ribs and spine consistent with kno wn history of multiple myeloma. Multiple surgical clips at the left axilla consistent with prior axil steven lymph node dissection. 1 cm high attenuation proteinaceous/hemorrhagic cyst at the lower pole of the left kidney and 1 cm low-attenuation cyst at the lower pole of the right kidney. Cholecystectomy clips at the gallbladder fossa. IMPRESSION: 1. No pulmonary embolism or other acute cardiopulmonary disease. 2. Innumerable small lytic bone lesions consistent with known history of multiple myeloma. 3. Ectatic ascending thoracic aorta measuring up to 4.2 cm in maximal diameter. Reviewed, dictated and finalized at location B. IMPRESSION: 1. No pulmonary embolism or other acute cardiopulmonary disease. 2. Innumerable small lytic bone lesions consistent with known history of multip le myeloma. 3. Ectatic ascending thoracic aorta measuring up to 4.2 cm in maximal diameter.
--- NOTE | ~2025-02-15 | XR_ITS ---
EXAMINATION: XR chest 1V portable DATE: 02/15/2025 10:53 INDICATION: Tachycardia TECHNIQUE: frontal view of the chest was obtained. COMPARISON: Rib radiographs dated 05/06/2024 FINDINGS: Accessed right internal jugular central venous port catheter with distal tip at the superior cavoatri al junction. Calcified nodule projecting over the left upper lung zone consistent with old granulomat ous disease. No other airspace opacities, pulmonary edema, pleural effusion or pneumothorax. Heart si ze is normal. Median sternotomy wires, ostial markers and mediastinal surgical clips consistent with prior coronary artery bypass grafting. Post cystectomy clips in right upper quadrant. Mild upper lumb ar dextrocurvature with moderate to severe thoracic and lumbar spondylosis. IMPRESSION: 1. No acute cardiopulmonary disease. Reviewed, dictated and finalized at location B.
--- NOTE | 2025-02-15 10:27 | ECG_ITS ---
Test Date: 2025-02-15 10:34:00 Measurements Intervals [place] Rate: 147 P: 0 CT: 0 QRS: -57 QRSD: 95 T: 114 QT: 283 QTc: 444 Interpretive Statements SUSPECT ATRIAL FLUTTER WITH TWO-TO-ONE CONDUCTION LEFTWARD AXIS /LEFT ANTERIOR FASCICULAR BLOCK VOLTAGE EVIDENCE OF LVH ABNORMAL ECG Compared to ECG 06/17/2024 09:40:08 ATRIAL FLUTTER HAS REPLACED SINUS RHYTHM Electronically Signed On 02-16-2025 12:59:32 CDT by Rian Melendez M.D.
--- OUTSIDE RECORDS SUMMARY | 2025-02-15 10:36 | XMS_ITS | Encounter Summary ---
Author Organization [facility] Address [address] [place] [address] Care Team Providers Care Molecular Physicist Name Role Phone Gladys Jin MD Primary Care Provider [phone] Santo Ordonez MD Unavailable [phone] Naila Abernathy MD Unavailable Encounter Details Date Type Department Care Team (Late st Contact Info) Description 09/23/2018 Abstract [facility] [address] [place] [phone] Abstract, Doc [facility] Social History Tobacco Use Types Packs/Day Years Used Date Smoking Tobacco: Never Smokeless Tobacco: Never Comments Unknown Sex and Gender Information Value Date Recorded Sex Assigned at Unknown 09/16/2024 8:29 AM 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 [address] Naila Abrenathy MD [address] [place] [address] 03/14/2025 8:45 AM CDT Office Visit [facility] [address] Naila Abernathy MD [address] [place] [address] documented as of this encounter Visit Diagnoses Not on filedocumented in this encounter Care Teams Molecular Physicist Relationship Specialty Start Date End Date Gladys Jin MD [address] [place] [address] PCP - General INTERNAL MEDICINE 08/06/18 Santo Ordonez MD [address] [place] [address] [place] Applications Specialist CARDIOVASCULAR DISEASE 08/06/18 02/14/24 Naila Abernathy MD [address] [place] [address] Consulting Physician CARDIOVASCULAR DISEASE 02/15/24 documented as of this encounter
--- OUTSIDE RECORDS SUMMARY | 2025-02-15 10:36 | XMS_ITS | Encounter Summary ---
Author Organization [facility] Address [address] [place] [address] Care Team Providers Care Gut Dropper Name Role Phone Gladys Jin MD Primary Care Provider [phone] Santo Ordonez MD Unavailable [phone] Naila Abernathy MD Unavailable Encounter Details Date Type Department Care Team (Late st Contact Info) Description 12/15/2023 Pre-Procedure Call [facility] Interventional Radiology [address] [place] [address] Danielle Briseno, RN Social History [...] often do you attend chur ch or quaker services? 1 to 4 times per year 04/09/2023 Do you belong to any clubs o r organizations such as jainism groups, unions, fraternal or athletic groups, or [...] and heating? Not hard at all 04/09/2023 [facility] Occupational Stress Questionnaire Answer Date [...] place to sleep or slept in a alf (including now)? No 04/09/2023 Comments Unknown Sex and Gender Information Value Date Recorded Sex Assigned at Unknown 09/16/2024 8:29 AM TONGUE CARRIER Legal Sex Female 8:54 PM CDT Gender [...] Info) Description 03/07/2025 8:00 AM CDT Appointment [address] [place] [address] Naila Abernathy MD [address] [place] [address] 03/14/2025 8:45 AM CDT Office Visit [facility] [place] [address] Naila Abernathy MD [address] [place] [address] documented as of this encounter Visit Diagnoses Not on filedocumented in this encounter Care Teams Gut Dropper Relationship Specialty Start Date End Date Gladys Jin MD [address] [place] [address] PCP - General INTERNAL MEDICINE 08/06/18 Santo Ordonez MD [address] [place] [address] [place] Truck Sales Representative CARDIOVASCULAR DISEASE 08/06/18 02/14/24 Naila Abernathy MD [address] [place] [address] Consulting Physician CARDIOVASCULAR DISEASE 02/15/24 documented as of this encounter
--- OUTSIDE RECORDS SUMMARY | 2025-02-15 10:37 | XMS_ITS | Encounter Summary ---
Author Organization [facility] Address [address] [place] [address] Care Team Providers Care Green Energy Marketing Analyst Name Role Phone Gladys Jin MD Primary Care Provider [phone] Santo Ordonez MD Unavailable [phone] Naila Abernathy MD Unavailable Encounter Details Date Type Department Care Team (Late st Contact Info) Description 11/01/2017 Abstract [facility] [address] [place] [address] , Generic [facility] Social History Tobacco Use Types Packs/Day Years Used Date Smoking Tobacco: Never Comments Unknown Sex and Gender Information Value Date Recorded Sex Assigned at Unknown 09/16/2024 8:29 AM 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 [place] [address] Naila Abernathy MD [address] [place] [address] 03/14/2025 8:45 AM CDT Office Visit [facility] [address] Naila Abernathy MD [address] [place] [address] documented as of this encounter Visit Diagnoses Not on filedocumented in this encounter Care Teams Green Energy Marketing Analyst Relationship Specialty Start Date End Date Gladys Jin MD [address] [place] [address] PCP - General INTERNAL MEDICINE 08/06/18 Santo Ordonez MD [address] [place] [address] [place] Nursing Scheduler CARDIOVASCULAR DISEASE 08/06/18 02/14/24 Naila Abernathy MD [address] [place] [address] Consulting Physician CARDIOVASCULAR DISEASE 02/15/24 documented as of this encounter
--- OUTSIDE RECORDS SUMMARY | 2025-02-15 10:37 | XMS_ITS | Data Portability ---
Author Organization [place] - [facility], Main Office Address [address] [place] [address] Care Team Providers Care Electrical Assemblies Supervisor Name Role Phone SHAUN MCKEON Primary [...] Procedures injection/a spiration joint/bursa (PROC) 2024 025 [email or web address] In-Office Order, Internal Use Only DO Not Attach Compendium DO Not Attach Compendium, Do Not Delete/merge, [id number] 10:20:35 injection/a spiration joint/bursa (PROC) 2023 024 [email or web address] In-Office Order, Internal Use Only DO Not Attach Compendium DO Not Attach Compendium, Do Not Delete/merge, [id number] 10:31:39 injection/a spiration joint/bursa (PROC) 2023 024 [email or web address] 3 In-Office Order, Internal Use Only DO Not Attach Compendium DO Not Attach Compendium, Do Not Delete/merge, [id number] 4 09:59:12 injection/a spiration joint/bursa (PROC) 2023 024 [email or web address] 3 In-Office Order, Internal Use Only DO Not Attach Compendium DO Not Attach Compendium, Do Not Delete/merge, [id number] 4 10:46:54 injection/a spiration joint/bursa (PROC) - in office procedure, administere d by provider 2022 023 [email or web address] 3 In-Office Order, Internal Use Only DO Not Attach Compendium DO Not Attach Compendium, Do Not Delete/merge, 3 10:26:27 Surgeries None recorded. Imaging XR, shoulder 2023 [address] [facility] [place], [address], [place], [address], 4 23:26:19 Medication Orders bupivacaine HCl 0.5 % (5 mg/mL) injection solution [address]/Pharmacy #[id number], [address] [place], [address], 5 13:40:38 Kenalog 10 mg/mL suspension for injection [address]/Pharmacy #[id number], [address] [place], [address], 5 13:40:38 bupivacaine HCl 0.5 % (5 mg/mL) injection solution [address]/Pharmacy #56063, [address] [place], [address], 4 23:37:07 Kenalog 10 mg/mL suspension for injection [address]/Pharmacy #00659, [address] [place], [address], 4 23:37:07 Kenalog 10 mg/mL suspension for injection [address]/Pharmacy #55731, [address] [place], [address], 4 14:06:25 Marcaine (PF) 0.5 % (5 mg/mL) injection solution [address]/Pharmacy #62078, [address] [place], [address], 4 10:21:03 bupivacaine HCl 0.5 % (5 mg/mL) injection solution [address]/Pharmacy #91189, [address] [place], [address], 4 23:26:19 Kenalog 10 mg/mL suspension for injection [address]/Pharmacy #62254, [address] [place], [address], 4 23:26:19 Kenalog 10 mg/mL suspension for injection [address]/Pharmacy #47761, [address] [place], [address], 3 23:53:09 ropivacaine (PF) 5 mg/mL (0.5 %) injection solution [address]/Pharmacy #48604, [address] [place], [address], 4 10:21:27 Patient TargetsNo targets recorded. Patient InstructionsNo instructions recorded. Reason for Referral None Reported. Results Created Date Observation Date Name Description Value Unit Range Abnormal Flag Note LastModifiedBy Organization Detail LastModifiedTime 10/14/19 24 XR, shoul catalina No observ ation record ed. [email or web address] [facility] [address], [place], [address], 10/14/2023 11:06:18 10/21/19 24 04/30/2022 XR, shoul catalina No observ ation record ed. [email or web address] Not Available 2023 17:13:50 10/21/19 24 06/15/2022 MRI, shoul catalina, w/o contr ast No observ ation record ed. [email or web address] Not Available 2023 17:15:00 10/21/19 24 04/30/2022 XR, shoul catalina No observ ation record ed. [email or web address] Not Available 2023 17:15:46 10/21/19 24 06/14/2022 MRI, shoul catalina, w/o contr ast No observ ation record ed. [email or web address] Not Available 2023 17:17:00 Result Notes None recorded. Problems Name Problem SNOMED Code Status Onset Date Resolution Date Notes Provider Name and Address Organization Details Recorded Time Partial thickness rotator cuff tear Active Not Available [facility] 3 14:09:21 Osteoarthr itis of hip 363204147 Active Not Available [facility] 3 14:09:21 Osteoarthr itis of knee 313137234 Active Not Available [facility] 3 14:09:21 Enthesopat hy of hip region 71230479 Active Not Available [facility] 3 14:09:21 Knee pain Active Not Available [facility] 3 14:09:21 Osteoarthr itis 120080475 Active Not Available [facility] 3 14:09:21 Pain of hip region 52371447 Active Not Available [facility] 3 14:09:21 Pain of left shoulder joint 7859708549642 9109 Active 2022 Miladis Enamorado ATC L ismael, [facility] 3 09:55:55 Bilateral shoulder joint pain 8834565828393 9104 Active 2023 Miladis Enamorado ATC L null, [place] [facility] 4 10:09:09 Pain of right shoulder joint 4400240702641 9100 Active 2023 Kait Fortino, EUNICE null, [place] [employer] [facility] [employer] 10:23:54 Problem Notes None recorded. Procedures Surgical History Date Name Laterality Status Provider Name and Address Organization Details Recorded Time 5 Ortho - Cortisone Injection completed Clementina Garland, HARDWARE ENGINEER [address], [place], [address], [employer] 10/27/2024 10:33:11 4 Ortho - Cortisone Injection completed Clayton Fofana MD [address], [place], [address], [employer] 06/10/2024 00:51:22 4 Ortho - Cortisone Injection completed Clayton Fofana MD [address], [place], [address], [facility] 02/12/2024 23:06:43 4 Ortho - Cortisone Injection completed Clementina Garland, LEE [address], [place], [address], [facility] 10/14/2023 11:11:24 3 Ortho - Cortisone Injection completed Clayton Fofana MD [address], [place], [address], [facility] 05/15/2023 21:37:45 Imaging Results None recorded. Procedure [...] 1 mL by injection route. 2024 active [facility]: 0003- 0494- 20 Not Available [...] %) injection solution IN OFFICE 06/09 completed [facility] [phone] -064- 01 Not Available Not Available Not [...] Updated DateTime 10/14/2023 157.48 cm 20.7 kg/m2 00965.94 g JOAN Navarro [facility] [employer] [facility] 10/14/2023 10:07:57 Date Recorded Body height Body mass index (BMI) Body weight Provider Name and Address Organization Details Last Updated DateTime 10/27/2024 157.48 cm 21.9 kg/m2 71025.08 g Kait Freitas [facility] [employer] [facility] [employer] [facility] 10/27/2024 10:19:10 Date Recorded Body height Body mass index (BMI) Body weight Provider Name and Address Organization Details Last Updated DateTime 02/11/2024 157.48 cm 21.2 kg/m2 28436.71 veronika Kait Freitas [facility] [employer] [facility] 02/11/2024 09:34:38 Date Recorded Body height Body mass index (BMI) Body weight Provider Name and Address Organization Details Last Updated DateTime 05/14/2023 157.48 cm 25.2 kg/m2 43198.75 veronika JOAN Navarro [facility] [employer] [facility] 05/14/2023 09:55:21 Date Recorded Body height Body mass index (BMI) Body weight Provider Name and Address Organization Details Last Updated DateTime 06/09/2024 157.48 cm 21.9 kg/m2 00408.08 veronika Kait Freitas [facility] [employer] [facility] [employer] [facility] 06/09/2024 10:19:34 Social History Question Answer Notes LastModified by CRAVE Details LastModified Time Tobacco Smoking Status Unknown If Ever Smoked Not Available [facility] 10/16/2022 14:08:47 What Was The Date Of Your Most Recent Tobacco Screening? 06/09/2024 [email or web address] Information not available 06/09/2024 Sex: Unknown Functional Status Question Answer Note LastModified by CRAVE Details LastModified Time What is your level of alcohol consumption? None [id number] Information not available 10/16/2022 Mental Status None recorded. Family History Relationship Description Onset Age of this Age Resolved Age Notes LastModified by Organization Details LastModified Time Father Family history of malignant neoplasm [email or web address] [id number] Not available 10/16/2022 14:08:49 Father Hypertensive disorder [id number] Not available 10/16/2022 14:08:49 Father Heart disease [id number] Not available 10/16/2022 14:08:49 Medical History Condition Response USE OF BLOOD THINNERS Y USE OF NSAIDS Y HYPERTENSION Y ANEMIA/BLOOD DISORDER Y ARTHRITIS Y GOUT Y HEART DISEASE/HEART PROBLEMS Y CANCER: SPECIFY Y Gynecological HistoryNo gynecological history recorded. Obstetrics History GPAL:G 0 P 0 0 0 0 Past Encounters Encounter ID Performer Location Encounter Start Date Encounter Closed Date Diagnosis/Indication Diagnosis SNOMED-CT Code Diagnosis ICD10 Code Diagnosis Note [id number] Santo Kim MD [facility] [place] [address] [place] [address] 07/03/2022 00:00:00 07/03/2022 15:01:23 [id number] Santo Kim MD [facility] [place] [address] [place] [address] 09/03/2022 00:00:00 09/03/2022 16:58:49 [id number] Clayton Fofana MD [facility] [place] [address] [place] [address] 05/14/2023 09:49:00 05/14/2023 10:25:21 Pain of left shoulder joint 0649323617 5153477 M25.446 [id number] Clyaton Fofana MD [facility] [place] [address] [place] [address] 10/14/2023 10:04:38 10/14/2023 11:12:19 Bilateral shoulder joint pain 3069258692 [id number] M25.512 M25.004 [id number] Clayton Fofana MD [facility] [place] [address] [place] [address] 02/11/2024 09:31:15 02/11/2024 09:59:22 Bilateral shoulder joint pain 6937958527 [id number] M25.512 M25.906 [id number] Clayton Fofana MD [facility] [place] [address] [place] [address] 06/09/2024 09:58:05 06/09/2024 10:41:09 Pain of right shoulder joint 2510150370 [id number] M25.384 [id number] Clayton Fofana MD [facility] [place] [address] [place] [address] 10/27/2024 10:16:18 10/27/2024 10:30:17 Pain of right shoulder joint 0549173611 1620867 M25.511 Health Concerns Section Related Observation LastModified by Organization Detai ls LastModified Time None Recorded Concern Status LastModified by Organization Details LastModified Time None Recorded Advance Directives Directive None Recorded Payers Insurance Date Sequence Insurance Name Policy Number Policy Wise Covered Member ID Wise Member ID Guarantor Name 01/25/2025 1 [place] Michelle Lee [id number] Michelle eLe 10/27/2024 2 [facility] (MEDICARE SUPPLEMENT) Michelle Lee [id number] Michelle Lee OBGyn Episode No OBEpisode recorded.
--- OUTSIDE RECORDS SUMMARY | 2025-02-15 10:37 | XMS_ITS | Clinical Summary ---
Author Organization [facility] Address [address] [place] [address] Care Team Providers Care Ruling Machine Set Up Operator Name Role Phone Gladys Jin MD Primary Care Provider [phone] Naila Abernathy MD Unavailable Allergies Active Allergy [...] Mixed hyperlipidemia 09/25/2018 Type II diabetes mellitus ([facility]) 03/2019 Resolved Problems Problem Noted Date Diagnosed Date Resolved Date CHF (congestive heart failur e) ([facility]) 09/25/2018 02/11/2020 Family History Medical History [...] How often do you attend chur or restorationism services? 1 to 4 times per year 04/09/2023 Do you belong to any clubs o r organizations such as episcopal groups, unions, fraternal or athletic groups, or [...] and heating? Not hard at all 04/09/2023 [facility] - Occupational Stress [...] place to sleep or slept in a detention (including now)? No 04/09/2023 Comments Unknown Sex and Gender Information Value Date Recorded Sex Assigned at Unknown 09/16/2024 8:29 AM SENIOR TABLEAU DEVELOPER Legal Sex Female 8:54 PM CDT Gender Identity Not on file Sexual Orientation Not on file Last Filed Vital Signs Vital Sign Reading Time Taken Comments Blood Pressure 141/77 09/06/2024 9:37 AM SENIOR TABLEAU DEVELOPER Pulse 71 09/06/2024 9:37 AM SENIOR TABLEAU DEVELOPER Temperature 36.2 C (97.2 F) 08/04/2023 12:53 PM SENIOR TABLEAU DEVELOPER Respiratory Rate 12 03/05/2024 1:18 PM CDT Oxygen Saturation 99% 03/05/2024 1:18 PM CDT Inhaled Oxygen Concentration - - Weight 59.2 kg (130 lb 9.6 oz) 09/06/2024 9:37 A M SENIOR TABLEAU DEVELOPER Height 157.5 cm (5' 2) 09/06/2024 9:37 AM SENIOR TABLEAU DEVELOPER Body Mass Index 23.89 09/06/2024 9:37 AM SENIOR TABLEAU DEVELOPER Plan of Treatment Upcoming Encounters Date Type Department Care Team (Late st Contact Info) Description 03/07/2025 8:[address] [facility] [place] [address] Naila Abernathy MD [address] [place] [address] 03/14/2025 8:45 AM CDT Office Visit [facility] [address] [place] [address] Naila Abernathy MD [address] [place] [address] Health Maintenance Due Date Last Done Comments [...] NON-REACT ANABELLA NON-REACT ANABELLA 09/22/2023 2:22 PM SENIOR TABLEAU DEVELOPER [facility] Comment:HBsAg NOT DETECTED. HEP B CORE IGM NON-REACT ANABELLA NON-REACT ANABELLA 09/22/2023 2:22 PM SENIOR TABLEAU DEVELOPER [facility] Comment: IgM ANTI HBc NOT DETECTED. DOES NOT EXCLUDE THE POSSIBILITY OF EXPOSURE TO OR INFECTION WITH HBV. NO RETEST REQUIRED. HIGH DOSES OF BIOTIN MAY INTERFERE WITH THIS TEST RESULT. CORRELATION TO CLINICAL HISTORY AND PRESENTATION RECOMMENDED. HAV IGM NON-REACT ANABELLA NON-REACT ANABELLA 09/22/2023 2:22 PM SENIOR TABLEAU DEVELOPER [facility] Comment: IgM ANTI HAV NOT DETECTED. DOES NOT EXCLUDE THE POSSIBILITY OF EXPOSURE TO OR INFECTION WITH HAV. LEVELS OF IgM ANTI HAV MAY BE BELOW THE CUTOFF IN EARLY INFECTION. HEPATITIS C AB NON-REACT ANABELLA NON-REACT ANABELLA 09/22/2023 2:22 PM SENIOR TABLEAU DEVELOPER [facility] Comment: ANTIBODIES TO HCV NOT DETECTED. DOES NOT EXCLUDE THE POSSIBILITY OF EXPOSURE TO HCV. 04/22/2023 7:27 AM CDT Obed Posadas MD LABORATORY Final Resul t [facility] [address] [place] [address], [id number] * LIPID PANEL (05/07/2014 12:00 AM CDT) [...] Documents on File Type Date Recorded Patient Caddie Expl anation Power of Fence Supervisor 04/10/2023 POWER OF A TTORNEY * DNR (Latest Code Status on File) Date Activated Date Inactivated Comments 04/09/2023 2:05 PM 07/09/2023 11:00 AM Care Teams Ruling Machine Set Up Operator Relationship Specialty Start Date End Date Gladys Jin MD [address] [place] [address] PCP - General INTERNAL MEDICINE 08/06/18 Naila Abernathy MD [address] [place] [address] Consulting Physician CARDIOVASCULAR DISEASE 02/15/24
[2025-02-15 10:48] LABS: Hematocrit 35.4 % (35.0-42.0); Hemoglobin 11.1 g/dL (11.7-13.8); Mean Corpuscular HGB Conc 31.4 g/dL (32-36); Mean Corpuscular Hemoglobin 30.8 pg (27.0-31.0); Mean Corpuscular Volume 98.3 fL (78.0-102.0); Platelet Count Result 130 K/mm3 (150-420); Red Blood Count 3.60 M/mm3 (4.20-5.40); White Blood Count 4.4 K/mm3 (4.8-10.8)
[2025-02-15 10:52] LABS: Immature Platelet Fraction Pct 3.1 % (1.0-7.0)
[2025-02-15] MEDS: SODIUM CHLORIDE 0.9% IV 1,000 ML 999 ML IV CONT (10:59)
[2025-02-15] MEDS: ADENOSINE IV SOLN 6 MG/2 ML VIAL IV PUSH (11:00)
[2025-02-15 11:03] LABS: Alanine Aminotransferase 31 U/L (6-35); Albumin Level 3.5 g/dL (3.5-5.1); Alkaline Phosphatase 70 U/L (38-126); Anion Gap 5 mmol/L (4-12); Aspartate Amino Transferase 27 U/L (14-36); Bilirubin,Total 0.4 mg/dL (0.2-1.3); Blood Urea Nitrogen 33 mg/dL (7-17); Calcium 8.3 mg/dL (8.4-10.2); Carbon Dioxide 24 mmol/L (22-30); Chloride 105 mmol/L (98-107); Estimated CRCL calculation 23 ml/min; Estimated Glomerular Filt Rate 35; Glucose 213 mg/dL (65-110); INR 0.9; Osmolality Calculated 291 mOsm/kg (285-295); Partial Thromboplastin Time 34.4 Sec (23.9-30.70); Potassium 4.0 mmol/L (3.4-5.0); Prothrombin Time 10.3 Seconds (9.50-12.1); Sodium 134 mmol/L (137-145); Total Protein 5.6 g/dL (6.3-8.2)
[2025-02-15] MEDS: ADENOSINE IV SOLN 6 MG/2 ML VIAL 12 MG IV PUSH (11:05)
[2025-02-15 11:11] LABS: Anisocytosis 2+; Band Neutrophils Percent 2 % (0-6); Basophils Absolute Manual 0.26 K/mm3 (0-0.1); Basophils Percent Manual 6 % (0-1); Eosinophils Absolute Manual 0.13 K/mm3 (0.02-0.50); Eosinophils Percent Manual 3 % (1-6); Hypochromasia 2+; Lymphocytes Absolute Manual 0.83 K/mm3 (1.1-4.5); Lymphocytes Percent Manual 19 % (18-44); Monocytes Absolute Manual 0.17 K/mm3 (0.1-0.90); Monocytes Percent Manual 4 % (3-9); Neutrophils Absolute Manual 2.99 K/mm3 (1.3-6.7); Neutrophils Percent Manual 66 % (46-73); Schistocytes None Seen; Total Cells Counted 100
--- OUTSIDE RECORDS SUMMARY | 2025-02-15 11:12 | XMS_ITS | Encounter Summary ---
Author Organization [facility] Address [address] [place] [address] Care Team Providers Care Psych Np Name Role Phone Gladys Jin MD Primary Care Provider [phone] Santo Ordonez MD Unavailable [phone] Naila Abernathy MD Unavailable Encounter Details Date Type Department Care Team (Late st Contact Info) Description 11/01/2017 Abstract [facility] [address] [place] [address] , Generic ConversionMD Social History Tobacco Use Types Packs/Day Years Used Date Smoking Tobacco: Never Comments Unknown Sex and Gender Information Value Date Recorded Sex Assigned at Unknown 09/16/2024 8:29 AM HAND SHAPER Legal Sex Female 8:54 PM CDT Gender Identity Not on file Sexual Orientation Not on file documented as of this encounter Plan of Treatment Upcoming Encounters Date Type Department Care Team (Late st Contact Info) Description 03/07/2025 8:[address] [place] [address] Naila Abernathy MD [address] [place] [address] 03/14/2025 8:45 AM CDT Office Visit [facility] [address] Naila Abernathy MD [address] [place] [address] documented as of this encounter Visit Diagnoses Not on filedocumented in this encounter Care Teams Psych Np Relationship Specialty Start Date End Date Gladys Jin MD [address] [place] [address] PCP - General INTERNAL MEDICINE 08/06/18 Santo Ordonez MD [address] [place] [address] [employer] Furnace Installer CARDIOVASCULAR DISEASE 08/06/18 02/14/24 Naila Abernathy MD [address] [place] [address] Consulting Physician CARDIOVASCULAR DISEASE 02/15/24 documented as of this encounter
--- OUTSIDE RECORDS SUMMARY | 2025-02-15 11:12 | XMS_ITS | Encounter Summary ---
Author Organization [facility] Address [address] [place] [address] Care Team Providers Care Parasitology Teacher Name Role Phone Gladys Jin MD Primary Care Provider [phone] Santo Ordonez MD Unavailable [phone] Naila Abernathy MD Unavailable Encounter Details Date Type Department Care Team (Late st Contact Info) Description 12/15/2023 Pre-Procedure Call [facility] Interventional Radiology [address] [place] [address] Danielle Briseno, RN Social History [...] often do you attend chur ch or voodoo services? 1 to 4 times per year 04/09/2023 Do you belong to any clubs o r organizations such as jehovah's witness groups, unions, fraternal or athletic groups, or [...] and heating? Not hard at all 04/09/2023 [facility] - Occupational Stress Questionnaire Answer Date Recorded [...] place to sleep or slept in a fpc (including now)? No 04/09/2023 Comments Unknown Sex and Gender Information Value Date Recorded Sex Assigned at Unknown 09/16/2024 8:29 AM MANAGER TECHNICAL SALES Legal Sex Female 8:54 PM CDT Gender [...] Info) Description 03/07/2025 8:00 AM CDT Appointment [address] [place] [address] Naila Abernathy MD [address] [place] [address] 03/14/2025 8:45 AM CDT Office Visit [facility] [place] [address] Naila Abernathy MD [address] [place] [address] documented as of this encounter Visit Diagnoses Not on filedocumented in this encounter Care Teams Parasitology Teacher Relationship Specialty Start Date End Date Gladys Jin MD [address] [place] [address] PCP - General INTERNAL MEDICINE 08/06/18 Santo Ordonez MD [address] [place] [address] [employer] Supervisor CARDIOVASCULAR DISEASE 08/06/18 02/14/24 Naila Abernathy MD [address] [place] [address] Consulting Physician CARDIOVASCULAR DISEASE 02/15/24 documented as of this encounter
--- OUTSIDE RECORDS SUMMARY | 2025-02-15 11:12 | XMS_ITS | Encounter Summary ---
Author Organization [facility] Address [address] [place] [address] Care Team Providers Care Electric Meter Tester Helper Name Role Phone Gladys Jin MD Primary Care Provider [phone] Santo Ordonez MD Unavailable [phone] Naila Abernathy MD Unavailable Encounter Details Date Type Department Care Team (Late st Contact Info) Description 09/23/2018 Abstract [facility] [address] [place] [phone] Abstract, Doc [facility] Social History Tobacco Use Types Packs/Day Years Used Date Smoking Tobacco: Never Smokeless Tobacco: Never Comments Unknown Sex and Gender Information Value Date Recorded Sex Assigned at Unknown 09/16/2024 8:29 AM GOLF COURSE MECHANIC Legal Sex Female 8:54 PM CDT Gender Identity Not on file Sexual Orientation Not on file documented as of this encounter Plan of Treatment Upcoming Encounters Date Type Department Care Team (Late st Contact Info) Description 03/07/2025 8:[address] [place] [address] Naila Abernathy MD [address] [place] [address] 03/14/2025 8:45 AM CDT Office [facility] [address] Naila Abernathy MD [address] [place] [address] documented as of this encounter Visit Diagnoses Not on filedocumented in this encounter Care Teams Electric Meter Tester Helper Relationship Specialty Start Date End Date Gladys Jin MD [address] [place] [address] PCP - General INTERNAL MEDICINE 08/06/18 Santo Ordonez MD [address] [place] [phone] [place] Fiberglass Luggage Molder CARDIOVASCULAR DISEASE 08/06/18 02/14/24 Naila Abernathy MD [address] [place] [address] Consulting Physician CARDIOVASCULAR DISEASE 02/15/24 documented as of this encounter
--- OUTSIDE RECORDS SUMMARY | 2025-02-15 11:13 | XMS_ITS | Clinical Summary ---
Author Organization [facility] Address [address] [place] [address] Care Team Providers Care Remelt Sugar Boiler Name Role Phone Gladys Jin MD Primary Care Provider [phone] Naila Abernathy MD Unavailable Allergies Active Allergy [...] Mixed hyperlipidemia 09/25/2018 Type II diabetes mellitus ([facility]) 03/2019 Resolved Problems Problem Noted Date Diagnosed Date Resolved Date CHF (congestive heart failur e) ([facility]) 09/25/2018 02/11/2020 Family History Medical History Relation [...] How often do you attend chur or buddhist services? 1 to 4 times per year 04/09/2023 Do you belong to any clubs o r organizations such as adventist groups, unions, fraternal or athletic groups, or [...] and heating? Not hard at all 04/09/2023 [facility] [place] [facility] Occupat ional Health - Occupational Stress [...] place to sleep or slept in a long-term (including now)? No 04/09/2023 Comments Unknown Sex and Gender Information Value Date Recorded Sex Assigned at Unknown 09/16/2024 8:29 AM FISH HATCHERY SPECIALIST Legal Sex Female 8:54 PM CDT Gender Identity Not on file Sexual Orientation Not on file Last Filed Vital Signs Vital Sign Reading Time Taken Comments Blood Pressure 141/77 09/06/2024 9:37 AM FISH HATCHERY SPECIALIST Pulse 71 09/06/2024 9:37 AM FISH HATCHERY SPECIALIST Temperature 36.2 C (97.2 F) 08/04/2023 12:53 PM FISH HATCHERY SPECIALIST Respiratory Rate 12 03/05/2024 1:18 PM CDT Oxygen Saturation 99% 03/05/2024 1:18 PM CDT Inhaled Oxygen Concentration - - Weight 59.2 kg (130 lb 9.6 oz) 09/06/2024 9:37 A M FISH HATCHERY SPECIALIST Height 157.5 cm (5' 2) 09/06/2024 9:37 AM FISH HATCHERY SPECIALIST Body Mass Index 23.89 09/06/2024 9:37 AM FISH HATCHERY SPECIALIST Plan of Treatment Upcoming Encounters Date Type Department Care Team (Late st Contact Info) Description 03/07/2025 8:[address] [facility] includes the [facility] [address] Naila Abernathy MD [address] [place] [address] 03/14/2025 8:45 AM CDT Office Visit [facility] [address] [place] [address] Naila Abernathy MD [address] [place] [address] Health Maintenance Due Date Last Done Comments [...] NON-REACT ANABELLA NON-REACT ANABELLA 09/22/2023 2:22 PM FISH HATCHERY SPECIALIST [facility] Comment:HBsAg NOT DETECTED. HEP B CORE IGM NON-REACT ANABELLA NON-REACT ANABELLA 09/22/2023 2:22 PM FISH HATCHERY SPECIALIST [facility] Comment: IgM ANTI HBc NOT DETECTED. DOES NOT EXCLUDE THE POSSIBILITY OF EXPOSURE TO OR INFECTION WITH HBV. NO RETEST REQUIRED. HIGH DOSES OF BIOTIN MAY INTERFERE WITH THIS TEST RESULT. CORRELATION TO CLINICAL HISTORY AND PRESENTATION RECOMMENDED. HAV IGM NON-REACT ANABELLA NON-REACT ANABELLA 09/22/2023 2:22 PM FISH HATCHERY SPECIALIST [facility] Comment: IgM ANTI HAV NOT DETECTED. DOES NOT EXCLUDE THE POSSIBILITY OF EXPOSURE TO OR INFECTION WITH HAV. LEVELS OF IgM ANTI HAV MAY BE BELOW THE CUTOFF IN EARLY INFECTION. HEPATITIS C AB NON-REACT ANABELLA NON-REACT ANABELLA 09/22/2023 2:22 PM FISH HATCHERY SPECIALIST [facility] Comment: ANTIBODIES TO HCV NOT DETECTED. DOES NOT EXCLUDE THE POSSIBILITY OF EXPOSURE TO HCV. 04/22/2023 7:27 AM CDT Obed Posadas MD LABORATORY Final Resul t [facility] [address] [place] [address], [id number] * LIPID PANEL (05/07/2014 12:00 AM CDT) [...] Documents on File Type Date Recorded Patient Steam Hoist Operator Expl anation Power of Regional Cra 04/10/2023 POWER OF A TTORNEY * DNR (Latest Code Status on File) Date Activated Date Inactivated Comments 04/09/2023 2:05 PM 07/09/2023 11:00 AM Care Teams Remelt Sugar Boiler Relationship Specialty Start Date End Date Gladys Jin MD [address] [place] [phone] PCP - General INTERNAL MEDICINE 08/06/18 Naila Abernathy MD [address] [place] [address] Consulting Physician CARDIOVASCULAR DISEASE 02/15/24
[2025-02-15 11:14] LABS: NT Pro B Type Natriuretic Pept 4830 pg/mL (19.9-100); Troponin I 0.031 ng/mL (0.000-0.034)
[2025-02-15] MEDS: dilTIAZem 100 MG/100 ML 100 MG/100 ML BAG IV CONT (11:27)
[2025-02-15 11:54] LABS: Thyroid Stimulating Hormone 1.720 uIU/mL (0.465-4.680)
--- NOTE | 2025-02-15 11:57 | ED_ITS ---
HPI - Arrhythmia/Palpitations General Chief Complaint: Arrhythmia/Palpitations Stated Complaint: irregular heart rate Source: patient and family Mode of arrival: wheelchair Limitations: no limitations History of Present Illness HPI narrative: this is a 79-year-old female with a history of CHF, history of prosthetic aortic valve history of multiple myeloma in remission and chronic kidney disease presents from her primary care physician's office with a rapid heart rate 140s, the patient during this episode had no symptoms, currently asymptomatic with no chest pain no shortness of breath did feel little lightheaded earlier this morning otherwise no nausea vomiting no chest pain no abdominal pain no dysuria or flank pain no fever chills. MD complaint: rapid heart beat Onset (ago): hour(s) Duration: constant Severity: moderate Context: occurred during rest Related Data Home Medications ?Medication ?Instructions ?Recorded ?Confirmed ?Last Taken ?Type amlodipine 5 mg tablet 5 mg PO DAILY 02/23/23 06/10/24 10/31/23 History cholecalciferol (vitamin D3) 50 50 mcg PO DAILY 02/23/23 06/10/24 10/29/23 History mcg (2,000 unit) capsule (Vitamin D3) cyanocobalamin (vitamin B-12) 2,500 mcg sublingual DAILY 02/23/23 06/10/24 10/29/23 History 2,500 mcg sublingual tablet (Vitamin B-12) duloxetine 60 mg capsule,delayed 60 mg PO DAILY 02/23/23 06/10/24 10/29/23 History release levothyroxine 112 mcg tablet 112 mcg PO DAILY 02/23/23 06/10/24 10/31/23 History omeprazole 20 mg capsule,delayed 20 mg PO DAILY 02/23/23 06/10/24 10/31/23 History release trazodone 50 mg tablet 50 mg PO HS 02/23/23 06/10/24 10/28/23 History dexamethasone 4 mg tablet 20 mg PO DAILY PRN days of chemo 07/02/23 06/10/24 Unknown History lenalidomide 10 mg capsule 10 mg PO DAILY 01/22/24 06/10/24 Unknown History acyclovir 400 mg tablet 800 mg PO DAILY 02/15/25 Unknown History Allergies Allergy/AdvReac Type Severity Reaction Status Date / Time hydrocodone (From Vicodin) Allergy Itching Verified 02/15/25 12:07 bupropion AdvReac Mild Rash Verified 02/15/25 12:07 nsaid AdvReac Mild Abdominal Uncoded 02/15/25 12:07 Pain Review of Systems 2 Review of Systems: All systems reviewed & are unremarkable except as noted in HPI and below PMFSH Past Medical History Medical History Acute kidney injury superimposed on chronic kidney disease Paroxysmal atrial fibrillation Chronic kidney disease Diabetes mellitus diet controlled Hiatal hernia Gastroesophageal reflux disease without esophagitis Breast cancer in situ Anemia Hyperthyroidism Hypertension Multiple myeloma Surgical History Surgical History History of total replacement of both hip joints Status post laparoscopic Kayleen fundoplication History of lumpectomy of left breast History of aortic valve replacement with bioprosthetic valve History of thyroidectomy Family History Family History Other Cerebrovascular accident Diabetes mellitus Family history of malignant neoplasm Hypertension Social History Social History Smoking status: Never smoker Alcohol intake: never Drinks per week: 1 Substance use: never Substance use type: does not use Lack of Transportation: No Lack of Food: Never True Current Housing: I Have Housing Concerned About Future Housing: No Difficulty Paying Gas/Electric Bills: No Difficulty Paying for Meds: No Currently Unemployed: No Education: High School Diploma/GED Difficulty w/ Childcare or Family Care: No Spiritual care concerns: No Exam 2 Const: General: no acute distress Nutritional Appearance: well nourished Orientation/consciousness: patient oriented x3 Limitations: no limitations HENMT: Head: normal to inspection Eyes: Conjunctivae: conjunctivae normal Pupils: Equal, round and reactive pupils present EOM: EOMs intact bilaterally Neck: Neck: normal visual inspection Chest: Chest palpation & inspection: normal inspection of the chest Resp: Effort & Inspection: normal respiratory effort Auscultation: clear to auscultation bilaterally Cardio: Rate: tachycardic Rhythm: regular rhythm GI: GI Palp: Yes Soft to palpation Auscultation: normal bowel sounds : General: Yes bladder normal to palpation Urinary Catheter: Urinary Catheter: patent and draining Skin: General skin exam: normal color Rashes: no rashes Neuro: General: patient oriented x3, moves all extremities, no meningeal signs and no focal motor deficits Extrem: General: normal to inspection, no clubbing, cyanosis or edema and no pedal edema Course Course Emergency Course: Patient an a rapid rhythm SVT with heart rate initially 148-153, with no symptoms of chest pain or shortness of breath no headaches or blurry vision no nausea or vomiting. Patient received adenosine 6 and 12 with no response to her rapid heart rate. Subsequently a bolus of 10mg Cardizem and then a Cardizem drip was started and heart rate still in the 120s to 140s. Patient had a D-dimer that was elevated 0.94, subsequently a CTA was performed. A troponin negative [place] 4830 chest x-ray shows no acute cardiopulmonary abnormalities EKG shows a SVT with a rate of 148. The rest of her blood work unremarkable with a H&H of 11 and 35 with a white blood cell count of 4.4. Patient after being on a Cardizem drip converted to a sinus rhythm with a rate of 64. Spoke to her supervisor brake repair that agreed that the patient can be discharged safely with follow-up with her cardiology office. And will start the patient on 120 p.o. diltiazem on an outpatient basis. Vital Signs Vital signs: Vital Signs Temperature 36.9 C 02/15/25 10:26 Pulse Rate 148 H 02/15/25 10:26 Respiratory Rate 24 H 02/15/25 10:26 Blood Pressure 142/98 H 02/15/25 10:26 Pulse Oximetry 98 02/15/25 10:26 Oxygen Delivery Room Air 02/15/25 10:26 Temperature 36.9 C 02/15/25 10:26 Pulse Rate 67 02/15/25 14:32 Respiratory Rate 20 02/15/25 14:32 Blood Pressure 117/59 L 02/15/25 14:32 Pulse Oximetry 98 02/15/25 14:32 Oxygen Delivery Room Air 02/15/25 14:32 Oxygen Flow Rate 2 02/15/25 11:15 MDM - Arrhythmia/Palpitations Lab Data 02/15/25 10:38 02/15/25 10:38 Labs: Lab Results 02/15/25 02/15/25 02/15/25 Range/Units 10:38 11:11 12:40 WBC 4.4 L (4.8-10.8) K/mm3 RBC 3.60 L (4.20-5.40) M/mm3 Hgb 11.1 L (11.7-13.8) g/dL Hct 35.4 (35.0-42.0) % MCV 98.3 (78.0-102.0) fL MCH 30.8 (27.0-31.0) pg MCHC 31.4 L (32-36) g/dL RDW 14.0 (11.6-14.4) % Plt Count 130 L (150-420) K/mm3 MPV 11.8 (9.2-11.8) fl Immature Gran % (Auto) Not Reportable Neut % (Auto) Not Reportable Lymph % (Auto) Not Reportable [place] % (Auto) Not Reportable Eos % (Auto) Not Reportable Baso % (Auto) Not Reportable Lymph # (Auto) Not Reportable [place] # (Auto) Not Reportable Eos # (Auto) Not Reportable Baso # (Auto) Not Reportable Abs Immat Gran (auto) Not Reportable Absolute Neuts (auto) Not Reportable Absolute Nucleated RBC Not Reportable Total Counted 100 Neutrophils % (Manual) 66 (46-73) % Band Neutrophils % 2 (0-6) % Lymphocytes % (Manual) 19 (18-44) % Monocytes % (Manual) 4 (3-9) % Eosinophils % (Manual) 3 (1-6) % Basophils % (Manual) 6 H (0-1) % Nucleated RBC % Not Reportable Abs Neuts (Manual) 2.99 (1.3-6.7) K/mm3 Abs Lymphs (Manual) 0.83 L (1.1-4.5) K/mm3 Abs Monocytes (Manual) 0.17 (0.1-0.90) K/mm3 Absolute Eos (Manual) 0.13 (0.02-0.50) K/mm3 Abs Basophils (Manual) 0.26 H (0-0.1) K/mm3 Platelet Estimate Adequate (Adequate) % Immature Plt Fraction 3.1 (1.0-7.0) % Hypochromasia 2+ Anisocytosis 2+ Schistocytes None seen PT 10.3 (9.50-12.1) Seconds INR 0.9 APTT 34.4 H (23.9-30.70) Sec D-Dimer 1.94 H (0.19-0.50) mg/L Sodium 134 L (137-145) mmol/L Potassium 4.0 (3.4-5.0) mmol/L Chloride 105 (98-107) mmol/L Carbon Dioxide 24 (22-30) mmol/L Anion Gap 5 (4-12) mmol/L BUN 33 H (7-17) mg/dL Creatinine 1.43 H (0.7-1.0) mg/dL Estim Creat Clear Calc 23 ml/min Estimated GFR 35 L (59 - ) Glucose 213 H (65-110) mg/dL Calculated Osmolality 291 (285-295) mOsm/kg Lactic Acid 1.6 (0.4-2.0) mmol/L Calcium 8.3 L (8.4-10.2) mg/dL Total Bilirubin 0.4 (0.2-1.3) mg/dL AST 27 (14-36) U/L ALT 31 (6-35) U/L Alkaline Phosphatase 70 (38-126) U/L Troponin I 0.031 (0.000-0.034) ng/mL NT-Pro-B Natriuret Pep 4830 H (19.9-100) pg/mL Total Protein 5.6 L (6.3-8.2) g/dL Albumin 3.5 (3.5-5.1) g/dL TSH 1.720 (0.465-4.680) uIU/mL Urine Color Light yellow (Yellow) Urine Appearance Clear (Clear) Urine pH 6.0 (5.0-8.0) Ur Specific [place] <= 1.005 L (1.010-1.020) Urine Protein Negative (Negative) Urine Glucose (UA) Negative (Negative) Urine Ketones Negative (Negative) Ur Blood (Man) Negative (Negative) Urine Nitrate Negative (Negative) Urine Bilirubin Negative (Negative) Urine Urobilinogen 0.2 (0.2-1.0) mg/dL Leukocyte Esterase Rfl Negative (Negative) ALVIN/UL Discharge Plan Discharge Clinical Impression: Paroxysmal supraventricular tachycardia Patient Disposition: Home Condition: Stable Instructions: Antibiotic Form, Supraventricular Tachycardia (ED) Additional Instructions: advised to take medication as prescribed and follow with Cardiology within the next couple of days for further evaluation treatment. Patient Language: [place] Prescriptions: New diltiazem HCl [Tiadylt ER] 120 mg capsule,extended release 24 hr 120 mg PO DAILY Qty: 30 0RF No Action trazodone 50 mg tablet 50 mg PO HS amlodipine 5 mg tablet 5 mg PO DAILY omeprazole 20 mg capsule,delayed release(DR/EC) 20 mg PO DAILY levothyroxine 112 mcg tablet 112 mcg PO DAILY duloxetine 60 mg capsule,delayed release(DR/EC) 60 mg PO DAILY cyanocobalamin (vitamin B-12) [Vitamin B-12] 2,500 mcg Tablet, Sublingual 2,500 mcg SUBLINGUAL DAILY cholecalciferol (vitamin D3) [Vitamin D3] 50 mcg (2,000 unit) Capsule 50 mcg PO DAILY acetaminophen [Mapap (acetaminophen)] 325 mg Tablet 650 mg PO Q4H PRN (Reason: Mild Pain (1-3) Or Fever) 0RF allopurinol 100 mg Tablet 100 mg PO BID 0RF bisacodyl [Laxative (bisacodyl)] 5 mg Tablet,Delayed Release (Dr/Ec) 5 mg PO DAILY PRN (Reason: Constipation) 0RF dexamethasone 4 mg Tablet 20 mg PO DAILY PRN (Reason: days of chemo) lenalidomide 10 mg Capsule 10 mg PO DAILY Rx Instructions: swallow whole with glass of water; do not open, crush, chew , break, or dissolve days 1 -21. per rx on bottle acyclovir 400 mg tablet 800 mg PO DAILY Follow-up/Referrals: Gladys Jin MD [Primary Care Provider] - Time of Disposition: 13:59
[2025-02-15] MEDS: FUROSEMIDE INJ 40 MG/4 ML VIAL IV PUSH (12:27)
[2025-02-15 12:47] LABS: Add Urine Microscopic? NO; Appearance Urine Clear (Clear); Glucose Urine UA Negative (Negative); Leukocyte Esterase Ur Negative LEU/UL (Negative); Nitrate Urine Negative (Negative); Specific Grav Ur <= 1.005 (1.010-1.020)
--- NOTE | 2025-02-15 13:26 | ECG_ITS ---
Test Date: 2025-02-15 13:36:26 Measurements Intervals [place] Rate: 64 P: 76 RI: 167 QRS: -54 QRSD: 100 T: 121 QT: 421 QTc: 436 Interpretive Statements SINUS RHYTHM WITH OCCASIONAL SUPRAVENTRICULAR PREMATURE COMPLEXES LEFT ANTERIOR FASCICULAR BLOCK [QRS AXIS <= -45, QR IN I, RS IN II] VOLTAGE CRITERIA FOR LVH [MEETS CRITERIA IN ONE OF: R(aVL), S(V1), R(V5), R(V5/V6)+S(V1)] ABNORMAL ECG ] Compared to ECG 02/15/2025 10:34:00 SINUS RHYTHM HAS REPLACED ATRIAL FLUTTER Electronically Signed On 02-16-2025 13:00:10 CDT by iRan Melendez M.D.
--- NOTE | 2025-02-15 13:28 | PC.NURSE ---
pt resting per cot, family in room with patient. will continue observation for 1 hour.
== END 2025-02-15 14:32 | disposition home or self-care (01) ==
PROVIDERS: Emergency Provider Emergency Medicine; PCP Internal Medicine
DX: I48.0 Paroxysmal atrial fibrillation (principal); I13.0 Hypertensive heart and chronic kidney disease with heart failure and stage 1 through stage 4 chronic kidney disease, or unspecified chronic kidney disease; I50.9 Heart failure, unspecified; N18.9 Chronic kidney disease, unspecified; E11.22 Type 2 diabetes mellitus with diabetic chronic kidney disease
CPT/HCPCS: 36415; 71045; 71275; 80053; 81003; 83605; 83880; 84443; 84484; 85025; 85055; 85380; 85610; 85730; 93005; 96365; 96366; 96375; 99284; J0153; J1938; J7030; Q9967

== ENCOUNTER 2025-03-24 11:44 | Outpatient (CLI) | payer MEDICARE, SELFPAY ==
--- OUTSIDE RECORDS SUMMARY | 2025-03-24 11:49 | XMS_ITS | Encounter Summary ---
Author Organization [facility] Address [address] [place] [address] Care Team Providers Care National Flatbed Truck Driver Name Role Phone Gladys Jin MD Primary Care Provider [phone] Santo Ordonez MD Unavailable [phone] Naila Abernathy MD Unavailable Encounter Details Date Type Department Care Team (Late st Contact Info) Description 11/01/2017 Abstract [facility] CONVERSION [address] [place] [address] , Generic Conversion, Social History Tobacco Use Types Packs/Day Years Used Date Smoking Tobacco: Never Comments Unknown Sex and Gender Information Value Date Recorded Sex Assigned at Female 03/07/2025 7:31 AM CDT Legal Sex Female 8:54 PM CDT Gender Identity Not on file Sexual Orientation Not on file documented as of this encounter Plan of Treatment Upcoming Encounters Date Type Department Care Team (Late st Contact Info) Description 06/27/2025 12:30 PM DIRECTOR OF MARKETING AND PROMOTIONS Office Visit [facility] [place] [address] Naila Abernathy MD [address] [place] [address] documented as of this encounter Visit Diagnoses Not on filedocumented in this encounter Care Teams National Flatbed Truck Driver Relationship Specialty Start Date End Date Gladys Jin MD [address] [place] [phone] PCP - General INTERNAL MEDICINE 08/06/18 Santo Ordonez MD [address] [place] [address] [facility] Nurse Practitioner CARDIOVASCULAR DISEASE 08/06/18 02/14/24 Naila Abernathy MD [address] [place] [address] Consulting Physician CARDIOVASCULAR DISEASE 02/15/24 documented as of this encounter
--- OUTSIDE RECORDS SUMMARY | 2025-03-24 11:49 | XMS_ITS | Encounter Summary ---
Author Organization [facility] Address [address] [place] [address] Care Team Providers Care Contracting Engineer Name Role Phone Gladys Jin MD Primary Care Provider [phone] Naila Abernathy MD Unavailable Encounter Details Date Type Department Care Team (Late st Contact Info) Description 03/17/2025 Hospital Follow-up Call [facility] [address] [place] [address] Kait Wright RN Social History Tobacco Use Types Packs/Day Years Used Date Smoking Tobacco: Never Smokeless Tobacco: Never Alcohol Use Standard Drinks/Week Comments Not Currently 0 (1 standard drink = 0.6 oz pur e alcohol) [facility] Utilities Answer Date Recorded In the past 12 months has [facility] [employer], gas, oil, or water [employer] threatened to shut off services in your home? No 03/15/2025 Humiliation, Afraid, Rape, and Kick questionnair e Answer Date Recorded Within the last year, have y ou been afraid of your partner or ex-partner? No 03/15/2025 Within the last year, have y ou been humiliated or emotionally abused in other ways by your partner or ex-partner? No Within the last year, have y ou been kicked, hit, slapped, or otherwise physically hurt by your partner or ex-partner? No 03/15/2025 Within the last year, have y ou been raped or forced to have any kind of sexual activity by your partner or ex-partner? No 03/15/2025 Social Connection and Isolation Panel [NHANES] A nswer Date Recorded In a typical week, how many times do you talk on the phone with family, friends, or neighbors? Three times a week 04/09/20 How often do you get togethe r with friends or relatives? Three times a week 04/09/2023 How often do you attend chur ch or spiritism services? 1 to 4 times per year 04/09/2023 Do you belong to any clubs o r organizations such as advent groups, unions, fraternal or athletic groups, or [...] care, and heating? Not hard at all 03/15/2025 [facility] Occupational Stress Questionnaire Answer Date [...] the money to buy more. Never true 03/15/20 25 Within the past 12 months, t he food you bought just didn't last and you didn't have money to get more. Never true 03/15/2025 PRAPARE - Transportation Answer Date Re corded In the past 12 months, has l ack of transportation kept you from medical appointments or from getting medications? No 02/16 In the past 12 months, has l ack of transportation kept you from meetings, work, or from getting things needed for daily living? No 03/15/2025 Housing Stability Vital Sign Answer Behzad e [...] place to sleep or slept in a nursing home (including now)? No 04/09/2023 Housing Stability Vital Sign Answer Behzad e Recorded In the last 12 months, was t here a time when you were not able to pay the mortgage or rent on time? No 03/15/2025 In the past 12 months, how m any times have you moved where you were living? 0 03/15/2025 At any time in the past 12 m [facility], were you homeless or living in a nursing home (including now)? No 03/15/2025 Comments Unknown Sex and Gender Information Value Date Recorded Sex Assigned at Female 03/07/2025 7:31 AM CDT Legal Sex Female 8:54 PM CDT Gender Identity Not on file Sexual Orientation Not on file documented as of this encounter Functional Status * Are you deaf or do you have serious difficulty hearing Answer Date of Assessment Author Status Yes 03/15/2025 9:45 AM CDT Magali Geller LPN Active * Are you blind or do you have serious difficulty seeing, even when wearing glasses? Answer Date of Assessment Author Status Yes 03/15/2025 9:45 AM CDT Magali Geller LPN Active * Do you have serious difficulty walking or climbing stairs? Answer Date of Assessment Author Status No 03/15/2025 9:45 AM CDMagali Mcdowell LPN Active * Do you have difficulty dressing or bathing? Answer Date of Assessment Author Status No 03/15/2025 9:45 AM CDMagali Mcdowell LPN Active * Because of a physical, mental, or emotional condition, do you have difficulty doing errands alone such as visiting a doctor's office or shopping? Answer Date of Assessment Author Status No 03/15/2025 9:45 AM CDMagali Mcdowell LPN Active documented as of this encounter Mental Status * Because of a physical, mental, or emotional condition, do you have serious difficulty concentrating, remembering, or making decisions? Answer Entry Date Author Status No 03/15/2025 9:45 AM Maglai Rodriguez LPN Active documented in this encounter Plan of Treatment Upcoming Encounters Date Type Department Care Team (Late st Contact Info) Description 06/27/2025 12:[address] Office Visit [facility] [place] [phone] Naila Abernathy MD [address] [place] [address] documented as of this encounter Visit Diagnoses Not on filedocumented in this encounter Care Teams Contracting Engineer Relationship Specialty Start Date End Date Gladys Jin MD [address] [place] [id number] PCP - General INTERNAL MEDICINE 08/06/18 Naila Abernathy MD [address] [place] [address] Consulting Physician CARDIOVASCULAR DISEASE 02/15/24 documented as of this encounter
--- OUTSIDE RECORDS SUMMARY | 2025-03-24 11:49 | XMS_ITS | Clinical Summary ---
Author Organization [facility] Address [address] [place] [address] Care Team Providers Care Intermediate Accountant Name Role Phone Gladys Jin MD Primary Care Provider [phone] Naila Abernathy MD Unavailable Allergies Active Allergy Reactions Criticality Noted Date Comments Bupropion Unknown 09/23/2018 Statins Myalgias 01/26/2016 Medications allopurinol (ZYLOPRIM) 100 MG tablet Take 2 tablets (200 mg total) by mouth daily. 08/03/20 13 Active DULoxetine 60 MG capsule Take 1 capsule (60 mg total) by mouth daily. 02/01/20 20 Active traZODone 50 MG tablet 1 tablet (50 mg total) nightly at bedtime. 11/04/19 20 Active Cholecalciferol (VITAMIN D3 OR) Take 1 tablet by mouth daily. Active Cyanocobalamin (B-12) 1000 MCG Cap Take 1 tablet by mouth daily. Active levothyroxine (SYNTHROID) 112 MCG tablet Take 1 tablet (112 mcg total) by mouth every morning. 10/12/19 23 Active aspirin 81 MG chewable tablet Chew 1 tablet (81 mg total) by mouth daily. Active omeprazole (PRILOSEC) 20 MG capsule Take 1 capsule (20 mg total) by mouth daily. Active acyclovir (ZOVIRAX) 400 MG tablet Take 1 tablet (400 mg total) by mouth daily. Active dexamethasone (DECADRON) 4 MG tablet TAKE 10 TABLETS BY MOUTH ONCE WEEKLY Active dilTIAZem CD (CARDIZEM CD) 120 MG 24 hr capsule Take 1 capsule (120 mg total) by mouth daily. Active POMALYST 2 MG capsule TAKE ONE CAPSULE BY MOUTH ONCE DAILY ON DAYS 1-21 EACH 28 DAY CYCLE Active apixaban (ELIQUIS) 5 MG tabletIndication s:Atrial Fibrillation Take 1 tablet (5 mg total) by mouth 2 (two) times daily. Indications: Atrial Fibrillation 60 tablet 1 03/15/20 25 Active amLODIPine (NORVASC) 10 MG tablet 0.5 tablets (5 mg total) daily. 025 Discontin ued(Error ) ferrous sulfate EC 325 (65 Fe) MG tablet Take 1 tablet by mouth daily. 025 Discontin ued(Error ) oxyCODONE (OXY-IR) 5 MG capsule Take 1 capsule (5 mg total) by mouth every 4 (four) hours as needed. 025 Discontin ued(Stop Taking at Discharge ) REVLIMID 10 MG capsule TAKE ONE CAPSULE BY MOUTH DAILY ON DAYS 1-14 OF EACH 21 DAY CYCLE 03/03/20 24 025 Discontin ued(Error ) furosemide (LASIX) 20 MG tablet take 1 tablet by mouth every other day 45 tablet 1 04/06/20 24 025 Discontin ued(Error ) Active Problems Problem Noted Date Diagnosed Date Atrial flutter ([facility]) 03/14/2025 Acute tubular necrosis 10/02/2023 Stage 3b chronic [...] Mixed hyperlipidemia 09/25/2018 Type II diabetes mellitus ([facility]) 03/2019 Resolved Problems Problem Noted Date Diagnosed Date Resolved Date CHF (congestive heart failur e) ([facility]) 09/25/2018 02/11/2020 Encounters Date Type Department Care Team Description 03/22/2025 Telephone [facility] [address] [place] [phone] Yon Gonzales MD Appointment Request 03/17/2025 Telephone [facility] [address] [place] [phone] Naila Abernathy MD Question 03/17/2025 Hospital Follow-up Call [facility] [address] [place] [address] Kait Wright RN 03/14/2025 10:57 AM CDT - 03/15/2025 1:26 PM CDT Hospital Encounter [facility] Cardiovascular Care [facility] [address] [place] [address] Geno Villagomez MD Wali, Neehal, MD Yousuf, Muhammad S, MD Cardiac Problem Discharge Disposition: Home or Self Care (Routine Discharge) 03/14/2025 8:45 AM CDT Office Visit [facility] [address] [place] [address] Naila Abernathy MD Heart Problem 03/14/2025 8:30 AM CDT - 03/14/2025 10:56 AM CDT Hospital Encounter [facility] [place] [address] Naila Abernathy MD Discharge Disposition: Home or Self Care (Routine Discharge) 03/14/2025 Travel 03/09/2025 Orders Only [facility] [address] [place] [address] Naila Abernathy MD 03/07/2025 7:36 AM CDT - 03/07/2025 11:59 PM CDT Hospital Encounter [facility] [place] [place] [address] Naila Abernathy MD Discharge Disposition: Home or Self Care (Routine Discharge) 03/07/2025 7:35 AM CDT Hospital Encounter [facility] [address] [address] Leslie Marino MD Discharge Disposition: Home or Self Care (Routine Discharge) 03/07/2025 Travel 02/24/2025 8:30 AM CDT Telephone [facility] [address] [place] [address] Naila Abernathy MD Holter Monitor 02/21/2025 Abstract [facility] [address] [place] [address] Abstract, Doc Pccl 02/16/2025 Telephone [facility] [address] [place] [address] Naila Abernathy MD Information; Holter Monitor 02/15/2025 Scan [facility] [address] [place] [address] Scanned, Doc Pccl CT (SCAN) 02/15/2025 Orders Only [facility] [address] [place] [address] Naila Abernathy MD from Last 3 Months Family History Medical History Relation Comments Breast Cancer Mother Relation Status Comments Mother Social History Tobacco Use Types Packs/Day Years Used Date Smoking Tobacco: Never Smokeless Tobacco: Never Alcohol Use Standard Drinks/Week Comments Not Currently 0 (1 standard drink = 0.6 oz pur e alcohol) [facility] Utilities Answer Date Recorded In the past 12 months has e [employer], gas, oil, or water [employer] threatened to shut off services in your [...] often do you attend chur ch or holiness services? 1 to 4 times per year 04/09/2023 Do you belong to any clubs o r organizations such as yazidi groups, unions, fraternal or athletic groups, or [...] and heating? Not hard at all 03/15/2025 [facility] [place] [facility] Occupat ional [facility] - Occupational Stress [...] place to sleep or slept in a snf (including now)? No 04/09/2023 Housing Stability Vital Sign Answer Behzad e Recorded In the last 12 months, was t here a time when you were not able to pay the mortgage or rent on time? No 03/15/2025 In the past 12 months, how m any times have you moved where you were living? 0 03/15/2025 At any time in the past 12 m [facility], were you homeless or living in a snf (including now)? No 03/15/2025 Comments Unknown Sex and Gender Information Value Date Recorded Sex Assigned at Female 03/07/2025 7:31 AM CDT Legal Sex Female 8:54 PM CDT Gender Identity Not on file Sexual Orientation Not on file Last Filed Vital Signs Vital Sign Reading Time Taken Comments Blood Pressure 122/71 03/15/2025 12:24 PM CDT Pulse 85 03/15/2025 12:24 PM CDT Temperature 37.1 C (98.8 F) 03/15/2025 12:24 PM CDT Respiratory Rate 18 03/15/2025 6:29 AM CDT Oxygen Saturation 96% 03/15/2025 12:24 PM CDT Inhaled Oxygen Concentration - - Weight 73.3 kg (161 lb 9.6 oz) 03/15/2025 7:41 A M CDT Height 157.5 cm (5' 2) 03/14/2025 7:05 PM CDT Body Mass Index 29.56 03/14/2025 7:05 PM CDT Plan of Treatment Upcoming Encounters Date Type Department Care Team (Late st Contact Info) Description 06/27/2025 12:30 PM 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 Office Visit [facility] [place] [phone] Naila Abernathy MD [address] [place] [address] Health Maintenance Due Date Last Done Comments Kidney Health Evaluation 1945 Hemoglobin A1C 1945 Diabetes: Retinopathy Eye Exam 11/01/1963 DTaP, Tdap and Td Vaccines ( 1 - Tdap) 1964 Zoster Vaccines (1 of 2) 1964 Annual Medicare Wellness Visit 2010 Dexa Scan (General) 2010 Lipid Panel 05/07/2015 05/07/2014 RSV Immunization or 60+ Years (1 - 1-dose 75+ series) 2020 COVID-19 Vaccine (4 - 2023-2 5 season) 2024 05/26/2021, 10/11/2020, 09/20/2020 Hepatitis C Completed 04/22/2023, 04/19/2023 Pneumococcal Vaccine: 50+ Years Completed 06/17/2023, 04/28/2015 Meningococcal B Vaccine Aged Out No l onger eligible based on patient's age to complete this topic Meningococcal Vaccine Aged Out No seng natalee eligible based on patient's age to complete this topic RSV Immunizations Under 20 Months Aged Out No longer eligible b ased on patient's age to complete this topic Procedures Procedure Name Priority Date/Time Associated Diagnosis Comments MOBILE CONTINUOUS TELEMETRY Routine 03/24/2025 8:00 AM CDT S/P AVR (aortic valve replacement) Palpitation ECG 12-LEAD Routine 03/15/2025 10:54 AM CDT HEPARIN, ANTI XA, UFH TIMED 03/15/2025 2:04 AM CDT BASIC METABOLIC PANEL Routine 03/15/2025 2:04 AM CDT PROTHROMBIN TIME, VENOUS Routine 03/15/2025 2:04 AM CDT CBC W/DIFF AUTOMATED Routine 03/15/2025 2:04 AM CDT HEPARIN, ANTI XA, UFH Routine 03/14/2025 8:06 PM CDT PROTHROMBIN TIME, VENOUS STAT 03/14/2025 1:03 PM CDT HEPARIN, ANTI XA, UFH STAT 03/14/2025 1:03 PM CDT ECG 12-LEAD STAT 03/14/2025 12:15 PM CDT ECG 12-LEAD STAT 03/14/2025 11:29 AM CDT XR CHEST PORTABLE STAT 03/14/2025 11: 25 AM CDT THYROXINE, FREE (FT4) STAT 03/14/2025 11:09 AM CDT THYROID STIM HORMONE TSH STAT 03/14/2025 11:09 AM CDT MAGNESIUM STAT 03/14/2025 11:09 AM CDT BASIC METABOLIC PANEL STAT 03/14/2025 11:09 AM CDT CBC W/DIFF AUTOMATED STAT 03/14/2025 11:09 AM CDT CRITICAL CARE Routine 03/14/2025 10:59 AM CDT ECG 12-LEAD Routine 03/14/2025 8:49 AM CDT Palpitation HC URINALYSIS AUTO W/MICRO Routine 03/07/2025 8:40 AM CDT Stage 3a chronic kidney disease (CMS/HCC) Hypertension, essential TRANSFERRIN Routine 03/07/2025 8:35 AM CDT Stage 3a chronic kidney disease (CMS/HCC) Hypertension, essential FERRITIN Routine 03/07/2025 8:35 AM CDT Stage 3a chronic kidney disease (CMS/HCC) Hypertension, essential IRON SAT PANEL (IRON,IBC,%SAT) Routine 03/07/2025 8:35 AM CDT Stage 3a chronic kidney disease (CMS/HCC) Hypertension, essential PTH - INTACT Routine 03/07/2025 8:35 AM CDT Stage 3a chronic kidney disease (CMS/HCC) Hypertension, essential RENAL FUNCTION PANEL Routine 03/07/2025 8:35 AM CDT Stage 3a chronic kidney disease (CMS/HCC) Hypertension, essential CBC W/DIFF AUTOMATED Routine 03/07/2025 8:35 AM CDT Stage 3a chronic kidney disease (CMS/HCC) Hypertension, essential USE ECHOCARDIOGRAM Routine 03/07/2025 8: 28 AM CDT S/P AVR (aortic valve replacement) CT GENERIC Routine 02/15/2025 12:00 AM CDT ECG GENERIC (SCAN ORDER) Routine 02/15/2025 12:00 AM CDT COMPREHENSIVE METABOLIC PANEL Routine 02/15/2025 PRO-BRAIN NATRIURETIC PEPTIDE Routine 02/15/2025 CBC, MANUAL DIFF Routine 02/15/2025 THYROID STIM HORMONE TSH Routine 02/15/2025 IMAGE GENERIC Routine 02/15/2025 12:00 AM CDT HEPATITIS PANEL,ACUTE Routine 04/22/2023 7:27 AM CDT LIPID PANEL Routine 05/07/2014 12:00 AM CDT from Last 3 Months or Most Recently Relevant to Health Maintenance Results * ECG 12 lead - Today (03/15/2025 10:54 AM CDT) Only the most recent of4 resultswithin the time period is included. 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1945 Requested By: YON GONZALES Order Number: [id number] Reading MD: Fortino Lorenzo Measurements Intervals [place] Rate: 78 P: 88 NV: 188 QRS: -43 QRSD: 104 T: -9 QT: 413 QTc: 473 Interpretive Statements SINUS RHYTHM WITH OCCASIONAL SUPRAVENTRICULAR PREMATURE COMPLEXES LEFT AXIS DEVIATION [QRS AXIS < -30] MODERATE VOLTAGE CRITERIA FOR LVH, CONSIDER NORMAL VARIANT [MEETS CRITERIA IN ONE OF: R(aVL), S(V1), R(V5), R(V5/V6)+S(V1)] NONSPECIFIC T-WAVE ABNORMALITY Procedure Note Fortino Lorenzo MD - 03/15/2025 [facility] [address] [place] [address] Test Date: 2025-03-15 Pat Name: ALEXIS LEE [facility] 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: Female 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1945 Requested By: YON GONZALES Order Number: [id number] Reading DOLLY Lorenzo Measurements Intervals [place] Rate: 78 P: 88 NV: 188 QRS: -43 QRSD: 104 T: -9 QT: 413 QTc: 473 Interpretive Statements SINUS RHYTHM WITH OCCASIONAL SUPRAVENTRICULAR PREMATURE COMPLEXES LEFT AXIS DEVIATION [QRS AXIS < -30] MODERATE VOLTAGE CRITERIA FOR LVH, CONSIDER NORMAL VARIANT [MEETSCRITERIA IN ONE OF: R(aVL), S(V1), R(V5), R(V5/V6)+S(V1)] NONSPECIFIC T-WAVE ABNORMALITY Yon Gonzales MD ECG ORDERABLES Final Result Performing Organization Address [facility] de Phone Number [facility] * HEPARIN, ANTI XA, UFH (03/15/2025 2:04 AM CDT) Only the most recent of3 resultswithin the time period is included. HEPARIN ANTI XA UFH 0.49 0.30 - 0.70 IU/ML 03/15/2025 2:21 AM CDT [facility] Comment: UFH Therapeutic Anti Xa Ranges: Medical Therapeutic Range: 0.30 - 0.70 IU/mL Cardiac Therapeutic Range: 0.30 - 0.50 IU/mL Neuro Therapeutic Range: 0.20 - 0.40 IU/mL 03/15/2025 2:04 AM CDT Manasa Zambrano MD LABORATORY Final Result Performing Organization Address [facility] de Phone Number [facility] [address] [place] [address], [id number] * (ABNORMAL) PROTIME/INR, VENOUS (03/15/2025 2:04 AM CDT) Only the most recent of2 resultswithin the time period is included. PROTIME 13.5(H) 9.4 - 12.5 SEC 03/15/2025 2:22 AM CDT [facility] INR 1.2(H) 0.8 - 1.1 03/15/2025 2:22 AM CDT [facility] 03/15/2025 2:04 AM CDT us Geno Villagomez MD LABORATORY Final Resul t [facility] [address] [place] [address], [id number] * (ABNORMAL) BASIC METABOLIC PANEL (03/15/2025 2:04 AM CDT) Only the most recent of2 resultswithin the time period is included. Pathologist [facility] SODIUM S/P/B 136 136 - 145 MMOL/L 03/15/2025 2:56 AM CDT [facility] POTASSIUM S/P/B 3.8 3.5 - 5.1 MMOL/L 03/15/2025 2:56 AM CDT [facility] CHLORIDE S/P/B 108 97 - 115 MMOL/L 03/15/2025 2:56 AM CDT [facility] CO2 23.1 21.0 - 32.0 MMOL/L 03/15/2025 2:56 AM CDT [facility] GLUCOSE 128(H) 74 - 106 MG/DL 03/15/2025 2:56 AM CDT [facility] BUN 19(H) 7 - 18 MG/DL 03/15/2025 2:56 AM CDT [facility] CREATININE S/P/B 1.19(H) 0.55 - 1.02 MG/DL 03/15/2025 2:56 AM CDT [facility] CALCIUM S/P/B 8.4(L) 8.5 - 10.1 MG/DL 03/15/2025 2:56 AM CDT [facility] ANION GAP 4.9 2.0 - 10.0 MMOL/L 03/15/2025 2:56 AM CDT [facility] OSMOLALITY (CALC) 286 MOSM/KG 2:56 AM CDT [facility] Comment:REFERENCE RANGE NOT ESTABLISHED GFR ESTIMATE 47(L) >90 ML/MIN/1. 73 M2 03/15/2025 2:56 AM CDT [facility] GFR NOTES GFR REFERENCE S: 03/15/2025 2:56 AM CDT [facility] Comment: THE ESTIMATED GFR IS CALCULATED USING THE 2020 CKD-EPI EQUATION. THE FOLLOWING CATEGORIES FOR GRADING RENAL FUNCTION ARE RECOMMENDED BY THE INTERNATIONAL SOCIETY OF NEPHROLOGY (KDIGO 2012 CLINICAL PRACTICE GUIDELINE). G1,NORMAL OR HIGH: >89 ml/min/1.73 m2 G2,MILDLY DECREASED: 60-89 ml/min/1.73 m2 G3A,MILDLY TO MODERATELY DECREASED: 45-59 ml/min/1.73 m2 G3B,MODERATELY TO SEVERELY DECREASED: 30-44 ml/min/1.73 m2 G4,SEVERELY DECREASED: 15-29 ml/min/1.73 m2 G5,KIDNEY FAILURE: <15 ml/min/1.73 m2 03/15/2025 2:04 AM CDT Manasa Zambrano MD LABORATORY Final Result [facility] [address] [place] [address], [id number] * (ABNORMAL) CBC W/DIFF AUTOMATED (03/15/2025 2:04 AM CDT) Only the most recent of3 resultswithin the time period is included. WBC 2.88(L) 4.00 - 10.80 x10'3/uL 03/15/2025 2:30 AM CDT [facility] RBC 2.84(L) 4.10 - 5.40 x10'6/uL 03/15/2025 2:30 AM CDT [facility] HGB 8.9(L) 12.0 - 16.0 G/DL 03/15/2025 2:30 AM CDT [facility] HCT 27.8(L) 36.0 - 47.0 % 03/15/2025 2:30 AM CDT [facility] MCV 97.9 78.0 - 100.0 FL 03/15/2025 2:30 AM CDT [facility] MCH 31.3(H) 27.0 - 31.0 PG 03/15/2025 2:30 AM CDT [facility] MCHC 32.0(L) 33.0 - 36.0 G/DL 03/15/2025 2:30 AM CDT [facility] RDW 14.5 11.5 - 14.5 % 03/15/2025 2:30 AM CDT [facility] PLT 116(L) 150 - 350 x10'3/uL 03/15/2025 2:30 AM CDT [facility] MPV 13.0(H) 7.4 - 10.4 FL 03/15/2025 2:30 AM CDT [facility] DIFFERENTIAL TYPE MANUAL DIFFERENTIAL 03/15/2025 3:19 AM CDT [facility] NRBC % 0.0 % 03/15/2025 3:19 AM CDT [facility] SEG NEUTROPHILS 58 % 3:19 AM CDT [facility] LYMPHOCYTES 24 % 03/15/2025 3:19 AM CDT [facility] MONOCYTES 11 % 03/15/2025 3:19 AM CDT [facility] EOSINOPHILS 4 % 03/15/2025 3:19 AM CDT [facility] BASOPHILS 3 % 03/15/2025 3:19 AM CDT [facility] ABS. NEUTROPHILS 1.67 1.60 - 8.30 x10'3/uL 03/15/2025 3:19 AM CDT [facility] ABS. LYMPHOCYTES 0.69(L) 0.80 - 4.70 x10'3/uL 03/15/2025 3:19 AM CDT [facility] ABS. MONOCYTES 0.32 0.00 - 1.50 x10'3/uL 03/15/2025 3:19 AM CDT [facility] ABS. EOSINOPHILS 0.12 0.00 - 0.40 x10'3/uL 03/15/2025 3:19 AM CDT [facility] ABS. BASOPHILS 0.09 0.00 - 0.20 x10'3/uL 03/15/2025 3:19 AM CDT [facility] ABS. NUCLEATED RBC'S 0.00 0.00 - 0.01 x10'3/uL 03/15/2025 3:19 AM CDT [facility] RBC MORPHOLOGY SLIDE REVIEWED 2024 3:19 AM CDT [facility] ANISO SLIGHT 03/15/2025 3:19 AM CDT [facility] POIKLO SLIGHT 03/15/2025 3:19 AM CDT [facility] POLY SLIGHT 03/15/2025 3:19 AM CDT [facility] OVALOCYTES PRESENT 03/15/2025 3:19 AM CDT [facility] ACANTHOCYTES PRESENT 03/15/2025 3:19 AM CDT [facility] PLT EST. DECREASED 03/15/2025 3:19 AM CDT [facility] 03/15/2025 2:04 AM CDT us Geno Villagomez MD LABORATORY Final Resul t [facility] [address] [place] [address], [id number] * XR CHEST PORTABLE (03/14/2025 11:25 AM CDT) Anatomical Region Laterality Modality Chest Radiographic Ines ging 03/14/2025 12:3 0 PM CDT Impressions 03/14/2025 12:34 PM CDT IMPRESSION: 1. No radiographic evidence of active disease in the chest. 2. Stable chest. Referred By: Interpreted By: Flor Hurd DO, 03/14/2025 12:30 PM Narrative 03/14/2025 12:34 PM CDT [facility] [address] [place], [place] [address] CLINICAL INDICATION: 79-year-old female. Reason for examination: Palpitations. 03/14/2025 11:40 AM, YafaiNicanorim A: [id number] [id number]. EXAM DONE FOR PALPITATIONS. Patient presents to Ed with a complaint of tachycardia and palpitations. Previous imaging gives history of multiple myeloma TECHNIQUE: Portable upright AP view of the chest COMPARISON: Two-view chest study 04/21/2020 FINDINGS: Normal heart size and pulmonary vascular distribution. Stable, intact median sternotomy wire sutures vascular clips and ostial markers suggestive of previous CABG. Stable position tip of right IJ CT compatible central line. The left IJ hemodialysis catheter in 2022 has been removed The lungs are clear of infiltrates. No pleural effusion or consolidation. Stable surgical clips in the left axillary region Procedure Note Flor Hurd MD - 03/14/2025 [facility] [address] [place], [place] [address] CLINICAL INDICATION: 79-year-old female. Reason for examination: Palpitations. 03/14/2025 11:40 AM, Windy Smith A: [id number] [id number]. EXAM DONE FOR PALPITATIONS. Patient presents to Ed with a complaint of tachycardia and palpitations. Previous imaging gives history of multiple myeloma TECHNIQUE: Portable upright AP view of the chest COMPARISON: Two-view chest study 04/21/2020 FINDINGS: Normal heart size and pulmonary vascular distribution. Stable, intactmedian sternotomy wire sutures vascular clips and ostial markerssuggestive of previous CABG. Stable position tip of right IJ CT compatible central line. The left IJ hemodialysis catheter in 2022 has been removed The lungs are clear of infiltrates. No pleural effusion orconsolidation. Stable surgical clips in the left axillary region IMPRESSION: 1. No radiographic evidence of active disease in the chest. 2. Stable chest. Referred By: Interpreted By: Flor Hurd DO, 03/14/2025 12:30 PM us Geno Villagomez MD GENERAL IMAGING Final Resul t * (ABNORMAL) THYROXINE, FREE (FT4) (03/14/2025 11:09 AM CDT) FREE T4 1.50(H) 0.76 - 1.46 NG/DL 03/14/2025 12:33 PM CDT [facility] 03/14/2025 11:0 9 AM CDT Geno Villagomez MD LABORATORY Final Resul t Performing Organization Address [facility] de Phone Number [facility] [address] [place] [address], [phone] * THYROID STIM HORMONE, TSH (03/14/2025 11:09 AM CDT) Only the most recent of2 resultswithin the time period is included. TSH 1.080 0.358 - 3.740 uIU/ML 03/14/2025 12:33 PM CDT [facility] Comment: ASSAY PERFORMED BY CHEMILUMINESCENCE METHODOLOGY USING [employer]. PATIENT RESULTS DETERMINED BY ASSAYS USING DIFFERENT MANUFACTURERS FOR METHODS MAY NOT BE COMPARABLE. 03/14/2025 11:0 9 AM CDT Geno Villagomez MD LABORATORY Final Resul t Performing Organization Address [facility] de Phone Number [facility] [address] [place] [address], [id number] * MAGNESIUM (03/14/2025 11:09 AM CDT) MAGNESIUM 2.1 1.6 - 2.6 MG/DL 03/14/2025 12:33 PM CDT [facility] 03/14/2025 11:0 9 AM CDT Geno Villagomez MD LABORATORY Final Resul t [facility] [address] [place] [address], [place] [phone] * Critical Care (03/14/2025 10:59 AM CDT) Narrative Geno Villagomez MD - 03/14/2025 10:59 AM CDT Geno Villagomez MD 03/16/2025 7:11 AM Critical Care Performed by: Geno Villagomez MD Authorized by: Geno Villagomez MD Critical care provider statement: Critical care time (minutes): 35 Critical care time was exclusive of: Separately billable procedures and treating other patients and teaching time Critical care was necessary to treat or prevent imminent or life-threatening deterioration of the following conditions: Circulatory failure and cardiac failure Critical care was time spent personally by me on the following activities: Ordering and performing treatments and interventions, ordering and review of laboratory studies, ordering and review of radiographic studies, pulse oximetry, re-evaluation of patient's condition, review of old charts, discussions with consultants, development of treatment plan with patient or surrogate, examination of patient, evaluation of patient's response to treatment and obtaining history from patient or surrogate I assumed direction of critical care for this patient from another provider in my specialty: no Care discussed with: admitting provider Geno Villagomez MD PROCEDURE/MINOR SURGICAL OR DERABLES Final Result * (ABNORMAL) URINALYSIS (03/07/2025 8:40 AM CDT) COLOR (U) YELLOW 03/07/2025 8:56 AM CDT [facility] TRANSPARENCY CLEAR 03/07/2025 8:56 AM CDT [facility] SPECIFIC GRAVITY (U) 1.010 1.000 - 1.025 03/07/2025 8:56 AM CDT [facility] U PH 6.5 5.0 - 8.0 03/07/2025 8:56 AM CDT [facility] LEUKOCYTES (U) NEGATIVE NEGATIVE 03/07/2025 8:56 AM CDT [facility] NITRITES NEGATIVE NEGATIVE 03/07/2025 8:56 AM CDT [facility] PROTEIN RANDOM (U) TRACE(A) NEGATIVE 03/07/2025 8:56 AM CDT [facility] GLUCOSE (U) NEGATIVE NEGATIVE 03/07/2025 8:56 AM CDT [facility] KETONES MG/DL (U) NEGATIVE NEGATIVE 03/07/2025 8:56 AM CDT [facility] UROBILINOGEN 0.2 <1.0 EU/DL 03/07/2025 8:56 AM CDT [facility] BILIRUBIN (U) NEGATIVE NEGATIVE 03/07/2025 8:56 AM CDT [facility] BLOOD (U) NEGATIVE NEGATIVE 03/07/2025 8:56 AM CDT [facility] WBC/HPF 0-5 0 - 5 /HPF 03/07/2025 8:56 AM CDT [facility] RBC/HPF 0-5 0 - 5 /HPF 03/07/2025 8:56 AM CDT [facility] EPI/LPF RARE /LPF 03/07/2025 8:56 AM CDT [facility] BACTERIA (U) 1+ /HPF 03/07/2025 8:56 AM CDT [facility] URINE SPECIMEN OBTAINED BY CLEAN CATCH PROCEDURE / Unknown 03/07/2025 8:40 AM CDT us Leslie Marino MD URINE ORDERABLES Final Result [facility] [address] [place] [address], * (ABNORMAL) PTH - INTACT (03/07/2025 8:35 AM CDT) PTH 82.9(H) 18.4 - 80.1 PG/ML 03/07/2025 11:58 AM CDT [facility] Comment: ASSAY PERFORMED BY CHEMILUMINESCENCE METHODOLOGY USING SIEMENS [employer] XPT REAGENT. PATIENT RESULTS DETERMINED BY ASSAYS USING DIFFERENT MANUFACTURERS FOR METHODS MAY NOT BE COMPARABLE. 03/07/2025 8:35 AM CDT us Leslie Marino MD LABORATORY Final Result Performing Organization Address [facility] Center/[facility] Co de Phone Number [facility] [address] [place] [address], [place] [phone] * (ABNORMAL) IRON SAT PANEL (IRON,IBC,%SAT) (03/07/2025 8:35 AM CDT) IRON 18(L) 50 - 170 MCG/DL 03/07/2025 9:19 AM CDT [facility] IRON BINDING CAPACITY 277 250 - 450 MCG/DL 03/07/2025 9:19 AM CDT [facility] IRON SATURATION 6 % 9:19 AM CDT [facility] Comment:REFERENCE RANGE NOT ESTABLISHED 03/07/2025 8:35 AM CDT us Leslie Marino MD LABORATORY Final Result Performing Organization Address [facility] Co de Phone Number [facility] [address] [place] [address], [place] [phone] * TRANSFERRIN (03/07/2025 8:35 AM CDT) TRANSFERRIN 215 200 - 360 mg/dL 03/07/2025 11:46 AM CDT [facility] 03/07/2025 8:35 AM CDT us Leslie Marino MD LABORATORY Final Result Performing Organization Address [facility] Co de Phone Number [facility] [address] [place] [address], [place] [phone] * (ABNORMAL) RENAL FUNCTION PANEL (03/07/2025 8:35 AM CDT) SODIUM S/P/B 138 136 - 145 MMOL/L 03/07/2025 9:21 AM T [facility] POTASSIUM S/P/B 4.0 3.5 - 5.1 MMOL/L 03/07/2025 9:21 AM T [facility] CHLORIDE S/P/B 100 98 - 107 MMOL/L 03/07/2025 9:21 AM T [facility] CO2 29.3 21.0 - 32.0 MMOL/L 03/07/2025 9:21 AM T [facility] GLUCOSE 136(H) 70 - 99 MG/DL 03/07/2025 9:21 AM T [facility] Comment: FASTING GLUCOSE 100 TO 125 MG/DL IS CONSISTENT WITH IMPAIRED FASTING GLUCOSE. FASTING GLUCOSE >125 MG/DL IS CONSISTENT WITH DIABETES. RANDOM GLUCOSE >200 MG/DL WITH HYPERGLYCEMIC SYMPTOMS IS CONSISTENT WITH DIABETES. PER ADA GUIDELINES BUN 29(H) 6 - 24 MG/DL 03/07/2025 9:21 AM T [facility] CREATININE S/P/B 1.77(H) 0.55 - 1.02 MG/DL 03/07/2025 9:21 AM T [facility] CALCIUM S/P/B 9.4 8.4 - 10.5 MG/DL 03/07/2025 9:21 AM [facility] ALBUMIN S/P/B 3.1(L) 3.4 - 5.0 G/DL 03/07/2025 9:21 AM T [facility] PHOSPHORUS 4.1 2.6 - 4.7 MG/DL 03/07/2025 9:30 AM T [facility] ANION GAP 8.7 5.0 - 15.0 MMOL/L 03/07/2025 9:21 AM T [facility] OSMOLALITY (CALC) 294 MOSM/KG 025 9:21 AM T [facility] Comment:REFERENCE RANGE NOT ESTABLISHED GFR ESTIMATE 29(L) >89 ML/MIN/1. 73 M2 03/07/2025 9:21 AM CDT [facility] GFR NOTES GFR REFERENCE S: 03/07/2025 9:21 AM CDT [facility] Comment: THE ESTIMATED GFR IS CALCULATED USING THE 2020 CKD-EPI EQUATION. THE FOLLOWING CATEGORIES FOR GRADING RENAL FUNCTION ARE RECOMMENDED BY THE INTERNATIONAL SOCIETY OF NEPHROLOGY (KDIGO 2012 CLINICAL PRACTICE GUIDELINE). G1,NORMAL OR HIGH: >89 ml/min/1.73 m2 G2,MILDLY DECREASED: 60-89 ml/min/1.73 m2 G3A,MILDLY TO MODERATELY DECREASED: 45-59 ml/min/1.73 m2 G3B,MODERATELY TO SEVERELY DECREASED: 30-44 ml/min/1.73 m2 G4,SEVERELY DECREASED: 15-29 ml/min/1.73 m2 G5,KIDNEY FAILURE: <15 ml/min/1.73 m2 03/07/2025 8:35 AM CDT us Leslie Marino MD LABORATORY Final Result Performing Organization Address City/[facility]/ZIP Co de Phone Number [facility] [address] [place] [address], * FERRITIN (03/07/2025 8:35 AM CDT) FERRITIN 131.4 8 - 252 NG/ML 03/07/2025 9:21 AM CDT [facility] 03/07/2025 8:35 AM CDT us Leslie Marino MD LABORATORY Final Result [facility] [place] [address], * USE ECHOCARDIOGRAM (03/07/2025 8:28 AM CDT) Anatomical Region Laterality Modality Cardiac Ultrasound 03/07/2025 7:51 AM CDT Narrative 03/07/2025 10:47 AM CDT Echocardiography Report Pat.Name: Alexis Lee Pat.ID: [id number] St.Date: 03/07/2025 Refer.MD: Jori, [facility] Exam Time: 7:51:00 AM Study Type:JORI Height: 62 in Weight: 140 lb BSA: 1.64 m2 Age: 3 1945,79Y Sex: F Sonogrphr: Sf Pat. Stat.:Outpatient Reason for Study:S/P AVR (aortic valve replacement) Procedures: Study performed at [facility], [place], [place] and interpreted by [facility]. 2D, M-mode, Doppler, Color Flow ++++++++++++++++++++++++++++++++++++ SUMMARY: ++++++++++++++++++++++++++++++++++++ The left ventricular size is normal. Estimated left ventricular ejection fraction is 65-70%. Moderate concentric left ventricular hypertrophy. The right ventricular size is normal. Right ventricular systolic function is mildly depressed. Right ventricular systolic pressure is 40 mmHg. Inferior vena cava shows <50% collapse with respiration consistent with elevated right atrial pressure. A TAVR valve is in the aortic position with post-deployment peak velocity of 2.3m/sec, mean gradient of 11mmHg. Mild to moderate mitral regurgitation. Mild to moderate tricuspid regurgitation. ++++++++++++++++++++++++++++++++++++ FINDINGS: ++++++++++++++++++++++++++++++++++++ LV: The left ventricular size is normal. The left ventricular systolic function is normal. Estimated left ventricular ejection fraction is 65-70%. Moderate concentric left ventricular hypertrophy. Left ventricular diastolic function is not accessible due to tachycardia. RV: The right ventricular size is normal. Right ventricular systolic function is mildly depressed. Right ventricular systolic pressure is 40 mmHg. TAPSE = 10mm (<16 mm indicates systolic RV dysfunction). LA: The left atrial size is moderately to severely enlarged. RA: Right atrial size is moderately to severely enlarged. VIANCA: No evidence of pericardial effusion. AO: Aorta is normal. SVn: Inferior vena cava is mildly enlarged. Inferior vena cava shows <50% collapse with respiration consistent with elevated right atrial pressure. AV: A TAVR valve is in the aortic position with post-deployment peak velocity of 2.3m/sec, mean gradient of 11mmHg. MV: Structurally normal mitral valve. Mild to moderate mitral regurgitation. PV: The pulmonic valve is normal There is trace pulmonic regurgitation TV: Structurally normal tricuspid valve. Mild to moderate tricuspid regurgitation. <Electronic Signature> 03/07/2025 10:47 AM Naila Abernathy M.D. Procedure Note Naila Abernathy MD - 03/07/2025 Echocardiography Report Pat.Name: Alexis Lee Pat.ID: [id number] .Date: 03/07/2025 Refer.MD: Jori, [facility] Exam Time: 7:51:00 AM Study Type:[facility] Height: 62 in Weight: 140 lb BSA: 1.64 m2 Age: 3 1945,79Y Sex: F Sonogrphr: Sf Pat. Stat.:Outpatient Reason for Study:S/P AVR (aortic valve replacement) Procedures: Study performed at [facility], [place], [place] and interpreted by [facility]. 2D, M-mode, Doppler, Color Flow ++++++++++++++++++++++++++++++++++++ SUMMARY: ++++++++++++++++++++++++++++++++++++ The left ventricular size is normal. Estimated left ventricular ejection fraction is 65-70%. Moderate concentric left ventricular hypertrophy. The right ventricular size is normal. Right ventricular systolic function is mildly depressed. Right ventricular systolic pressure is 40 mmHg. Inferior vena cava shows <50% collapse with respiration consistent with elevated right atrial pressure. A TAVR valve is in the aortic position with post-deployment peak velocity of 2.3m/sec, mean gradient of 11mmHg. Mild to moderate mitral regurgitation. Mild to moderate tricuspid regurgitation. ++++++++++++++++++++++++++++++++++++ FINDINGS: ++++++++++++++++++++++++++++++++++++ LV: The left ventricular size is normal. The left ventricular systolic function is normal. Estimated left ventricular ejection fraction is 65-70%. Moderate concentric left ventricular hypertrophy. Left ventricular diastolic function is not accessible due to tachycardia. RV: The right ventricular size is normal. Right ventricular systolic function is mildly depressed. Right ventricular systolic pressure is 40 mmHg. TAPSE = 10mm (<16 mm indicates systolic RV dysfunction). LA: The left atrial size is moderately to severely enlarged. RA: Right atrial size is moderately to severely enlarged. VIANCA: No evidence of pericardial effusion. AO: Aorta is normal. SVn: Inferior vena cava is mildly enlarged. Inferior vena cava shows <50% collapse with respiration consistent with elevated right atrial pressure. AV: A TAVR valve is in the aortic position with post-deployment peak velocity of 2.3m/sec, mean gradient of 11mmHg. MV: Structurally normal mitral valve. Mild to moderate mitral regurgitation. PV: The pulmonic valve is normal There is trace pulmonic regurgitation TV: Structurally normal tricuspid valve. Mild to moderate tricuspid regurgitation. <Electronic Signature> 03/07/2025 10:47 AM Naila Abernathy M.D. us Naila Abernathy MD ECHO Final Result * PRO-BRAIN NATRIURETIC PEPTIDE (02/15/2025) PRO-B TYPE NATRIURETIC PEPTIDE 4,830 Narrative Resulting Agency Comment [facility] us Default History Genericprovider LABORATORY Final Result * CT (02/15/2025 12:00 AM CDT) Anatomical Region Laterality Modality Other 02/15/2025 us Doc Pccl Scanned SCANNING Final Result * ECG (02/15/2025 12:00 AM CDT) 02/15/2025 us Doc Pccl Scanned SCANNING Final Result [facility] * IMAGE STUDY (02/15/2025 12:00 AM CDT) Anatomical Region Laterality Modality Other 02/15/2025 us Doc Pccl Scanned SCANNING Final Result * (ABNORMAL) COMPREHENSIVE METABOLIC PANEL (02/15/2025) SODIUM S/P/B 134 GLUCOSE 213 mg/dL AST 27 BUN 33 CREATININE S/P/B 1.43(A) 0.5 - 1.0 CALCIUM S/P/B 8.3 POTASSIUM S/P/B 4.0 CHLORIDE S/P/B 105 ALT 31 GFR ESTIMATE 35 Narrative Resulting Agency Comment [facility] us Default History Genericprovider LABORATORY Final Result * CBC, MANUAL DIFF (02/15/2025) Pathologist [facility] WBC 4.4 HGB 11.1 HCT 35.4 PLT 130 Narrative Resulting Agency Comment [facility] us Default History Genericprovider LABORATORY Final Result * HEPATITIS PANEL,ACUTE (04/22/2023 7:27 AM CDT) Pathologist [facility] HEPATITIS B SURFACE AG NON-REACT ANABELLA NON-REACT ANABELLA 09/22/2023 2:22 PM 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 TECHNICIAN [facility] Comment:HBsAg NOT DETECTED. HEP B CORE IGM NON-REACT ANABELLA NON-REACT ANABELLA 09/22/2023 2:22 PM 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 TECHNICIAN [facility] Comment: IgM ANTI HBc NOT DETECTED. DOES NOT EXCLUDE THE POSSIBILITY OF EXPOSURE TO OR INFECTION WITH HBV. NO RETEST REQUIRED. HIGH DOSES OF BIOTIN MAY INTERFERE WITH THIS TEST RESULT. CORRELATION TO CLINICAL HISTORY AND PRESENTATION RECOMMENDED. HAV IGM NON-REACT ANABELLA NON-REACT ANABELLA 09/22/2023 2:22 PM 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 TECHNICIAN [facility] Comment: IgM ANTI HAV NOT DETECTED. DOES NOT EXCLUDE THE POSSIBILITY OF EXPOSURE TO OR INFECTION WITH HAV. LEVELS OF IgM ANTI HAV MAY BE BELOW THE CUTOFF IN EARLY INFECTION. HEPATITIS C AB NON-REACT ANABELLA NON-REACT ANABELLA 09/22/2023 2:22 PM 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 TECHNICIAN [facility] Comment: ANTIBODIES TO HCV NOT DETECTED. DOES NOT EXCLUDE THE POSSIBILITY OF EXPOSURE TO HCV. 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 [employer] Expl anation Power of Supervisor Cabinetmaker 04/10/2023 POWER OF A TTORNEY * Full Code (Latest Code Status on File) Date Activated Date Inactivated Comments 03/15/2025 9:40 AM 03/15/2025 3:36 PM * DNR Date Activated Date Inactivated Comments 03/14/2025 12:47 PM 03/15/2025 9:40 AM * DNR Date Activated Date Inactivated Comments 04/09/2023 2:05 PM 07/09/2023 11:00 AM Care Teams Intermediate Accountant Relationship Specialty Start Date End Date Gladys Jin MD [address] [place] [address] PCP - General INTERNAL MEDICINE 08/06/18 Naila Abernathy MD [address] [place] [address] Consulting Physician CARDIOVASCULAR DISEASE 02/15/24
--- OUTSIDE RECORDS SUMMARY | 2025-03-24 11:49 | XMS_ITS | Encounter Summary ---
Author Organization [facility] Address [address] [place] [address] Care Team Providers Care Technical Customer Support Specialist Name Role Phone Gladys Jin MD Primary Care Provider [phone] Santo Ordonez MD Unavailable [phone] Naila Abernathy MD Unavailable Encounter Details Date Type Department Care Team (Late st Contact Info) Description 12/15/2023 Pre-Procedure Call [facility] Interventional Radiology [address] [place] [address] Danielle Briseno, RN Social History [...] any clubs o r organizations such as episcopalian groups, unions, fraternal or athletic groups, or [...] and heating? Not hard at all 04/09/2023 [facility] - Occupational Stress Questionnaire Answer [...] st Contact Info) Description 06/27/2025 12:30 PM GAME SHOW HOST Office Visit [facility] [address] [place] [phone] Naila Abernathy MD [address] [place] [address] documented as of this encounter Visit Diagnoses Not on filedocumented in this encounter Care Teams Technical Customer Support Specialist Relationship Specialty Start Date End Date Gladys Jin MD [address] [place] [phone] PCP - General INTERNAL MEDICINE 08/06/18 Santo Ordonez MD [address] [place] [address] [place] Crusher Operator CARDIOVASCULAR DISEASE 08/06/18 02/14/24 Naila Abernathy MD [address] [place] [address] Consulting Physician CARDIOVASCULAR DISEASE 02/15/24 documented as of this encounter
--- OUTSIDE RECORDS SUMMARY | 2025-03-24 11:49 | XMS_ITS | Encounter Summary ---
Author Organization [facility] Address [address] [place] [address] Care Team Providers Care Neon Pumper Name Role Phone Gladys Jin MD Primary Care Provider [phone] Santo Ordonez MD Unavailable [phone] Naila Abernathy MD Unavailable Encounter Details Date Type Department Care Team (Late st Contact Info) Description 09/23/2018 [facility] [address] [place] [phone] Abstract, Doc [facility] Social History Tobacco Use [...] st Contact Info) Description 06/27/2025 12:30 PM WORD PROCESSOR Office Visit [facility] [place] [phone] Naila Abernathy MD [address] [place], [place] [phone] documented as of this encounter Visit Diagnoses Not on filedocumented in this encounter Care Teams Neon Pumper Relationship Specialty Start Date End Date Gladys Jin MD [address] [place] [address] PCP - General INTERNAL MEDICINE 08/06/18 Santo Ordonez MD [address] [place] [address] [place] [employer] Shaper Machine Operator CARDIOVASCULAR DISEASE 08/06/18 02/14/24 Naila Abernathy MD [address] [place] [address] Consulting Physician CARDIOVASCULAR DISEASE 02/15/24 documented as of this encounter
[2025-03-24 12:03] LABS: Hematocrit 30.6 % (35.0-42.0); Hemoglobin 9.4 g/dL (11.7-13.8); Mean Corpuscular HGB Conc 30.7 g/dL (32-36); Mean Corpuscular Hemoglobin 30.4 pg (27.0-31.0); Mean Corpuscular Volume 99.0 fL (78.0-102.0); Platelet Count Result 187 K/mm3 (150-420); Red Blood Count 3.09 M/mm3 (4.20-5.40); White Blood Count 2.3 K/mm3 (4.8-10.8)
[2025-03-24 12:32] LABS: Alanine Aminotransferase 17 U/L (6-35); Albumin Level 3.7 g/dL (3.5-5.1); Alkaline Phosphatase 78 U/L (38-126); Anion Gap 7 mmol/L (4-12); Aspartate Amino Transferase 18 U/L (14-36); Bilirubin,Total 0.6 mg/dL (0.2-1.3); Blood Urea Nitrogen 24 mg/dL (7-17); Calcium 9.4 mg/dL (8.4-10.2); Carbon Dioxide 26 mmol/L (22-30); Chloride 105 mmol/L (98-107); Estimated Glomerular Filt Rate 36; Glucose 123 mg/dL (65-110); Iron 41 ug/dL (37-170); Magnesium 2.0 mg/dL (1.6-2.3); Osmolality Calculated 291 mOsm/kg (285-295); Potassium 4.3 mmol/L (3.4-5.0); Sodium 138 mmol/L (137-145); Total Protein 5.6 g/dL (6.3-8.2)
[2025-03-24 13:07] LABS: Ferritin 130.00 ng/mL (11.1-264)
[2025-03-24 13:46] LABS: NT Pro B Type Natriuretic Pept 6340 pg/mL (19.9-100)
[2025-03-25 10:08] LABS: Immunoglobulin A, Qn 31 mg/dL (64-422); Immunoglobulin G, Qn 334 mg/dL (586-1602); Immunoglobulin M, Qn 8 mg/dL (26-217)
[2025-03-25 16:08] LABS: Albumin 3.1 g/dL (2.9-4.4); Alpha-1-Globulin 0.4 g/dL (0.0-0.4); Alpha-2-Globulin 0.8 g/dL (0.4-1.0); Gamma Globulin 0.3 g/dL (0.4-1.8)
[2025-03-28 13:08] LABS: Immunoglobulin A, Qn 28 mg/dL (64-422); Immunoglobulin G, Qn 329 mg/dL (586-1602); Immunoglobulin M, Qn 9 mg/dL (26-217)
== END 2025-03-24 11:45 | disposition home or self-care (01) ==
PROVIDERS: PCP Internal Medicine; Visit Provider Internal Medicine Hematology
DX: C90.00 Multiple myeloma not having achieved remission (principal); N18.32 Chronic kidney disease, stage 3b; I50.9 Heart failure, unspecified; I48.91 Unspecified atrial fibrillation
CPT/HCPCS: 36415; 80053; 82728; 82784; 83540; 83735; 83880; 84155; 84165; 85027; 86334

== ENCOUNTER 2025-04-01 08:12 | Outpatient (CLI) | payer MEDICARE, SELFPAY ==
--- NOTE | ~2025-04-01 | XR_ITS ---
XR chest 2V 04/01/2025 08:33 Indication: CHF. Procedure: 2 view chest Comparison: Comparison to multiple prior studies sequentially, with oldest reviewed study dated 04/2023. Findings: Calcified granuloma left apex. Status post median sternotomy for CABG. Cardiomegaly. Portac atheter tip in the SVC. No acute osseous abnormality. There are surgical clips in the left axilla. No focal air space disease, pulmonary edema, pleural effusion or suspected pneumothorax. Impression: 1: No acute cardiopulmonary disease. Reviewed, dictated and finalized at location A. Impression: 1: No acute cardiopulmonary disease.
[2025-04-01 09:35] LABS: Anion Gap 13 mmol/L (4-12); Blood Urea Nitrogen 39 mg/dL (7-17); Calcium 9.7 mg/dL (8.4-10.2); Carbon Dioxide 23 mmol/L (22-30); Chloride 97 mmol/L (98-107); Estimated Glomerular Filt Rate 29; Glucose 346 mg/dL (65-110); Osmolality Calculated 299 mOsm/kg (285-295); Potassium 4.7 mmol/L (3.4-5.0); Sodium 133 mmol/L (137-145)
[2025-04-01 09:44] LABS: NT Pro B Type Natriuretic Pept 9580 pg/mL (19.9-100)
== END 2025-04-01 08:13 | disposition home or self-care (01) ==
PROVIDERS: PCP Internal Medicine; Visit Provider Internal Medicine
DX: I50.9 Heart failure, unspecified (principal)
CPT/HCPCS: 36415; 71046; 80048; 83880

== ENCOUNTER 2025-04-11 12:45 | Outpatient (CLI) | payer MEDICARE, SELFPAY ==
--- OUTSIDE RECORDS SUMMARY | 2025-04-11 12:49 | XMS_ITS | Encounter Summary ---
Author Organization [facility] Address [address] [place] [address] Care Team Providers Care Activities Assistant Name Role Phone Gladys Jin MD Primary Care Provider [phone] Naila Abernathy MD Unavailable Encounter Details Date Type Department Care Team (Late st Contact Info) Description 03/17/2025 Hospital Follow-up Call [facility] Cardiovascular Care Unit [address] [place] [address] Kait Wright RN Social History Tobacco Use Types Packs/Day Years Used Date Smoking Tobacco: Never Smokeless Tobacco: Never Alcohol Use Standard Drinks/Week Comments Not Currently 0 (1 standard drink = 0.6 oz pur e alcohol) [facility] Utilities Answer Date Recorded In the past 12 months has [facility] [employer], gas, oil, or water [employer] threatened to shut off services in your [...] often do you attend chur ch or synagogue services? 1 to 4 times per year 04/09/2023 Do you belong to any clubs o r organizations such as adventism groups, unions, fraternal or athletic groups, or [...] and heating? Not hard at all 03/15/2025 [facility] Occupational Stress Questionnaire Answer Date [...] place to sleep or slept in a senior living (including now)? No 04/09/2023 Housing Stability Vital Sign Answer Behzad e Recorded In the last 12 months, was t here a time when you were not able to pay the mortgage or rent on time? No 03/15/2025 In the past 12 months, how m any times have you moved where you were living? 0 03/15/2025 At any time in the past 12 m [facility], were you homeless or living in a senior living (including now)? No 03/15/2025 Comments Unknown Sex [...] Assessment Author Status No 03/15/2025 9:45 AM CDT Magali Geller LPN Active * Do you have difficulty dressing or bathing? Answer Date of Assessment Author Status No 03/15/2025 9:45 AM CDT Magali Geller LPN Active * Because of a physical, mental, or emotional condition, do you have difficulty doing errands alone such as visiting a doctor's office or shopping? Answer Date of Assessment Author Status No 03/15/2025 9:45 AM CDT Magali Geller LPN Active documented as of this encounter Mental Status * Because of a physical, mental, or emotional condition, do you have serious difficulty concentrating, remembering, or making decisions? Answer Entry Date Author Status No 03/15/2025 9:45 AM CDT Magali Geller LPN Active documented in this encounter Plan of Treatment Upcoming Encounters Date Type Department Care Team (Late st Contact Info) Description 04/26/2025 3:00 PM CDT Office Visit [facility] [address] [place] [address] Cece Rothman NP [address] [facility] [address] [place] [address] 06/27/2025 12:30 PM REGIONAL SALES TRAINER Office Visit [facility] [place] [phone] Naila Abernathy MD [address] [place] [address] documented as of this encounter Visit Diagnoses Not on filedocumented in this encounter Care Teams Activities Assistant Relationship Specialty Start Date End Date Gladys Jin MD [address] [place] [phone] PCP - General INTERNAL MEDICINE 08/06/18 Naila Abernathy MD [address] [place] [address] Consulting Physician CARDIOVASCULAR DISEASE 02/15/24 documented as of this encounter
--- OUTSIDE RECORDS SUMMARY | 2025-04-11 12:49 | XMS_ITS | Clinical Summary ---
Author Organization [facility] Address [address] [place] [address] Care Team Providers Care Head Of Insight Name Role Phone Gladys Jin MD Primary Care Provider [phone] Tej Kramer MD Unavailable Allergies Active Allergy Reactions Criticality [...] Problem Noted Date Diagnosed Date Atrial flutter ([facility]) 03/14/2025 Acute tubular necrosis 10/02/2023 [...] Mixed hyperlipidemia 09/25/2018 Type II diabetes mellitus ([facility]) 03/2019 Resolved Problems Problem Noted Date Diagnosed Date Resolved Date CHF (congestive heart failur e) ([facility]) 09/25/2018 02/11/2020 Encounters Date Type Department Care Team Description 03/26/2025 Results Follow-Up [facility] [address] [place] [address] Tej Kramer MD [facility] [address] [facility] 03/22/2025 Telephone [facility] [address] [place] [phone] Yon Gonzales MD Appointment Request 03/17/2025 Telephone [facility] [address] [place] [phone] Tej Kramer MD Question 03/17/2025 Hospital Follow-up Call [facility] [address] [place] [address] Kait Wright RN 03/14/2025 10:57 AM CDT - 03/15/2025 1:26 PM CDT Hospital Encounter [facility] [address] [place] [address] Geno Villagomez MD Wali, Neehal, MD Yousuf, Muhammad S, MD Cardiac Problem Discharge Disposition: Home or Self Care (Routine Discharge) 03/14/2025 8:45 AM CDT Office Visit [facility] [address] [place] [address] Tej Kramer MD Heart Problem 03/14/2025 8:30 AM CDT - 03/14/2025 10:56 AM CDT Hospital Encounter [facility] [place] [address] Tej Kramer MD Discharge Disposition: Home or Self Care (Routine Discharge) 03/14/2025 Travel 03/09/2025 Orders Only [facility] [address] [place] [address] Tej Kramer MD 03/07/2025 7:36 AM CDT - 03/07/2025 11:59 PM CDT Hospital Encounter [facility] [address] [place] [address] Tej Kramer MD Discharge Disposition: Home or Self Care (Routine Discharge) 03/07/2025 7:35 AM CDT Hospital Encounter [facility] [address] [place] [address] Leslie Marino MD Discharge Disposition: Home or Self Care (Routine Discharge) 03/07/2025 Travel 02/24/2025 8:30 AM CDT Telephone [facility] [address] [place] [address] Tej Kramer MD Holter Monitor 02/21/2025 Abstract [facility] [address] [place] [address] Abstract, Doc Pccl 02/16/2025 Telephone [facility] [address] [place] [address] Tej Kramer MD Information; Holter Monitor 02/15/2025 Scan [facility] [address] [place] [address] Scanned, Doc Pccl CT (SCAN) 02/15/2025 Orders Only [facility] [address] [place] [address] Tej Kramer MD from Last 3 Months Family History Medical History Relation Comments Breast Cancer Mother Relation Status Comments Mother Social History Tobacco Use Types Packs/Day Years Used Date Smoking Tobacco: Never Smokeless Tobacco: Never Alcohol Use Standard Drinks/Week Comments Not Currently 0 (1 standard drink = 0.6 oz pur e alcohol) [facility] Utilities Answer Date Recorded In the past 12 months has th e electric, gas, oil, or water [email or web address] threatened to shut off services in your [...] any clubs o r organizations such as druze groups, unions, fraternal or athletic groups, or [...] and heating? Not hard at all 03/15/2025 [facility] - Occupational Stress [...] to sleep or slept in a senior care (including now)? No 04/09/2023 Housing Stability Vital Sign Answer Behzad e Recorded In the last 12 months, was t here a time when you were not able to pay the mortgage or rent on time? No 03/15/2025 In the past 12 months, how m any times have you moved where you were living? 0 03/15/2025 At any time in the past 12 m [facility], were you homeless or living in a senior care (including now)? No 03/15/2025 Comments Unknown Sex [...] Description 04/26/2025 3:00 PM CDT [facility] [address] [place] [address] Cece Rothman NP [address] [facility] [address] [place] [address] 06/27/2025 12:30 PM EXTENSION SERVICE SPECIALIST Office Visit [facility] [place] [address] Tej Kramer MD [address] [place] [address] Health Maintenance Due Date Last Done Comments [...] Recently Relevant to Health Maintenance Results * CLINIC - [address] MCT - Today (03/24/2025 8:00 AM CDT) [facility] - 03/24/2025 8:00 AM CDT Baseline Rhythm * The baseline rhythm was Sinus Rhythm with heart rates ranged between 50 and 181 beats per minute, with average rate of 133 beats per minute. A-V Conduction * No Second Degree AV Block Type II. * No Third Degree AV Block. * No Pauses. Supraventricular Arrhythmia * There were 231,412 Supraventricular Ectopic beats with a burden of 9%. * 6 Supraventricular Tachycardia events - the longest episode was 1m 13.4s on 03/02 06:35, and the fastest episode was 165 BPM on 02/28 15:03. Ventricular Arrhythmia * There were 11,600 Ventricular Ectopic beats with a burden of <1%. * 6 Ventricular Tachycardia events - the longest episode was 3.6s on 03/04 16:08, and the fastest episode was 176 BPM on 03/01 09:16. Atrial Fibrillation * Atrial Fibrillation - the longest episode was 8h 47m 19.2s on 03/11 23:03, the fastest episode was 162 BPM on 03/13 17:45, and the slowest episode was 91 BPM on 03/11 12:26. Patient Triggered Events * 2 patient triggered events, no symptoms were specified. Signed TEJ KRAMER, MD, MS, FACC, RVPI [facility] [place], [place] us Tej Kramer MD CV VASCULAR ORDERABLES Final Res ult [facility] * ECG 12 lead - Today (03/15/2025 10:54 AM CDT) Only the most recent of4 resultswithin the time period is included. 03/15/2025 10:5 4 AM CDT Narrative [facility] - 03/15/2025 11:07 AM CDT [place] [address] [place] [address] Test Date: 2025-03-15 Pat Name: ALEXIS LEE Department: 1 Room: [facility] Gender: Female Garment Mender: Don : 1945 Requested By: YON GONZALES Order Number: [id number] Reading MD: Fortino Lorenzo Measurements Intervals [place] Rate: 78 P: 88 NH: 188 QRS: -43 QRSD: 104 T: -9 QT: 413 QTc: 473 Interpretive Statements SINUS RHYTHM WITH OCCASIONAL SUPRAVENTRICULAR PREMATURE COMPLEXES LEFT AXIS DEVIATION [QRS AXIS < -30] MODERATE VOLTAGE CRITERIA FOR LVH, CONSIDER NORMAL VARIANT [MEETS CRITERIA IN ONE OF: R(aVL), S(V1), R(V5), R(V5/V6)+S(V1)] NONSPECIFIC T-WAVE ABNORMALITY Procedure Note Fortino Lorenzo MD - 03/15/2025 [facility] [address] [place] [address] Test Date: 2025-03-15 Pat Name: ALEXIS LEE [facility]: [facility] Gender: Female Garment Mender: Don : 1945 Requested By: YON GONZALES Order Number: [id number] Reading DOLLY Lorenzo Measurements Intervals [place] Rate: 78 P: 88 NH: 188 QRS: -43 QRSD: 104 T: -9 QT: 413 QTc: 473 Interpretive Statements SINUS RHYTHM WITH OCCASIONAL SUPRAVENTRICULAR PREMATURE COMPLEXES LEFT AXIS DEVIATION [QRS AXIS < -30] MODERATE VOLTAGE CRITERIA FOR LVH, CONSIDER NORMAL VARIANT [MEETSCRITERIA IN ONE OF: R(aVL), S(V1), R(V5), R(V5/V6)+S(V1)] NONSPECIFIC T-WAVE ABNORMALITY Yon Gonzales MD ECG ORDERABLES Final Result Performing Organization Address [facility] Co de Phone Number [facility] * HEPARIN, ANTI XA, UFH (03/15/2025 2:04 AM CDT) Only the most recent of3 resultswithin the time period is included. HEPARIN ANTI XA UFH 0.49 0.30 - 0.70 IU/ML 03/15/2025 2:21 AM CDT [facility] Comment: UFH Therapeutic Anti Xa Ranges: Medical Therapeutic Range: 0.30 - 0.70 IU/mL Cardiac Therapeutic Range: 0.30 - 0.50 IU/mL Neuro Therapeutic Range: 0.20 - 0.40 IU/mL 03/15/2025 2:04 AM CDT Manasa Zambrano MD LABORATORY Final Result Performing Organization Address [facility] Co de Phone Number [facility] [address] [place] [address], [phone] * (ABNORMAL) PROTIME/INR, VENOUS (03/15/2025 2:04 AM CDT) Only the most recent of2 resultswithin the time period is included. PROTIME 13.5(H) 9.4 - 12.5 SEC 03/15/2025 2:22 AM CDT [facility] INR 1.2(H) 0.8 - 1.1 03/15/2025 2:22 AM CDT [facility] 03/15/2025 2:04 AM CDT Geno Villagomez MD LABORATORY Final Resul t [facility] [address] [place] [address], [place] [phone] * (ABNORMAL) BASIC METABOLIC PANEL (03/15/2025 2:04 AM CDT) Only the most recent of2 resultswithin the time period is included. [facility] SODIUM S/P/B 136 136 - 145 MMOL/L 03/15/2025 2:56 AM CDT [facility] POTASSIUM S/P/B 3.8 3.5 - 5.1 MMOL/L 03/15/2025 2:56 AM CDT [facility] CHLORIDE S/P/B 108 97 - 115 MMOL/L 03/15/2025 2:56 AM CDT [facility] CO2 23.1 21.0 - 32.0 MMOL/L 03/15/2025 2:56 AM CDT [facility] GLUCOSE 128(H) 74 - 106 MG/DL 03/15/2025 2:56 AM CDT [facility] BUN 19(H) 7 - 18 MG/DL 03/15/2025 2:56 AM CDT [facility] CREATININE S/P/B 1.19(H) 0.55 - 1.02 MG/DL 03/15/2025 2:56 AM CDT [facility] CALCIUM S/P/B 8.4(L) 8.5 - 10.1 MG/DL 03/15/2025 2:56 AM CDT [facility] ANION GAP 4.9 2.0 - 10.0 MMOL/L 03/15/2025 2:56 AM CDT [facility] OSMOLALITY (CALC) 286 MOSM/KG 025 2:56 AM CDT [facility] Comment:REFERENCE RANGE NOT ESTABLISHED GFR ESTIMATE 47(L) >90 ML/MIN/1. 73 M2 03/15/2025 2:56 AM CDT [facility] GFR NOTES GFR REFERENCE S: 03/15/2025 2:56 AM CDT [facility] Comment: THE ESTIMATED GFR IS [...] CDT Manasa Zambrano MD LABORATORY Final Result [facility] [address] [place] [address], [id number] * (ABNORMAL) CBC W/DIFF AUTOMATED (03/15/2025 2:04 AM CDT) Only the most recent of3 resultswithin the time period is included. WBC 2.88(L) 4.00 - 10.80 x10'3/uL 03/15/2025 2:30 AM CDT [facility] RBC 2.84(L) 4.10 - 5.40 x10'6/uL 03/15/2025 2:30 AM CDT [facility] HGB 8.9(L) 12.0 - 16.0 G/DL 03/15/2025 2:30 AM CDT [facility] HCT 27.8(L) 36.0 - 47.0 % 03/15/2025 2:30 AM CDT [facility] MCV 97.9 78.0 - 100.0 FL 03/15/2025 2:30 AM CDT [facility] MCH 31.3(H) 27.0 - 31.0 PG 03/15/2025 2:30 AM CDT [facility] MCHC 32.0(L) 33.0 - 36.0 G/DL 03/15/2025 2:30 AM CDT [facility] RDW 14.5 11.5 - 14.5 % 03/15/2025 2:30 AM CDT [facility] PLT 116(L) 150 - 350 x10'3/uL 03/15/2025 2:30 AM CDT [facility] MPV 13.0(H) 7.4 - 10.4 FL 03/15/2025 2:30 AM CDT [facility] DIFFERENTIAL TYPE MANUAL DIFFERENTIAL 03/15/2025 3:19 AM CDT [facility] NRBC % 0.0 % 03/15/2025 3:19 AM CDT [facility] SEG NEUTROPHILS 58 % 3:19 AM CDT [facility] LYMPHOCYTES 24 % 03/15/2025 3:19 AM CDT [facility] MONOCYTES 11 % 03/15/2025 3:19 AM CDT [facility] EOSINOPHILS 4 % 03/15/2025 3:19 AM CDT [facility] BASOPHILS 3 % 03/15/2025 3:19 AM CDT [facility] ABS. NEUTROPHILS 1.67 1.60 - 8.30 x10'3/uL 03/15/2025 3:19 AM CDT [facility] ABS. LYMPHOCYTES 0.69(L) 0.80 - 4.70 x10'3/uL 03/15/2025 3:19 AM CDT [facility] ABS. MONOCYTES 0.32 0.00 - 1.50 x10'3/uL 03/15/2025 3:19 AM CDT [facility] ABS. EOSINOPHILS 0.12 0.00 - 0.40 x10'3/uL 03/15/2025 3:19 AM CDT [facility] ABS. BASOPHILS 0.09 0.00 - 0.20 x10'3/uL 03/15/2025 3:19 AM CDT [facility] ABS. NUCLEATED RBC'S 0.00 0.00 - 0.01 x10'3/uL 03/15/2025 3:19 AM CDT [facility] RBC MORPHOLOGY SLIDE REVIEWED 2024 3:19 AM CDT [facility] ANISO SLIGHT 03/15/2025 3:19 AM CDT [facility] POIKLO SLIGHT 03/15/2025 3:19 AM CDT [facility] POLY SLIGHT 03/15/2025 3:19 AM CDT [facility] OVALOCYTES PRESENT 03/15/2025 3:19 AM CDT [facility] ACANTHOCYTES PRESENT 03/15/2025 3:19 AM CDT [facility] PLT EST. DECREASED 03/15/2025 3:19 AM CDT [facility] 03/15/2025 2:04 AM CDT us Geno Villagomez MD LABORATORY Final Resul t [facility] [address] [place] [address], [id number] * XR CHEST PORTABLE (03/14/2025 11:25 AM CDT) Anatomical Region Laterality Modality Chest Radiographic Ines ging 03/14/2025 12:3 0 PM CDT Impressions 03/14/2025 12:34 PM CDT IMPRESSION: 1. No radiographic evidence of active disease in the chest. 2. Stable chest. Referred By: Interpreted By: Flor Hurd DO, 03/14/2025 12:30 PM Narrative 03/14/2025 12:34 PM CDT [address] [address] CLINICAL INDICATION: 79-year-old female. Reason for examination: Palpitations. 03/14/2025 11:40 AM, YafaiWindy A: IY [id number]. EXAM DONE FOR PALPITATIONS. [...] Procedure Note Flor Hurd MD - 03/14/[address] [address] CLINICAL INDICATION: 79-year-old female. Reason for examination: [...] By: Flor Hurd DO, 03/14/2025 12:30 PM Geno Villagomez MD GENERAL IMAGING Final Resul t * (ABNORMAL) THYROXINE, FREE (FT4) (03/14/2025 11:09 AM CDT) FREE T4 1.50(H) 0.76 - 1.46 NG/DL 03/14/2025 12:33 PM CDT [facility] 03/14/2025 11:0 9 AM CDT Geno Villagomez MD LABORATORY Final Resul t Performing Organization Address [facility] Co de Phone Number [facility] [address] [place] [address], [id number] * THYROID STIM HORMONE, TSH (03/14/2025 11:09 AM CDT) Only the most recent of2 resultswithin the time period is included. TSH 1.080 0.358 - 3.740 uIU/ML 03/14/2025 12:33 PM CDT [facility] Comment: ASSAY PERFORMED BY CHEMILUMINESCENCE METHODOLOGY USING SIEMENS [place] REAGENT. PATIENT RESULTS DETERMINED BY ASSAYS USING DIFFERENT MANUFACTURERS FOR METHODS MAY NOT BE COMPARABLE. 03/14/2025 11:0 9 AM CDT Geno Villagomez MD LABORATORY Final Resul t Performing Organization Address [facility] Co de Phone Number [facility] [address] [place] [address], [id number] * MAGNESIUM (03/14/2025 11:09 AM CDT) MAGNESIUM 2.1 1.6 - 2.6 MG/DL 03/14/2025 12:33 PM CDT [facility] 03/14/2025 11:0 9 AM CDT Geno Villagomez MD LABORATORY Final Resul t [facility] [address] [place] [address], [place] [phone] * Critical Care (03/14/2025 10:59 AM CDT) [...] COLOR (U) YELLOW 03/07/2025 8:56 AM CDT [facility] TRANSPARENCY CLEAR 03/07/2025 8:56 AM CDT [facility] SPECIFIC GRAVITY (U) 1.010 1.000 - 1.025 03/07/2025 8:56 AM CDT [facility] U PH 6.5 5.0 - 8.0 03/07/2025 8:56 AM CDT [facility] LEUKOCYTES (U) NEGATIVE NEGATIVE 03/07/2025 8:56 AM CDT [facility] NITRITES NEGATIVE NEGATIVE 03/07/2025 8:56 AM CDT [facility] PROTEIN RANDOM (U) TRACE(A) NEGATIVE 03/07/2025 8:56 AM CDT [facility] GLUCOSE (U) NEGATIVE NEGATIVE 03/07/2025 8:56 AM CDT [facility] KETONES MG/DL (U) NEGATIVE NEGATIVE 03/07/2025 8:56 AM CDT [facility] UROBILINOGEN 0.2 <1.0 EU/DL 03/07/2025 8:56 AM CDT [facility] BILIRUBIN (U) NEGATIVE NEGATIVE 03/07/2025 8:56 AM CDT [facility] BLOOD (U) NEGATIVE NEGATIVE 03/07/2025 8:56 AM CDT [facility] WBC/HPF 0-5 0 - 5 /HPF 03/07/2025 8:56 AM CDT [facility] RBC/HPF 0-5 0 - 5 /HPF 03/07/2025 8:56 AM CDT [facility] EPI/LPF RARE /LPF 03/07/2025 8:56 AM CDT [facility] BACTERIA (U) 1+ /HPF 03/07/2025 8:56 AM CDT [facility] URINE SPECIMEN OBTAINED BY CLEAN CATCH PROCEDURE / Unknown 03/07/2025 8:40 AM CDT us Leslie Marino MD URINE ORDERABLES Final Result [facility] [address] [place] [address], * (ABNORMAL) PTH - INTACT (03/07/2025 8:35 AM CDT) PTH 82.9(H) 18.4 - 80.1 PG/ML 03/07/2025 11:58 AM CDT [facility] Comment: ASSAY PERFORMED BY CHEMILUMINESCENCE METHODOLOGY USING SIEMENS CENTAUR XPT REAGENT. PATIENT RESULTS DETERMINED BY ASSAYS USING DIFFERENT MANUFACTURERS FOR METHODS MAY NOT BE COMPARABLE. 03/07/2025 8:35 AM CDT us Leslie Marino MD LABORATORY Final Result Performing Organization Address [facility] Co de Phone Number [facility] [address] [place] [address], [place] [phone] * (ABNORMAL) IRON SAT PANEL (IRON,IBC,%SAT) (03/07/2025 8:35 AM CDT) IRON 18(L) 50 - 170 MCG/DL 03/07/2025 9:19 AM CDT [facility] IRON BINDING CAPACITY 277 250 - 450 MCG/DL 03/07/2025 9:19 AM CDT [facility] IRON SATURATION 6 % 9:19 AM CDT [facility] Comment:REFERENCE RANGE NOT ESTABLISHED 03/07/2025 8:35 AM CDT us Leslie Marino MD LABORATORY Final Result Performing Organization Address [facility] Co de Phone Number [facility] [address] [place] [address], [place] [phone] * TRANSFERRIN (03/07/2025 8:35 AM CDT) TRANSFERRIN 215 200 - 360 mg/dL 03/07/2025 11:46 AM CDT [facility] 03/07/2025 8:35 AM CDT us Leslie Marino MD LABORATORY Final Result Performing Organization Address [facility] Co de Phone Number [facility] [address] [place] [address], [place] [phone] * (ABNORMAL) RENAL FUNCTION PANEL (03/07/2025 8:35 AM CDT) SODIUM S/P/B 138 136 - 145 MMOL/L 03/07/2025 9:21 AM CDT [facility] POTASSIUM S/P/B 4.0 3.5 - 5.1 MMOL/L 03/07/2025 9:21 AM CDT [facility] CHLORIDE S/P/B 100 98 - 107 MMOL/L 03/07/2025 9:21 AM CDT [facility] CO2 29.3 21.0 - 32.0 MMOL/L 03/07/2025 9:21 AM T [facility] GLUCOSE 136(H) 70 - 99 MG/DL 03/07/2025 9:21 AM T [facility] Comment: FASTING GLUCOSE 100 TO 125 MG/DL IS CONSISTENT WITH IMPAIRED FASTING GLUCOSE. FASTING GLUCOSE >125 MG/DL IS CONSISTENT WITH DIABETES. RANDOM GLUCOSE >200 MG/DL WITH HYPERGLYCEMIC SYMPTOMS IS CONSISTENT WITH DIABETES. PER ADA GUIDELINES BUN 29(H) 6 - 24 MG/DL 03/07/2025 9:21 AM T [facility] CREATININE S/P/B 1.77(H) 0.55 - 1.02 MG/DL 03/07/2025 9:21 AM CDT [facility] CALCIUM S/P/B 9.4 8.4 - 10.5 MG/DL 03/07/2025 9:21 AM T [facility] ALBUMIN S/P/B 3.1(L) 3.4 - 5.0 G/DL 03/07/2025 9:21 AM CDT [facility] PHOSPHORUS 4.1 2.6 - 4.7 MG/DL 03/07/2025 9:30 AM T [facility] ANION GAP 8.7 5.0 - 15.0 MMOL/L 03/07/2025 9:21 AM T [facility] OSMOLALITY (CALC) 294 MOSM/KG 025 9:21 AM T [facility] Comment:REFERENCE RANGE NOT ESTABLISHED GFR ESTIMATE 29(L) >89 ML/MIN/1. 73 M2 03/07/2025 9:21 AM CDT [facility] GFR NOTES GFR REFERENCE S: 03/07/2025 9:21 AM CDT [facility] Comment: THE ESTIMATED GFR IS [...] MD LABORATORY Final Result Performing Organization Address City/[facility]/ZIP Co de Phone Number [facility] [address] [place] [address], * FERRITIN (03/07/2025 8:35 AM CDT) FERRITIN 131.4 8 - 252 NG/ML 03/07/2025 9:21 AM CDT [facility] 03/07/2025 8:35 AM CDT us Leslie Marino MD LABORATORY Final Result Performing Organization Address City/[facility]/ZIP Co de Phone Number [facility] [address] [place] [address], * USE ECHOCARDIOGRAM (03/07/2025 8:28 AM CDT) Anatomical Region Laterality Modality Cardiac Ultrasound 03/07/2025 7:51 AM CDT Narrative 03/07/2025 10:47 AM CDT Echocardiography Report Pat.Name: Alexis Lee Pat.ID: [id number] .Date: 03/07/2025 Refer.MD: Jori, [facility] Exam Time: 7:51:00 AM Study Type:JORI Height: 62 in Weight: 140 lb BSA: 1.64 m2 Age: 3 1945,79Y Sex: F Sonogrphr: Russell Schreiber. Stat.:Outpatient Reason for Study:S/P AVR (aortic valve replacement) Procedures: Study performed at [place], [place] and interpreted by [facility]. 2D, M-mode, Doppler, Color Flow [...] tricuspid regurgitation. <Electronic Signature> 03/07/2025 10:47 AM Tej Kramer M.D. Procedure Note Tej Kramer MD - 03/07/2025 Echocardiography Report Pat.Name: Alexis Lee Pat.ID: [id number] .Date: 03/07/2025 Refer.MD: Jori, [facility] Exam Time: 7:51:00 AM Study Type:[facility] Height: 62 in Weight: 140 lb BSA: 1.64 m2 Age: 3 1945,79Y Sex: F Sonogrphr: Sf Pat. Stat.:Outpatient Reason for Study:S/P AVR (aortic valve replacement) Procedures: Study performed at [place], [place] and interpreted by [facility]. 2D, M-mode, Doppler, Color Flow [...] tricuspid regurgitation. <Electronic Signature> 03/07/2025 10:47 AM Tej Kramer M.D. us Tej Kramer MD ECHO Final Result * PRO-BRAIN NATRIURETIC PEPTIDE (02/15/2025) PRO-B TYPE NATRIURETIC PEPTIDE 4,830 Narrative Resulting Agency Comment [facility] us Default History Genericprovider LABORATORY [...] GFR ESTIMATE 35 Narrative Resulting Agency Comment [facility] us Default History Genericprovider LABORATORY Final Result * CBC, MANUAL DIFF (02/15/2025) Pathologist [facility] [place] WBC 4.4 HGB 11.1 HCT 35.4 PLT 130 Narrative Resulting Agency Comment [facility] us Default History Genericprovider LABORATORY Final Result * HEPATITIS PANEL,ACUTE (04/22/2023 7:27 AM CDT) Pathologist [facility] [place] HEPATITIS B SURFACE AG NON-REACT ANABELLA NON-REACT ANABELLA 09/22/2023 2:22 PM EXTENSION SERVICE SPECIALIST [facility] Comment:HBsAg NOT DETECTED. HEP B CORE IGM NON-REACT ANABELLA NON-REACT ANABELLA 09/22/2023 2:22 PM EXTENSION SERVICE SPECIALIST [facility] Comment: IgM ANTI HBc NOT DETECTED. DOES NOT EXCLUDE THE POSSIBILITY OF EXPOSURE TO OR INFECTION WITH HBV. NO RETEST REQUIRED. HIGH DOSES OF BIOTIN MAY INTERFERE WITH THIS TEST RESULT. CORRELATION TO CLINICAL HISTORY AND PRESENTATION RECOMMENDED. HAV IGM NON-REACT ANABELLA NON-REACT ANABELLA 09/22/2023 2:22 PM EXTENSION SERVICE SPECIALIST [facility] Comment: IgM ANTI HAV NOT DETECTED. DOES NOT EXCLUDE THE POSSIBILITY OF EXPOSURE TO OR INFECTION WITH HAV. LEVELS OF IgM ANTI HAV MAY BE BELOW THE CUTOFF IN EARLY INFECTION. HEPATITIS C AB NON-REACT ANABELLA NON-REACT ANABELLA 09/22/2023 2:22 PM EXTENSION SERVICE SPECIALIST [facility] Comment: ANTIBODIES TO HCV NOT DETECTED. DOES NOT EXCLUDE THE POSSIBILITY OF EXPOSURE TO HCV. 04/22/2023 7:27 AM CDT us Obed Posadas MD LABORATORY Final Resul t [facility] [address] [place] [address], [id number] * LIPID PANEL (05/07/2014 12:00 AM CDT) [...] Most Recently Relevant to Health Maintenance Insurance MEDICARE GENERIC - COMMERCIAL MEDICARE Advance Directives Documents on File Type Date Recorded Patient Paver Layer Expl anation Power of Lap Winder 04/10/2023 POWER OF A TTORNEY * Full Code (Latest Code Status on File) Date Activated Date Inactivated Comments 03/15/2025 9:40 AM 03/15/2025 3:36 PM * DNR Date Activated Date Inactivated Comments 03/14/2025 12:47 PM 03/15/2025 9:40 AM * DNR Date Activated Date Inactivated Comments 04/09/2023 2:05 PM 07/09/2023 11:00 AM Care Teams Head Of Insight Relationship Specialty Start Date End Date Gladys Jin MD [address] [place] [phone] PCP - General INTERNAL MEDICINE 08/06/18 Tej Kramer MD [address] [place] [address] Consulting Physician CARDIOVASCULAR DISEASE 02/15/24
--- OUTSIDE RECORDS SUMMARY | 2025-04-11 12:49 | XMS_ITS | Encounter Summary ---
Author Organization [facility] Address [address] [place] [address] Care Team Providers Care Shoe Parts Molder Name Role Phone Gladys Jin MD Primary Care Provider [phone] Santo Ordonez MD Unavailable [phone] Naila Abernathy MD Unavailable Encounter Details Date Type Department Care Team (Late st Contact Info) Description 09/23/2018 [facility] [address] [place] [address] Abstract, Doc Prevea Social History Tobacco Use [...] Encounters Date Type Department Care Team (Late Contact Info) Description 04/26/2025 3:00 PM CDT [facility] [address] [place] [phone] Cece Rothman, LEE [address] [facility], [place]. [address] [place] [address] 06/27/2025 12:30 PM EQUIPMENT SERVICE ASSOCIATE Office Visit [facility] [place] [address] Naila Abernathy MD [address] [place] [address] documented as of this encounter Visit Diagnoses Not on filedocumented in this encounter Care Teams Shoe Parts Molder Relationship Specialty Start Date End Date Gladys Jin MD [address] [place] [address] PCP - General INTERNAL MEDICINE 08/06/18 Santo Ordonez MD [address] [place] [address] Tionesta Filter Changing Technician CARDIOVASCULAR DISEASE 08/06/18 02/14/24 Naila Abernathy MD [address] [place] [address] Consulting Physician CARDIOVASCULAR DISEASE 02/15/24 documented as of this encounter
--- OUTSIDE RECORDS SUMMARY | 2025-04-11 12:49 | XMS_ITS | Encounter Summary ---
Author Organization [facility] Address [address] [place] [address] Care Team Providers Care Industrial Pipefitter Journeyman Name Role Phone Gladys Jin MD Primary Care Provider [phone] Sanot Ordonez MD Unavailable [phone] Naila Abernathy MD Unavailable Encounter Details Date Type Department Care Team (Late st Contact Info) Description 12/15/2023 Pre-Procedure Call [facility] Interventional Radiology [address] [place] [address] Danielle Briseno, RN Social History [...] often do you attend chur ch or zoroastrianism services? 1 to 4 times per year 04/09/2023 Do you belong to any clubs o r organizations such as taoism groups, unions, fraternal or athletic groups, or [...] and heating? Not hard at all 04/09/2023 [facility] - Occupational Stress Questionnaire Answer [...] Description 04/26/2025 3:00 PM CDT Office Visit [facility] [address] [place] [address] Cece Rothman, ADVERTISING ACCOUNT REPRESENTATIVE [address] [facility]. [address] [place] [address] 06/27/2025 12:30 PM GOVERNMENT PROPERTY INSPECTOR Office Visit [facility] [place] [address] Naila Abernathy MD [address] [place] [address] documented as of this encounter Visit Diagnoses Not on filedocumented in this encounter Care Teams Industrial Pipefitter Journeyman Relationship Specialty Start Date End Date Gladys Jin MD [address] [place] [address] PCP - General INTERNAL MEDICINE 08/06/18 Santo Ordonez MD [address] [place] [address] [place] Triage Rn CARDIOVASCULAR DISEASE 08/06/18 02/14/24 Naila Abernathy MD [address] [place] [address] Consulting Physician CARDIOVASCULAR DISEASE 02/15/24 documented as of this encounter
--- OUTSIDE RECORDS SUMMARY | 2025-04-11 12:49 | XMS_ITS | Encounter Summary ---
Author Organization [facility] Address [address] [place] [address] Care Team Providers Care Data Security Administrator Name Role Phone Gladys Jin MD Primary Care Provider [phone] Santo Ordonez MD Unavailable [phone] Naila Abernathy MD Unavailable Encounter Details Date Type Department Care Team (Late st Contact Info) Description 11/01/2017 Abstract [facility] [address] [place] [address] , Generic Conversion, Social History Tobacco Use [...] Description 04/26/2025 3:00 PM CDT Office Visit [facility] [address] [place] [address] Cece Rothman, ALTERATION MANAGER [address] [facility], [place]. [address] [place] [address] 06/27/2025 12:30 PM FRACTIONATING STILL OPERATOR Office Visit [facility] [address] [place] [address] Naila Abernathy MD [address] [place] [address] documented as of this encounter Visit Diagnoses Not on filedocumented in this encounter Care Teams Data Security Administrator Relationship Specialty Start Date End Date Gladys Jin MD [address] [place] [phone] PCP - General INTERNAL MEDICINE 08/06/18 Santo Ordonez MD [address] [place] [address] [place] Reliability Specialist CARDIOVASCULAR DISEASE 08/06/18 02/14/24 Naila Abernathy MD [address] [place] [address] Consulting Physician CARDIOVASCULAR DISEASE 02/15/24 documented as of this encounter
[2025-04-11 12:56] LABS: Hematocrit 33.4 % (35.0-42.0); Hemoglobin 10.4 g/dL (11.7-13.8); Mean Corpuscular HGB Conc 31.1 g/dL (32-36); Mean Corpuscular Hemoglobin 31.0 pg (27.0-31.0); Mean Corpuscular Volume 99.7 fL (78.0-102.0); Platelet Count Result 186 K/mm3 (150-420); Red Blood Count 3.35 M/mm3 (4.20-5.40); White Blood Count 6.5 K/mm3 (4.8-10.8)
[2025-04-11 13:32] LABS: Alanine Aminotransferase 32 U/L (6-35); Albumin Level 4.1 g/dL (3.5-5.1); Alkaline Phosphatase 84 U/L (38-126); Anion Gap 9 mmol/L (4-12); Aspartate Amino Transferase 24 U/L (14-36); Bilirubin,Total 0.8 mg/dL (0.2-1.3); Blood Urea Nitrogen 34 mg/dL (7-17); Calcium 9.6 mg/dL (8.4-10.2); Carbon Dioxide 27 mmol/L (22-30); Chloride 100 mmol/L (98-107); Estimated Glomerular Filt Rate 31; Glucose 145 mg/dL (65-110); Osmolality Calculated 292 mOsm/kg (285-295); Potassium 3.9 mmol/L (3.4-5.0); Sodium 136 mmol/L (137-145); Total Protein 5.9 g/dL (6.3-8.2)
[2025-04-11 13:40] LABS: NT Pro B Type Natriuretic Pept 7560 pg/mL (19.9-100)
== END 2025-04-11 12:46 | disposition home or self-care (01) ==
LOC: CHSLAB 12:46
PROVIDERS: PCP Internal Medicine; Visit Provider Internal Medicine
DX: I50.22 Chronic systolic (congestive) heart failure (principal); N18.4 Chronic kidney disease, stage 4 (severe); C90.00 Multiple myeloma not having achieved remission
CPT/HCPCS: 36415; 80053; 83880; 85027

== ENCOUNTER 2025-04-20 09:59 | Outpatient (CLI) | payer MEDICARE, SELFPAY ==
[2025-04-20 10:20] LABS: Hematocrit 30.9 % (35.0-42.0); Hemoglobin 9.5 g/dL (11.7-13.8); Mean Corpuscular HGB Conc 30.7 g/dL (32-36); Mean Corpuscular Hemoglobin 30.5 pg (27.0-31.0); Mean Corpuscular Volume 99.4 fL (78.0-102.0); Platelet Count Result 113 K/mm3 (150-420); Red Blood Count 3.11 M/mm3 (4.20-5.40); White Blood Count 4.0 K/mm3 (4.8-10.8)
[2025-04-20 10:51] LABS: Alanine Aminotransferase 20 U/L (6-35); Albumin Level 3.4 g/dL (3.5-5.1); Alkaline Phosphatase 69 U/L (38-126); Anion Gap 7 mmol/L (4-12); Aspartate Amino Transferase 21 U/L (14-36); Bilirubin,Total 0.7 mg/dL (0.2-1.3); Blood Urea Nitrogen 31 mg/dL (7-17); Calcium 9.1 mg/dL (8.4-10.2); Carbon Dioxide 25 mmol/L (22-30); Chloride 103 mmol/L (98-107); Estimated Glomerular Filt Rate 32; Glucose 140 mg/dL (65-110); Osmolality Calculated 288 mOsm/kg (285-295); Potassium 4.3 mmol/L (3.4-5.0); Sodium 135 mmol/L (137-145); Total Protein 5.3 g/dL (6.3-8.2)
[2025-04-20 11:02] LABS: Band Neutrophils Percent 0 % (0-6); Eosinophils Absolute Manual 0.08 K/mm3 (0.02-0.50); Eosinophils Percent Manual 2 % (1-6); Lymphocytes Absolute Manual 1.00 K/mm3 (1.1-4.5); Lymphocytes Percent Manual 25 % (18-44); Monocytes Absolute Manual 0.24 K/mm3 (0.1-0.90); Monocytes Percent Manual 6 % (3-9); Neutrophils Absolute Manual 2.64 K/mm3 (1.3-6.7); Neutrophils Percent Manual 66 % (46-73); Total Cells Counted 100
[2025-04-21 18:08] LABS: Free Lambda Lt Chains, Serum 17.3 mg/L (5.7-26.3); Kappa/Lambda Ratio, Serum 8.16 (0.26-1.65)
== END 2025-04-20 10:00 | disposition home or self-care (01) ==
LOC: CHSLAB 10:01
PROVIDERS: PCP Internal Medicine; Visit Provider Internal Medicine Hematology
DX: C90.00 Multiple myeloma not having achieved remission (principal)
CPT/HCPCS: 36415; 80053; 83521; 85025; 93005

== ENCOUNTER 2025-04-20 11:54 | Emergency (ER) | payer MEDICARE, SELFPAY ==
[2025-04-20] VITALS (21 sets, daily range): BP systolic 98–120; BP diastolic 59–84; PULSE 90–112; RESP 17–24; TEMP 37; O2SAT 93–100
--- NOTE | ~2025-04-20 | XR_ITS ---
EXAM/PROCEDURE: XR chest 1V portable - 04/20/2025 12:15 CDT HISTORY: 79 years old Female with CHF TECHNIQUE: Two view(s) of the chest. COMPARISON: None available. FINDINGS: LUNGS/ PLEURA: Mild vascular congestion, bilateral interstitial and alveolar opacities. HEART/ MEDIASTINUM: Mild cardiomegaly. BONES: Degenerative changes. OTHER: Visualized upper abdomen is unremarkable. Tip of the Mediport catheter is in the midright atrium. No clips are seen in the left axilla IMPRESSION: Mild CHF. Superimposed infection cannot be excluded. Reviewed, dictated and finalized at location N.
--- NOTE | 2025-04-20 11:59 | ED.ARRPALP ---
HPI - Arrhythmia/Palpitations General Chief Complaint: Arrhythmia/Palpitations Stated Complaint: Palpitations Time Seen by Provider: 04/20/25 11:56 Source: patient and family Mode of arrival: ambulatory Limitations: no limitations History of Present Illness HPI narrative: 79-year-old female with a history of multiple myeloma in remission, CKD, gout, hypothyroidism, breast cancer in C2, GERD, status post AVR, paroxysmal atrial fibrillation, CHF, status post ablation on 03/14/2025 presents to the ED with a 1 month history -- tiredness -- generalized weakness -- palpitation -- Chronic bilateral leg swelling no chest pain or shortness of breath. No paroxysmal nocturnal dyspnea. she does have dyspnea on exertion. She went to her oncologist who transferred her to the ED for AFib with rapid ventricular rate. Related Data Home Medications ?Medication ?Instructions ?Recorded ?Confirmed ?Last Taken ?Type amlodipine 5 mg tablet 5 mg PO DAILY 02/23/23 06/10/24 10/31/23 History cholecalciferol (vitamin D3) 50 50 mcg PO DAILY 02/23/23 06/10/24 10/29/23 History mcg (2,000 unit) capsule (Vitamin D3) cyanocobalamin (vitamin B-12) 2,500 mcg sublingual DAILY 02/23/23 06/10/24 10/29/23 History 2,500 mcg sublingual tablet (Vitamin B-12) duloxetine 60 mg capsule,delayed 60 mg PO DAILY 02/23/23 06/10/24 10/29/23 History release levothyroxine 112 mcg tablet 112 mcg PO DAILY 02/23/23 06/10/24 10/31/23 History omeprazole 20 mg capsule,delayed 20 mg PO DAILY 02/23/23 06/10/24 10/31/23 History release trazodone 50 mg tablet 50 mg PO HS 02/23/23 06/10/24 10/28/23 History dexamethasone 4 mg tablet 20 mg PO DAILY PRN days of chemo 07/02/23 06/10/24 Unknown History acyclovir 400 mg tablet 800 mg PO DAILY 02/15/25 Unknown History apixaban 5 mg tablet (Eliquis) 5 mg PO Q12H 04/20/25 Unknown History diltiazem HCl 120 mg 120 mg PO Q24H 04/20/25 Unknown History capsule,extended release 24 hr magnesium 200 mg tablet 400 mg PO DAILY 04/20/25 Unknown History pomalidomide 2 mg capsule 2 mg PO DAILY 04/20/25 Unknown History (Pomalyst) Allergies Allergy/AdvReac Type Severity Reaction Status Date / Time hydrocodone (From Vicodin) Allergy Itching Verified 04/20/25 12:04 bupropion AdvReac Mild Rash Verified 04/20/25 12:04 nsaid AdvReac Mild Abdominal Uncoded 04/20/25 12:04 Pain PMFSH Past Medical History Medical History Acute kidney injury superimposed on chronic kidney disease Paroxysmal atrial fibrillation Chronic kidney disease Diabetes mellitus diet controlled Hiatal hernia Gastroesophageal reflux disease without esophagitis Breast cancer in situ Anemia Hyperthyroidism Hypertension Multiple myeloma Surgical History Surgical History History of total replacement of both hip joints Status post laparoscopic Kayleen fundoplication History of lumpectomy of left breast History of aortic valve replacement with bioprosthetic valve History of thyroidectomy Family History Family History Other Cerebrovascular accident Diabetes mellitus Family history of malignant neoplasm Hypertension Social History Social History Smoking status: Never smoker Alcohol intake: never Drinks per week: 1 Substance use: never Substance use type: does not use Lack of Transportation: No Lack of Food: Never True Current Housing: I Have Housing Concerned About Future Housing: No Difficulty Paying Gas/Electric Bills: No Difficulty Paying for Meds: No Currently Unemployed: No Education: High School Diploma/GED Difficulty w/ Childcare or Family Care: No Spiritual care concerns: No Course Course Emergency Course: atrial fibrillator with variable ventricular rate. Patient was transferred from oncologist's office for AFib with a ventricular rate of 114. During his ER stay the rate has been around 100. systolic Blood pressure has been ranging from 90-120. Patient had a recent normal TSH. Patient had normal troponin levels. ProBNP was noted to be 7670 chest x-ray revealed mild CHF. Patient has bilateral leg edema. Patient denied any shortness of breath, orthopnea paroxysmal nocturnal dyspnea. Patient does have dyspnea on exertion. patient had blood work which revealed pancytopenia possibly secondary to lenalidomide. Patient has multiple myeloma with lytic bone lesions. CKD with a BUN/creatinine of 31/1.5. Stable electrolytes and bicarbonate. called Dr. Gonzales and discussed with his PA Omar Cueva. advised to start the patient on digoxin 0.125. Discussed about increasing the dose of Cardizem but the patient's blood pressure would not support a higher dose. Vital Signs Vital signs: Vital Signs Temperature 37.0 C 04/20/25 11:54 Pulse Rate 92 04/20/25 11:54 Respiratory Rate 18 04/20/25 11:54 Blood Pressure 102/72 04/20/25 11:54 Pulse Oximetry 97 04/20/25 11:54 Oxygen Delivery Room Air 04/20/25 11:54 Temperature 37.0 C 04/20/25 11:54 Pulse Rate 107 H 04/20/25 13:31 Respiratory Rate 20 04/20/25 13:30 Blood Pressure 117/68 04/20/25 13:30 Pulse Oximetry 100 04/20/25 13:30 Oxygen Delivery Room Air 04/20/25 13:30 MDM - Arrhythmia/Palpitations MDM Narrative Medical decision making narrative: Atrial fibrillation with rapid ventricular rate Differential Diagnosis Differential diagnosis: Likely palpitations Medical Records Attestation: I reviewed the patient's medical records. Lab Data Attestation: I reviewed the patient's lab results. Labs: Lab Results 04/20/25 Range/Units 10:14 Troponin I < 0.012 (0.000-0.034) ng/mL NT-Pro-B Natriuret Pep 7670 H (19.9-100) pg/mL Discharge Plan Discharge Clinical Impression: Atrial fibrillation Qualifiers: Atrial fibrillation type: paroxysmal Qualified Code(s): I48.0 - Paroxysmal atrial fibrillation CHF (congestive heart failure) Qualifiers: Heart failure type: unspecified Heart failure chronicity: chronic Qualified Code(s): I50.9 - Heart failure, unspecified Patient Disposition: Home Condition: Stable Instructions: Antibiotic Form, Heart Failure (ED), A-fib (Atrial Fibrillation) (ED) Additional Instructions: follow-up with as scheduled on 04/26/2025 at 3:00 p.m. Patient Language: Swedish Prescriptions: New digoxin 125 mcg (0.125 mg) tablet 125 mcg PO DAILY Qty: 30 0RF No Action Eliquis 5 mg tablet 5 mg PO Q12H diltiazem HCl 120 mg capsule,extended release 24hr 120 mg PO Q24H magnesium 200 mg tablet 400 mg PO DAILY Pomalyst 2 mg capsule 2 mg PO DAILY Rx Instructions: DAYS 1 -21 OF 28 DAY CYCLE trazodone 50 mg tablet 50 mg PO HS amlodipine 5 mg tablet 5 mg PO DAILY omeprazole 20 mg capsule,delayed release(DR/EC) 20 mg PO DAILY levothyroxine 112 mcg tablet 112 mcg PO DAILY duloxetine 60 mg capsule,delayed release(DR/EC) 60 mg PO DAILY cyanocobalamin (vitamin B-12) [Vitamin B-12] 2,500 mcg Tablet, Sublingual 2,500 mcg SUBLINGUAL DAILY cholecalciferol (vitamin D3) [Vitamin D3] 50 mcg (2,000 unit) Capsule 50 mcg PO DAILY acetaminophen [Mapap (acetaminophen)] 325 mg Tablet 650 mg PO Q4H PRN (Reason: Mild Pain (1-3) Or Fever) 0RF allopurinol 100 mg Tablet 100 mg PO BID 0RF dexamethasone 4 mg Tablet 20 mg PO DAILY PRN (Reason: days of chemo) acyclovir 400 mg tablet 800 mg PO DAILY Follow-up/Referrals: Gladys Jin MD [Primary Care Provider, Internal Medicine] Time of Disposition: 13:56
--- NOTE | 2025-04-20 12:26 | ECG_ITS ---
Test Date: 2025-04-20 11:59:25 Measurements Intervals Shellman Rate: 94 P: 0 NM: 0 QRS: -52 QRSD: 98 T: 98 QT: 354 QTc: 444 Interpretive Statements ATRIAL FIBRILLATION LEFT ANTERIOR FASCICULAR BLOCK [QRS AXIS <= -45, QR IN I, RS IN II] VOLTAGE CRITERIA FOR LVH [MEETS CRITERIA IN ONE OF: R(aVL), S(V1), R(V5), R(V5/V6)+S(V1)] NONSPECIFIC ST & T-WAVE ABNORMALITY ABNORMAL ECG Compared to ECG 04/20/2025 10:14:40 T-wave abnormality now present Myocardial infarct finding no longer present Electronically Signed On 04-20-2025 14:59:55 CDT by Francesco Savage M.D.
[2025-04-20 13:14] LABS: NT Pro B Type Natriuretic Pept 7670 pg/mL (19.9-100); Troponin I < 0.012 ng/mL (0.000-0.034)
--- OUTSIDE RECORDS SUMMARY | 2025-04-20 13:36 | XMS_ITS | Encounter Summary ---
Author Organization [facility] Address [address] [place] [address] Care Team Providers Care Bookkeeping Clerk Name Role Phone Gladys Jin MD Primary Care Provider [phone] Naila Abernathy MD Unavailable Encounter Details Date Type Department Care Team (Late st Contact Info) Description 03/17/2025 Hospital Follow-up Call [facility] Cardiovascular Care Unit [address] [place] [address] Kait Wright RN Social History Tobacco Use Types Packs/Day Years Used Date Smoking Tobacco: Never Smokeless Tobacco: Never Alcohol Use Standard Drinks/Week Comments Not Currently 0 (1 standard drink = 0.6 oz pur e alcohol) [facility] Utilities Answer Date Recorded In the past 12 months has [facility] [email or web address], gas, oil, or water [employer] threatened to shut off services in your [...] and heating? Not hard at all 03/15/2025 [facility] Occupational Stress Questionnaire Answer Date [...] place to sleep or slept in a prison (including now)? No 04/09/2023 Housing Stability Vital Sign Answer Behzad e Recorded In the last 12 months, was t here a time when you were not able to pay the mortgage or rent on time? No 03/15/2025 In the past 12 months, how m any times have you moved where you were living? 0 03/15/2025 At any time in the past 12 m [facility], were you homeless or living in a prison (including now)? No 03/15/2025 Comments Unknown Sex [...] Description 04/26/2025 3:00 PM CDT Office Visit [facility] [place] [address] [place] [address] Cece Rothman NP [address] [facility] [address] [place] [address] 06/27/2025 12:30 PM PRACTICE PROFESSIONAL Office Visit [facility] [place] [address] Naila Abernathy MD [address] [place] [address] documented as of this encounter Visit Diagnoses Not on filedocumented in this encounter Care Teams Bookkeeping Clerk Relationship Specialty Start Date End Date Gladys Jin MD [address] [place] [address] PCP - General INTERNAL MEDICINE 08/06/18 Naila Abernathy MD [address] [place] [address] Consulting Physician CARDIOVASCULAR DISEASE 02/15/24 documented as of this encounter
--- OUTSIDE RECORDS SUMMARY | 2025-04-20 13:36 | XMS_ITS | Encounter Summary ---
Author Organization [facility] Address [address] [place] [address] Care Team Providers Care Tool Technician Name Role Phone Gladys Jin MD Primary Care Provider [phone] Santo Ordonez MD Unavailable [phone] Naila Abernathy MD Unavailable Encounter Details Date Type Department Care Team (Late st Contact Info) Description 12/15/2023 Pre-Procedure Call [facility] Interventional Radiology [address] [place] [address] Danielle Briseno, RN Social History [...] often do you attend chur ch or evangelical services? 1 to 4 times per year 04/09/2023 Do you belong to any clubs o r organizations such as religion groups, unions, fraternal or athletic groups, or [...] and heating? Not hard at all 04/09/2023 [facility] - Occupational Stress Questionnaire Answer Date [...] place to sleep or slept in a skilled nursing (including now)? No 04/09/2023 Comments Unknown Sex [...] Assessment Author Status No 04/09/2023 6:00 PM aKela Tovar RN Active documented as of this [...] Description 04/26/2025 3:00 PM CDT Office Visit [facility] [address] [place] [address] Cece Rothman, PARACHUTE OFFICER [address] [facility]. [address] [place] [address] 06/27/2025 12:30 PM TUBE PUSHER Office Visit [facility] [place] [address] Naila Abernathy MD [address] [place] [address] documented as of this encounter Visit Diagnoses Not on filedocumented in this encounter Care Teams Tool Technician Relationship Specialty Start Date End Date Gladys Jin MD [address] [place] [address] PCP - General INTERNAL MEDICINE 08/06/18 Santo Ordonez MD [address] [place] [address] [place] Desktop Publishing Operator CARDIOVASCULAR DISEASE 08/06/18 02/14/24 Naila Abernathy MD [address] [place] [address] Consulting Physician CARDIOVASCULAR DISEASE 02/15/24 documented as of this encounter
--- OUTSIDE RECORDS SUMMARY | 2025-04-20 13:36 | XMS_ITS | Encounter Summary ---
Author Organization [facility] Address [address] [place] [address] Care Team Providers Care Dianeticist Name Role Phone Gladys Jin MD Primary Care Provider [phone] Santo Ordonez MD Unavailable [phone] Naila Abernathy MD Unavailable Encounter Details Date Type Department Care Team (Late st Contact Info) Description 11/01/2017 Abstract [facility] [address] [place] [address] , Generic Conversion, Social History Tobacco Use [...] Description 04/26/2025 3:00 PM CDT Office Visit [facility] [address] [place] [address] Cece Rothman, APPRENTICE ARCHITECT [address] [facility] [place]. [address] [place] [address] 06/27/2025 12:30 PM CORRECTIONAL PROGRAM OFFICER Office Visit [facility] [address] [place] [address] Naila Abernathy MD [address] [place] [address] documented as of this encounter Visit Diagnoses Not on filedocumented in this encounter Care Teams Dianeticist Relationship Specialty Start Date End Date Gladys Jin MD [address] [place] [phone] PCP - General INTERNAL MEDICINE 08/06/18 Santo Ordonez MD [address] [place] [address] [place] Production Administrative Assistant CARDIOVASCULAR DISEASE 08/06/18 02/14/24 Naila Abernathy MD [address] [place] [address] Consulting Physician CARDIOVASCULAR DISEASE 02/15/24 documented as of this encounter
--- OUTSIDE RECORDS SUMMARY | 2025-04-20 13:36 | XMS_ITS | Encounter Summary ---
Author Organization [facility] Address [address] [place] [address] Care Team Providers Care Automatic Fancy Machine Operator Name Role Phone Gladys Jin MD Primary Care Provider [phone] Santo Ordonez MD Unavailable [phone] Naila Abernathy MD Unavailable Encounter Details Date Type Department Care Team (Late st Contact Info) Description 09/23/2018 [facility] [address] [place] [address] Abstract, Doc Prevea Social History Tobacco Use [...] Description 04/26/2025 3:00 PM CDT [facility] [address] [place] [address] Cece Rothman, LEE [address] [facility] [place]. [address] [place] [address] 06/27/2025 12:30 PM ELECTRONIC SERVICE TECHNICIAN Office Visit [facility] [place] [address] Naila Abernathy MD [address] [place] [address] documented as of this encounter Visit Diagnoses Not on filedocumented in this encounter Care Teams Automatic Fancy Machine Operator Relationship Specialty Start Date End Date Gladys Jin MD [address] [place] [address] PCP - General INTERNAL MEDICINE 08/06/18 Santo Ordonez MD [address] [place] [address] Jasper Lan Manager CARDIOVASCULAR DISEASE 08/06/18 02/14/24 Naila Abernathy MD [address] [place] [address] Consulting Physician CARDIOVASCULAR DISEASE 02/15/24 documented as of this encounter
--- OUTSIDE RECORDS SUMMARY | 2025-04-20 13:36 | XMS_ITS | Clinical Summary ---
Author Organization [facility] Address [address] [place] [address] Care Team Providers Care Amortization Schedule Clerk Name Role Phone Gladys Jin MD Primary Care Provider [phone] Tej Kramer MD Unavailable Allergies Active Allergy Reactions Criticality Noted Date Comments Bupropion Unknown 09/23/2018 Statins Myalgias 01/26/2016 Medications allopurinol (ZYLOPRIM) 100 MG tablet Take 2 tablets (200 mg total) by mouth daily. 3 Active DULoxetine 60 MG capsule Take 1 capsule (60 mg total) by mouth daily. 0 Active traZODone 50 MG tablet 1 tablet (50 mg total) nightly at bedtime. 0 Active Cholecalciferol (VITAMIN D3 OR) Take 1 tablet by mouth daily. Active Cyanocobalamin (B-12) 1000 MCG Cap Take 1 tablet by mouth daily. Active levothyroxine (SYNTHROID) 112 MCG tablet Take 1 tablet (112 mcg total) by mouth every morning. 3 Active aspirin 81 MG chewable tablet Chew [...] daily. 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 [...] Mixed hyperlipidemia 09/25/2018 Type II diabetes mellitus ([facility]) 03/2019 Resolved Problems Problem Noted Date Diagnosed Date Resolved Date CHF (congestive heart failur e) ([facility]) 09/25/2018 02/11/2020 Encounters Date Type Department Care Team Description 04/20/2025 Telephone [facility] [address] [place] [address] Yon Gonzales MD Information 03/26/2025 Results Follow-Up [facility] [address] [place] [address] Tej Kramer MD [facility] [address] [facility] - Today 03/22/2025 Telephone [facility] [address] [place] [address] Yon Gonzales MD Appointment Request 03/17/[address] [facility] [address] [place] [address] Tej Kramer MD Question 03/17/2025 Hospital Follow-up Call [facility] [address] [place] [address] Kait Wright RN 03/14/2025 10:57 AM CDT - 03/15/2025 1:26 PM CDT Hospital Encounter [facility] [address] [place] [address] Geno Villagomez MD Wali, Neehal, MD Yousuf, Muhammad S, MD Cardiac Problem Discharge Disposition: Home or Self Care (Routine Discharge) 03/14/2025 8:45 AM CDT Office Visit [facility] [address] [place] [address] Tej Kramer MD Heart Problem 03/14/2025 8:30 AM CDT - 03/14/2025 10:56 AM CDT Hospital Encounter [facility] [address] [place] [address] Tej Kramer MD Discharge Disposition: Home or Self Care (Routine Discharge) 03/14/2025 Travel 03/09/[address] [facility] [address] [place] [address] Tej Kramer MD 03/07/2025 7:36 AM CDT - 03/07/2025 11:59 PM CDT Hospital Encounter [facility] [address] [place] [address] Tej Kramer MD Discharge Disposition: Home or Self Care (Routine Discharge) 03/07/2025 7:35 AM CDT Hospital Encounter [facility] [address] [place] [address] Leslie Marino MD Discharge Disposition: Home or Self Care (Routine Discharge) 03/07/2025 Travel 02/24/2025 8:30 AM CDT Telephone [facility] [address] [place] [address] Tej Kramer MD Holter Monitor 02/21/2025 Abstract [facility] [address] [place] [address] Abstract, Doc Pccl 02/16/2025 Telephone [facility] [address] [place] [address] Tej Kramer MD Information; Holter Monitor 02/15/2025 Scan [facility] [address] [place] [address] Scanned, Doc Pccl CT (SCAN) 02/15/2025 Orders Only [facility] [address] [place] [address] Tej Kramer MD from Last 3 Months Family History Medical History Relation Comments Breast Cancer Mother Relation Status Comments Mother Social History Tobacco Use Types Packs/Day Years Used Date Smoking Tobacco: Never Smokeless Tobacco: Never Alcohol Use Standard Drinks/Week Comments Not Currently 0 (1 standard drink = 0.6 oz pur e alcohol) [facility] Utilities Answer Date Recorded In the past 12 months has [facility] [employer], gas, oil, or water [employer]inet[employer] threatened to shut off services in your [...] often do you attend chur ch or orthodoxy services? 1 to 4 times per year 04/09/2023 Do you belong to any clubs o r organizations such as evangelical groups, unions, fraternal or athletic groups, or [...] and heating? Not hard at all 03/15/2025 [facility] Occupational Stress Questionnaire Answer [...] place to sleep or slept in a [place] health care facility (including now)? No 04/09/2023 Housing Stability Vital Sign Answer Behzad e Recorded In the last 12 months, was t here a time when you were not able to pay the mortgage or rent on time? No 03/15/2025 In the past 12 months, how m any times have you moved where you were living? 0 03/15/2025 At any time in the past [address] [facility], were you homeless or living in a [place] health care facility (including now)? No 03/15/2025 Comments Unknown Sex [...] Description 04/26/2025 3:00 PM CDT [facility] [address] [place] [address] Cece Rothman NP [address] [place] [address] 06/27/2025 12:30 PM LARRY OPERATOR Office Visit [facility] [place] [address] Tej Kramer MD [address] [place], [place] [address] Health Maintenance Due Date Last Done Comments [...] series) 2020 COVID-19 Vaccine (4 - 2024-2 6 season) 2025 05/26/2021, 10/11/2020, 09/20/2020 Hepatitis C Completed 04/22/2023, [...] to Health Maintenance Results * CLINIC - [address] MCT - Today (03/24/2025 8:00 AM CDT) Narrative [facility] - 03/24/2025 8:00 AM CDT Baseline Rhythm [...] events, no symptoms were specified. Signed TEJ KRAMER MD, MS, FACC, RVPI A[place] [employer] [place] us Tej Kramer MD CV VASCULAR ORDERABLES Final Res ult [facility] * ECG 12 lead - Today (03/15/2025 10:54 AM CDT) Only the most recent of4 resultswithin the time period is included. 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: Don : 1945 Requested By: YON GONZALES Order Number: [id number] Reading : Fortino Lorenzo Measurements Intervals [place] Rate: 78 P: 88 NE: 188 QRS: -43 QRSD: 104 T: -9 QT: 413 QTc: 473 Interpretive Statements SINUS RHYTHM WITH OCCASIONAL SUPRAVENTRICULAR PREMATURE COMPLEXES LEFT AXIS DEVIATION [QRS AXIS < -30] MODERATE VOLTAGE CRITERIA FOR LVH, CONSIDER NORMAL VARIANT [MEETS CRITERIA IN ONE OF: R(aVL), S(V1), R(V5), R(V5/V6)+S(V1)] NONSPECIFIC T-WAVE ABNORMALITY Procedure Note Fortino Lorenzo MD - 03/15/2025 [place] [address] [place] [address] Test Date: 2025-03-15 Pat Name: ALEXIS LEE Department: 1 Room: [facility] Gender: Female 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: Don : 1945 Requested By: YON GONZALES Order Number: [id number] Reading : Fortino Lorenzo Measurements Intervals [place] Rate: 78 P: 88 NE: 188 QRS: -43 QRSD: 104 T: -9 QT: 413 QTc: 473 Interpretive Statements SINUS RHYTHM WITH OCCASIONAL SUPRAVENTRICULAR PREMATURE COMPLEXES LEFT AXIS DEVIATION [QRS AXIS < -30] MODERATE VOLTAGE CRITERIA FOR LVH, CONSIDER NORMAL VARIANT [MEETSCRITERIA IN ONE OF: R(aVL), S(V1), R(V5), R(V5/V6)+S(V1)] NONSPECIFIC T-WAVE ABNORMALITY us Yon Gonzales MD ECG ORDERABLES Final Result [facility] * HEPARIN, ANTI XA, UFH (03/15/2025 2:04 AM CDT) Only the most recent of3 resultswithin the time period is included. [facility] HEPARIN ANTI XA UFH 0.49 0.30 - 0.70 IU/ML 03/15/2025 2:21 AM CDT [facility] Comment: UFH Therapeutic Anti Xa Ranges: Medical Therapeutic Range: 0.30 - 0.70 IU/mL Cardiac Therapeutic Range: 0.30 - 0.50 IU/mL Neuro Therapeutic Range: 0.20 - 0.40 IU/mL 03/15/2025 2:04 AM CDT Manasa Zambrano MD LABORATORY Final Result Performing Organization Address City/[facility]/ZIP Co de Phone Number [facility] [address] [place] [address], [phone] * (ABNORMAL) PROTIME/INR, VENOUS (03/15/2025 2:04 AM CDT) Only the most recent of2 resultswithin the time period is included. [facility] PROTIME 13.5(H) 9.4 - 12.5 SEC 03/15/2025 2:22 AM CDT [facility] INR 1.2(H) 0.8 - 1.1 03/15/2025 2:22 AM CDT [facility] 03/15/2025 2:04 AM CDT Geno Villagomez MD LABORATORY Final Resul t Performing Organization Address City/[facility]/ZIP Co de Phone Number [facility] [address] [place] [address], [phone] * (ABNORMAL) BASIC METABOLIC PANEL (03/15/2025 2:04 AM CDT) Only the most recent of2 resultswithin the time period is included. SODIUM S/P/B 136 136 - 145 MMOL/L 03/15/2025 2:56 AM CDT [facility] POTASSIUM S/P/B 3.8 3.5 - 5.1 MMOL/L 03/15/2025 2:56 AM T [facility] CHLORIDE S/P/B 108 97 - 115 MMOL/L 03/15/2025 2:56 AM T [facility] CO2 23.1 21.0 - 32.0 MMOL/L 03/15/2025 2:56 AM CDT [facility] GLUCOSE 128(H) 74 - 106 MG/DL 03/15/2025 2:56 AM T [facility] BUN 19(H) 7 - 18 MG/DL 03/15/2025 2:56 AM [facility] CREATININE S/P/B 1.19(H) 0.55 - 1.02 MG/DL 03/15/2025 2:56 AM T [facility] CALCIUM S/P/B 8.4(L) 8.5 - 10.1 MG/DL 03/15/2025 2:56 AM T [facility] ANION GAP 4.9 2.0 - 10.0 MMOL/L 03/15/2025 2:56 AM [facility] OSMOLALITY (CALC) 286 MOSM/KG 025 2:56 AM T [facility] Comment:REFERENCE RANGE NOT ESTABLISHED GFR ESTIMATE 47(L) >90 ML/MIN/1. 73 M2 03/15/2025 2:56 AM T [facility] GFR NOTES GFR REFERENCE S: 03/15/2025 2:56 AM T [facility] Comment: THE ESTIMATED GFR [...] CDT Manasa Zambrano MD LABORATORY Final Result [facility] [address] [place] [address], [phone] * (ABNORMAL) CBC W/DIFF AUTOMATED (03/15/2025 2:04 AM CDT) Only the most recent of3 resultswithin the time period is included. WBC 2.88(L) 4.00 - 10.80 x10'3/uL 03/15/2025 2:30 AM CDT [facility] RBC 2.84(L) 4.10 - 5.40 x10'6/uL 03/15/2025 2:30 AM CDT [facility] HGB 8.9(L) 12.0 - 16.0 G/DL 03/15/2025 2:30 AM CDT [facility] HCT 27.8(L) 36.0 - 47.0 % 03/15/2025 2:30 AM CDT [facility] MCV 97.9 78.0 - 100.0 FL 03/15/2025 2:30 AM CDT [facility] MCH 31.3(H) 27.0 - 31.0 PG 03/15/2025 2:30 AM CDT [facility] MCHC 32.0(L) 33.0 - 36.0 G/DL 03/15/2025 2:30 AM CDT [facility] RDW 14.5 11.5 - 14.5 % 03/15/2025 2:30 AM CDT [facility] PLT 116(L) 150 - 350 x10'3/uL 03/15/2025 2:30 AM CDT [facility] MPV 13.0(H) 7.4 - 10.4 FL 03/15/2025 2:30 AM CDT [facility] DIFFERENTIAL TYPE MANUAL DIFFERENTIAL 03/15/2025 3:19 AM CDT [facility] NRBC % 0.0 % 03/15/2025 3:19 AM CDT [facility] SEG NEUTROPHILS 58 % 3:19 AM CDT [facility] LYMPHOCYTES 24 % 03/15/2025 3:19 AM CDT [facility] MONOCYTES 11 % 03/15/2025 3:19 AM T [facility] EOSINOPHILS 4 % 03/15/2025 3:19 AM CDT [facility] BASOPHILS 3 % 03/15/2025 3:19 AM CDT [facility] ABS. NEUTROPHILS 1.67 1.60 - 8.30 x10'3/uL 03/15/2025 3:19 AM CDT [facility] ABS. LYMPHOCYTES 0.69(L) 0.80 - 4.70 x10'3/uL 03/15/2025 3:19 AM CDT [facility] ABS. MONOCYTES 0.32 0.00 - 1.50 x10'3/uL 03/15/2025 3:19 AM CDT [facility] ABS. EOSINOPHILS 0.12 0.00 - 0.40 x10'3/uL 03/15/2025 3:19 AM CDT [facility] ABS. BASOPHILS 0.09 0.00 - 0.20 x10'3/uL 03/15/2025 3:19 AM CDT [facility] ABS. NUCLEATED RBC'S 0.00 0.00 - 0.01 x10'3/uL 03/15/2025 3:19 AM CDT [facility] RBC MORPHOLOGY SLIDE REVIEWED 2024 3:19 AM CDT [facility] ANISO SLIGHT 03/15/2025 3:19 AM CDT [facility] POIKLO SLIGHT 03/15/2025 3:19 AM CDT [facility] POLY SLIGHT 03/15/2025 3:19 AM CDT [facility] OVALOCYTES PRESENT 03/15/2025 3:19 AM CDT [facility] ACANTHOCYTES PRESENT 03/15/2025 3:19 AM CDT [facility] PLT EST. DECREASED 03/15/2025 3:19 AM CDT [facility] 03/15/2025 2:04 AM CDT Geno Villagomez MD LABORATORY Final Resul t Performing Organization Address City/State/[facility] Co de Phone Number [facility] [address] [place] [address], [phone] * XR CHEST PORTABLE (03/14/2025 11:25 AM CDT) Anatomical Region Laterality Modality Chest Radiographic Ines ging 03/14/2025 12:3 0 PM CDT Impressions 03/14/2025 12:34 PM CDT IMPRESSION: 1. No radiographic evidence of active disease in the chest. 2. Stable chest. Referred By: Interpreted By: Flor Hurd DO, 03/14/2025 12:30 PM Narrative 03/14/2025 12:34 PM CDT [facility] [address] [place], [place] [address] CLINICAL INDICATION: 79-year-old female. Reason for examination: [...] Procedure Note Flor Hurd MD - 03/14/2025 [place] [address] CLINICAL INDICATION: 79-year-old female. Reason for examination: [...] - 1.46 NG/DL 03/14/2025 12:33 PM CDT [facility] 03/14/2025 11:0 9 AM CDT Geno Villagomez MD LABORATORY Final Resul t Performing Organization Address [place] de Phone Number [facility] [address] [place] [address], [phone] * THYROID STIM HORMONE, TSH (03/14/2025 11:09 AM CDT) Only the most recent of2 resultswithin the time period is included. TSH 1.080 0.358 - 3.740 uIU/ML 03/14/2025 12:33 PM CDT [facility] Comment: ASSAY PERFORMED BY CHEMILUMINESCENCE METHODOLOGY USING [employer]. PATIENT RESULTS DETERMINED BY ASSAYS USING DIFFERENT MANUFACTURERS FOR METHODS MAY NOT BE COMPARABLE. 03/14/2025 11:0 9 AM CDT Geno Villagomez MD LABORATORY Final Resul t Performing Organization Address [facility] de Phone Number [facility] [address] [place] [address], [phone] * MAGNESIUM (03/14/2025 11:09 AM CDT) MAGNESIUM 2.1 1.6 - 2.6 MG/DL 03/14/2025 12:33 PM CDT [facility] 03/14/2025 11:0 9 AM CDT Geno Villagomez MD LABORATORY Final Resul t Performing Organization Address [place]/[facility] Co de Phone Number [facility] [address] [place] [address], [phone] * Critical Care (03/14/2025 10:59 AM CDT) Narrative Geno Villagomez MD - 03/14/2025 10:59 AM CDT Geno Villagomez MD 03/16/2025 7:11 AM Critical Care Performed by: Geno Villaogmez MD Authorized by: Geno Villagomez MD Critical [...] specialty: no Care discussed with: admitting provider us Geno Villagomez MD PROCEDURE/MINOR SURGICAL OR DERABLES Final Result * (ABNORMAL) URINALYSIS (03/07/2025 8:40 AM CDT) COLOR (U) YELLOW 03/07/2025 8:56 AM CDT [facility] TRANSPARENCY CLEAR 03/07/2025 8:56 AM CDT [facility] SPECIFIC GRAVITY (U) 1.010 1.000 - 1.025 03/07/2025 8:56 AM CDT [facility] U PH 6.5 5.0 - 8.0 03/07/2025 8:56 AM CDT [facility] LEUKOCYTES (U) NEGATIVE NEGATIVE 03/07/2025 8:56 AM CDT [facility] NITRITES NEGATIVE NEGATIVE 03/07/2025 8:56 AM CDT [facility] PROTEIN RANDOM (U) TRACE(A) NEGATIVE 03/07/2025 8:56 AM CDT [facility] GLUCOSE (U) NEGATIVE NEGATIVE 03/07/2025 8:56 AM CDT [facility] KETONES MG/DL (U) NEGATIVE NEGATIVE 03/07/2025 8:56 AM CDT [facility] UROBILINOGEN 0.2 <1.0 EU/DL 03/07/2025 8:56 AM CDT [facility] BILIRUBIN (U) NEGATIVE NEGATIVE 03/07/2025 8:56 AM CDT [facility] BLOOD (U) NEGATIVE NEGATIVE 03/07/2025 8:56 AM CDT [facility] WBC/HPF 0-5 0 - 5 /HPF 03/07/2025 8:56 AM CDT [facility] RBC/HPF 0-5 0 - 5 /HPF 03/07/2025 8:56 AM CDT [facility] EPI/LPF RARE /LPF 03/07/2025 8:56 AM CDT [facility] BACTERIA (U) 1+ /HPF 03/07/2025 8:56 AM CDT [facility] URINE SPECIMEN OBTAINED BY CLEAN CATCH PROCEDURE / Unknown 03/07/2025 8:40 AM CDT us Leslie Marino MD URINE ORDERABLES Final Result Performing Organization Address City/[facility]/ZIP Co de Phone Number [facility] [address] [place] [address], [place] [phone] * (ABNORMAL) PTH - INTACT (03/07/2025 8:35 AM CDT) PTH 82.9(H) 18.4 - 80.1 PG/ML 03/07/2025 11:58 AM CDT [facility] Comment: ASSAY PERFORMED BY CHEMILUMINESCENCE METHODOLOGY USING [employer]. PATIENT RESULTS DETERMINED BY ASSAYS USING DIFFERENT MANUFACTURERS FOR METHODS MAY NOT BE COMPARABLE. 03/07/2025 8:35 AM CDT us Leslie Marino MD LABORATORY Final Result [facility] [address] [place] [address], [place] [phone] * (ABNORMAL) IRON SAT PANEL (IRON,IBC,%SAT) (03/07/2025 8:35 AM CDT) IRON 18(L) 50 - 170 MCG/DL 03/07/2025 9:19 AM CDT [facility] IRON BINDING CAPACITY 277 250 - 450 MCG/DL 03/07/2025 9:19 AM CDT [facility] IRON SATURATION 6 % 9:19 AM CDT [facility] Comment:REFERENCE RANGE NOT ESTABLISHED 03/07/2025 8:35 AM CDT us Leslie Marino MD LABORATORY Final Result [facility] [address] [place] [address], * TRANSFERRIN (03/07/2025 8:35 AM CDT) TRANSFERRIN 215 200 - 360 mg/dL 03/07/2025 11:46 AM CDT [facility] 03/07/2025 8:35 AM CDT us Leslie Marino MD LABORATORY Final Result [facility] [address] [place] [address], [place] [phone] * (ABNORMAL) RENAL FUNCTION PANEL (03/07/2025 8:35 AM CDT) SODIUM S/P/B 138 136 - 145 MMOL/L 03/07/2025 9:21 AM CDT [facility] POTASSIUM S/P/B 4.0 3.5 - 5.1 MMOL/L 03/07/2025 9:21 AM CDT [facility] CHLORIDE S/P/B 100 98 - 107 MMOL/L 03/07/2025 9:21 AM CDT [facility] CO2 29.3 21.0 - 32.0 MMOL/L 03/07/2025 9:21 AM [facility] GLUCOSE 136(H) 70 - 99 MG/DL 03/07/2025 9:21 AM [facility] Comment: FASTING GLUCOSE 100 TO 125 MG/DL IS CONSISTENT WITH IMPAIRED FASTING GLUCOSE. FASTING GLUCOSE >125 MG/DL IS CONSISTENT WITH DIABETES. RANDOM GLUCOSE >200 MG/DL WITH HYPERGLYCEMIC SYMPTOMS IS CONSISTENT WITH DIABETES. PER ADA GUIDELINES BUN 29(H) 6 - 24 MG/DL 03/07/2025 9:21 AM [facility] CREATININE S/P/B 1.77(H) 0.55 - 1.02 MG/DL 03/07/2025 9:21 AM [facility] CALCIUM S/P/B 9.4 8.4 - 10.5 MG/DL 03/07/2025 9:21 AM [facility] ALBUMIN S/P/B 3.1(L) 3.4 - 5.0 G/DL 03/07/2025 9:21 AM [facility] PHOSPHORUS 4.1 2.6 - 4.7 MG/DL 03/07/2025 9:30 AM [facility] ANION GAP 8.7 5.0 - 15.0 MMOL/L 03/07/2025 9:21 AM [facility] OSMOLALITY (CALC) 294 MOSM/KG 025 9:21 AM [facility] Comment:REFERENCE RANGE NOT ESTABLISHED GFR ESTIMATE 29(L) >89 ML/MIN/1. 73 M2 03/07/2025 9:21 AM [facility] GFR NOTES GFR REFERENCE S: 03/07/2025 9:21 AM [facility] Comment: THE ESTIMATED GFR IS CALCULATED [...] MD LABORATORY Final Result Performing Organization Address City/[facility]/ZIP Co de Phone Number [facility] [address] [place] [phone], * FERRITIN (03/07/2025 8:35 AM CDT) FERRITIN 131.4 8 - 252 NG/ML 03/07/2025 9:21 AM CDT [facility] 03/07/2025 8:35 AM CDT us Leslie Marino MD LABORATORY Final Result Performing Organization Address [place]/[facility] Co de Phone Number [facility] [address] [place] [address], [place] [phone] * USE ECHOCARDIOGRAM (03/07/2025 8:28 AM CDT) Anatomical Region Laterality Modality Cardiac Ultrasound 03/07/2025 7:51 AM CDT Narrative 03/07/2025 10:47 AM CDT Echocardiography Report Pat.Name: Alexis Lee michelle Pat.ID: [id number] .Date: 03/07/2025 Refer.MD: Jori, [facility] Exam Time: 7:51:00 AM Study Type:[facility] Height: 62 in Weight: 140 lb BSA: 1.64 m2 Age: 3 1945,79Y Sex: F Sonogrphr: Russell Pat. Stat.:Outpatient Reason for Study:S/P AVR (aortic valve replacement) Procedures: Study performed at [place], [place] and interpreted by [facility]. 2D, M-mode, Doppler, Color Flow [...] 03/07/2025 Echocardiography Report Pat.Name: Alexis Lee Pat.ID: [id number] .Date: 03/07/2025 Refer.MD: Jori, [facility] Exam Time: 7:51:00 AM Study Type:[facility] Height: 62 in Weight: 140 lb BSA: 1.64 m2 Age: 3 1945,79Y Sex: F Sonogrphr: Sf Pat. Stat.:Outpatient Reason for Study:S/P AVR (aortic valve replacement) Procedures: Study performed at [place], [place] and interpreted by [facility]. 2D, M-mode, Doppler, Color Flow [...] PEPTIDE 4,830 Narrative Resulting Agency Comment [facility] us Default History Genericprovider LABORATORY Final Result [...] ESTIMATE 35 Narrative Resulting Agency Comment [facility] us Default History Genericprovider LABORATORY Final Result * CBC, MANUAL DIFF (02/15/2025) WBC 4.4 HGB 11.1 HCT 35.4 PLT 130 Narrative Resulting Agency Comment [facility] us Default History Genericprovider LABORATORY Final Result * HEPATITIS PANEL,ACUTE (04/22/2023 7:27 AM CDT) Pathologist [facility] HEPATITIS B SURFACE AG NON-REACT ANABELLA NON-REACT ANABELLA 09/22/2023 2:22 PM LARRY OPERATOR [facility] Comment:HBsAg NOT DETECTED. HEP B CORE IGM NON-REACT ANABELLA NON-REACT ANABELLA 09/22/2023 2:22 PM LARRY OPERATOR [facility] Comment: IgM ANTI HBc NOT DETECTED. DOES NOT EXCLUDE THE POSSIBILITY OF EXPOSURE TO OR INFECTION WITH HBV. NO RETEST REQUIRED. HIGH DOSES OF BIOTIN MAY INTERFERE WITH THIS TEST RESULT. CORRELATION TO CLINICAL HISTORY AND PRESENTATION RECOMMENDED. HAV IGM NON-REACT ANABELLA NON-REACT ANABELLA 09/22/2023 2:22 PM LARRY OPERATOR [facility] Comment: IgM ANTI HAV NOT DETECTED. DOES NOT EXCLUDE THE POSSIBILITY OF EXPOSURE TO OR INFECTION WITH HAV. LEVELS OF IgM ANTI HAV MAY BE BELOW THE CUTOFF IN EARLY INFECTION. HEPATITIS C AB NON-REACT ANABELLA NON-REACT ANABELLA 09/22/2023 2:22 PM LARRY OPERATOR [facility] Comment: ANTIBODIES TO HCV NOT DETECTED. DOES NOT EXCLUDE THE POSSIBILITY OF EXPOSURE TO HCV. 04/22/2023 7:27 AM CDT Obed Posadas MD LABORATORY Final Resul t [facility] [address] [place] [id number] * LIPID PANEL (05/07/2014 12:00 AM CDT) [...] Documents on File Type Date Recorded Patient Manager Corporate Communications Expl anation Power of Digital Marketing Coordinator 04/10/2023 POWER OF A TTORNEY * Full Code (Latest Code Status on File) Date Activated Date Inactivated Comments 03/15/2025 9:40 AM 03/15/2025 3:36 PM * DNR Date Activated Date Inactivated Comments 03/14/2025 12:47 PM 03/15/2025 9:40 AM * DNR Date Activated Date Inactivated Comments 04/09/2023 2:05 PM 07/09/2023 11:00 AM Care Teams Amortization Schedule Clerk Relationship Specialty Start Date End Date Gladys Jin MD [address] [place] [address] PCP - General INTERNAL MEDICINE 08/06/18 Tej Kramer MD [address] [place] [address] Consulting Physician CARDIOVASCULAR DISEASE 02/15/24
== END 2025-04-20 14:12 | disposition home or self-care (01) ==
PROVIDERS: Emergency Provider Internal Medicine Critical Care Medicine; PCP Internal Medicine
DX: I48.0 Paroxysmal atrial fibrillation (principal); I13.0 Hypertensive heart and chronic kidney disease with heart failure and stage 1 through stage 4 chronic kidney disease, or unspecified chronic kidney disease; E11.22 Type 2 diabetes mellitus with diabetic chronic kidney disease; N18.9 Chronic kidney disease, unspecified; I50.9 Heart failure, unspecified
CPT/HCPCS: 36415; 71045; 80053; 83521; 83880; 84484; 85025; 93005; 99284

== ENCOUNTER 2025-06-22 13:52 | Outpatient (CLI) | payer MEDICARE, SELFPAY ==
[2025-06-22 14:02] LABS: Hematocrit 33.8 % (35.0-42.0); Hemoglobin 10.2 g/dL (11.7-13.8); Mean Corpuscular HGB Conc 30.2 g/dL (32-36); Mean Corpuscular Hemoglobin 29.7 pg (27.0-31.0); Mean Corpuscular Volume 98.3 fL (78.0-102.0); Platelet Count Result 170 K/mm3 (150-420); Red Blood Count 3.44 M/mm3 (4.20-5.40); White Blood Count 4.2 K/mm3 (4.8-10.8)
[2025-06-22 14:18] LABS: Band Neutrophils Percent 0 % (0-6); Basophils Absolute Manual 0.08 K/mm3 (0-0.1); Basophils Percent Manual 2 % (0-1); Eosinophils Absolute Manual 0.08 K/mm3 (0.02-0.50); Eosinophils Percent Manual 2 % (1-6); Lymphocytes Absolute Manual 1.00 K/mm3 (1.1-4.5); Lymphocytes Percent Manual 24 % (18-44); Monocytes Absolute Manual 0.50 K/mm3 (0.1-0.90); Monocytes Percent Manual 12 % (3-9); Neutrophils Absolute Manual 2.52 K/mm3 (1.3-6.7); Neutrophils Percent Manual 60 % (46-73); Total Cells Counted 100
[2025-06-23 07:30] LABS: Immunoglobulin G 441 mg/dL (700-1600)
[2025-06-23 07:33] LABS: Immunoglobulin A < 40 mg/dL (70-400); Immunoglobulin M < 25 mg/dL (40-230)
--- OUTSIDE RECORDS SUMMARY | 2025-06-23 13:20 | XMS_ITS | Encounter Summary ---
Author Organization [facility] Address [address] [place] [address] Care Team Providers Care Freight Broker Name Role Phone Gladys Jin MD Primary Care Provider Santo Ordonez MD Unavailable [phone] Naila Abernathy MD Unavailable Encounter Details Date Type Department Care Team (Late st Contact Info) Description 12/15/2023 Pre-Procedure Call [facility] Interventional Radiology [address] [place] [address] Danielle Briseno, RN Social History [...] No 04/09/2023 Social Connection and Isolation Panel Answer Date Recorded In a typical week, how many times do you talk on the phone with family, friends, or neighbors? Three times a week 04/09/20 How often do you get togethe r with friends or relatives? Three times a week 04/09/2023 How often do you attend chur ch or caodaism services? 1 to 4 times per year [...] at all 04/09/2023 [facility] - Occupational Stress [...] place to sleep or slept in a fdc (including now)? 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
--- OUTSIDE RECORDS SUMMARY | 2025-06-23 13:20 | XMS_ITS | Clinical Summary ---
Author Organization [facility] Address [address] [place] [address] Care Team Providers Care Stud Dairy Cattle Farmer Name Role Phone Gladys Jin MD Primary Care Provider [phone] Naila Abernathy MD Unavailable Allergies Active Allergy Reactions Criticality Noted Date Comments Bupropion Unknown,Rash Low 09/23/2018 Hydrocodone Itching 04/20/2025 Nsaids Other (see comment) Low 04/20/2025 Statins Myalgias 01/26/2016 Medications allopurinol (ZYLOPRIM) 100 [...] 10 TABLETS BY MOUTH ONCE WEEKLY Active POMALYST 2 MG capsule TAKE ONE CAPSULE BY MOUTH ONCE DAILY ON DAYS 1-21 EACH 28 DAY CYCLE Active atovaquone (MEPRON) 750 MG/5ML suspension TAKE 10 ML BY MOUTH DAILY Active hydrOXYzine (ATARAX) 10 MG tablet PLEASE SEE ATTACHED FOR DETAILED DIRECTIONS 04/01/20 Active amiodarone (PACERONE) 200 MG tablet Take 0.5 tablets (100 mg total) by mouth daily. 05/10/20 25 Active apixaban (ELIQUIS) 5 MG tabletIndication s:Atrial Fibrillation Take 1 tablet (5 mg total) by mouth 2 (two) times daily. Indications: Atrial Fibrillation 180 tablet 2 06/22/20 25 Active apixaban (ELIQUIS) 5 MG tabletIndication s:Atrial Fibrillation Take 1 tablet (5 mg total) by mouth 2 (two) times daily. 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 10/02/2023 Bilateral carotid artery stenosis 02/11/2020 Obstructive sleep apnea 10/21/2018 S/P AVR (aortic valve replacement) 09/25/2018 GERD (gastroesophageal reflux disease) 9 Depression 09/25/2018 Mixed hyperlipidemia 09/25/2018 Type II diabetes mellitus 09/25/2018 Resolved Problems Problem Noted Date Diagnosed Date Resolved Date CHF (congestive heart failure) 09/25/2018 02/11/2020 Encounters Date Type Department Care Team Description 06/22/2025 Telephone [facility] [address] [place] [address] Yon Hester MD Medication; Question 06/21/2025 Orders Only [facility] [address] [place] [address] Naila Abernathy MD 05/06/2025 11:11 AM CDT - 05/06/2025 11:59 PM CDT Hospital Encounter [facility] [place] [address] [place] [address] Yon Hester MD Discharge Disposition: Home or Self Care (Routine Discharge) 05/06/2025 Telephone [facility] [address] [place] [address] Cece Rothman, LEE Medication; Appointment Request 05/06/2025 Travel 04/27/2025 Telephone [facility] [address] [place] [address] Yon Hester MD Schedule Procedure 04/26/2025 3:00 PM CDT Office Visit [facility] [address] [place] [address] Cece Rothman, LEE Follow Up; Atrial Flutter; Atrial Fibrillation 04/26/2025 Telephone [facility] [address] [place] [address] Cece Rothman, HEAT CURER Schedule Procedure 04/26/2025 Travel 04/25/2025 Telephone [facility] [address] [place] [address] Yon Hester MD Error 04/25/2025 Orders Only [facility] [address] [place] [address] Yon Hester MD 04/21/2025 2:00 PM CDT Telephone [facility] [address] [place] [address] Omar Cueva PA-C Holter Monitor 04/20/2025 Telephone [facility] [address] [place] [address] Omar Cueva PA-C Results; Treatment Planning 04/20/2025 Telephone [facility] [address] [place] [phone] Yon Hester MD Information 03/26/2025 Results Follow-Up [facility] [address] [place] [address] Naila Abernathy MD [facility] [address] [facility] - Today from Last 3 Months Family History Medical History Relation Comments Breast Cancer Mother Relation Status Comments Mother Social History Tobacco Use Types Packs/Day Years Used Date Smoking Tobacco: Never Smokeless Tobacco: Never Alcohol Use Standard Drinks/Week Comments Not Currently 0 (1 standard drink = 0.6 oz pur e alcohol) [facility] TELOSities Answer Date Recorded In the past 12 months has [facility] [employer], gas, oil, or water [employer] threatened to shut off services in your [...] No 03/15/2025 Social Connection and Isolation Panel Answer Date Recorded In a typical week, how many times do you talk on the phone with family, friends, or neighbors? Three times a week 04/09/20 How often do you get togethe r with friends or relatives? Three times a week 04/09/2023 How often do you attend chur ch or taoism services? 1 to 4 times per year 04/09/2023 Do you belong to any clubs o r organizations such as nondenominational groups, unions, fraternal or athletic groups, or [...] and heating? Not hard at all 03/15/2025 [facility] - Occupational [...] in a long-term (including now)? No 04/09/2023 Housing Stability Vital [...] time in the past 12 m [facility], were you homeless or living in a long-term (including now)? No 03/15/2025 Comments Unknown Sex and Gender Information Value Date Recorded Sex Assigned at Female 03/07/2025 7:31 AM CDT Legal Sex Female 8:54 PM CDT Gender Identity Not on file Sexual Orientation Not on file Last Filed Vital Signs Vital Sign Reading Time Taken Comments Blood Pressure 120/67 05/06/2025 12:19 PM CDT Pulse 52 05/06/2025 12:19 PM CDT Temperature 36.3 C (97.4 F) 05/06/2025 12:19 PM CDT Respiratory Rate 16 05/06/2025 12:19 PM CDT Oxygen Saturation 99% 05/06/2025 12:17 PM CDT Inhaled Oxygen Concentration - - Weight 63.5 kg (140 lb) 05/06/2025 12:00 PM CDT Height 157.5 cm (5' 2) 05/06/2025 12:00 PM CDT Body Mass Index 25.61 05/06/2025 12:00 PM CDT Plan of Treatment Upcoming Encounters Date Type Department Care Team (Late st Contact Info) Description 06/27/2025 12:30 PM FLOOR SCRUBBER Office Visit [facility] [place] [phone] Naila Abernathy MD [address] [place] [address] 07/04/2025 3:00 PM FLOOR SCRUBBER Office Visit [facility] [address] [place] [address] Cece Rothman NP [address] [facility] [address]. [address] [place] [address] Health Maintenance Due Date Last Done Comments Hemoglobin A1C 1945 Diabetes: Retinopathy Eye Exam 11/01/1963 DTaP, Tdap and Td Vaccines (1 - Tdap) 1964 Zoster Vaccines (1 of 2) 1964 Annual Medicare Wellness Visit 2010 Dexa Scan (General) 2010 Lipid Panel 05/07/2015 05/07/2014 RSV Immunization or 60+ Years (1 - 1-dose 75+ series) 2020 COVID-19 Vaccine ( season) 2025 05/26/2021, 10/11/2020, 09/20/2020 Influenza Adult (#1) 2025 05/30/2020, 06/03/2019, 07/03/2017, Additional history exists Hepatitis C Completed 04/22/2023, 04/19/2023 Pneumococcal Vaccine: 50+ Years Completed 06/17/2023, 04/28/2015 Hepatitis A Vaccines Aged Out No long er eligible based on patient's age to complete this topic Meningococcal B Vaccine Aged Out No l onger eligible based on patient's age to complete this topic Meningococcal Vaccine Aged Out No seng natalee eligible based on patient's age to complete this topic RSV Immunizations Under 20 Months Aged Out No longer eligible based on patient's age to complete this topic Procedures Procedure Name Priority Date/Time Associated Diagnosis Comments ECG 12-LEAD Routine 05/06/2025 12:27 PM CDT Paroxysmal atrial fibrillation (CMS/HCC [facility]/HCC) DIGOXIN Routine 05/06/2025 11:20 AM CDT Persistent atrial fibrillation (CMS/HCC [facility]/HCC) BASIC METABOLIC PANEL STAT 05/06/2025 11:20 AM CDT Persistent atrial fibrillation (CMS/HCC [facility]/HCC) CARDIOVERSION EXTERNAL Routine 11:11 AM CDT Persistent atrial fibrillation (CMS/HCC HHS/HCC) MOBILE CONTINUOUS TELEMETRY ALFIE 05/02/2025 2:51 PM CDT Paroxysmal atrial fibrillation (CMS/HCC [facility]/HCC) ELECTROCARDIOGRAM (NON MIDMARK ACQUIRED) Routine 04/26/2025 2:51 PM CDT Paroxysmal atrial fibrillation (CMS/HCC [facility]/HCC) Atrial flutter, unspecified type (CMS/HCC H[facility]/HCC) Palpitation Hyperlipidemia, mixed MOBILE CONTINUOUS TELEMETRY Routine 03/24/2025 8:00 AM CDT S/P AVR (aortic valve replacement) Palpitation HEPATITIS PANEL,ACUTE Routine 04/22/2023 7:27 AM CDT LIPID PANEL Routine 05/07/2014 12:00 AM CDT from Last 3 Months or Most Recently Relevant to Health Maintenance Results * ECG 12 lead (05/06/2025 12:27 PM CDT) 05/06/2025 12:2 7 PM CDT Narrative [facility] RAD - 05/06/2025 6:07 PM CDT [facility] [address] [place] [address] Test Date: 2025-05-06 Pat Name: ALEXIS ROCHE Department: 1 Room: Gender: Female Leather Whitener: Rex : 1945 Requested By: YON HESTER Order Number: [id number] Reading MD: Yon Hester Measurements Intervals [place]shaw Rate: 59 P: 85 MN: 210 QRS: -47 QRSD: 116 T: -52 QT: 484 QTc: 481 Interpretive Statements SINUS BRADYCARDIA WITH FIRST DEGREE AV BLOCK OCCASIONAL SUPRAVENTRICULAR PREMATURE COMPLEXES LEFT ANTERIOR FASCICULAR BLOCK LEFT VENTRICULAR HYPERTROPHY AND ST-T CHANGE Procedure Note Yon Hester MD - 05/06/2025 [facility] [address] [place] [address] Test Date: 2025-05-06 Pat Name: ALEXIS ROCHE Department: 1 Room: Gender: Female Leather Whitener: As : 1945 Requested By: YON HESTER Order Number: [id number] Reading MD: Yon Hester Measurements Intervals [place]shaw Rate: 59 P: 85 MN: 210 QRS: -47 QRSD: 116 T: -52 QT: 484 QTc: 481 Interpretive Statements SINUS BRADYCARDIA WITH FIRST DEGREE AV BLOCK OCCASIONAL SUPRAVENTRICULAR PREMATURE COMPLEXES LEFT ANTERIOR FASCICULAR BLOCK LEFT VENTRICULAR HYPERTROPHY AND ST-T CHANGE us Yon Hester MD ECG ORDERABLES Final Result [facility] RAD * (ABNORMAL) BASIC METABOLIC PANEL (05/06/2025 11:20 AM CDT) SODIUM S/P/B 133(L) 136 - 145 MMOL/L 05/06/2025 12:13 PM CDT [facility] POTASSIUM S/P/B 4.2 3.5 - 5.1 MMOL/L 05/06/2025 12:13 PM CDT [facility] CHLORIDE S/P/B 102 97 - 115 MMOL/L 05/06/2025 12:13 PM CDT [facility] CO2 24.6 21.0 - 32.0 MMOL/L 05/06/2025 12:13 PM CDT [facility] GLUCOSE 146(H) 74 - 106 MG/DL 05/06/2025 12:13 PM CDT [facility] BUN 20(H) 7 - 18 MG/DL 05/06/2025 12:13 PM CDT [facility] CREATININE S/P/B 1.55(H) 0.55 - 1.02 MG/DL 05/06/2025 12:13 PM CDT [facility] CALCIUM S/P/B 9.3 8.5 - 10.1 MG/DL 05/06/2025 12:13 PM CDT [facility] ANION GAP 6.4 2.0 - 10.0 MMOL/L 05/06/2025 12:13 PM CDT [facility] OSMOLALITY (CALC) 281 MOSM/KG 025 12:13 PM CDT [facility] Comment:REFERENCE RANGE NOT ESTABLISHED GFR ESTIMATE 34(L) >90 ML/MIN/1. 73 M2 05/06/2025 12:13 PM CDT [facility] GFR NOTES GFR REFERENCE S: 05/06/2025 12:13 PM CDT [facility] Comment: THE ESTIMATED GFR [...] ml/min/1.73 m2 G5,KIDNEY FAILURE: <15 ml/min/1.73 m2 05/06/2025 11:2 0 AM CDT Yon Hester MD LABORATORY Final Result [facility] [address] [place] [address], [id number] * (ABNORMAL) DIGOXIN (05/06/2025 11:20 AM CDT) DIGOXIN 2.3(H) 0.8 - 2.0 NG/ML 05/06/2025 12:13 PM CDT [facility] 05/06/2025 11:2 0 AM CDT Yon Hester MD LABORATORY Final Result [facility] [address] [place] [address], [id number] * CLINIC - [id number] MCT - Today (05/02/2025 2:51 PM CDT) Only the most recent of2 resultswithin the time period is included. Narrative [facility] - 05/02/2025 2:51 PM CDT Ambulatory Patient'S Librarian Report Patient Name: Alexis Roche : 1945 [facility]: [id number] Date of Testin04/28/2025 Ordering Provider: YON HESTER M.D. Indication: Atrial fibrillation FINDINGS: The patient underwent cardiac monitoring for a total of 6 days, starting on 04/23/25 through 04/28/25. Approximately 58% of the monitored period produced readable data. BASELINE RHYTHM: The baseline rhythm was atrial fibrillation with heart rates ranging between 73 and 185 bmp, and average rate of 102 bpm. SINUS NODE FUNCTION: Sinus node function could not be assessed because of the presence of persistent atrial fibrillation. AV CONDUCTION: There was no evidence of significant A-V block. Ventricular pauses >3 seconds were not observed. ATRIAL ARRHYTHMIAS: Atrial fibrillation persisted throughout the monitored period and was associated with RVR. VENTRICULAR ARRHYTHMIAS: There were rare PVC's, with a burden of <1% of total heart beats. Sustained ventricular tachycardia was not observed. SYMPTOMS: The patient reported no symptoms throughout the monitoring period.. SUMMARY: 1. Atrial fibrillation persisted throughout the monitored period and was associated with RVR. 2. No symptoms were reported. Signed YON HESTER MD 05/05/2025 Omar Cueva PA-C CV VASCULAR ORDERABLES Fin al Result Performing Organization Address City/[facility] Co de Phone Number [facility] * ELECTROCARDIOGRAM (04/26/2025 2:51 PM CDT) 04/26/2025 2:51 PM CDT Narrative [facility] - 05/02/2025 2:31 PM CDT [facility] [address] [place] [address] Test Date: 2025-04-26 Pat Name: ALEXIS DURANTELEY Department: 105 Room: Gender: Female Leather Whitener: aiden : 1945 Requested By: YON HESTER Order Number: [id number] Reading MD: Yon Hester Measurements Intervals Crenshaw Rate: 86 P: 0 MN: 0 QRS: -44 QRSD: 98 T: 113 QT: 375 QTc: 450 Interpretive Statements ATRIAL FIBRILLATION LEFT AXIS DEVIATION MODERATE VOLTAGE CRITERIA FOR LVH, CONSIDER NORMAL VARIANT MODERATE T-WAVE ABNORMALITY, CONSIDER LATERAL ISCHEMIA Procedure Note Yon Hester MD - 05/02/2025 [place] [address] Test Date: 2025-04-26 Pat Name: ALEXIS [facility] Department: 105 Room: Gender: Female Leather Whitener: aiden : 1945 Requested By: YON HESTER Order Number: [id number] Reading MD: Yon Hester Measurements Intervals Crenshaw Rate: 86 P: 0 MN: 0 QRS: -44 QRSD: 98 T: 113 QT: 375 QTc: 450 Interpretive Statements ATRIAL FIBRILLATION LEFT AXIS DEVIATION MODERATE VOLTAGE CRITERIA FOR LVH, CONSIDER NORMAL VARIANT MODERATE T-WAVE ABNORMALITY, CONSIDER LATERAL ISCHEMIA us Yon Hester MD PROCEDURES-ORDERABLE NO CHARGE F inal Result Performing Organization Address City/[facility] Co de Phone Number [facility] * HEPATITIS PANEL,ACUTE (04/22/2023 7:27 AM CDT) HEPATITIS B SURFACE AG NON-REACT ANABELLA NON-REACT ANABELLA 09/22/2023 2:22 PM FLOOR SCRUBBER [facility] Comment:HBsAg NOT DETECTED. HEP B CORE IGM NON-REACT ANABELLA NON-REACT ANABELLA 09/22/2023 2:22 PM FLOOR SCRUBBER [facility] Comment: IgM ANTI HBc NOT DETECTED. DOES NOT EXCLUDE THE POSSIBILITY OF EXPOSURE TO OR INFECTION WITH HBV. NO RETEST REQUIRED. HIGH DOSES OF BIOTIN MAY INTERFERE WITH THIS TEST RESULT. CORRELATION TO CLINICAL HISTORY AND PRESENTATION RECOMMENDED. HAV IGM NON-REACT ANABELLA NON-REACT ANABELLA 09/22/2023 2:22 PM FLOOR SCRUBBER [facility] Comment: IgM ANTI HAV NOT DETECTED. DOES NOT EXCLUDE THE POSSIBILITY OF EXPOSURE TO OR INFECTION WITH HAV. LEVELS OF IgM ANTI HAV MAY BE BELOW THE CUTOFF IN EARLY INFECTION. HEPATITIS C AB NON-REACT ANABELLA NON-REACT ANABELLA 09/22/2023 2:22 PM FLOOR SCRUBBER [facility] Comment: ANTIBODIES TO HCV NOT DETECTED. DOES NOT EXCLUDE THE POSSIBILITY OF EXPOSURE TO HCV. 04/22/2023 7:27 AM CDT Obed Posadas MD LABORATORY Final Resul t [facility] [address] [place] [address], [id number] * LIPID PANEL (05/07/2014 12:00 AM CDT) [...] Documents on File Type Date Recorded Patient Electronic Induction Hardener Expl anation Power of Vehicle Upholsterer 04/10/2023 POWER OF A TTORNEY * Full Code (Latest Code Status on File) Date Activated Date Inactivated Comments 03/15/2025 9:40 AM 03/15/2025 3:36 PM * DNR Date Activated Date Inactivated Comments 03/14/2025 12:47 PM 03/15/2025 9:40 AM * DNR Date Activated Date Inactivated Comments 04/09/2023 2:05 PM 07/09/2023 11:00 AM Care Teams Stud Dairy Cattle Farmer Relationship Specialty Start Date End Date Gladys Jin MD [address] [place] [address] PCP - General INTERNAL MEDICINE 08/06/18 Naila Abernathy MD [address] [place] [address] Consulting Physician CARDIOVASCULAR DISEASE 02/15/24
--- OUTSIDE RECORDS SUMMARY | 2025-06-23 13:20 | XMS_ITS | Encounter Summary ---
Author Organization [facility] Address [address] [place] [address] Care Team Providers Care Trackman Name Role Phone Gladys Jin MD Primary Care Provider [phone] Santo Ordonez MD Unavailable [phone] Naila Abernathy MD Unavailable Encounter Details Date Type Department Care Team (Late st Contact Info) Description 11/01/2017 Abstract [facility] CONVERSION [address] [place] [address] , Generic Conversion, Social History [...] st Contact Info) Description 06/27/2025 12:30 PM RETAINING ROOM CUTTER Office Visit [facility] [place] [address] Naila Abernathy MD [address] [place], [place] [phone] 07/04/2025 3:00 PM RETAINING ROOM CUTTER Office Visit [facility] [address] [place] [address] Cece Rothman, FAMILY MEDICINE PHYSICIAN ASSISTANT [address] [facility] [address] [place] [address] documented as of this encounter Visit Diagnoses Not on filedocumented in this encounter Care Teams Trackman Relationship Specialty Start Date End Date Gladys Jin MD [address] [place] [phone] PCP - General INTERNAL MEDICINE 08/06/18 Santo Ordonez MD [address] [place] [address] [place] Scribing Machine Operator CARDIOVASCULAR DISEASE 08/06/18 02/14/24 Naila Abernathy MD [address] [place] [address] Consulting Physician CARDIOVASCULAR DISEASE 02/15/24 documented as of this encounter
--- OUTSIDE RECORDS SUMMARY | 2025-06-23 13:20 | XMS_ITS | Encounter Summary ---
Author Organization [facility] Address [address] [place] [address] Care Team Providers Care Power Generation Plant Operator Name Role Phone Gladys Jin MD Primary Care Provider [phone] Naila Abernathy MD Unavailable Encounter Details Date Type Department Care Team (Late st Contact Info) Description 03/17/2025 Hospital Follow-up Call [facility] [address] [place] [address] Kait Wright RN Social History Tobacco Use Types Packs/Day Years Used Date Smoking Tobacco: Never Smokeless Tobacco: Never Alcohol Use Standard Drinks/Week Comments Not Currently 0 (1 standard drink = 0.6 oz pur e alcohol) [facility] Utilities Answer Date Recorded In the past 12 months has [facility] [employer] gas, oil, or water [employer] threatened to shut off services in your [...] week 04/09/2023 How often do you attend [facility] or mandaen services? 1 to 4 times per year 04/09/2023 Do you belong to any clubs o r organizations such as congregational groups, unions, fraternal or athletic groups, or [...] and heating? Not hard at all 03/15/2025 [facility] - Occupational [...] place to sleep or slept in a longterm (including now)? No 04/09/2023 Housing Stability Vital [...] time in the past 12 m [facility], were you homeless or living in a longterm (including now)? No 03/15/2025 Comments Unknown Sex [...] Date Author Status No 03/15/2025 9:45 AM Magali Rodriguez LPN Active documented in this encounter Plan of Treatment Upcoming Encounters Date Type Department Care Team (Late st Contact Info) Description 06/27/2025 12:30 PM PUBLIC RELATIONS SUPERVISOR Office Visit [facility] [place] [address] Naila Abernathy MD [address] [place] [address] 07/04/2025 3:00 PM PUBLIC RELATIONS SUPERVISOR Office Visit [facility] [address] [place] [address] Cece Rothman NP [address] [facility] [address] [place] [address] documented as of this encounter Visit Diagnoses Not on filedocumented in this encounter Care Teams Power Generation Plant Operator Relationship Specialty Start Date End Date Gladys Jin MD [address] [place] [phone] PCP - General INTERNAL MEDICINE 08/06/18 Naila Abernathy MD [address] [place] [address] Consulting Physician CARDIOVASCULAR DISEASE 02/15/24 documented as of this encounter
--- OUTSIDE RECORDS SUMMARY | 2025-06-23 13:20 | XMS_ITS | Encounter Summary ---
Author Organization [facility] Address [address] [place] [address] Care Team Providers Care Mold Polisher Name Role Phone Gladys Jin MD Primary Care Provider [phone] Naila Abernathy MD Unavailable Reason for Visit * Reason Onset Date Comments Medication 06/22/2025 Question 06/22/2025 Encounter Details Date Type Department Care Team (Late st Contact Info) Description 06/22/2025 Telephone [facility] [address] [place] [address] Yon Gonzales MD [address] [place] [address] Medication; Question Social History Tobacco Use Types Packs/Day Years Used Date Smoking Tobacco: Never Smokeless Tobacco: Never Alcohol Use Standard Drinks/Week Comments Not Currently 0 (1 standard drink = 0.6 oz pur e alcohol) [facility] Utilities Answer Date Recorded In the past 12 months has e [employer], gas, oil, or water [employer] threatened to shut off services in your [...] week 04/09/2023 How often do you attend [facility] or baptism services? 1 to 4 times per year 04/09/2023 Do you belong to any clubs o r organizations such as yazidism groups, unions, fraternal or athletic groups, or [...] and heating? Not hard at all 03/15/2025 [facility] - Occupational Stress [...] place to sleep or slept in a half-way (including now)? No 04/09/2023 Housing Stability Vital Sign Answer Behzad e Recorded In the last 12 months, was t here a time when you were not able to pay the mortgage or rent on time? No 03/15/2025 In the past 12 months, how m any times have you moved where you were living? 0 03/15/2025 At any time in the past 12 m [facility], were you homeless or living in a half-way (including now)? No 03/15/2025 Comments Unknown Sex [...] Status Yes 03/15/2025 9:45 AM CDT Magali Geller, ALUMINIZER Active * Are you blind or do you have serious difficulty seeing, even when wearing glasses? Answer Date of Assessment Author Status Yes 03/15/2025 9:45 AM CDT Magali Geller LPN Active * Do you have serious difficulty walking or climbing stairs? Answer Date of Assessment Author Status No 03/15/2025 9:45 AM CDT Magali Geller, ALUMINIZER Active * Do you have difficulty dressing or bathing? Answer Date of Assessment Author Status No 03/15/2025 9:45 AM CDT Magali Geller LPN Active * Because of a physical, mental, or emotional condition, do you have difficulty doing errands alone such as visiting a doctor's office or shopping? Answer Date of Assessment Author Status No 03/15/2025 9:45 AM CDMagali Mcdowell, ALUMINIZER Active documented as of this encounter Mental Status * Because of a physical, mental, or emotional condition, do you have serious difficulty concentrating, remembering, or making decisions? Answer Entry Date Author Status No 03/15/2025 9:45 AM CDMagali Mcdowell, ALUMINIZER Active documented in this encounter Progress Notes * Marina Osorio RN - 06/22/2025 12:25 PM CSTAddended by: Marina OSORIO on: 06/22/2025 12:25 PM Modules accepted: Orders R TUBE GRADER * Marina Osorio RN - 06/22/2025 12:24 PM CST Spoke with aisha, reviewed that cardizem was discontinued in April, unsure why pharmacy filled it. Patient should stay on eliquis and refill was sent. R TUBE GRADER * Frances Ford - 06/22/2025 11:51 AM CST Aisha called because pt is out of eliquis and wants to know is she should continue this. If so please send to [facility] in [place]. Pt also has script of diltiazem sitting at the pharmacy and thought pt was to d/c this. Pt has DW appt on 07/04. Please advise. R TUBE GRADER documented in this encounter Plan of Treatment Upcoming Encounters Date Type Department Care Team ([facility] st Contact Info) Description 06/27/2025 12:30 PM PAPER TUBE GRADER Office Visit [facility] [place] [address] Naila Abernathy MD [address] [place] [address] 07/04/2025 3:00 PM PAPER TUBE GRADER Office Visit [facility] [address] [place] [id number] Cece Rothman, SCHOOL TRAFFIC SUPERVISOR [address] [facility] [address] [place] [address] documented as of this encounter Visit Diagnoses Diagnosis Persistent atrial fibrillation ([facility])- Primary Atrial fibrillation documented in this encounter Care Teams Mold Polisher Relationship Specialty Start Date End Date Gladys Jin MD [address] [place] [address] PCP - General INTERNAL MEDICINE 08/06/18 Naila Abernathy MD [address] [place] [address] Consulting Physician CARDIOVASCULAR DISEASE 02/15/24 documented as of this encounter
--- OUTSIDE RECORDS SUMMARY | 2025-06-23 13:20 | XMS_ITS | Encounter Summary ---
Author Organization [facility] Address [address] [place] [address] Care Team Providers Care Wilderness Guide Name Role Phone Gladys Jin MD Primary Care Provider [phone] Santo Ordonez MD Unavailable [phone] Naila Abernathy MD Unavailable Encounter Details Date Type Department Care Team (Late st Contact Info) Description 09/23/2018 Abstract [facility] [address] [place] [address] Abstract, Doc [facility] Social History Tobacco [...] st Contact Info) Description 06/27/2025 12:30 PM TEST AUTOMATION ARCHITECT Office Visit [facility] [place] [address] Naila Abernathy MD [address] [place], [place] [phone] 07/04/2025 3:00 PM TEST AUTOMATION ARCHITECT Office Visit [facility] [address] [place] [address] Cece Rothman, VENUE COORDINATOR [address] [facility] [address] [place] [address] documented as of this encounter Visit Diagnoses Not on filedocumented in this encounter Care Teams Wilderness Guide Relationship Specialty Start Date End Date Gladys Jin MD [address] [place] [phone] PCP - General INTERNAL MEDICINE 08/06/18 Santo Ordonez MD [address] [place] [address] [place] Formal Waiter/Waitress CARDIOVASCULAR DISEASE 08/06/18 02/14/24 Naila Abernathy MD [address] [place] [address] Consulting Physician CARDIOVASCULAR DISEASE 02/15/24 documented as of this encounter
[2025-06-23 15:09] LABS: Free Lambda Lt Chains, Serum 18.1 mg/L (5.7-26.3); Kappa/Lambda Ratio, Serum 7.81 (0.26-1.65)
== END 2025-06-22 13:53 | disposition home or self-care (01) ==
LOC: CHSLAB 13:54
PROVIDERS: PCP Internal Medicine; Visit Provider Internal Medicine Hematology
DX: C90.00 Multiple myeloma not having achieved remission (principal)
CPT/HCPCS: 36415; 82784; 83521; 85025